=== PATIENT | female | born 1965 | race Caucasian/White ===

== ENCOUNTER 2020-09-03 07:57 | Emergency (ER) | payer OTHER, MEDICAID, SELFPAY ==
[2020-09-03] VITALS (16 sets, daily range): BP systolic 116–140; BP diastolic 66–81; PULSE 88–110; RESP 10–20; TEMP 37.1; O2SAT 92–97; BMI 30.7
--- NOTE | 2020-09-03 08:27 | ED.GENADULT ---
HPI - General Adult General Chief complaint: Weakness Stated complaint: Weakness Time Seen by Provider: 09/03/20 08:02 Source: patient and EMS Mode of arrival: EMS Limitations: no limitations History of Present Illness HPI narrative: 54-year-old woman with complex medical history including opioid use disorder (currently in remission, opioid free and on Suboxone for a number of years), methamphetamine use disorder, multiple abscesses. History of necrotizing fasciitis in the right shoulder, chronic left foot and ankle problems after a trauma with chronic deformity requiring lift and brace. Has apparently been at [facility] with a diagnosis of endocarditis from the end of July with anticipated stay through September. She has been complaining of increased edema, upper and lower extremities. She complains of dyspnea, no chest pain, no palpitations. Reportedly had a ELIZABETH done yesterday and was told that she did not have endocarditis. It sounds like she got into some type of altercation with her hospitalist yesterday afternoon and she was discharged home with a prescription for doxycycline. She states that she went home and has been increasingly weak and was unable to even stand unassisted or dress herself this morning due to weakness. She describes no fevers, chills, vomiting, diarrhea. She does note that she had a severe nose bleed last night (not complaining of either hematuria or GI bleeding of any type) which is new for her. She was started on Xarelto in the hospital. She states that she ?hurts everywhere? complains of headache generalized abdominal pain, extremity pain and all joint pain. Records from [facility], [place] have been requested Record review: admitted 08/15 with deep tissue infection right upper extremity and concern for necrotizing fasciitis Was taken to the operating room with the wound I indeed, possibility of endocarditis was entertained with a single positive blood culture and question of a vegetative lesion appreciated on transthoracic echo. She continued to complain of left foot and leg pain. This was thoroughly evaluated with multiple MRI studies that did not show infection. There is a question of a chronic nonocclusive DVT so she was started on Xarelto. Transesophageal echo done yesterday after 2 weeks of IV antibiotics did not suggest vegetative lesions on the valves. After 2 weeks of IV antibiotics and now less likely possibility of active endocarditis, and in consultation with Infectious Disease, it was felt to be appropriate to discontinue IV antibiotics and continue 2 weeks of oral antibiotics, 100 mg of doxycycline. Medications to continue include Xarelto for an additional month, doxycycline for 2 additional weeks, continue her chronic gabapentin, 20 mg of Suboxone, trazodone. They did recommend stopping her lisinopril. She also has lidocaine patches for both arm and leg pain. Related Data Previous Rx's Medication Instructions Recorded furosemide 40 mg PO DAILY #60 tab 09/03/20 potassium chloride 10 meq PO DAILY #30 cap 09/03/20 Allergies Allergy/AdvReac Type Severity Reaction Status Date / Time No Known Drug Allergies Allergy Verified 09/03/20 08:12 Review of Systems Review of Systems Narrative: Remainder of review of systems including constitutional, ENT, cardiovascular, respiratory, GI, , musculoskeletal, skin, neurologic and psychiatric systems reviewed and are unremarkable except as noted in HPI. Patient History Medical History (Updated 09/03/20 @ 15:45 by Trisha Mims MD) Abscess of multiple sites History of necrotizing fasciitis Methamphetamine use disorder, severe Opioid use disorder Social History Smoking Status: Current some day smoker Smoking Status: Current some day smoker tobacco type: cigarettes alcohol intake frequency: 0-2 drinks per day Substance Use Type: methamphetamine Exam Narrative Exam Narrative: General: Chronically ill-appearing, generally weak but Able to give a complete and coherent history. HEENT: Moist mucous membranes, normal sclera with reactive pupils, Neck: Mild JVD, supple Respiratory: Lungs are clear to auscultation, no wheezing no rales no rhonchi. Full and symmetrical air movement Cardiac: Distant heart sounds, Regular rate and rhythm no murmurs no bruits Abdomen: Soft, nontender good bowel tones, no flank pain Skin: Warm and dry, multiple scars from prior abscesses, track jeff. Area over the right deltoid (prior scar) with mild central erythema but no surrounding cellulitis. Neurologic: Grossly neurologically intact with no obvious asymmetries or abnormalities, globally weak Extremities: No trauma, well perfused. Significant upper and lower extremity peripheral edema. Compression socks are removed from lower extremities with moderate edema appreciated, bilateral chronic venous stasis changes without obvious cellulitis. Left foot deformity. Psych: Cooperative, frustrated and confused with discharge last night when she felt like she was not improving Initial Vital Signs Initial Vital Signs: Vital Signs Pulse Rate 108 H 09/03/20 08:09 Respiratory Rate 19 09/03/20 08:09 Pulse Oximetry 97 09/03/20 08:09 Course Orders Ordered: ED Orders 09/03/20 08:40 Complete Blood Count AUTO DIFF Stat Comprehensive Metabolic Panel Stat Magnesium Stat NT-proBNP (BNP-Adult 18+) Stat Procalcitonin Stat Troponin I Stat 09/03/20 09:41 Urinalysis and Microscopic Stat Urine Drug Screen, Rapid Stat Discontinued Medications Buprenorphine/Naloxone (Buprenorphine/Naloxone 8mg/2mg 1 Tab) 2 tab SL NOW ONE Stop: 09/03/20 08:20 Last Admin: 09/03/20 08:28 Dose: 2 tab Documented by: BEN Furosemide (Furosemide 40 Mg Tablet) 80 mg PO NOW ONE Stop: 09/03/20 08:19 Last Admin: 09/03/20 08:28 Dose: 80 mg Documented by: BEN Vital Signs Vital signs: Vital Signs - 8 hr 09/03/20 08:09 09/03/20 08:12 09/03/20 08:30 Temperature 98.7 F Pulse Rate 108 H 110 H 102 H Respiratory Rate 19 20 13 Blood Pressure 140/81 138/74 Pulse Oximetry 97 97 94 09/03/20 09:00 09/03/20 09:30 09/03/20 10:00 Temperature Pulse Rate 99 H 96 H 93 H Respiratory Rate 12 12 10 L Blood Pressure 128/72 131/73 116/66 Pulse Oximetry 96 94 09/03/20 10:30 09/03/20 11:00 09/03/20 11:36 Temperature Pulse Rate 94 H 95 H 95 H Respiratory Rate 11 L 11 L 13 Blood Pressure 128/67 133/78 126/68 Pulse Oximetry 95 93 96 09/03/20 12:00 09/03/20 12:30 09/03/20 13:00 Temperature Pulse Rate 93 H 88 89 Respiratory Rate Blood Pressure Pulse Oximetry 92 09/03/20 13:30 09/03/20 13:31 09/03/20 14:15 Temperature Pulse Rate 89 88 Respiratory Rate 14 Blood Pressure Pulse Oximetry 93 09/03/20 15:00 Temperature Pulse Rate 91 H Respiratory Rate 17 Blood Pressure Pulse Oximetry Medical Decision Making Medical Records Medical records reviewed: Yes I reviewed the patient's medical records. Lab Data Lab results reviewed: Yes I reviewed the patient's lab results. Result diagrams: 09/03/20 08:40 09/03/20 08:40 Labs: Lab Results 09/03/20 09/03/20 09/03/20 Range/Units 08:40 08:40 08:40 WBC (4.5-11.0) X10^3/uL RBC (4.0-5.2) X10^6/uL Hgb (12.0-16.0) g/dL Hct (36-46) % MCV (80-100) fL MCH (26-34) PG MCHC (30-36) % RDW (11.6-14.8) % Plt Count (150-400) X10^3/uL Neut % (Auto) (50-75) % Lymph % (Auto) (25-40) % Crowley % (Auto) (3-14) % Eos % (Auto) (2-4) % Baso % (Auto) (0-2) % Neut # (Auto) (3714-8482) /uL Lymph # (Auto) (3071-2937) /uL Crowley # (Auto) (0-900) /uL Eos # (Auto) (0-450) /uL Baso # (Auto) (0-100) /uL Sodium 137 (137-145) mmol/L Potassium 3.9 (3.4-5.1) mmol/L Chloride 100 (98-107) mmol/L Carbon Dioxide 33 H (22-32) mmol/L BUN 33 H (7-17) mg/dL Creatinine 1.12 H (0.52-1.04) mg/dL Estimated GFR 50.9 L (>60) mL/min BUN/Creatinine Ratio 29.5 H (6-22) Glucose 206 H (70-100) mg/dL Calcium 8.9 (8.4-10.2) mg/dL Magnesium 1.5 L (1.6-2.3) mg/dL Total Bilirubin 0.2 (0.2-1.3) mg/dL AST 30 (14-36) IU/L ALT 31 (<35) IU/L Alkaline Phosphatase 115 (38-126) U/L Troponin I < 0.012 (0.01-0.034) ng/mL NT-Pro-B Natriuret Pep 79 (<125) pg/mL Total Protein 8.2 (6.3-8.2) g/dL Albumin 3.7 (3.5-5.0) g/dL Globulin 4.5 H (1.7-4.1) g/dL Albumin/Globulin Ratio 0.8 L (1.0-2.8) Procalcitonin < 0.05 (<0.5) ng/mL Urine Color Urine Appearance Urine pH (4.5-8.0) Ur Specific [place] (1.000-1.035) Urine Protein (Negative) Urine Glucose (UA) (Negative) g/dL Urine Ketones (NEGATIVE) Urine Occult Blood (Negative) Urine Nitrate (Negative) Urine Bilirubin (NEGATIVE) Urine Urobilinogen (0.2) E.U./dL Ur Leukocyte Esterase (NEGATIVE) Urine RBC (0-5/HPF) Urine WBC (0-5/HPF) Ur Squamous Epith Cells (0-5/HPF) Urine Bacteria (None) Ur Culture Indicated? U Opiates 300ng/mL cut (Negative) Ur Oxycodone Screen (Negative) Urine Methadone Screen (Negative) Ur Barbiturates Screen (Negative) U Tricyclic Antidepress (Negative) Ur Phencyclidine Scrn (Negative) Ur Amphetamines Screen (Negative) U Methamphetamines Scrn (Negative) Ur MDMA Scrn (Ecstasy) (Negative) U Benzodiazepines Scrn (Negative) Urine Cocaine Screen (Negative) U Marijuana (THC) Screen (Negative) 09/03/20 09/03/20 09/03/20 Range/Units 08:40 09:41 09:41 WBC 6.7 (4.5-11.0) X10^3/uL RBC 3.36 L (4.0-5.2) X10^6/uL Hgb 8.4 L (12.0-16.0) g/dL Hct 26.4 L (36-46) % MCV 78.5 L (80-100) fL MCH 24.9 L (26-34) PG MCHC 31.7 (30-36) % RDW 19.5 H (11.6-14.8) % Plt Count 340 (150-400) X10^3/uL Neut % (Auto) 58.9 (50-75) % Lymph % (Auto) 19.0 L (25-40) % Crowley % (Auto) 13.7 (3-14) % Eos % (Auto) 6.8 H (2-4) % Baso % (Auto) 1.6 (0-2) % Neut # (Auto) 3900 (6767-8431) /uL Lymph # (Auto) 1300 (6093-5477) /uL Crowley # (Auto) 900 (0-900) /uL Eos # (Auto) 500 H (0-450) /uL Baso # (Auto) 100 (0-100) /uL Sodium (137-145) mmol/L Potassium (3.4-5.1) mmol/L Chloride (98-107) mmol/L Carbon Dioxide (22-32) mmol/L BUN (7-17) mg/dL Creatinine (0.52-1.04) mg/dL Estimated GFR (>60) mL/min BUN/Creatinine Ratio (6-22) Glucose (70-100) mg/dL Calcium (8.4-10.2) mg/dL Magnesium (1.6-2.3) mg/dL Total Bilirubin (0.2-1.3) mg/dL AST (14-36) IU/L ALT (<35) IU/L Alkaline Phosphatase (38-126) U/L Troponin I (0.01-0.034) ng/mL NT-Pro-B Natriuret Pep (<125) pg/mL Total Protein (6.3-8.2) g/dL Albumin (3.5-5.0) g/dL Globulin (1.7-4.1) g/dL Albumin/Globulin Ratio (1.0-2.8) Procalcitonin (<0.5) ng/mL Urine Color Yellow Urine Appearance Clear Urine pH 7.0 (4.5-8.0) Ur Specific [place] 1.015 (1.000-1.035) Urine Protein Negative (Negative) Urine Glucose (UA) Negative (Negative) g/dL Urine Ketones Negative (NEGATIVE) Urine Occult Blood Negative (Negative) Urine Nitrate Negative (Negative) Urine Bilirubin Negative (NEGATIVE) Urine Urobilinogen 0.2 (0.2) E.U./dL Ur Leukocyte Esterase Negative (NEGATIVE) Urine RBC 0-1/hpf (0-5/HPF) Urine WBC None seen (0-5/HPF) Ur Squamous Epith Cells 0-1 /hpf (0-5/HPF) Urine Bacteria None seen (None) Ur Culture Indicated? Cult not indicated U Opiates 300ng/mL cut Negative (Negative) Ur Oxycodone Screen Positive H (Negative) Urine Methadone Screen Negative (Negative) Ur Barbiturates Screen Negative (Negative) U Tricyclic Antidepress Negative (Negative) Ur Phencyclidine Scrn Negative (Negative) Ur Amphetamines Screen Negative (Negative) U Methamphetamines Scrn Positive H (Negative) Ur MDMA Scrn (Ecstasy) Negative (Negative) U Benzodiazepines Scrn Negative (Negative) Urine Cocaine Screen Negative (Negative) U Marijuana (THC) Screen Positive H (Negative) MDM Narrative Medical decision making narrative: 54-year-old woman with significant medical history discharge from [facility] yesterday. Had been expecting to stay for 6 weeks with an initial diagnosis of endocarditis. At 2 weeks transesophageal echo was done or and revealed no endocardial lesion. Infectious Disease recommended only 2 weeks of IV antibiotics for the I&D abscess of the upper right arm and 2 weeks of doxycycline. She had an altercation with the hospitalist yesterday and requested a new doctor. He discharged her and did not fully explain all of her diagnoses in a way that she was able to understand. She comes in today complaining of weakness. There is no evidence of severe heart failure, sepsis, overall infection, liver failure or renal failure. She does note that she did use a ?small amount? of methamphetamine on her way home from the hospital yesterday but has not used again. We had a long discussion about congestive heart failure. Her left Ventricular ejection fraction is 50% (transthoracic echocardiogram initially had better ejection fraction at 68%). She does have complaints of exertional dyspnea however chest x-ray does not show severe fluid overload. She has got some mild exertional wheeze but no wheeze or crackles when at rest. Oxygen saturations remain in the upper 90% range. She is not tachycardic on arrival. She responded nicely to 80 mg of oral Lasix with a large volume of urine output. Reviewed findings and recommendations. At this point she has no primary care physician but will need follow-up from her hospital stay. She will need further evaluation to make sure all of the infectious disease etiologies are improving. She will need renal function evaluation to make sure that the Lasix and potassium are at appropriate doses, she will need re-evaluation for her congestive heart failure. Because her creatinine had increased slightly while in the hospital they had recommended that she discontinue her OTM-inhibitor. Blood sugars were also slightly elevated and will need follow-up. She is given the phone number for [facility] health resource efficiency manager to help arrange for primary care follow-up within 1-2 weeks. We did contact a cab to help her get home however her 1st request [place] the [place] 2nd request was to be taken to a pot store. Let her know that the cab would want to take her directly home and she became quite angry and verbally abusive to staff sating it was not ?any their business where the cab took her?. We simply explained the cab may not be willing to take her to locations other than her home. Patient remains angry and frustrated and feels that nobody has explained her diagnoses and is convinced that she is going to soon. I spent easily 30 minutes and trying to review all of the diagnoses recently and reassure her that she does have some control but that also means stopping her methamphetamine use and avoiding any additional injection drug use of any kind. She remains angry, distrustful and frustrated overall that she does not feel better. Discharge Plan Departure Patient Disposition: Home Clinical Impression: Weakness Congestive heart failure Qualifiers: Heart failure type: diastolic Heart failure chronicity: chronic Qualified Code(s): I50.32 - Chronic diastolic (congestive) heart failure Instructions: DI for Heart Failure Activity Restrictions/Additional Instructions: I am so sorry that your interactions with the medical community have been so frustrating You do in fact have congestive heart failure. I am sending you home with prescriptions for Lasix/furosemide and recommending that you take 40 mg daily. With this you will also need to take 10 mEq of potassium daily Please contact [facility] a health resource efficiency manager at [phone] you will need outpatient follow-up in 1-2 weeks for Your recent stay at [facility] with the abscess in the right arm Congestive heart failure Fluid overload Global weakness and deconditioning Elevated blood sugars Elevated blood pressures Overall renal function They put you on Xarelto because of concerns for a partial deep vein thrombosis in your left leg that is not occluding blood flow Please complete 2 additional weeks of doxycycline as prescribed from hospital and an additional month of Xarelto I have given you a prescription for the Lasix and potassium Please continue your gabapentin and Suboxone as prescribed prior to admission to the hospital You do have control over your health and you can make a difference in how well you heal. Given your body all of the medicines that it needs and making sure that your staying away from toxins that are killing it (like methamphetamine) will help you live longer and healthier life Prescriptions: New furosemide 20 mg tablet 40 mg PO DAILY Qty: 60 RF: 0 potassium chloride 10 mEq capsule, extended release 10 meq PO DAILY Qty: 30 RF: 0
[2020-09-03] MEDS: BUPRENORPHINE/NALOXONE 8MG/2MG 1 TAB 2 TAB SL (08:28)
[2020-09-03] MEDS: FUROSEMIDE 40 MG TABLET 80 MG PO (08:28)
[2020-09-03 08:59] LABS: Alanine Aminotransferase 31 IU/L (<35); Albumin 3.7 g/dL (3.5-5.0); Albumin Globulin Ratio 0.8 (1.0-2.8); Alkaline Phosphatase 115 U/L (38-126); Aspartate Aminotransferase 30 IU/L (14-36); BUN Creatinine Ratio 29.5 (6-22); Bilirubin Total 0.2 mg/dL (0.2-1.3); Blood Urea Nitrogen 33 mg/dL (7-17); Calcium 8.9 mg/dL (8.4-10.2); Carbon Dioxide 33 mmol/L (22-32); Chloride 100 mmol/L (98-107); Estimated Glomerular Filt Rate 50.9 mL/min (>60); Globulin 4.5 g/dL (1.7-4.1); Glucose 206 mg/dL (70-100); HEMOLYSIS < 15 (0-50); Magnesium 1.5 mg/dL (1.6-2.3); Potassium 3.9 mmol/L (3.4-5.1); Sodium 137 mmol/L (137-145); Total Protein 8.2 g/dL (6.3-8.2)
[2020-09-03 09:08] LABS: NT-proBNP (BNP-Adult 18+) 79 pg/mL (<125)
[2020-09-03 09:11] LABS: Troponin I < 0.012 ng/mL (0.01-0.034)
[2020-09-03 09:15] LABS: Procalcitonin < 0.05 ng/mL (<0.5)
[2020-09-03 09:45] LABS: Bacteria Urine None Seen; WBC Urine None Seen (0-5/HPF)
[2020-09-03 09:49] LABS: Appearance Urine UA CLEAR; Bilirubin Urine UA NEGATIVE (NEGATIVE); Color Urine UA YELLOW; Glucose Urine UA NEGATIVE (Negative); Ketones Urine UA NEGATIVE (NEGATIVE); Leukocyte Esterase Urine UA NEGATIVE (NEGATIVE); Nitrite Urine UA NEGATIVE (Negative); Occult Blood Urine UA NEGATIVE (Negative); Protein Urine UA NEGATIVE (Negative); Specific Gravity Urine UA 1.015 (1.000-1.035); Urobilinogen Urine UA 0.2 E.U./dL (0.2)
[2020-09-03 09:54] LABS: UR Morphine/Opiate cutoff 300 Negative (Negative); Ur Creatinine Normal (Normal); Ur Specific Gravity Normal (Normal); Urine Amphetamines Negative (Negative); Urine Barbiturates Negative (Negative); Urine Benzodiazepines Negative (Negative); Urine Cocaine Negative (Negative); Urine MDMA Negative (Negative); Urine Methadone Negative (Negative); Urine Methamphetamines Positive (Negative); Urine Oxycodone Positive (Negative); Urine Phencyclidine Negative (Negative); Urine Tetrahydrocannabinol Positive (Negative); Urine Tricyclic Antidepressant Negative (Negative); Urine pH Normal (Normal)
[2020-09-03 09:56] LABS: Culture Indicated Urine Cult Not Indicated; RBC Urine 0-1/HPF (0-5/HPF); Squamous Epithelial Cell Urine 0-1 /HPF (0-5/HPF)
[2020-09-03 13:21] LABS: Add Manual Diff / Slide Review NO; Basophils Absolute Auto 100 /uL (0-100); Basophils Percent Auto 1.6 % (0-2); Eosinophils Absolute Auto 500 /uL (0-450); Eosinophils Percent Auto 6.8 % (2-4); Hematocrit 26.4 % (36-46); Hemoglobin 8.4 g/dL (12.0-16.0); Lymphocytes Absolute Auto 1300 /uL (1100-4500); Mean Corpuscular HGB Conc 31.7 % (30-36); Mean Corpuscular Hemoglobin 24.9 PG (26-34); Mean Corpuscular Volume 78.5 fL (80-100); Monocytes Absolute Auto 900 /uL (0-900); Monocytes Percent Auto 13.7 % (3-14); Neutrophils Absolute Auto 3900 /uL (1500-7000); Neutrophils Percent Auto 58.9 % (50-75); Platelet Count 340 X10^3/uL (150-400); Red Blood Cell Count 3.36 X10^6/uL (4.0-5.2); Red Cell Distribution Width 19.5 % (11.6-14.8); White Blood Cell Count 6.7 X10^3/uL (4.5-11.0)
== END 2020-09-03 16:07 | disposition home or self-care (01) ==
PROVIDERS: Emergency Provider Emergency Medicine
DX: I50.32 Chronic diastolic (congestive) heart failure (principal); R53.1 Weakness; R06.00 Dyspnea, unspecified; Z79.01 Long term (current) use of anticoagulants; R51.9 Headache, unspecified; R10.84 Generalized abdominal pain; M72.6 Necrotizing fasciitis; R60.0 Localized edema
CPT/HCPCS: 80053; 80305; 81001; 83735; 83880; 84145; 84484; 85025; 99281; 99283

== ENCOUNTER 2022-02-19 20:26 | Observation (INO) | payer OTHER, MEDICAID, SELFPAY ==
[2022-02-19 20:53] VITALS: BP 129/68; PULSE 98; RESP 24; TEMP 36.9; O2SAT 99
--- NOTE | 2022-02-19 21:48 | DI.RAD.S_ITS ---
PROCEDURE: XR CHEST 1V INDICATIONS: SUSPECTED SEPSIS TECHNIQUE: One view of the chest was acquired. COMPARISON: None. FINDINGS: Surgical changes and devices: None. Lungs and pleura: Lungs are clear. No pleural effusions or pneumothorax. Mediastinum: Mediastinal contours appear normal. Heart size is normal. Bones and chest wall: No suspicious bony lesions. Overlying soft tissues appear unremarkable. IMPRESSION: 1. No acute cardiopulmonary disease. Dictated by: Gerson Farah M.D. on 02/19/2022 at 22:34 Approved by: Gerson Farah M.D. on 02/19/2022 at 22:34
[2022-02-19] MEDS: SODIUM CHLORIDE 0.9% 1,000 ML 1000 ML IV (21:56)
[2022-02-19 21:59] LABS: Add Manual Diff / Slide Review NO; Basophils Absolute Auto 100 /uL (0-100); Eosinophils Absolute Auto 300 /uL (0-450); Eosinophils Percent Auto 4.2 % (2-4); Hematocrit 28.6 % (36-46); Hemoglobin 9.1 g/dL (12.0-16.0); Lymphocytes Absolute Auto 1100 /uL (1100-4500); Mean Corpuscular HGB Conc 31.7 % (30-36); Mean Corpuscular Hemoglobin 22.3 PG (26-34); Mean Corpuscular Volume 70.1 fL (80-100); Monocytes Absolute Auto 900 /uL (0-900); Monocytes Percent Auto 11.1 % (3-14); Neutrophils Absolute Auto 5400 /uL (1500-7000); Neutrophils Percent Auto 69.7 % (50-75); Platelet Count 542 X10^3/uL (150-400); Red Blood Cell Count 4.07 X10^6/uL (4.0-5.2); Red Cell Distribution Width 18.7 % (11.6-14.8); White Blood Cell Count 7.8 X10^3/uL (4.5-11.0)
[2022-02-19 22:01] LABS: Alanine Aminotransferase 13 IU/L (<35); Albumin 3.7 g/dL (3.5-5.0); Albumin Globulin Ratio 0.8 (1.0-2.8); Alkaline Phosphatase 100 U/L (38-126); Aspartate Aminotransferase 21 IU/L (14-36); BUN Creatinine Ratio 16.3 (6-22); Bilirubin Total 0.3 mg/dL (0.2-1.3); Blood Urea Nitrogen 25 mg/dL (7-17); Calcium 8.9 mg/dL (8.4-10.2); Carbon Dioxide 30 mmol/L (22-32); Chloride 97 mmol/L (98-107); Estimated Glomerular Filt Rate 40 mL/min (>60); Globulin 4.4 g/dL (1.7-4.1); Glucose 154 mg/dL (70-100); HEMOLYSIS < 15 (0-50); Lipase 46 U/L (23-300); Potassium 4.2 mmol/L (3.4-5.1); Sodium 135 mmol/L (137-145); Total Protein 8.1 g/dL (6.3-8.2)
[2022-02-19 22:02] VITALS: BP 130/81; PULSE 106; O2SAT 100
[2022-02-19 22:02] LABS: Lactate (Lactic Acid) 1.9 mmol/L (0.7-2.1)
[2022-02-19 22:18] LABS: Procalcitonin 0.11 ng/mL (<0.5)
[2022-02-19 22:30] VITALS: BP 112/61; PULSE 103; RESP 14; O2SAT 94
[2022-02-19 23:00] VITALS: BP 115/65; PULSE 104; RESP 16; O2SAT 97
[2022-02-19 23:30] VITALS: BP 112/63; PULSE 101; RESP 13; O2SAT 97
[2022-02-20] VITALS (15 sets, daily range): BP systolic 89–132; BP diastolic 53–76; PULSE 88–111; RESP 12–23; TEMP 36.3–37.4; O2SAT 95–98; BMI 33.3
--- NOTE | 2022-02-20 00:10 | ED.EXTPRO ---
HPI - Extremity Problem General Chief complaint: Extremity Problem,Nontraumatic Stated complaint: LEG ISSUES NECK PAIN Time Seen by Provider: 02/19/22 21:11 Source: patient Mode of arrival: Ambulatory History of Present Illness HPI Narrative: 56-year-old woman with a history of opiate and methamphetamine use disorder, congestive heart failure sensitivity to vancomycin with red man syndrome, chronic left ankle injury with poor healing, housing instability and chronic venous stasis changes lower extremity edema and intermittent ulcers of the lower extremities with cellulitis as well as multiple abscesses presents with an abscess the mid right thigh that she ?poked with a pin? that has been draining nicely and has minimal surrounding erythema at this point. She has dressings over bilateral lower extremities with purulence drainage from the ulcers and dressings with green discharge smelling of Pseudomonas. The pain in the lower extremities is enough that she is unable to walk at this time. She is not describing significant fevers or chills but she does note significant weakness. She has been intermittently on and off Suboxone and was restarted on Suboxone about a week and half ago but never filled her prescription She notes that she has been resorting to recreational opioids because the pain is been severe in the lower extremities. She states she uses at least half a g of IV heroin and 4-6 of the ?Blues? which is fentanyl Related Data Previous Rx's Medication Instructions Recorded furosemide 20 mg tablet 40 mg PO DAILY #60 tab 09/03/20 potassium chloride 10 mEq 10 meq PO DAILY #30 cap 09/03/20 capsule,extended release Allergies Allergy/AdvReac Type Severity Reaction Status Date / Time No Known Drug Allergies Allergy Verified 09/03/20 08:12 Review of Systems Review of Systems Narrative: Increased lower extremity edema, increased overall pain, significant opioid withdrawal symptoms as opioid dosing wears off, intermittent headaches Remainder of complete review of systems is otherwise unremarkable except for that included in the HPI. Patient History Medical History (Updated 02/20/22 @ 02:40 by Trisha Mims MD) Abscess of multiple sites History of necrotizing fasciitis Methamphetamine use disorder, severe Opioid use disorder Social History Smoking Status: Current some day smoker Smoking Status: Current some day smoker tobacco type: cigarettes alcohol intake frequency: 0-2 drinks per day Substance Use Type: methamphetamine Exam Initial Vital Signs Initial Vital Signs: Vital Signs Temperature 98.4 F 02/19/22 20:53 Pulse Rate 98 H 02/19/22 20:53 Respiratory Rate 24 02/19/22 20:53 Blood Pressure 129/68 02/19/22 20:53 Pulse Oximetry 99 02/19/22 20:53 General: Chronically ill-appearing but in no acute distress. Able to give a complete and coherent history. Well-nourished well-developed HEENT: Moist mucous membranes, normal sclera with reactive pupils, Neck: No JVD, supple Respiratory: Lungs are clear to auscultation, scattered minor wheezing no rales no rhonchi. Full and symmetrical air movement Cardiac: Tachycardic but otherwiseRegular rate and rhythm no murmurs no bruits Abdomen: Soft, nontender, good bowel tones, no flank pain Skin: Multiple scars, track jeff, prior healed abscess sites. Recently drained abscess lateral right thigh with some surrounding induration but no fluctuance. Bilateral chronic venous stasis changes with chronic lower extremity edema. The minor amount of excoriated skin over the left ankle with minor drainage bluish in color with significant odor. Significantly worse excoriation over the right calf and ankle with large developing ulcer again weeping with greenish discharge on the dressings and significant odor. Neurologic: Peripheral neuropathy Extremities: Hyperemic hands consistent with methamphetamine use and outdoor in living, significant onychomycosis, chronically misshapen left ankle from poorly healed prior fracture Psych: Cooperative, appropriate insight and affect Course Orders Ordered: ED Orders 02/19/22 21:20 Blood Culture Stat 02/19/22 21:23 Complete Blood Count AUTO DIFF Stat Comprehensive Metabolic Panel Stat Lactate (Lactic Acid) Stat Lipase Stat Procalcitonin Stat 02/19/22 21:48 XR chest 1V Stat EKG-12 Lead Stat RT Consult Eval and Treat NOW 02/20/22 00:37 Wound Culture and Gram Stain Stat 02/20/22 02:42 COVID19 -Nasal RAPID/Pre-Proc Stat Vancomycin HCl/Dextrose (Vancomycin) 2,000 mg in 400 mls @ 200 mls/hr IV NOW [facility] Methadone HCl (Methadone 10 Mg Tablet) 20 mg PO QID BHARATI Last Admin: 02/20/22 02:40 Dose: 20 mg Documented by: Discontinued Medications Gabapentin (Gabapentin 300 Mg Capsule) 300 mg PO NOW ONE Stop: 02/20/22 02:26 Last Admin: 02/20/22 02:34 Dose: 300 mg Documented by: Sodium Chloride (Normal Saline 0.9%) 1,000 mls @ 1,000 mls/hr IV BOLUS ONE Stop: 02/19/22 22:47 Last Infusion: 02/20/22 00:16 Dose: 0 mls/hr Documented by: Admin: 02/19/22 21:56 Dose: 1,000 mls/hr Documented by: BRITTANI Piperacillin Sod/Tazobactam (Sod 4.5 gm/ Sodium Chloride) 100 mls @ 200 mls/hr IV NOW ONE Stop: 02/20/22 00:22 Last Infusion: 02/20/22 01:26 Dose: 0 mls/hr Documented by: Admin: 02/20/22 00:29 Dose: 200 mls/hr Documented by: WALKER Silver Sulfadiazine (Silver Sulfadiazine 1% Cream 400 Gm) 1 applic TOP NOW ONE Stop: 02/20/22 02:26 Last Admin: 02/20/22 02:33 Dose: 1 applic Documented by: Trazodone HCl (Trazodone 100 Mg Tablet) 100 mg PO NOW ONE Stop: 02/20/22 02:27 Last Admin: 02/20/22 02:40 Dose: 100 mg Documented by: Vancomycin HCl (Vancomycin Per Pharmacy) 1 request MISC NOW ONE Stop: 02/20/22 00:22 Last Admin: 02/20/22 00:41 Dose: Not Given Documented by: WALKER Vital Signs Vital signs: Vital Signs - 8 hr 02/19/22 20:53 02/19/22 22:02 02/19/22 22:30 Temperature 98.4 F Pulse Rate 98 H 106 H 103 H Respiratory Rate 24 14 Blood Pressure 129/68 130/81 112/61 Pulse Oximetry 99 100 94 MDM - Extremity (Nontraumatic) Lab Data Result diagrams: 02/19/22 21:23 02/19/22 21:23 Labs: Lab Results 02/19/22 02/19/22 02/19/22 Range/Units 21:23 21:23 21:23 WBC 7.8 (4.5-11.0) X10^3/uL RBC 4.07 (4.0-5.2) X10^6/uL Hgb 9.1 L (12.0-16.0) g/dL Hct 28.6 L (36-46) % MCV 70.1 L (80-100) fL MCH 22.3 L (26-34) PG MCHC 31.7 (30-36) % RDW 18.7 H (11.6-14.8) % Plt Count 542 H (150-400) X10^3/uL Neut % (Auto) 69.7 (50-75) % Lymph % (Auto) 14.0 L (25-40) % Ward % (Auto) 11.1 (3-14) % Eos % (Auto) 4.2 H (2-4) % Baso % (Auto) 1.0 (0-2) % Neut # (Auto) 5400 (7328-2464) /uL Lymph # (Auto) 1100 (6298-3282) /uL Ward # (Auto) 900 (0-900) /uL Eos # (Auto) 300 (0-450) /uL Baso # (Auto) 100 (0-100) /uL Sodium 135 L (137-145) mmol/L Potassium 4.2 (3.4-5.1) mmol/L Chloride 97 L (98-107) mmol/L Carbon Dioxide 30 (22-32) mmol/L BUN 25 H (7-17) mg/dL Creatinine 1.53 H (0.52-1.04) mg/dL Estimated GFR 40 L (>60) mL/min BUN/Creatinine Ratio 16.3 (6-22) Glucose 154 H (70-100) mg/dL Lactate 1.9 (0.7-2.1) mmol/L Calcium 8.9 (8.4-10.2) mg/dL Total Bilirubin 0.3 (0.2-1.3) mg/dL AST 21 (14-36) IU/L ALT 13 (<35) IU/L Alkaline Phosphatase 100 (38-126) U/L Total Protein 8.1 (6.3-8.2) g/dL Albumin 3.7 (3.5-5.0) g/dL Globulin 4.4 H (1.7-4.1) g/dL Albumin/Globulin Ratio 0.8 L (1.0-2.8) Lipase 46 (23-300) U/L Procalcitonin 0.11 (<0.5) ng/mL Point of Care Testing Test Results Negative Urine Dip Bedside Urine Glucose Negative Bedside Urine Bilirubin - Negative Bedside Urine Ketone - Negative Urine Specific Mallard 1.015 Bedside Urine Occult Blood - Negative Bedside Urine pH 6 Bedside Urine Protein - Negative Bedside Urine Urobilinogen - Negative Bedside Urine Nitrite - Negative Bedside Urine Leukocytes - Negative Esterase ECG Data Interpretation: Sinus tachycardia at 104 Normal interval, normal axis No acute ischemic changes MDM Narrative Medical decision making narrative: 56-year-old woman with a long history of polysubstance use disorder most recently return to use with both heroin and fentanyl and the form of Street purchased ?Blues?. Total morphine equivalent on a daily basis is going to be in the 600+ range. We discussed pain treatment for her as well as opiate use disorder treatment. To switch her to Suboxone which is her preferred method for outpatient use will not be able to adequately control her pain. She has been on methadone in the past and would prefer this and I think this will be more effective dose to q.i.d. for both withdrawal and pain control. In the past she has been as high as 140 mg of methadone. Her dose equivalent see based on reported heroin and fentanyl use is going to be around 60-80 mg of methadone divided 4 times a day simply for avoiding withdrawal symptoms. Will suggest starting with 20 mg 4 times a day for both withdrawal and pain and re-evaluate. Antibiotics initiated include Zosyn. clincial presentation (color of dressing, and smell) all suggest pseudomonas. She has severe adverse reactions to vancomycin typically needs it run at at least a 3rd the rate and still has flushing and itching with that rate. She Would prefer not to use vancomycin at this time. Wound cultures have been obtained. Labs do not suggest sepsis, acute coronary syndrome or congestive heart failure at this point. I think bedrest with leg elevation to help with the chronic edema as well as IV antibiotics will be beneficial. Currently the superficial ulceration and cellulitis of both lower extremities does not suggest deeper tissue infection/osteomyelitis and the thigh abscess has drained and does not need additional I and D at this time. She does agree to hospitalization. Will talk with the hospitalist service. Discharge Plan Departure Patient Disposition: Admitted As Inpatient Clinical Impression: Opioid use disorder, Methamphetamine use disorder, severe, Peripheral neuropathy, Lower extremity edema Cellulitis Qualifiers: Site of cellulitis: extremity Site of cellulitis of extremity: lower extremity Laterality: right Qualified Code(s): L03.115 - Cellulitis of right lower limb
[2022-02-20] MEDS: PIPERACILLIN/TAZO 4.5 GM in SODIUM CHLORIDE 0.9% 100 ML IV (00:29)
--- NOTE | 2022-02-20 00:39 | PC.NURSE ---
Pt states that the last time she recieved Vanc she got red man syndrome and it sent her into heart failure. Pt is requesting to speak with Dr. Mims before starting Vanc. Dr. Mims stated to hold Vanc for now.
[2022-02-20] MEDS: SILVER SULFADIAZINE 1% CREAM 400 GM 1 APPLIC TOP (02:33)
[2022-02-20] MEDS: GABAPENTIN 300 MG CAPSULE PO ×4 (02:34→21:41)
[2022-02-20] MEDS: METHADONE 10 MG TABLET 20 MG PO ×4 (02:40→21:41)
[2022-02-20] MEDS: TRAZODONE 100 MG TABLET PO (02:40)
--- NOTE | 2022-02-20 02:46 | PC.NURSE ---
Pt given food and fluids with MD permission
[2022-02-20 03:03] LABS: COVID19 -Nasal RAPID Negative (Negative)
--- NOTE | 2022-02-20 03:17 | PC.NURSE ---
Garrison lower legs covered with Silvadine cream and kurlex per Dr. Mims's request
--- NOTE | 2022-02-20 05:42 | P.HP_ITS ---
History of Present Illness History of Present Illness Date Patient Seen: 02/20/22 Time Patient Seen: 05:00 Chief complaint: LEG ISSUES NECK PAIN Narrative: Ms. Yao is a 56W with PMH heroin/meth abuse,documented CHF, chronic left ankle injury, unstable housing who presents with leg pain. She notes she has had pain issues with her legs for at least 8 months. She is somewhat lethargic and tangential. Last heroin use was yesterday. She states she gets most of her care in [facility]. She sees a wound clinic there for chronic leg ulcers. She last saw a medical provider about six weeks ago for question for her legs. She has noted worsening pain in her legs. She developed an ulcer in her right thigh which she poked with a sharp object to get it to drain. She has not had any fevers. Her pain has worsened to the point she has difficulty with walking. She has been intermittently taking Suboxone for the past 5 years, but more recently has resorted to opiates due to her severe pain, she uses IV heroin and perc 30s (blues) for her pain. She has had possible red man syndrome from vancomycin. In the ED workup was done, vitals notable for slight tachycardia. Labs notable for WBC 7.8, hgb 9.1, plts 542, BUN 25, creatinine 1.53. Lactate 1.9. Procalcitonin 0.11. UA negative. She was ordered for IV zosyn and methadone and admitted for further treatment. Family history: she denies any significant medical problems in family Patient History Medical History Abscess of multiple sites History of necrotizing fasciitis Methamphetamine use disorder, severe Opioid use disorder Family & Social History Social History: household members none Prior Living Arrangements House Tobacco & Substance use: Smoking Status Current some day smoker alcohol intake frequency 0-2 drinks per day Substance Use Type methamphetamine Meds Home Medications and Allergies Home Medications Medication Instructions Recorded Confirmed Type furosemide 20 mg tablet 40 mg PO DAILY #60 tab 09/03/20 Rx potassium chloride 10 mEq 10 meq PO DAILY #30 cap 09/03/20 Rx capsule,extended release Allergies Allergy/AdvReac Type Severity Reaction Status Date / Time No Known Drug Allergies Allergy Verified 09/03/20 08:12 Review of Systems Review of Systems Narrative: 14 systems reviewed and negative aside from what is noted in HPI Exam Vital Signs (past 8 hours): - 02/19/22 22:02 02/19/22 22:30 02/19/22 23:00 Temperature Pulse Rate 106 H 103 H 104 H Respiratory Rate 14 16 Blood Pressure 130/81 112/61 115/65 Pulse Oximetry 100 94 97 02/19/22 23:30 02/20/22 00:00 02/20/22 00:30 Temperature Pulse Rate 101 H 98 H 100 H Respiratory Rate 13 15 19 Blood Pressure 112/63 113/66 Pulse Oximetry 97 95 97 02/20/22 00:31 02/20/22 01:00 02/20/22 01:30 Temperature Pulse Rate 101 H 99 H 103 H Respiratory Rate 22 23 19 Blood Pressure 132/75 108/66 119/71 Pulse Oximetry 98 95 95 02/20/22 02:00 02/20/22 02:30 02/20/22 03:00 Temperature Pulse Rate 104 H 103 H 101 H Respiratory Rate 17 16 Blood Pressure 114/56 L 110/59 L Pulse Oximetry 95 02/20/22 03:30 02/20/22 04:41 Temperature 98.0 F Pulse Rate 101 H 95 H Respiratory Rate 12 14 Blood Pressure 107/58 L 112/71 Pulse Oximetry 96 Oxygen Delivery Method Room Air Narrative Exam Narrative: GEN: chronically ill appearing, no acute distress HEENT: moist mucous membranes, PERRL NECK: trachea midline, no JVD CV: regular rate and rhyhtm, no murmurs PULM: clear bilaterally, no wheezes, rhonchi rales SKIN: right lateral thigh swelling, redness, large ulcer foul smelling on right lateral ankle and up leg, has track jeff on skin EXT: legs are swollen bilaterally, tender to palpation, left leg with chronic deformed ankle from old fracture NEURO: lethargic, no focal deficits Objective Labs Result Diagrams: 02/19/22 21:23 02/19/22 21:23 Labs: Laboratory Results - last 24 hr 02/19/22 02/19/22 02/19/22 21:23 21:23 21:23 WBC 7.8 RBC 4.07 Hgb 9.1 L Hct 28.6 L MCV 70.1 L MCH 22.3 L MCHC 31.7 RDW 18.7 H Plt Count 542 H Neut % (Auto) 69.7 Lymph % (Auto) 14.0 L Stewart % (Auto) 11.1 Eos % (Auto) 4.2 H Baso % (Auto) 1.0 Neut # (Auto) 5400 Lymph # (Auto) 1100 Stewart # (Auto) 900 Eos # (Auto) 300 Baso # (Auto) 100 Sodium 135 L Potassium 4.2 Chloride 97 L Carbon Dioxide 30 BUN 25 H Creatinine 1.53 H Estimated GFR 40 L BUN/Creatinine Ratio 16.3 Glucose 154 H Lactate 1.9 Calcium 8.9 Total Bilirubin 0.3 AST 21 ALT 13 Alkaline Phosphatase 100 Total Protein 8.1 Albumin 3.7 Globulin 4.4 H Albumin/Globulin Ratio 0.8 L Lipase 46 Procalcitonin 0.11 SARS-CoV-2 (PCR) 02/20/22 02:42 WBC RBC Hgb Hct MCV MCH MCHC RDW Plt Count Neut % (Auto) Lymph % (Auto) Stewart % (Auto) Eos % (Auto) Baso % (Auto) Neut # (Auto) Lymph # (Auto) Stewart # (Auto) Eos # (Auto) Baso # (Auto) Sodium Potassium Chloride Carbon Dioxide BUN Creatinine Estimated GFR BUN/Creatinine Ratio Glucose Lactate Calcium Total Bilirubin AST ALT Alkaline Phosphatase Total Protein Albumin Globulin Albumin/Globulin Ratio Lipase Procalcitonin SARS-CoV-2 (PCR) Negative Assessment & Plan Assessment & Plan narrative: Ms. Yao is a 56W with H opiate abuse, chronic leg wounds who presents with leg pain and cellulitis. 1. Acute cellulitis on chronic leg wounds -continue with IV antibiotics with daptomycin, and zosyn -daptomycin ordered for possible MRSA, has had red man syndrome to vancomycin -order MRSA nasal swab -follow up wound culture and blood culture -procalcitonin and white count negative -ordered for ESR/CRP, if markedly elevated could consider imaging her legs -will likely need PT eval once pain is better controlled 2. Possible history of CHF -has documented history of CHF -no respiratory distress -has edematous legs, which may be secondary to CHF vs venous stasis -ordered BNP -ordered low dose lasix -check ECHO given history of meth use 3. Opiate abuse, methamphetamine abuse -has previously been on suboxone, but has stopped recently in setting of opiate abuse -for now order methadone, and uptitrate to prevent withdrawal and for better pain control -is somewhat lethargic after 20mg methadone, for now continue methadone at 10mg BID and increase as needed -narcan prn ordered if patient becomes altered -continue home dose gabapentin 4. Elevated creatinine -presume secondary to infection -follow creatinine closely and avoid nephrotoxins -check daily, did get IV fluid and will see if creatinine improves CODE: Full Proxy: Karthik Frey, life partner I have utilized all available resources to reconcile the patient's home medications Time Spent With Patient Critical Care time: I spent a total of [] minutes of critical care time on this patient's care today; this time is exclusive of procedural time. Quality MIPS - Admit I confirm the patient?s Advance Care Plan is present, Code status is documented, Surrogate decision maker is in patient?s record [If Yes, STOP here]: Yes
--- NOTE | 2022-02-20 05:50 | DI.ECHO.S_ITS ---
[place] [facility]---------+ [facility] +---------+ : : [address] : : : : [id number] : : : : Phone: [phone]+ Echocardiogram Report + + :Name: LAURIE RAMOS Study Date: 02/20/2022 Height: 65 in : :[facility] ReadingLocation: Weight: 200 lb : : Gender: Female BSA: 2.0 m2 : :: 1965 Age: 56 yrs BP: 110/59 mmHg: :Reason For Study: CONGESTIVE HEART FAILURE, LOWER EXTREMITY : :SWELLING : :Ordering Physician: MARGARITA, : :KAREY Performed By: Lorena Sterling : :Referring: KAREY AVILA : + + Interpretation Summary The left ventricle is normal in size and wall thickness. Left ventricular ejection fraction is estimated to be 45 +/- 5%. Compared to the prior exam, the left ventricular function is reduced. Previous LVEF 55 to 60%. There is a hypokinesis of basal to mid inferior wall, basal to mid inferior septum as well as basal to mid posterior lateral wall which appears to be new. The right ventricle is normal in size and function. No significant valvular pathology seen. The IVC is of normal diameter and collapses greater than 50% with a sniff. This suggests a low right atrial pressure of 3 mm Hg. Mild atherosclerotic plaque(s) in the aortic arch. Procedure: A two-dimensional transthoracic echocardiogram with color flow and Doppler was performed. The study quality was technically adequate. Comparison is made with the echocardiogram of 04/24/2019. The patient was in sinus rhythm with heart rates between 86-94 bpm during the exam. Left Ventricle: The left ventricle is normal in size and wall thickness. There is no thrombus. Left ventricular ejection fraction is estimated to be 45 +/- 5%. Compared to the prior exam, the left ventricular function is reduced. There is a hypokinesis of basal to mid inferior wall, basal to mid inferior septum as well as basal to mid posterior lateral wall which appears to be new. Diastolic parameters suggest a relaxation abnormality of the left ventricle, consistent with probable normal filling pressures. Right Ventricle: The right ventricle is normal in size and function. Atria: The left atrial size is normal. Both atria have remained unchanged in size since the prior echo exam. Right atrial size is normal. There is no Doppler evidence for an interatrial shunt. Mitral Valve: The mitral valve leaflets appear mildly thickened, but open well. There is mild mitral annular calcification. There is trace mitral regurgitation. Aortic Valve: The aortic valve is trileaflet. There is discrete nodular thickening of the left coronary cusp. There has been no significant change since the previous study. There is no aortic valve stenosis. No aortic regurgitation is present. Tricuspid Valve: The tricuspid valve is normal in structure and function. There is trace tricuspid regurgitation. Pulmonary artery pressures cannot be estimated because of the lack of a measurable TR jet velocity. Pulmonic Valve: The pulmonic valve is not well visualized. There is trace pulmonic regurgitation. Great Vessels: The aortic root is normal size. The dimensions of the ascending aorta are normal. Mild atherosclerotic plaque(s) in the aortic arch. The IVC is of normal diameter and collapses greater than 50% with a sniff. This suggests a low right atrial pressure of 3 mm Hg. Pericardium/ Pleura There is no pericardial effusion. There is no pleural effusion. MMode/2D Measurements & Calculations LVIDd: 5.5 cm LVOT diam: 2.5 cm LVIDs: 3.9 cm Ao root diam: 3.3 cm FS: 28.5 % asc Aorta Diam: 3.5 cm IVSd: 0.74 cm Ao Arch Diam (Prox Trans): 2.9 cm LVPWd: 1.1 cm LV garrison. diameter/BSA (cm/m^2): 2.8 LV sys. diameter/BSA (cm/m^2): 2.0 LA A2 area: 22.0 cm2 RA long axis: 5.1 cm LA A4 area: 22.6 cm2 RA area: 15.9 cm2 LA length (vol): 6.4 cm RA vol: 42.0 ml LA vol: 66.3 ml RA : 21.2 ml/m2 LA vol index: 33.5 ml/m2 IVC diam: 1.6 cm RVD1 (basal): 3.6 cm RVD2 (mid): 2.8 cm TAPSE: 2.7 cm Doppler Measurements & Calculations Ao V2 max: 183.6 cm/sec LVOT Max Prabhakar: 79.2 cm/sec Ao V2 mean: 133.6 cm/sec LV V1 max P.5 mmHg Ao max P.5 mmHg LV V1 VTI: 17.6 cm Ao mean P.8 mmHg TYSHAWN(I,D): 2.4 cm2 Ao V2 VTI: 35.6 cm TYSHAWN(V,D): 2.1 cm2 sev ratio: 0.49 TYSHAWN indexed to BSA (cm^2/m^2): 1.2 MV E max prabhakar: 85.2 cm/sec PA V2 max: 104.7 cm/sec MV A max prabhakar: 100.9 cm/sec PA V2 mean: 75.5 cm/sec MV E/A: 0.84 PA mean P.4 mmHg Med Peak E' Prabhakar: 8.9 cm/sec PA pr(Accel): 39.6 mmHg E/E' med: 9.6 Lat Peak E' Prabhakar: 10.8 cm/sec E/E' lat: 7.9 E/e' average: 8.7 MV dec time: 0.21 sec SV(LVOT): 86.5 ml Reading Physician:11:15 AM
[2022-02-20] MEDS: PIPERACILLIN/TAZO 3.375 GM in SODIUM CHLORIDE 0.9% 100 ML IV ×3 (06:11→21:41)
[2022-02-20 08:49] LABS: C-Reactive Protein Quant 5.9 mg/dL (<1.0)
[2022-02-20 08:55] LABS: NT-proBNP (BNP-Adult 18+) 31 pg/mL (<125)
[2022-02-20] MEDS: FUROSEMIDE 20 MG/2 ML VIAL IV (09:02)
[2022-02-20] MEDS: HEPARIN 5,000 UNIT/ML VIAL 5000 UNIT SUBCUT ×2 (09:02→21:41)
[2022-02-20] MEDS: METHADONE 10 MG TABLET PO (09:03)
[2022-02-20 09:09] LABS: Erythrocyte Sedimentation Rate 7 MM/HR (0-20)
--- NOTE | 2022-02-20 10:56 | PC.RNWOUND ---
Patient sitting at side of bed with legs dangling, wound nurse and primary nurses in room. Patient says dressings to lower extremities cannot be removed at this time until patient's pain is more controlled, stating it will hurt so bad that I will end up leaving.
--- NOTE | 2022-02-20 11:26 | PM.PN.1 ---
Subjective Subjective Interval history: Hospitalist daily visit. Ms. Yao is a 56 y. o. Female with PMH heroin/meth abuse,documented CHF, chronic left ankle injury, unstable housing who presents with leg pain and wounds to both right and left lower extremities, right worse than left. Used heroin on day prior to presentation for pain. She gets most of her care in [facility] and has seen a wound clinic there for chronic leg ulcers. She developed an ulcer in her right thigh which she poked with a sharp object to get it to drain. Pain and anxiety not well controlled today. Discussed with patient about increasing methadone and adding ativan p.r.n. for anxiety. Exam Vital Signs (past 8 hours): - 02/20/22 03:30 02/20/22 04:41 02/20/22 08:11 Temperature 98.0 F 99.3 F Pulse Rate 101 H 95 H 100 H Respiratory Rate 12 14 16 Blood Pressure 107/58 L 112/71 89/65 L Pulse Oximetry 96 96 Oxygen Delivery Method Room Air Const General: cooperative and anxious Orientation: oriented x3 HENMT Head: normal to inspection Eyes Pupils: PERRL EOM: EOM intact bilaterally Resp Auscultation: clear to auscultation bilaterally Cardio Rate: tachycardic Rhythm: regular rhythm Heart Sounds: S1 normal and S2 normal GI Palpation: soft Skin Other: Wounds to both lower extremites, right worse than left with erythema and weeping. Right thigh wound. Extrem General: edema and pedal edema Other: Erythema distal to right knee to foot and around left ankle to foot as well as right thigh at site of wound. Psych Mood: anxious mood Objective Labs Result Diagrams: 02/19/22 21:23 02/19/22 21:23 Labs: Laboratory Results - last 24 hr 02/19/22 02/19/22 02/19/22 21:23 21:23 21:23 WBC 7.8 RBC 4.07 Hgb 9.1 L Hct 28.6 L MCV 70.1 L MCH 22.3 L MCHC 31.7 RDW 18.7 H Plt Count 542 H Neut % (Auto) 69.7 Lymph % (Auto) 14.0 L [place] % (Auto) 11.1 Eos % (Auto) 4.2 H Baso % (Auto) 1.0 Neut # (Auto) 5400 Lymph # (Auto) 1100 [place] # (Auto) 900 Eos # (Auto) 300 Baso # (Auto) 100 ESR Sodium 135 L Potassium 4.2 Chloride 97 L Carbon Dioxide 30 BUN 25 H Creatinine 1.53 H Estimated GFR 40 L BUN/Creatinine Ratio 16.3 Glucose 154 H Lactate 1.9 Calcium 8.9 Total Bilirubin 0.3 AST 21 ALT 13 Alkaline Phosphatase 100 C-Reactive Protein NT-Pro-B Natriuret Pep Total Protein 8.1 Albumin 3.7 Globulin 4.4 H Albumin/Globulin Ratio 0.8 L Lipase 46 Procalcitonin 0.11 SARS-CoV-2 (PCR) 02/20/22 02/20/22 02/20/22 02:42 08:18 08:18 WBC RBC Hgb Hct MCV MCH MCHC RDW Plt Count Neut % (Auto) Lymph % (Auto) [place] % (Auto) Eos % (Auto) Baso % (Auto) Neut # (Auto) Lymph # (Auto) [place] # (Auto) Eos # (Auto) Baso # (Auto) ESR 7 Sodium Potassium Chloride Carbon Dioxide BUN Creatinine Estimated GFR BUN/Creatinine Ratio Glucose Lactate Calcium Total Bilirubin AST ALT Alkaline Phosphatase C-Reactive Protein 5.9 H NT-Pro-B Natriuret Pep Total Protein Albumin Globulin Albumin/Globulin Ratio Lipase Procalcitonin SARS-CoV-2 (PCR) Negative 02/20/22 08:18 WBC RBC Hgb Hct MCV MCH MCHC RDW Plt Count Neut % (Auto) Lymph % (Auto) [place] % (Auto) Eos % (Auto) Baso % (Auto) Neut # (Auto) Lymph # (Auto) [place] # (Auto) Eos # (Auto) Baso # (Auto) ESR Sodium Potassium Chloride Carbon Dioxide BUN Creatinine Estimated GFR BUN/Creatinine Ratio Glucose Lactate Calcium Total Bilirubin AST ALT Alkaline Phosphatase C-Reactive Protein NT-Pro-B Natriuret Pep 31 Total Protein Albumin Globulin Albumin/Globulin Ratio Lipase Procalcitonin SARS-CoV-2 (PCR) [facility] Medical History Abscess of multiple sites History of necrotizing fasciitis Methamphetamine use disorder, severe Opioid use disorder Social History household members: none Smoking Status: Current some day smoker Assessment & Plan Assessment & Plan narrative: Ms. Yao is a 56 y.o.Female with H opiate abuse, chronic leg wounds who presents with leg pain and cellulitis. 1. Acute cellulitis on chronic leg wounds Continue with IV antibiotics with daptomycin, and zosyn Follow labs. 2. Possible history of CHF However BNP normal. Has edematous legs, which may be secondary to venous stasis and cellulitis. 3. Opiate abuse, methamphetamine abuse Very alert and agitted now. Will increase methadone dose and follow clinically Narcan prn ordered if patient becomes altered Continue home dose gabapentin 4. Elevated creatinine Presume secondary to infection, follow labs. 5. Anxiety Add ativan p.r.n. Time Spent With Patient Critical Care time: I spent a total of [] minutes of critical care time on this patient's care today; this time is exclusive of procedural time.
[2022-02-20] MEDS: LORazepam 0.5 MG TABLET PO ×2 (11:43→22:18)
--- NOTE | 2022-02-20 12:20 | PC.RNWOUND ---
Patient sitting up in bed, continuous crying out, saying, I'm having pain and I need more pain meds, the methadone isn't enough. Patient has removed dressing to right lower extremity where lower leg has red discoloration from gaiter area to toes. There is a 9 x 11cm ulcerated area which appears superficial, 100% covered with adherent yellow slough. This wound is gently cleansed with saline. Wound nurse unable to palpate pedal pulses at this time as patient cannot tolerate keeping leg still. Patient says that wound clinic is [facility] says blood flow is good. Left lower extremity has hemosiderin staining consistent with venous insufficiency. Wound is dressed with Aquacel Ag, abd pads, kerlix gauze. Right lower extremity dressing is removed to reveal red discoloration, also an affected area of about 6x6cm (unable to obtain exact measurement due to patient's continual movements and verbal prompting to hurry) to the posterior lower leg where there are yellow slough-covered wounds. These wounds are also cleansed and dressed as quickly as possible per patient request. These wounds also have an appearance consistent with venous insufficiency. Patient states, I hope I can get more pain medicine or I'm going to have to leave to take care of it myself. Patient says, Even if I get tylenol it might help. Primary nurse informed, says she will give tylenol.
[2022-02-20] MEDS: ACETAMINOPHEN 325 MG TABLET 650 MG PO ×2 (12:31→22:18)
[2022-02-20] MEDS: HYDROMORPHONE 1 MG INJ IV (12:52)
[2022-02-21] MEDS: HYDROMORPHONE 1 MG INJ IV (00:22)
[2022-02-21 04:00] VITALS: BP 108/62; PULSE 88; RESP 16; TEMP 36.7; O2SAT 97
[2022-02-21] MEDS: PIPERACILLIN/TAZO 3.375 GM in SODIUM CHLORIDE 0.9% 100 ML IV ×3 (05:28→21:39)
[2022-02-21 06:18] LABS: BUN Creatinine Ratio 23.9 (6-22); Blood Urea Nitrogen 33 mg/dL (7-17); Calcium 8.2 mg/dL (8.4-10.2); Carbon Dioxide 31 mmol/L (22-32); Chloride 100 mmol/L (98-107); Estimated Glomerular Filt Rate 45 mL/min (>60); Glucose 147 mg/dL (70-100); HEMOLYSIS < 15 (0-50); Phosphorous 4.7 mg/dL (2.5-4.5); Potassium 4.2 mmol/L (3.4-5.1); Sodium 138 mmol/L (137-145)
[2022-02-21 06:38] LABS: Add Manual Diff / Slide Review NO; Basophils Absolute Auto 100 /uL (0-100); Basophils Percent Auto 1.2 % (0-2); Eosinophils Absolute Auto 200 /uL (0-450); Eosinophils Percent Auto 4.2 % (2-4); Hematocrit 25.2 % (36-46); Lymphocytes Absolute Auto 1300 /uL (1100-4500); Mean Corpuscular HGB Conc 31.9 % (30-36); Mean Corpuscular Hemoglobin 22.2 PG (26-34); Mean Corpuscular Volume 69.5 fL (80-100); Monocytes Absolute Auto 700 /uL (0-900); Monocytes Percent Auto 13.1 % (3-14); Neutrophils Absolute Auto 2700 /uL (1500-7000); Neutrophils Percent Auto 54.5 % (50-75); Platelet Count 395 X10^3/uL (150-400); Red Blood Cell Count 3.63 X10^6/uL (4.0-5.2); Red Cell Distribution Width 18.4 % (11.6-14.8)
[2022-02-21 06:55] LABS: Hypochromasia 2+; Microcytosis 2+
[2022-02-21 09:01] VITALS: BP 96/61; PULSE 89; RESP 18; TEMP 36.3; O2SAT 93
[2022-02-21 10:00] VITALS: O2SAT 95
[2022-02-21] MEDS: FUROSEMIDE 20 MG/2 ML VIAL IV ×2 (10:25→21:39)
[2022-02-21] MEDS: METHADONE 10 MG TABLET 20 MG PO ×3 (10:26→21:39)
[2022-02-21] MEDS: GABAPENTIN 300 MG CAPSULE PO ×3 (10:26→21:39)
[2022-02-21] MEDS: HEPARIN 5,000 UNIT/ML VIAL 5000 UNIT SUBCUT ×2 (10:26→21:38)
--- NOTE | 2022-02-21 12:20 | PC.RNWOUND ---
Patient gets back to bed after shower with walker and minimal assist. Wounds are all undressed at this time and patient appears in a much calmer state than yesterday at this time. Right deltoid has a 7.2 x 3.2 x 0.2cm ulceration of which patient says, I've had that for years. It used to be necrotizing fasciitis. At present, wound base appears clean, 80% adherent yellow slough, 20% red granulation tissue, wound edges intact and attached. Periwound is intact extensive scar tissue. Patient also has two small closed pustules to right upper thigh and some surrounding induration noted, small amount of light periwound erythema, no drainage. Patient says this wound is also vastly improved from how it used to be. Right lower extremity has redness noted form midcalf to toes, yellow adherent slough noted to right lateral aspect of wound, appears unchanged since yesterday. Dorsalis pedis and posterior tibial pulses palpated, cap refill less than 3 seconds. Left lower extremity has redness to the gaiter area with partial-thickness open areas and small patches of adherent yellow slough to posterior lower extremity. Both of these wounds have a large amount of serous drainage. Patient puts weight on lateral aspect of left foot (which is pronated due to deformity) when ambulating. These wounds are cleansed and dressed to orders. Patient is given verbal education re importance of not touching wounds with fingers, increased protein in diet for healing, importance of elevating legs. Pillows are placed under lower extremties for elevation. Patient tolerates cares well.
--- NOTE | 2022-02-21 13:52 | PM.PN.1 ---
Subjective Subjective Interval history: Hospitalist daily visit. No new complaints. Pain reasonably controlled wit current meds needing Dilaudia IV only twice thus far. Exam Vital Signs (past 8 hours): - 02/21/22 09:01 02/21/22 10:00 Temperature 97.3 F L Pulse Rate 89 Respiratory Rate 18 Blood Pressure 96/61 Pulse Oximetry 93 95 Oxygen Delivery Method Room Air Oxygen Flow Rate 0 Const General: cooperative and comfortable HENMT Head: normal to inspection Resp Effort & Inspection: normal respiratory effort Auscultation: clear to auscultation bilaterally Cardio Rate: regular rate Rhythm: regular rhythm Heart Sounds: S1 normal and S2 normal Skin Other: Less erythema of lower extremities. Wounds dressed bilaterally. Significant edema of lower extremities. Neuro Cognition: normal cognition Other: Unable to walk yet due to pain. Extrem Right lower extremity: edema Left lower extremity: edema Psych Mood: congruent mood Objective Labs Result Diagrams: 02/21/22 05:40 02/21/22 05:40 Labs: Laboratory Results - last 24 hr 02/21/22 02/21/22 05:40 05:40 WBC 5.0 RBC 3.63 L Hgb 8.0 L Hct 25.2 L MCV 69.5 L MCH 22.2 L MCHC 31.9 RDW 18.4 H Plt Count 395 Neut % (Auto) 54.5 Lymph % (Auto) 27.0 [place] % (Auto) 13.1 Eos % (Auto) 4.2 H Baso % (Auto) 1.2 Neut # (Auto) 2700 Lymph # (Auto) 1300 [place] # (Auto) 700 Eos # (Auto) 200 Baso # (Auto) 100 RBC Morphology See below Hypochromasia 2+ H Microcytosis 2+ H Sodium 138 Potassium 4.2 Chloride 100 Carbon Dioxide 31 BUN 33 H Creatinine 1.38 H Estimated GFR 45 L BUN/Creatinine Ratio 23.9 H Glucose 147 H Calcium 8.2 L Phosphorus 4.7 H Albumin 3.0 L [facility] Medical History Abscess of multiple sites History of necrotizing fasciitis Methamphetamine use disorder, severe Opioid use disorder Social History household members: none Smoking Status: Current some day smoker Assessment & Plan Assessment & Plan narrative: Ms. Yao is a 56 y.o.Female with PMH opiate abuse, chronic leg wounds who presented with leg pain and cellulitis. 1. Acute cellulitis on chronic leg wounds Continue with IV antibiotics with daptomycin, and zosyn Follow labs. 2. Possible history of CHF However BNP normal. Has edematous legs, which may be secondary to venous stasis and cellulitis. 3. Opiate abuse, methamphetamine abuse ON Methadone with reasonable control, only needing 2 doses thus far of IV dilaudid. Follow clinically Narcan prn ordered if patient becomes altered Continue home dose gabapentin 4. Elevated creatinine Presume secondary to infection, Also appears has pre-renal failure as well, follow labs. 5. Anxiety Add ativan p.r.n. Time Spent With Patient Critical Care time: I spent a total of [] minutes of critical care time on this patient's care today; this time is exclusive of procedural time.
[2022-02-21] MEDS: LORazepam 0.5 MG TABLET PO ×2 (13:56→23:27)
[2022-02-21] MEDS: ENOXAPARIN 40 MG/0.4 ML SYRINGE SUBCUT (14:34)
[2022-02-21 19:00] VITALS: O2SAT 95
[2022-02-21 20:40] VITALS: BP 130/69; PULSE 108; RESP 17; TEMP 37; O2SAT 95
[2022-02-21] MEDS: ACETAMINOPHEN 325 MG TABLET 650 MG PO (23:29)
--- NOTE | 2022-02-22 02:54 | PC.NURSE ---
Upon entering room, pt discovered to be picking at skin and wounds on BLE. This RN emphasized the importance of not interfering with the healing process and encouraged to leave wounds and dressings alone. Throughout time spent in room, pt needed to be frequently reminded to leave skin and dressings alone. During assessment, this RN began asking the standard orientation questions. Pt initially answered questions correctly but then began incorrectly answering them, stating location as [place], then [place] and [place] when prompted to try again. The patient proceeded to become agitated at the perceived insult, stating I'm not crazy, you're acting like I'm fucking nuts and treating me like I'm crazy. This RN assured her that the questions were standard for all patients to assess orientation regardless of how they present. Pt refused to participate in any further assessment. Documented assessment as best as possible in EHR. Will continue to monitor.
[2022-02-22 04:23] VITALS: BP 100/98; PULSE 85; RESP 17; TEMP 36.8; O2SAT 100
[2022-02-22] MEDS: PIPERACILLIN/TAZO 3.375 GM in SODIUM CHLORIDE 0.9% 100 ML IV ×3 (06:18→21:55)
[2022-02-22 07:00] VITALS: O2SAT 100
[2022-02-22 08:43] LABS: Add Manual Diff / Slide Review NO; Basophils Absolute Auto 0 /uL (0-100); Eosinophils Absolute Auto 300 /uL (0-450); Eosinophils Percent Auto 5.8 % (2-4); Hematocrit 25.4 % (36-46); Hemoglobin 8.1 g/dL (12.0-16.0); Lymphocytes Absolute Auto 1400 /uL (1100-4500); Lymphocytes Percent Auto 30.8 % (25-40); Mean Corpuscular HGB Conc 31.8 % (30-36); Mean Corpuscular Hemoglobin 22.1 PG (26-34); Monocytes Absolute Auto 600 /uL (0-900); Monocytes Percent Auto 12.6 % (3-14); Neutrophils Absolute Auto 2300 /uL (1500-7000); Neutrophils Percent Auto 49.8 % (50-75); Platelet Count 412 X10^3/uL (150-400); Red Blood Cell Count 3.66 X10^6/uL (4.0-5.2); Red Cell Distribution Width 18.3 % (11.6-14.8); White Blood Cell Count 4.7 X10^3/uL (4.5-11.0)
[2022-02-22 08:47] LABS: HEMOLYSIS < 15 (0-50); Iron 37 ug/dL (37-170)
[2022-02-22 08:51] LABS: Albumin 3.2 g/dL (3.5-5.0); BUN Creatinine Ratio 26.8 (6-22); Blood Urea Nitrogen 34 mg/dL (7-17); C-Reactive Protein Quant 3.4 mg/dL (<1.0); Calcium 8.5 mg/dL (8.4-10.2); Carbon Dioxide 32 mmol/L (22-32); Chloride 100 mmol/L (98-107); Estimated Glomerular Filt Rate 50 mL/min (>60); Glucose 121 mg/dL (70-100); HEMOLYSIS < 15 (0-50); Phosphorous 4.1 mg/dL (2.5-4.5); Potassium 4.2 mmol/L (3.4-5.1); Sodium 136 mmol/L (137-145)
[2022-02-22 08:58] LABS: Percent Iron Saturation 14 % (15-50); Total Iron Binding Capacity 269 ug/dL (265-497); Transferrin 188 mg/dL (206-381)
[2022-02-22] MEDS: METHADONE 10 MG TABLET 20 MG PO ×3 (09:00→21:55)
[2022-02-22] MEDS: GABAPENTIN 300 MG CAPSULE PO ×3 (09:00→21:55)
[2022-02-22] MEDS: FUROSEMIDE 20 MG/2 ML VIAL IV (09:01)
[2022-02-22 10:30] VITALS: BP 102/57; PULSE 94; RESP 18; TEMP 36.7; O2SAT 92
[2022-02-22] MEDS: HEPARIN 5,000 UNIT/ML VIAL 5000 UNIT SUBCUT ×2 (11:00→21:55)
--- NOTE | 2022-02-22 12:27 | PC.RNWOUND ---
Dressings changed to bilateral lower extremity wounds. Lower extremities appear less reddened today than yesterday. Wounds are cleansed with saline and dressed to orders. Patient tolerates cares well, elevates legs on pillows. Reinforced education to elevate legs above heart and to not touch open wounds. Patient verbalizes understanding.
[2022-02-22] MEDS: ACETAMINOPHEN 325 MG TABLET 650 MG PO ×2 (12:30→21:55)
--- NOTE | 2022-02-22 17:37 | P.PN_ITS ---
Subjective Subjective Interval history: Daily hospital visit. Patient states that she is feeling better. She is keeping her legs elevated this can. Wounds of the lower extremities are currently wrapped however the part of the leg/toes are exposed shows left erythema. This makes him less swollen and less painful. Currently her methadone dose is adequate for for pain control. Wound right upper arm and right hip area are stable with no new concerns by the nursing staff or patient. Exam Vital Signs (past 8 hours): - 02/22/22 10:30 Temperature 98.0 F Pulse Rate 94 H Respiratory Rate 18 Blood Pressure 102/57 L Pulse Oximetry 92 Oxygen Delivery Method Room Air Oxygen Flow Rate 0 Objective Labs Result Diagrams: 02/22/22 08:13 02/22/22 08:13 Labs: Laboratory Results - last 24 hr 02/22/22 02/22/22 02/22/22 08:13 08:13 08:13 WBC 4.7 RBC 3.66 L Hgb 8.1 L Hct 25.4 L MCV 70.0 L MCH 22.1 L MCHC 31.8 RDW 18.3 H Plt Count 412 H Neut % (Auto) 49.8 L Lymph % (Auto) 30.8 [place] % (Auto) 12.6 Eos % (Auto) 5.8 H Baso % (Auto) 1.0 Neut # (Auto) 2300 Lymph # (Auto) 1400 [place] # (Auto) 600 Eos # (Auto) 300 Baso # (Auto) 0 Sodium 136 L Potassium 4.2 Chloride 100 Carbon Dioxide 32 BUN 34 H Creatinine 1.27 H Estimated GFR 50 L BUN/Creatinine Ratio 26.8 H Glucose 121 H Calcium 8.5 Phosphorus 4.1 Iron 37 TIBC 269 % Saturation 14 L Transferrin 188 L C-Reactive Protein 3.4 H Albumin 3.2 L [facility] Medical History Abscess of multiple sites History of necrotizing fasciitis Methamphetamine use disorder, severe Opioid use disorder Social History household members: none Smoking Status: Current some day smoker Assessment & Plan Assessment & Plan narrative: 1. Acute cellulitis on chronic leg wounds Continue with IV antibiotics with daptomycin, and zosyn. Blood cultures are negative and therefore give with 7 days worth of IV antibiotics only. This will mean that IV antibiotics will be completed at the end of February and 03/2022. Can transition to oral antibiotics at that time. Follow labs. Has renal compromise consistent with infection. Continue to follow. 2. Possible history of CHF However BNP normal. Has edematous legs, which may be secondary to venous stasis and cellulitis. Has been on IV furosemide. Will transition to oral furosemide. 3. Opiate abuse, methamphetamine abuse ON Methadone with reasonable good control of pain only needing 2 doses thus far of IV dilaudid 1 mg each time. Follow clinically Narcan prn ordered if patient becomes altered Continue home dose gabapentin for pain control. 4. Elevated creatinine Presume secondary to infection, Also appears has pre-renal failure as well,? follow labs. 5. Anxiety. Has Ativan 0.5 mg on a as needed dose. 6. Transferrin is low and% saturation is low with iron at the low level of normal. Will do iron replacement. 7. General health/nutrition. Interior patient is on multivitamin, calcium and vitamin-D. Follow labs and clinically. Time Spent With Patient Critical Care time: I spent a total of [] minutes of critical care time on this patient's care today; this time is exclusive of procedural time.
[2022-02-22 19:00] VITALS: O2SAT 100
[2022-02-22 20:00] VITALS: BP 124/80; PULSE 101; RESP 18; TEMP 36.6; O2SAT 100
[2022-02-22] MEDS: LORazepam 0.5 MG TABLET PO (21:55)
[2022-02-22] MEDS: CALCIUM CARBONATE 500 MG TAB PO (21:55)
[2022-02-23] VITALS (7 sets, daily range): BP systolic 112–122; BP diastolic 68–78; PULSE 87–94; RESP 16–20; TEMP 36.5–36.8; O2SAT 93–97
[2022-02-23] MEDS: LORazepam 0.5 MG TABLET PO ×2 (03:05→22:49)
[2022-02-23] MEDS: PIPERACILLIN/TAZO 3.375 GM in SODIUM CHLORIDE 0.9% 100 ML IV ×3 (06:26→20:22)
[2022-02-23] MEDS: ACETAMINOPHEN 325 MG TABLET 650 MG PO ×2 (06:27→22:49)
[2022-02-23] MEDS: METHADONE 10 MG TABLET 20 MG PO ×3 (09:35→20:23)
[2022-02-23] MEDS: MULTIVITAMIN 1 TABLET 1 TAB PO (09:35)
[2022-02-23] MEDS: CALCIUM CARBONATE 500 MG TAB PO ×2 (09:35→21:25)
[2022-02-23] MEDS: GABAPENTIN 300 MG CAPSULE PO ×3 (09:35→20:22)
[2022-02-23] MEDS: HEPARIN 5,000 UNIT/ML VIAL 5000 UNIT SUBCUT ×2 (09:36→20:19)
[2022-02-23] MEDS: FUROSEMIDE 20 MG TABLET PO ×2 (09:36→16:54)
[2022-02-23] MEDS: FERROUS SULFATE 325 MG TABLET PO (09:36)
[2022-02-23] MEDS: CHOLECALCIFEROL (VITAMIN D3) 1,000 UNIT TABLET 1000 UNIT PO (09:36)
[2022-02-23 10:09] LABS: Add Manual Diff / Slide Review NO; Basophils Absolute Auto 100 /uL (0-100); Basophils Percent Auto 1.1 % (0-2); Eosinophils Absolute Auto 300 /uL (0-450); Eosinophils Percent Auto 4.9 % (2-4); Hematocrit 26.1 % (36-46); Hemoglobin 8.5 g/dL (12.0-16.0); Lymphocytes Absolute Auto 1800 /uL (1100-4500); Mean Corpuscular HGB Conc 32.3 % (30-36); Mean Corpuscular Hemoglobin 22.6 PG (26-34); Mean Corpuscular Volume 69.8 fL (80-100); Monocytes Absolute Auto 700 /uL (0-900); Monocytes Percent Auto 10.8 % (3-14); Neutrophils Absolute Auto 3900 /uL (1500-7000); Neutrophils Percent Auto 57.2 % (50-75); Platelet Count 464 X10^3/uL (150-400); Red Blood Cell Count 3.75 X10^6/uL (4.0-5.2); Red Cell Distribution Width 18.5 % (11.6-14.8); White Blood Cell Count 6.8 X10^3/uL (4.5-11.0)
[2022-02-23 10:24] LABS: Albumin 3.4 g/dL (3.5-5.0); Blood Urea Nitrogen 37 mg/dL (7-17); C-Reactive Protein Quant 2.4 mg/dL (<1.0); Calcium 8.7 mg/dL (8.4-10.2); Carbon Dioxide 31 mmol/L (22-32); Chloride 103 mmol/L (98-107); Estimated Glomerular Filt Rate 58 mL/min (>60); Glucose 120 mg/dL (70-100); HEMOLYSIS < 15 (0-50); Phosphorous 3.7 mg/dL (2.5-4.5); Potassium 4.4 mmol/L (3.4-5.1); Sodium 138 mmol/L (137-145)
[2022-02-23 10:47] LABS: Microcytosis 1+
[2022-02-23 10:48] LABS: Hypochromasia 1+
--- NOTE | 2022-02-23 19:26 | PM.PN.1 ---
Subjective Subjective Interval history: Hospitalist visit today. Patient continues to improve each day. Has been walking more. With a walker. Does not have a walker at home and sometime it would be reasonable but she the assigned one. Occasionally uses a crutch at home she uses on her right side since her left foot is the one that is not deformed. Not complaining of any fever chills nausea vomiting or diaphoresis. Pain in the legs is controlled with the methadone dose that she is on. Exam Vital Signs (past 8 hours): - 02/23/22 16:35 Temperature 98.2 F Pulse Rate 94 H Respiratory Rate 16 Blood Pressure 117/69 Pulse Oximetry 95 Oxygen Delivery Method Room Air Oxygen Flow Rate 0 Narrative Exam Narrative: Patient alert oriented to time place and person. HEENT: Pupils equal react to light extraocular movements normal Cardiovascular: Heart sounds S1-S2 Respiratory: Chest is clear to auscultation Gastrointestinal: Abdomen is soft nontender bowel sounds normal Extremities: Wound right lateral upper arm is dressed. Wound right lateral thigh is healing well, not dressed. Both lower extremities are dressed. The skin above the dressing in the toes have less erythema than previously. Objective Labs Result Diagrams: 02/23/22 09:48 02/23/22 09:48 Labs: Laboratory Results - last 24 hr 02/23/22 02/23/22 09:48 09:48 WBC 6.8 RBC 3.75 L Hgb 8.5 L Hct 26.1 L MCV 69.8 L MCH 22.6 L MCHC 32.3 RDW 18.5 H Plt Count 464 H Neut % (Auto) 57.2 Lymph % (Auto) 26.0 [place] % (Auto) 10.8 Eos % (Auto) 4.9 H Baso % (Auto) 1.1 Neut # (Auto) 3900 Lymph # (Auto) 1800 [place] # (Auto) 700 Eos # (Auto) 300 Baso # (Auto) 100 RBC Morphology See below Hypochromasia 1+ H Microcytosis 1+ H Sodium 138 Potassium 4.4 Chloride 103 Carbon Dioxide 31 BUN 37 H Creatinine 1.12 H Estimated GFR 58 L BUN/Creatinine Ratio 33.0 H Glucose 120 H Calcium 8.7 Phosphorus 3.7 C-Reactive Protein 2.4 H Albumin 3.4 L [facility] Medical History Abscess of multiple sites History of necrotizing fasciitis Methamphetamine use disorder, severe Opioid use disorder Social History household members: none Smoking Status: Current some day smoker Assessment & Plan Assessment & Plan narrative: 1. Acute cellulitis on chronic leg wounds Continue with IV antibiotics with daptomycin, and zosyn.? Blood cultures are negative and therefore give with 7 days worth of IV antibiotics only.? This will mean that IV antibiotics will be completed at the end of February 27/2022.? Can transition to oral antibiotics at that time. If able to be discharged sooner can transition to oral medication. Patient may be discharged in 1 or 2 days if home health can be arranged for wound management. Follow labs.? Has renal compromise consistent with infection.? GFR is approaching normal now. Continue to follow. 2. Possible history of CHF However BNP normal. Has edematous legs, which may be secondary to venous stasis and cellulitis.?On oral furosemide. 3. Opiate abuse, methamphetamine abuse ON Methadone with reasonable good control of pain only needing 2 doses thus far of IV dilaudid 1 mg each time. Follow clinically Narcan prn ordered if patient becomes altered Continue home dose gabapentin for pain control. 4. Elevated creatinine Presume secondary to infection, Also appears has pre-renal failure as well,? follow labs. Current GFR is approaching normal. Creatinine remains slightly elevated. 5. Anxiety.? Has Ativan 0.5 mg on a as needed dose. 6. Transferrin is low and% saturation is low with iron at the low level of normal.? On iron replacement. 7. General health/nutrition.? Interior patient is on multivitamin, calcium and vitamin-D. It is been confirmed that the patient's Suboxone prescription is available for her in [place] even though there was previous time length that have been missed for the prescription at the pharmacy. Also patient has a appointment at [facility] on February 26. The missing piece for discharge is the home health wound care. Once that is established the patient can be discharged. Patient would also be benefit from having access to a walker that she can use when she is out in the community. Patient says at home she uses it. Since the walker would be too cumbersome in her place of dwelling. Time Spent With Patient Critical Care time: I spent a total of [] minutes of critical care time on this patient's care today; this time is exclusive of procedural time.
[2022-02-24] VITALS (8 sets, daily range): BP systolic 116–126; BP diastolic 68–83; PULSE 85–97; RESP 16–18; TEMP 36.6–36.8; O2SAT 93–96
[2022-02-24] MEDS: PIPERACILLIN/TAZO 3.375 GM in SODIUM CHLORIDE 0.9% 100 ML IV ×3 (05:26→22:27)
[2022-02-24] MEDS: MULTIVITAMIN 1 TABLET 1 TAB PO (08:01)
[2022-02-24] MEDS: HEPARIN 5,000 UNIT/ML VIAL 5000 UNIT SUBCUT ×2 (08:01→20:07)
[2022-02-24] MEDS: METHADONE 10 MG TABLET 20 MG PO ×3 (08:01→20:07)
[2022-02-24] MEDS: CALCIUM CARBONATE 500 MG TAB PO ×2 (08:01→20:07)
[2022-02-24] MEDS: GABAPENTIN 300 MG CAPSULE PO ×3 (08:01→20:07)
[2022-02-24] MEDS: CHOLECALCIFEROL (VITAMIN D3) 1,000 UNIT TABLET 1000 UNIT PO (08:02)
[2022-02-24] MEDS: FERROUS SULFATE 325 MG TABLET PO (08:02)
[2022-02-24] MEDS: FUROSEMIDE 20 MG TABLET PO ×2 (08:06→17:28)
[2022-02-24 09:01] LABS: Add Manual Diff / Slide Review NO; Basophils Absolute Auto 0 /uL (0-100); Basophils Percent Auto 0.1 % (0-2); Eosinophils Absolute Auto 300 /uL (0-450); Eosinophils Percent Auto 4.3 % (2-4); Hematocrit 26.5 % (36-46); Hemoglobin 8.5 g/dL (12.0-16.0); Lymphocytes Absolute Auto 1600 /uL (1100-4500); Lymphocytes Percent Auto 22.6 % (25-40); Mean Corpuscular HGB Conc 32.3 % (30-36); Mean Corpuscular Hemoglobin 22.7 PG (26-34); Mean Corpuscular Volume 70.5 fL (80-100); Monocytes Absolute Auto 700 /uL (0-900); Monocytes Percent Auto 9.1 % (3-14); Neutrophils Absolute Auto 4700 /uL (1500-7000); Neutrophils Percent Auto 63.9 % (50-75); Platelet Count 499 X10^3/uL (150-400); Red Blood Cell Count 3.76 X10^6/uL (4.0-5.2); Red Cell Distribution Width 18.8 % (11.6-14.8); White Blood Cell Count 7.3 X10^3/uL (4.5-11.0)
[2022-02-24 09:11] LABS: Albumin 3.8 g/dL (3.5-5.0); BUN Creatinine Ratio 35.5 (6-22); Blood Urea Nitrogen 39 mg/dL (7-17); Calcium 8.7 mg/dL (8.4-10.2); Carbon Dioxide 32 mmol/L (22-32); Chloride 101 mmol/L (98-107); Estimated Glomerular Filt Rate 59 mL/min (>60); Glucose 131 mg/dL (70-100); Phosphorous 4.6 mg/dL (2.5-4.5); Sodium 135 mmol/L (137-145)
[2022-02-24 09:31] LABS: HEMOLYSIS 256 (0-50)
--- NOTE | 2022-02-24 12:20 | CM.DPNOTE ---
DCP Note Working on DCP coordination yesterday and today; met w/patient yesterday and had lengthy conversation. Patient lives in a small house on someone's property, landlord owns larger home Patient is difficult to keep awake, drifts off throughout conversation, states it's because I just woke up. Patient unable to track conversation well, has a difficult time staying focused for long enough to properly work her phone Active IVDU and meth use confirmed by patient; this MICROFICHE DUPLICATOR suspects patient is at her baseline Patient plans to drive herself home upon DC, car on the campus currently. Strongly urged patient to call her friend Ofelia P# [phone] to assist with transportation Discussed wound care; patient states she has been fired from [facility] wound care because she has missed too many appointments Placed call to [facility], [facility] and [facility], they will not do Home health wound care because patient is an active IVDU Placed call to [facility] w/patient, appt scheduled Saturday fo f/u w/provider there Placed call to [facility] in [place], patient's Rx for Suboxone was pulled because patient hadn't picked up in time however, pharmacist able to fill this Rx for Suboxone for expected cloth picker Saturday or Saturday Placed call to [facility] [employer] Joi Pike P# [phone], had to leave detailed message (); advocated that patient needs case management to assist with navigation/coordination of outpatient services Plan: DC expected Saturday or Saturday, home via patient or friend pov, wound care will need to be via Urgent Care at this time, likely [facility] in [place]. Patient can cloth picker her Suboxone (which she says she takes x1 daily) at any time from her pharmacy- [facility] in [place] JW
[2022-02-24] MEDS: ACETAMINOPHEN 325 MG TABLET 650 MG PO ×2 (14:16→18:40)
--- NOTE | 2022-02-24 14:52 | P.PN_ITS ---
Subjective Subjective Date Patient Seen: 02/24/22 Interval history: 56-year-old IV DU here for bilateral LE cellulitis. Has been afebrile. Leg pain the same. On methadone. Exam Vital Signs (past 8 hours): - 02/24/22 07:00 02/24/22 07:45 02/24/22 11:24 Temperature 98.2 F Pulse Rate 86 Respiratory Rate 16 Blood Pressure 123/79 Pulse Oximetry 95 95 94 Oxygen Delivery Method Room Air Oxygen Flow Rate 0 Narrative Exam Narrative: Patient is alert and NAD She has large superficial bilateral distal lower extremity wounds with surrounding macular erythema Neurologically she has significant chronic cognitive impairment in memory and processing. Objective Labs Result Diagrams: 02/24/22 08:35 02/24/22 08:35 Labs: Laboratory Results - last 24 hr 02/24/22 02/24/22 08:35 08:35 WBC 7.3 RBC 3.76 L Hgb 8.5 L Hct 26.5 L MCV 70.5 L MCH 22.7 L MCHC 32.3 RDW 18.8 H Plt Count 499 H Neut % (Auto) 63.9 Lymph % (Auto) 22.6 L [place] % (Auto) 9.1 Eos % (Auto) 4.3 H Baso % (Auto) 0.1 Neut # (Auto) 4700 Lymph # (Auto) 1600 [place] # (Auto) 700 Eos # (Auto) 300 Baso # (Auto) 0 Sodium 135 L Potassium Chloride 101 Carbon Dioxide 32 BUN 39 H Creatinine 1.10 H Estimated GFR 59 L BUN/Creatinine Ratio 35.5 H Glucose 131 H Calcium 8.7 Phosphorus 4.6 H Albumin 3.8 PFSH Medical History Abscess of multiple sites History of necrotizing fasciitis Methamphetamine use disorder, severe Opioid use disorder Social History household members: none Smoking Status: Current some day smoker Assessment & Plan Assessment & Plan narrative: 1. Acute cellulitis bilateral lower extremities on chronic leg wounds -wound culture positive for Staph aureus, not MRSA, sensitive to doxy and also positive for Pseudomonas sensitive to Cipro -discontinued daptomycin seen -add doxycycline and continue Zosyn in hospital -discharge Saturday on oral doxy and Cipro -patient was discharged from [place] wound care due to no-shows -will try to set up home health nurse for wound care 2. Opioid and methamphetamine dependency -on methadone here, has outpatient Suboxone prescription awaiting on discharge -will follow-up at [facility] on February 26 3. Acute renal injury, prerenal, resolved -creatinine 1.53 on admission, now 1.10 4. Chronic iron deficiency anemia -low normal iron with low% saturation of 14 -recommend outpatient endoscopy workup as feasible -placed on oral iron DVT prophylaxis: SubQ heparin Time Spent With Patient Critical Care time: I spent a total of [] minutes of critical care time on this patient's care today; this time is exclusive of procedural time.
[2022-02-24] MEDS: LORazepam 0.5 MG TABLET PO (18:41)
--- NOTE | 2022-02-24 19:00 | PC.NURSE ---
tolerated shower today, she washed her own self, just needed supervision. dressings to LE's were off, and she washed her LE' gently w/ water. after shower LE's are red and shiny, the dry skin around her toes and tops of feet are gone. the general appearance of wounds look better overall. prn apap, routine methadone and gabapentin given today for pain. encouraged elevation of BLE's to decrease edema. also encouraged her to perform ankle pumps thru the day to improve circulation. dressing to R deltoid changed, wound has poor granulation, scant amt of blood drainage. anticipate d/c home tomorrow. showed her how to wrap LE's so they dont fall down when she stands. patient verbalized to COAL WASHER today: i dont know how i will get thru this, i dont know if i will get better. provided listening support, asked her if she thought her LE's looked improved after her shower. she says yes, they do. encouraged her to stay the course and to stay positive in her outlook. report to VIJAYA Valadez RNs.
[2022-02-24] MEDS: ONDANSETRON 4 MG/2 ML INJ IV (19:36)
[2022-02-24] MEDS: DOXYCYCLINE HYCLATE 100 MG TABLET PO (20:07)
[2022-02-25] MEDS: LORazepam 0.5 MG TABLET PO (03:27)
[2022-02-25 03:34] VITALS: BP 116/63; PULSE 87; RESP 17; TEMP 36.8; O2SAT 93
[2022-02-25] MEDS: MORPHINE 4 MG/ML INJ IV (03:55)
[2022-02-25] MEDS: PIPERACILLIN/TAZO 3.375 GM in SODIUM CHLORIDE 0.9% 100 ML IV (05:02)
[2022-02-25 06:41] LABS: Albumin 3.3 g/dL (3.5-5.0); BUN Creatinine Ratio 32.5 (6-22); Blood Urea Nitrogen 41 mg/dL (7-17); Calcium 8.5 mg/dL (8.4-10.2); Carbon Dioxide 32 mmol/L (22-32); Chloride 101 mmol/L (98-107); Estimated Glomerular Filt Rate 50 mL/min (>60); Glucose 119 mg/dL (70-100); HEMOLYSIS < 15 (0-50); Phosphorous 4.8 mg/dL (2.5-4.5); Potassium 4.5 mmol/L (3.4-5.1); Sodium 137 mmol/L (137-145)
[2022-02-25 07:00] VITALS: O2SAT 96
[2022-02-25 07:32] VITALS: BP 99/64; PULSE 87; RESP 16; TEMP 36.9; O2SAT 96
[2022-02-25] MEDS: CHOLECALCIFEROL (VITAMIN D3) 1,000 UNIT TABLET 1000 UNIT PO (08:25)
[2022-02-25] MEDS: HEPARIN 5,000 UNIT/ML VIAL 5000 UNIT SUBCUT (08:25)
[2022-02-25] MEDS: GABAPENTIN 300 MG CAPSULE PO (08:25)
[2022-02-25] MEDS: DOXYCYCLINE HYCLATE 100 MG TABLET PO (08:25)
[2022-02-25] MEDS: MULTIVITAMIN 1 TABLET 1 TAB PO (08:25)
[2022-02-25] MEDS: FERROUS SULFATE 325 MG TABLET PO (08:25)
[2022-02-25] MEDS: METHADONE 10 MG TABLET 20 MG PO (08:25)
[2022-02-25] MEDS: CALCIUM CARBONATE 500 MG TAB PO (08:25)
[2022-02-25] MEDS: FUROSEMIDE 20 MG TABLET PO (08:28)
[2022-02-25 08:34] VITALS: O2SAT 97
[2022-02-25 15:00] VITALS: BP 105/67; PULSE 96; RESP 18; TEMP 36.8; O2SAT 92
--- NOTE | 2022-02-25 15:07 | P.DS_ITS ---
History of Present Illness History of Present Illness Chief complaint: LEG ISSUES NECK PAIN Narrative: 56W with PMH heroin/meth abuse,documented CHF, chronic left ankle injury, unstable housing who presents with leg pain. She notes she has had pain issues with her legs for at least 8 months. She is somewhat lethargic and tangential. Last heroin use was yesterday. She states she gets most of her care in [facility]. She sees a wound clinic there for chronic leg ulcers. She last saw a medical provider about six weeks ago for question for her legs. She has noted worsening pain in her legs. She developed an ulcer in her right thigh which she poked with a sharp object to get it to drain. She has not had any fevers. Her pain has worsened to the point she has difficulty with walking. She has been intermittently taking Suboxone for the past 5 years, but more recently has resorted to opiates due to her severe pain, she uses IV heroin and perc 30s (blues) for her pain. She has had possible red man syndrome from vancomycin. In the ED workup was done, vitals notable for slight tachycardia. Labs notable for WBC 7.8, hgb 9.1, plts 542, BUN 25, creatinine 1.53. Lactate 1.9. Procalcitonin 0.11. UA negative. She was ordered for IV zosyn and methadone and admitted for further treatment. Family history: she denies any significant medical problems in family Discharge Providers Provider Date of admission: 02/20/22 03:10 Discharge Date: 02/25/22 Consults: 02/20/22 08:55 Consult to Inpatient Wound Care Nurse Routine Comment: Reason for consultation: right leg wounds Discharge provider: Beka Hill MD Summary Hospital Course Discharge Diagnosis: 1. Acute cellulitis bilateral lower extremities 2. Chronic non pressure ulcers of bilateral lower extremities 3. Opioid dependency 4. Methamphetamine dependency 5. Acute renal injury 6. Chronic iron deficiency anemia unknown source Hospital Course: Patient was admitted and treated initially with vancomycin and Zosyn. Cultures grew non MRSA Staph aureus and Pseudomonas aeruginosa. The staph is sensitive to doxycycline and Pseudomonas is sensitive to Cipro. She is being sent home on oral antibiotics. She never had fever or elevated WBC. It is also quite possible the skin findings are inflammatory and not infectious. She did get some oral Lasix diuresis while in hospital for mild venous stasis. Unfortunately she got kicked out of wound care clinic in [place] and also got kicked out from home health services. Therefore she will need to manage as she can with wound care dressings. She does have prescription for Suboxone awaiting for her at the pharmacy which was prescribed through [facility] clinic. Status at Discharge Cognitive/behavioral status at discharge: oriented Functional status at discharge: independent ambulation Overall status at discharge: patient is back to baseline Time Spent with Patient Time spent: Less than 30 minutes Exam Vital Signs (past 8 hours): - 02/25/22 07:32 02/25/22 08:34 Temperature 98.5 F Pulse Rate 87 Respiratory Rate 16 Blood Pressure 99/64 Pulse Oximetry 96 97 Oxygen Delivery Method Room Air Oxygen Flow Rate 0 Narrative Exam Narrative: She is a little sleepy. Unchanged appearance of chronic lower extremity wounds on the shins with surrounding macular erythema. Objective Labs Result Diagrams: 02/24/22 08:35 02/25/22 06:12 Labs: Laboratory Results - last 24 hr 02/25/22 06:12 Sodium 137 Potassium 4.5 Chloride 101 Carbon Dioxide 32 BUN 41 H Creatinine 1.26 H Estimated GFR 50 L BUN/Creatinine Ratio 32.5 H Glucose 119 H Calcium 8.5 Phosphorus 4.8 H Albumin 3.3 L [facility] Medical History Abscess of multiple sites History of necrotizing fasciitis Methamphetamine use disorder, severe Opioid use disorder Social History household members: none Smoking Status: Current some day smoker Discharge Plan Discharge Plan Patient Disposition: Home Provider Discharge Comment: Take antibiotics as directed for leg infection. Keep wounds clean and dry as much as you can. Follow up at [facility] on Saturday for Suboxone management. Discharge orders & Medications Prescriptions: New ciprofloxacin HCl 750 mg tablet 750 mg PO BID Qty: 20 0RF doxycycline monohydrate 100 mg tablet 100 mg PO BID Qty: 20 0RF Discharge Health Status Multidrug resistant organism: No MDRO Diet/Activity/Treatments Diet: Regular
--- NOTE | 2022-02-25 16:20 | CM.DPC ---
Addendum entered by Zabrina Hill 02/25/22 16:36: Wound care supplies provided to patient upon d/c. Original Note: DCP continued: Reviewed chart. Spoke with provider this AM and patient medically stable for discharge. CAR HIKER met paitent this AM to inform her of plan. Patient aware and agreeable. Notified patient that HH could not be arranged due to her IVDU. Patient concerned about where to go for wound care f/u. CAR HIKER provided patient with information for [facility] clinic in [facility] also suggested she call [facility] back and see if she can get re-established. Patient shows no interest in getting off of drugs or helping herself. CAR HIKER provided her with multiple community resources. This afternoon patient could not find ride. It was determined by provider patient okay to drive herself home. Patient has had no narcotics since early this AM. RN and CAR HIKER both report patient alert and oriented. Patient appears to be getting agitated (probably due to no narcotics). Patient aware she has [facility] and appointment with [facility]. Patient provided with multiple resources for outpatient services if she desires. P: Home today. FEDERICO
--- NOTE | 2022-02-25 18:12 | PC.NURSE ---
0800: patient more somnolent today, easy to rouse, but she is falling asleep easily while her tray is in front of her, and trailing off mid-sentence. had a 2nd shower during the NOC shift, her LE's look much improved, less red and angry. dressings are CDI, her legs are elevated on pillows. she is falling asleep during her breakfast. reminders that she will d/c home today. patient verbalized concerns that she will be unable to do the dressing changes herself. extra dressing supplies offered and packaged in a clear zip lock bag. provided instructions for the 2nd day in a row on how to keep a clean environment during her dressing changes. patient open to instructions, mentioned a large dog who resides in the home w/ her. states she has nobody to care for the dog or her dressing changes. encouraged her to attempt to even reach her foot by bending her knee and leaning over, which she was able to do w/ little effort, although reluctant. Dr Hill wrote d/c orders. patient instructed by Secretary To [employer] on how to obtain her suboxone; and to follow up w/ [facility]. PIV discontinued, and staff attempted to assist her w/ getting dressed. patient called several friends to determine if they could help her get home and settled. Voicemails left by PUSHPA + RN for friend Ofelia to call us back. i received a message to return the call, which i did but was again , left w/ leaving a voicemail once again. patient became agitated, i want a voucher to go get a new shoe, since i threw mine away because it stunk so bad. PUSHPA, RN and BROKER ASSOCIATE reminded her that the voucher if for cab to get home only. and several more hours went by as she refused the help to get dressed. After conferring w/ Dr Hill, he gave the OK for her to drive her own car home. and after d/c paperwork reviewed w/ patient. she was assisted to w/c and wheeled out by BROKER ASSOCIATE, brought to her car. where she promptly told BROKER ASSOCIATE leave me alone. d/c instructions included: the need to follow up w/ [facility], & [facility] and that her prescriptions were ready at the pharmacy.
== END 2022-02-25 16:00 | disposition home or self-care (01) | DRG 603 ==
LOC: ED 02-20 02:40 → AC 02-20 03:14
PROVIDERS: Neuromusculoskeletal Medicine, Sports Medicine; Admitting Provider Internal Medicine; Emergency Provider Emergency Medicine; Referring Provider Internal Medicine; Visit Provider Internal Medicine
DX: L03.115 Cellulitis of right lower limb (principal); Z20.822 Contact with and (suspected) exposure to COVID-19; L03.116 Cellulitis of left lower limb; N17.9 Acute kidney failure, unspecified; L97.319 Non-pressure chronic ulcer of right ankle with unspecified severity; F11.20 Opioid dependence, uncomplicated; F15.20 Other stimulant dependence, uncomplicated; I87.8 Other specified disorders of veins; F17.200 Nicotine dependence, unspecified, uncomplicated; F41.9 Anxiety disorder, unspecified; D50.9 Iron deficiency anemia, unspecified; B96.5 Pseudomonas (aeruginosa) (mallei) (pseudomallei) as the cause of diseases classified elsewhere; B95.7 Other staphylococcus as the cause of diseases classified elsewhere; Z59.819 Housing instability, housed unspecified
CPT/HCPCS: 36415; 71045; 80053; 80069; 81003; 81025; 83540; 83550; 83605; 83690; 83880; 84145; 85025; 85651; 86140; 87040; 87070; 87075; 87077; 87147; 87186; 87205; 87635; 87797; 93005; 93306; 94760; 96365; 99284; C9803; G0378; J0878; J1170; J1644; J1650; J1940; J2270; J2405; J2543

== ENCOUNTER 2022-05-17 06:50 | Inpatient (IN) | payer MEDICAID, SELFPAY ==
[2022-02-20 03:13] VITALS: BMI 33.3
[2022-05-17 06:59] VITALS: BP 145/85; PULSE 119; RESP 18; TEMP 36.5; O2SAT 93; BMI 36.6
--- NOTE | 2022-05-17 07:28 | ED_ITS ---
HPI - Skin/Abscess/Foreign Bdy General Chief complaint: Skin/Abscess/Foreign Body Stated complaint: Cellulitis in right leg- getting worse/painful Time Seen by Provider: 05/17/22 07:16 Source: patient Mode of arrival: Ambulatory History of Present Illness HPI narrative: Patient is a 56-year-old female history of opiate methamphetamine use disorder, congestive heart failure, sensitivity to vancomycin with red man syndrome, chronic venous stasis presenting today with ongoing right lower extremity cellulitis. She was admitted 02/20/2022 through 02/25/2022 for cellulitis. He states initially she was poked with a drill bit in her right leg. It was really tender in a specific area. She has pictures that looks significantly better than her leg does today. She can not give me a specific timeline on how long her right ankle has been this read with foul-smelling discharge. She denies fever or chills. She does have a dressing on it she says she put the dressing on left night the dressing is very saturated. He apparently is on and off Suboxone. She states that she injects in her muscles but does not you know the however previously no and admission report IV use. Related Data Home Medications Medication Instructions Recorded Confirmed No Known Home Medications 05/17/22 05/17/22 Allergies Allergy/AdvReac Type Severity Reaction Status Date / Time vancomycin AdvReac Severe Rash Verified 05/17/22 09:37 Review of Systems Review of Systems Narrative: GENERAL: Denies chills, fatigue, malaise, fever, sweats, travel HEENT: Denies sinus pain, ear pain, sore throat, difficulty swallowing, neck pain RESPIRATORY: Denies dyspnea, cough, wheezing, hemoptysis, sputum. CARDIOVASCULAR: Denies chest pain, palpitations, orthopnea, edema GASTROINTESTINAL: Denies nausea, vomiting, abdominal pain, diarrhea, constipation, melena. : Denies dysuria, frequency, incontinence, hematuria, urinary retention, flank pain. MUSCULOSKELETAL: Denies weakness, joint pain, or bony pain SKIN: See HPI NEUROLOGIC: Denies weakness, dizziness, headache, numbness, change in speech, confusion PSYCHIATRIC: No concerning psychosocial issues. 12 point review of systems is negative except for those stated above and HPI Patient History Medical History Abscess of multiple sites History of necrotizing fasciitis Methamphetamine use disorder, severe Opioid use disorder Social History household members: other Smoking Status: Current some day smoker alcohol intake: current Smoking Status: Current some day smoker tobacco type: cigarettes alcohol intake frequency: 0-2 drinks per day Substance Use Type: methamphetamine Exam Initial Vital Signs Initial Vital Signs: Vital Signs Temperature 97.7 F 05/17/22 06:59 Pulse Rate 119 H 05/17/22 06:59 Respiratory Rate 18 05/17/22 06:59 Blood Pressure 145/85 H 05/17/22 06:59 Pulse Oximetry 93 05/17/22 06:59 Oxygen Delivery Method 05/17/22 06:59 GENERAL: Alert 56-year-old female appears older than stated age, chronically ill appearing no acute distress HEENT: Head atraumatic,EOMI, pupils reactive, face symmetric, [moist] mucous membranes CARDIOVASCULAR: Regular rate and rhythm without murmurs, rubs or gallops. RESPIRATORY: Breath sounds equal bilaterally, no wheezes rales or rhonchi. ABDOMEN: Soft, nontender. Normoactive bowel sounds all 4 quadrants. No guarding or rebound. EXTREMITIES: Normal range of motion, no clubbing or edema. Neurovascularly intact NEUROLOGICAL: Alert and oriented x4.Normal gait and speech. SKIN: Right ankle significant discharge erythematous ulcerations erythema goes up mid lower leg. She does have a distal pulse. Extremely sensitive to touch Course Orders Ordered: ED Orders 05/17/22 07:59 Chest [XR chest 1V] Stat 05/17/22 08:00 COVID19 -Nasal RAPID/Pre-Proc Stat 05/17/22 08:02 Wound Culture and Gram Stain Stat 05/17/22 08:23 Blood Culture Stat CBC Auto Diff [Complete Blood Count AUTO DIFF] Stat Lactate (Lactic Acid) Stat Procalcitonin Stat 05/17/22 10:25 CMP [Comprehensive Metabolic Panel] Stat Comprehensive Metabolic Panel Stat 05/17/22 11:02 EKG-12 Lead Stat Hydromorphone HCl (Hydromorphone 1 Mg Inj) 1 mg IV Q3H PRN PRN Reason: Pain, Moderate (4-6) Piperacillin Sod/Tazobactam (Sod 3.375 gm/ Sodium Chloride) 100 mls @ 25 mls/hr IV Q8H BHARATI Stop: 05/24/22 15:00 Daptomycin 370 mg/ Sodium (Chloride) 50 mls @ 100 mls/hr IV Q24H BHARATI Stop: 05/24/22 14:25 Ketorolac Tromethamine (Ketorolac 30 Mg/Ml Vial) 15 mg IV Q8H BHARATI Stop: 05/22/22 14:22 Lorazepam (Lorazepam 0.5 Mg Tablet) 0.5 mg PO Q4HR PRN PRN Reason: Anxiety Methadone HCl (Methadone 10 Mg Tablet) 30 mg PO TID BHARATI Nicotine (Nicotine 14 Patch) 14 mg TOP DAILY [facility] Discontinued Medications Bacitracin (Bacitracin Oint 0.9 Gm Pckt) 3 applic TOP NOW ONE Stop: 05/17/22 08:41 Last Admin: 05/17/22 08:48 Dose: 3 applic Documented By: LO Diazepam (Diazepam 10 Mg/2 Ml Syringe) 5 mg IV NOW ONE Stop: 05/17/22 09:07 Last Admin: 05/17/22 10:01 Dose: 5 mg Documented By: MONTRELL Hydromorphone HCl (Hydromorphone 1 Mg Inj) 1 mg IV NOW ONE Stop: 05/17/22 08:11 Last Admin: 05/17/22 08:25 Dose: 1 mg Documented By: LO Hydromorphone HCl (Hydromorphone 1 Mg Inj) 1 mg IV NOW ONE Stop: 05/17/22 09:07 Last Admin: 05/17/22 09:44 Dose: 1 mg Documented By: MONTRELL Piperacillin Sod/Tazobactam (Sod 4.5 gm/ Sodium Chloride) 100 mls @ 200 mls/hr IV NOW ONE Stop: 05/17/22 07:39 Last Infusion: 05/17/22 11:19 Dose: 0 mls/hr Documented By: LO(2) Admin: 05/17/22 08:33 Dose: 200 mls/hr Documented By: LO Sodium Chloride (Normal Saline 0.9%) 1,000 mls @ 1,000 mls/hr IV BOLUS ONE Stop: 05/17/22 08:41 Last Infusion: 05/17/22 12:29 Dose: 0 mls/hr Documented By: Admin: 05/17/22 08:33 Dose: 1,000 mls/hr Documented By: LO Ketorolac Tromethamine (Ketorolac 30 Mg/Ml Vial) 15 mg IV NOW ONE Stop: 05/17/22 09:08 Last Admin: 05/17/22 09:35 Dose: 15 mg Documented By: RB Vital Signs Vital signs: Vital Signs - 8 hr 05/17/22 06:59 Temperature 97.7 F Pulse Rate 119 H Respiratory Rate 18 Blood Pressure 145/85 H Pulse Oximetry 93 Oxygen Delivery Method Room Air MDM - Skin/Abscess/Foreign Bdy Lab Data Result diagrams: 05/17/22 08:23 05/17/22 10:25 Labs: Lab Results 05/17/22 05/17/22 05/17/22 Range/Units 08:00 08:23 08:23 WBC 9.1 (4.5-11.0) X10^3/uL RBC 4.12 (4.0-5.2) X10^6/uL Hgb 9.4 L (12.0-16.0) g/dL Hct 29.6 L (36-46) % MCV 71.7 L (80-100) fL MCH 22.9 L (26-34) PG MCHC 31.9 (30-36) % RDW 20.0 H (11.6-14.8) % Plt Count 446 H (150-400) X10^3/uL Neut % (Auto) 71.7 (50-75) % Lymph % (Auto) 10.1 L (25-40) % [place] % (Auto) 13.6 (3-14) % Eos % (Auto) 3.1 (2-4) % Baso % (Auto) 1.5 (0-2) % Neut # (Auto) 6600 (8254-5759) /uL Lymph # (Auto) 900 L (3233-4344) /uL [place] # (Auto) 1200 H (0-900) /uL Eos # (Auto) 300 (0-450) /uL Baso # (Auto) 100 (0-100) /uL Sodium (137-145) mmol/L Potassium (3.4-5.1) mmol/L Chloride (98-107) mmol/L Carbon Dioxide (22-32) mmol/L BUN (7-17) mg/dL Creatinine (0.52-1.04) mg/dL Estimated GFR (>60) mL/min BUN/Creatinine Ratio (6-22) Glucose (70-100) mg/dL Lactate 1.4 (0.7-2.1) mmol/L Calcium (8.4-10.2) mg/dL Total Bilirubin (0.2-1.3) mg/dL AST (14-36) IU/L ALT (<35) IU/L Alkaline Phosphatase (38-126) U/L Total Protein (6.3-8.2) g/dL Albumin (3.5-5.0) g/dL Globulin (1.7-4.1) g/dL Albumin/Globulin Ratio (1.0-2.8) Procalcitonin (<0.5) ng/mL SARS-CoV-2 (PCR) Negative (Negative) 05/17/22 05/17/22 05/17/22 Range/Units 08:23 10:25 10:25 WBC (4.5-11.0) X10^3/uL RBC (4.0-5.2) X10^6/uL Hgb (12.0-16.0) g/dL Hct (36-46) % MCV (80-100) fL MCH (26-34) PG MCHC (30-36) % RDW (11.6-14.8) % Plt Count (150-400) X10^3/uL Neut % (Auto) (50-75) % Lymph % (Auto) (25-40) % [place] % (Auto) (3-14) % Eos % (Auto) (2-4) % Baso % (Auto) (0-2) % Neut # (Auto) (9060-5306) /uL Lymph # (Auto) (6773-9326) /uL [place] # (Auto) (0-900) /uL Eos # (Auto) (0-450) /uL Baso # (Auto) (0-100) /uL Sodium 134 L 135 L (137-145) mmol/L Potassium 5.1 4.9 (3.4-5.1) mmol/L Chloride 102 103 (98-107) mmol/L Carbon Dioxide 26 24 (22-32) mmol/L BUN 31 H 31 H (7-17) mg/dL Creatinine 1.28 H 1.27 H (0.52-1.04) mg/dL Estimated GFR 49 L 50 L (>60) mL/min BUN/Creatinine Ratio 24.2 H 24.4 H (6-22) Glucose 139 H 137 H (70-100) mg/dL Lactate (0.7-2.1) mmol/L Calcium 8.5 8.7 (8.4-10.2) mg/dL Total Bilirubin 0.7 0.3 (0.2-1.3) mg/dL AST 56 H 37 H (14-36) IU/L ALT 33 34 (<35) IU/L Alkaline Phosphatase 123 145 H (38-126) U/L Total Protein 8.4 H 8.3 H (6.3-8.2) g/dL Albumin 3.5 3.5 (3.5-5.0) g/dL Globulin 4.9 H 4.8 H (1.7-4.1) g/dL Albumin/Globulin Ratio 0.7 L 0.7 L (1.0-2.8) Procalcitonin 0.13 (<0.5) ng/mL SARS-CoV-2 (PCR) (Negative) Imaging Data Chest x-ray: Radiologist's Impression: Signed Patient: Ericka Yao MR#: [id number] : 1965 Acct:[id number] Age/Sex: 56 / F Date of Service: 05/17/22 Loc: Accession Number: [id number] ?? Procedure: XR chest 1V Ordering Provider: Kori Chaidez D.O. PROCEDURE:? XR CHEST 1V ? INDICATIONS:? sepsis ? TECHNIQUE:? One view of the chest was acquired.? ? COMPARISON:? [facility], , XR CHEST 1V, 02/19/2022, 22:11. ? FINDINGS:? ? Surgical changes and devices:? None.? ? Lungs and pleura:? Lungs are clear.? No pleural effusions or pneumothorax.? ? Mediastinum:? Mediastinal contours appear normal.? Heart size is normal.? ? Bones and chest wall:? No suspicious bony lesions.? Overlying soft tissues appear unremarkable.? ? IMPRESSION:? Stable radiographic evaluation of the chest without acute cardiopulmonary abnormalities or focal airspace disease. ? Dictated by: Kp Gallagher M.D. on 05/17/2022 at 8:10 ? ? Approved by: Kp Gallagher M.D. on 05/17/2022 at 8:10 ? ECG Data Interpretation: Sinus tachycardia rate 100 p.r. interval 136 QRS [address] changes no T- wave inversions MDM Narrative Medical decision making narrative: The patient has obvious cellulitis of her right ankle it is unclear how long that has been there for. She is mildly tachycardic. Blood work surprisingly is reassuring without leukocytosis elevated lactate or procalcitonin. The patient was started on Zosyn, she was previously started on this last admission. She says the soonest the Zosyn started her legs started burning more she required mo re Dilaudid. sHe initially refused the Valium, but then decided she would take it. Wound culture is pending. She is not hypotensive and does not meet sepsis fluid requirements. Dr. Hwang, accepts patient. Discharge Plan Departure Patient Disposition: Admitted As Inpatient Clinical Impression: Cellulitis Qualifiers: Site of cellulitis: extremity Site of cellulitis of extremity: lower extremity Laterality: right Qualified Code(s): L03.115 - Cellulitis of right lower limb Admit Date/Time: 05/17/22 11:26 Admit Provider: Karina Hwang
--- NOTE | 2022-05-17 07:59 | DI.RAD.S_ITS ---
PROCEDURE: XR CHEST 1V INDICATIONS: sepsis TECHNIQUE: One view of the chest was acquired. COMPARISON: [facility], CR, XR CHEST 1V, 02/19/2022, 22:11. FINDINGS: Surgical changes and devices: None. Lungs and pleura: Lungs are clear. No pleural effusions or pneumothorax. Mediastinum: Mediastinal contours appear normal. Heart size is normal. Bones and chest wall: No suspicious bony lesions. Overlying soft tissues appear unremarkable. IMPRESSION: Stable radiographic evaluation of the chest without acute cardiopulmonary abnormalities or focal airspace disease. Dictated by: Kp Gallagher M.D. on 05/17/2022 at 8:10 Approved by: Kp Gallagher M.D. on 05/17/2022 at 8:10
[2022-05-17] MEDS: HYDROMORPHONE 1 MG INJ IV ×5 (08:25→20:20)
[2022-05-17] MEDS: SODIUM CHLORIDE 0.9% 1,000 ML 1000 ML IV (08:33)
[2022-05-17] MEDS: PIPERACILLIN/TAZO 4.5 GM in SODIUM CHLORIDE 0.9% 100 ML IV (08:33)
[2022-05-17 08:35] LABS: Add Manual Diff / Slide Review NO; Basophils Absolute Auto 100 /uL (0-100); Basophils Percent Auto 1.5 % (0-2); Eosinophils Absolute Auto 300 /uL (0-450); Eosinophils Percent Auto 3.1 % (2-4); Hematocrit 29.6 % (36-46); Hemoglobin 9.4 g/dL (12.0-16.0); Lymphocytes Absolute Auto 900 /uL (1100-4500); Lymphocytes Percent Auto 10.1 % (25-40); Mean Corpuscular HGB Conc 31.9 % (30-36); Mean Corpuscular Hemoglobin 22.9 PG (26-34); Mean Corpuscular Volume 71.7 fL (80-100); Monocytes Absolute Auto 1200 /uL (0-900); Monocytes Percent Auto 13.6 % (3-14); Neutrophils Absolute Auto 6600 /uL (1500-7000); Neutrophils Percent Auto 71.7 % (50-75); Platelet Count 446 X10^3/uL (150-400); Red Blood Cell Count 4.12 X10^6/uL (4.0-5.2); White Blood Cell Count 9.1 X10^3/uL (4.5-11.0)
[2022-05-17] MEDS: BACITRACIN OINT 0.9 GM PCKT 3 APPLIC TOP (08:48)
[2022-05-17 08:49] LABS: Lactate (Lactic Acid) 1.4 mmol/L (0.7-2.1)
[2022-05-17 08:58] LABS: COVID19 -Nasal RAPID Negative (Negative)
[2022-05-17 09:03] LABS: Procalcitonin 0.13 ng/mL (<0.5)
[2022-05-17] MEDS: KETOROLAC 30 MG/ML VIAL 15 MG IV ×2 (09:35→16:25)
[2022-05-17] MEDS: diazePAM 10 MG/2 ML SYRINGE 5 MG IV (10:01)
[2022-05-17 10:12] LABS: Alanine Aminotransferase 33 IU/L (<35); Calcium 8.5 mg/dL (8.4-10.2); Chloride 102 mmol/L (98-107); Sodium 134 mmol/L (137-145)
[2022-05-17 10:32] LABS: Albumin 3.5 g/dL (3.5-5.0); Albumin Globulin Ratio 0.7 (1.0-2.8); Alkaline Phosphatase 123 U/L (38-126); Aspartate Aminotransferase 56 IU/L (14-36); BUN Creatinine Ratio 24.2 (6-22); Bilirubin Total 0.7 mg/dL (0.2-1.3); Blood Urea Nitrogen 31 mg/dL (7-17); Carbon Dioxide 26 mmol/L (22-32); Estimated Glomerular Filt Rate 49 mL/min (>60); Globulin 4.9 g/dL (1.7-4.1); Glucose 139 mg/dL (70-100); HEMOLYSIS 152 (0-50); Total Protein 8.4 g/dL (6.3-8.2)
[2022-05-17 10:33] LABS: Potassium 5.1 mmol/L (3.4-5.1)
[2022-05-17 10:59] LABS: Alanine Aminotransferase 34 IU/L (<35); Albumin 3.5 g/dL (3.5-5.0); Albumin Globulin Ratio 0.7 (1.0-2.8); Alkaline Phosphatase 145 U/L (38-126); Aspartate Aminotransferase 37 IU/L (14-36); BUN Creatinine Ratio 24.4 (6-22); Bilirubin Total 0.3 mg/dL (0.2-1.3); Blood Urea Nitrogen 31 mg/dL (7-17); Calcium 8.7 mg/dL (8.4-10.2); Carbon Dioxide 24 mmol/L (22-32); Chloride 103 mmol/L (98-107); Estimated Glomerular Filt Rate 50 mL/min (>60); Globulin 4.8 g/dL (1.7-4.1); Glucose 137 mg/dL (70-100); HEMOLYSIS 33 (0-50); Potassium 4.9 mmol/L (3.4-5.1); Sodium 135 mmol/L (137-145); Total Protein 8.3 g/dL (6.3-8.2)
[2022-05-17 11:39] VITALS: BMI 33.9
[2022-05-17 12:11] VITALS: BP 136/85; PULSE 96; RESP 18; TEMP 36.8; O2SAT 99
--- NOTE | 2022-05-17 12:43 | PC.NURSE ---
Pt to room 208 via stretcher-able to transfer self to bed. States she has pain in her right lower leg. Placed consult with Wound Care Inpatient RN who is currently examining and documenting wounds to right outer upper arm and bilat. lower ext. Both lower legs with malodorous smell, eschar to left, weepy drainage, edema, erythema, and rough skin with variable surface depths. Pt wears a brace to her left ankle/foot which is turned inward from a prior injury-brace and dressings removed. Left posterior lower leg wiith large open area and eschar. Pt is c/o pain to her lower medial segura area but is also rubbing her skin, scratching and peeling off skin. Pt adamantly refuses to allow full skin check (specifically bottom, lower abd., and genny area, and stated she was here for her leg-nothing else. Checked through Pt. belongings (several bags) for medications or contraband and found a pocket knife which will be placed in the safe for safety. Pt states she is very hungry and needs to eat, refuses bedpan to void, states cannot get up, and states she will use a urinal to void into. Pt also stated that she is here for her leg and does not have any drugs with her and that if she did she would be at home.
--- NOTE | 2022-05-17 12:50 | PC.RNWOUND ---
Right Upper Arm Bilateral Lower Extremities Right Anterior Lower Leg Right Lateral Lower Leg Left Anterior Lower Leg Left Posterior Lower Leg Patient sitting on bed getting admitted by primary nurse, Left Upper Arm bandage removed with a large amount of serosanguineous drainage to removed dressing. There is a chronic 9 x 3.5cm wound with scattered yellow slough-covered open areas. Patient says she has had this wound a long time, periwound is scar tissue. Right lower extremity gaiter area has a 9cm long circumferential venous wound which has slough/collagen to superficial open areas surrounded by erythema. This wound has a large amount of seropurulent drainage to removed dressing. Patient says she is employed by [employer] and does not get to elevate her legs throughout the day. Wounds are gently cleansed with saline and ABD pads are placed to absorb drainage secured with gauze roll.There is malodor noted lower extremity wounds. Left anterior lower extremity has patches of dry scale and light erythema and brown hemosiderosis noted. 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 Left posterior lower leg has a 4 x 6cm area of eschar and an adjacent 1.8 x 2.5cm area of eschar, these wounds appear to be evolving and are surrounded by erythema. There was a moderate-large amount of malodorous drainage to removed dressing. These wounds are gently cleansed with saline and dressed with ABD pad secured with gauze roll. Doppler used to easily locate bilateral posterior tibial and dorsalis pedis pulses. Patient tolerates cares well, eating lunch.
--- NOTE | 2022-05-17 14:01 | PM.HP.1 ---
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 Also has wounds left lower extremity as well. Has old deformity left ankle due to previous fracture. She was admitted 02/20/2022 through 02/25/2022 for cellulitis.? She states initially she was poked with a drill bit in her right leg.? It was really tender in a specific area.? She has pictures that looks significantly better than her leg does today.? Right ankle has been this red with foul-smelling discharge but the timeline of how long this has been occurring is not apparent to the patient.? She denies fever or chills.? She does have a dressing on it she says she put the dressing on and left on all night the time she presented, the dressing was very saturated on presentation.?She has been on a Suboxone program but not currently. Would like to restart at some time.? She states that she injects in her muscles but does not use any drugs now as IV. Drugs she either methamphetamine or fentanyl. Last time she used was just prior to presentation and she used a mixture of both drugs. Patient History Medical History Abscess of multiple sites History of necrotizing fasciitis Methamphetamine use disorder, severe Opioid use disorder Family & Social History Social History: household members other Prior Living Arrangements Apartment/Condo Safety & Behavioral: Feels Safe in Current Yes Environment Been Physically Hurt or No Threatened By a Person Tobacco & Substance use: Tobacco type cigarettes Smoking Status Current some day smoker alcohol intake current alcohol intake frequency 0-2 drinks per day Substance Use Type opiates,methamphetamine Meds Home Medications and Allergies Home Medications Medication Instructions Recorded Confirmed Type No Known Home Medications 05/17/22 05/17/22 History Allergies Allergy/AdvReac Type Severity Reaction Status Date / Time vancomycin AdvReac Severe Rash Verified 05/17/22 09:37 Review of Systems Review of Systems Narrative: Fourteen system review and pertinent findings are in the history of chief complaint. Exam Vital Signs (past 8 hours): - 05/17/22 06:59 05/17/22 12:11 Temperature 97.7 F 98.2 F Pulse Rate 119 H 96 H Respiratory Rate 18 18 Blood Pressure 145/85 H 136/85 Pulse Oximetry 93 99 Oxygen Delivery Method Room Air Oxygen Flow Rate 0 Oxygen Delivery Method Room Air Oxygen Flow Rate 0 Narrative Exam Narrative: Patient alert. Appears in no acute medical distress. HEENT: Pupils equal reactive to light extraocular movements normal. Neck is supple neck nodes are nontender nonpalpable. Trachea is midline. Cardiovascular: Heart sounds are S1 and S2 with no extra sounds or murmur. Respiratory: Adequate air entry throughout the lung up no wheezes or crackles. Gastrointestinal: Abdomen is soft. Nontender. Bowel sounds normal. Skin: Wounds dressed on right and left lower extremity. Address on right upper arm. Musculoskeletal: Able to move all extremities volitionally. Able to ambulate if needed. Neuro: Oriented x3. Normal sensation of all extremities. Psych: Somewhat agitated. No acute depression. Objective Labs Result Diagrams: 05/17/22 08:23 05/17/22 10:25 Labs: Laboratory Results - last 24 hr 05/17/22 05/17/22 05/17/22 08:00 08:23 08:23 WBC 9.1 RBC 4.12 Hgb 9.4 L Hct 29.6 L MCV 71.7 L MCH 22.9 L MCHC 31.9 RDW 20.0 H Plt Count 446 H Neut % (Auto) 71.7 Lymph % (Auto) 10.1 L [place] % (Auto) 13.6 Eos % (Auto) 3.1 Baso % (Auto) 1.5 Neut # (Auto) 6600 Lymph # (Auto) 900 L [place] # (Auto) 1200 H Eos # (Auto) 300 Baso # (Auto) 100 Sodium Potassium Chloride Carbon Dioxide BUN Creatinine Estimated GFR BUN/Creatinine Ratio Glucose Lactate 1.4 Calcium Total Bilirubin AST ALT Alkaline Phosphatase Total Protein Albumin Globulin Albumin/Globulin Ratio Procalcitonin SARS-CoV-2 (PCR) Negative 05/17/22 05/17/22 05/17/22 08:23 10:25 10:25 WBC RBC Hgb Hct MCV MCH MCHC RDW Plt Count Neut % (Auto) Lymph % (Auto) [place] % (Auto) Eos % (Auto) Baso % (Auto) Neut # (Auto) Lymph # (Auto) [place] # (Auto) Eos # (Auto) Baso # (Auto) Sodium 134 L 135 L Potassium 5.1 4.9 Chloride 102 103 Carbon Dioxide 26 24 BUN 31 H 31 H Creatinine 1.28 H 1.27 H Estimated GFR 49 L 50 L BUN/Creatinine Ratio 24.2 H 24.4 H Glucose 139 H 137 H Lactate Calcium 8.5 8.7 Total Bilirubin 0.7 0.3 AST 56 H 37 H ALT 33 34 Alkaline Phosphatase 123 145 H Total Protein 8.4 H 8.3 H Albumin 3.5 3.5 Globulin 4.9 H 4.8 H Albumin/Globulin Ratio 0.7 L 0.7 L Procalcitonin 0.13 SARS-CoV-2 (PCR) Assessment & Plan Assessment & Plan narrative: 1. Acute cellulitis on chronic leg wounds IV antibiotics with daptomycin, and zosyn Daptomycin ordered for possible MRSA, has had red man syndrome to vancomycin MRSA nasal swab Wound culture and blood culture pending results Procalcitonin and white count negative Prior to discharge will need PT to ensure mobility. 2. Possible history of CHF Documented history of CHF Edematous legs, which may be secondary to CHF vs venous stasis ordered BNP Ordered low dose lasix ECHO given history of meth use 3. Opiate abuse, methamphetamine abuse Has previously been on suboxone, but has stopped. Order methadone, 30 mg t.i.d. with hydromorphone supplementation as needed. May not need hydromorphone. Narcan prn ordered if patient becomes altered Gabapentin and Toradol to help with pain control. 4. Elevated creatinine may be due to dehydration follow creatinine and GFR. Both could be affected by infection. Continue with IV fluids. Need to monitor closely in light of receiving IV Toradol. 5. Smoker. Smoking cessation given. Apply nicotine 14 mg patch daily. CODE: Full Proxy: Eulalia Palacios I have utilized all available resources to reconcile the patient's home medications Time Spent With Patient Critical Care time: I spent a total of [] minutes of critical care time on this patient's care today; this time is exclusive of procedural time. Quality VTE Deep Vein Thrombosis/Pulmonary Embolism Present on Admission: No
--- NOTE | 2022-05-17 14:32 | DI.ECHO.S_ITS ---
[facility]---------+ [facility] +---------+ : : [address] : : : : [place] : : : : [id number] : : : : Phone: [phone] Echocardiogram Report + + :Name: LAURIE RAMOS Study Date: 05/18/2022 Height: 65 in : :[facility] ReadingLocation: Weight: 203 lb : : Gender: Female BSA: 2.0 m2 : :: 1965 Age: 56 yrs BP: 119/68 mmHg: :Reason For Study: Endocarditis : :Ordering Physician: : :Karina Hwang Performed By: Cody Gonsales : :Referring: Karina Hwang : + + Interpretation Summary The ejection fraction is estimated to be 50-55%. There are no focal wall motion abnormalities. Left ventricular systolic function has mildly improved compared to the previous exam. There is mild mitral annular calcification. There is mild aortic valve sclerosis. No obvious vegetation seen, consider ELIZABETH if indicated Procedure: A two-dimensional transthoracic echocardiogram with color flow and Doppler was performed. The study quality was technically adequate. Comparison is made with the echocardiogram of 05/18/2022. Left Ventricle: The left ventricle is normal in size and wall thickness. Left ventricular systolic function is normal. The ejection fraction is estimated to be 50-55%. Left ventricular systolic function has mildly improved compared to the previous exam. There are no focal wall motion abnormalities. Diastolic parameters suggest probable normal left ventricular diastolic function and normal filling pressures. Right Ventricle: The right ventricle is normal in size and function. Atria: Both atria are normal in size. The interatrial septum grossly appears intact with no obvious evidence for an atrial septal defect. Mitral Valve: There is mild mitral annular calcification. There is no vegetation seen on the mitral valve. There is no mitral regurgitation noted. Aortic Valve: There is mild aortic valve sclerosis. There is no obvious aortic valvular vegetation. No aortic regurgitation is present. Tricuspid Valve: The tricuspid valve is normal in structure and function. There is no tricuspid valve vegetation. No tricuspid regurgitation. Pulmonary artery pressures cannot be estimated because of the lack of a measurable TR jet velocity. Pulmonic Valve: The pulmonic valve is normal in structure and function. There is no obvious vegetation on the pulmonic valve. There is no pulmonic valvular regurgitation. Great Vessels: The aortic root is normal size. The ascending aorta could not be visualized. The IVC is of normal diameter and collapses greater than 50% with a sniff. This suggests a low right atrial pressure of 3 mm Hg. Pericardium/ Pleura There is no pericardial effusion. There is no pleural effusion. MMode/2D Measurements & Calculations LVIDd: 5.3 cm LVOT diam: 2.5 cm LVIDs: 3.8 cm Ao root diam: 3.2 cm FS: 28.3 % IVSd: 0.80 cm LVPWd: 1.1 cm LV garrison. diameter/BSA (cm/m^2): 2.7 LV sys. diameter/BSA (cm/m^2): 1.9 LA A2 area: 19.3 cm2 RA long axis: 4.7 cm LA A4 area: 20.4 cm2 RA area: 17.6 cm2 LA length (vol): 6.1 cm RA vol: 55.3 ml LA vol: 54.6 ml RA : 27.8 ml/m2 LA vol index: 27.4 ml/m2 TAPSE: 2.9 cm Doppler Measurements & Calculations Ao V2 max: 172.3 cm/sec LVOT Max Prabhakar: 91.0 cm/sec Ao V2 mean: 121.7 cm/sec LV V1 max P.3 mmHg Ao max P.9 mmHg LV V1 VTI: 17.8 cm Ao mean P.6 mmHg TYSHAWN(I,D): 3.2 cm2 Ao V2 VTI: 26.6 cm TYSHAWN(V,D): 2.5 cm2 sev ratio: 0.67 TYSHAWN indexed to BSA (cm^2/m^2): 1.6 MV E max prabhakar: 101.1 cm/sec SV(LVOT): 85.8 ml MV A max prabhakar: 120.7 cm/sec MV E/A: 0.84 Med Peak E' Prabhakar: 8.6 cm/sec E/E' med: 11.7 Lat Peak E' Prabhakar: 11.1 cm/sec E/E' lat: 9.1 E/e' average: 10.4 MV dec time: 0.22 sec Reading Physician:11:04 AM
[2022-05-17 15:58] VITALS: BP 129/61; PULSE 116; RESP 22; TEMP 38.1; O2SAT 98
[2022-05-17] MEDS: NICOTINE 14 PATCH 14 MG TOP (16:25)
[2022-05-17] MEDS: METHADONE 10 MG TABLET 30 MG PO ×2 (16:26→20:19)
[2022-05-17] MEDS: FUROSEMIDE 20 MG/2 ML VIAL IV (16:26)
[2022-05-17] MEDS: LORazepam 0.5 MG TABLET PO ×2 (16:26→20:42)
[2022-05-17] MEDS: PIPERACILLIN/TAZO 3.375 GM in SODIUM CHLORIDE 0.9% 100 ML IV ×2 (17:49→23:33)
[2022-05-17] MEDS: GABAPENTIN 300 MG CAPSULE PO (20:19)
[2022-05-17 20:30] VITALS: BP 111/74; PULSE 110; RESP 18; TEMP 37.2; O2SAT 98
[2022-05-18] MEDS: HYDROMORPHONE 1 MG INJ IV ×5 (03:06→22:32)
[2022-05-18] MEDS: LORazepam 0.5 MG TABLET PO ×4 (03:06→20:52)
[2022-05-18 05:39] VITALS: BP 119/68; PULSE 111; RESP 19; TEMP 36.7; O2SAT 98
[2022-05-18] MEDS: KETOROLAC 30 MG/ML VIAL 15 MG IV (07:03)
[2022-05-18 07:39] LABS: Add Manual Diff / Slide Review NO; Alanine Aminotransferase 31 IU/L (<35); Albumin 3.1 g/dL (3.5-5.0); Albumin Globulin Ratio 0.7 (1.0-2.8); Alkaline Phosphatase 117 U/L (38-126); Aspartate Aminotransferase 40 IU/L (14-36); BUN Creatinine Ratio 26.1 (6-22); Basophils Absolute Auto 100 /uL (0-100); Basophils Percent Auto 1.1 % (0-2); Bilirubin Total 0.3 mg/dL (0.2-1.3); Blood Urea Nitrogen 31 mg/dL (7-17); Calcium 8.2 mg/dL (8.4-10.2); Carbon Dioxide 27 mmol/L (22-32); Chloride 102 mmol/L (98-107); Eosinophils Absolute Auto 200 /uL (0-450); Eosinophils Percent Auto 3.4 % (2-4); Estimated Glomerular Filt Rate 54 mL/min (>60); Globulin 4.2 g/dL (1.7-4.1); Glucose 224 mg/dL (70-100); HEMOLYSIS 49 (0-50); Hematocrit 26.9 % (36-46); Hemoglobin 8.6 g/dL (12.0-16.0); Lymphocytes Absolute Auto 900 /uL (1100-4500); Mean Corpuscular HGB Conc 31.8 % (30-36); Mean Corpuscular Hemoglobin 22.8 PG (26-34); Mean Corpuscular Volume 71.8 fL (80-100); Monocytes Absolute Auto 700 /uL (0-900); Monocytes Percent Auto 14.1 % (3-14); Neutrophils Absolute Auto 3300 /uL (1500-7000); Neutrophils Percent Auto 63.4 % (50-75); Platelet Count 339 X10^3/uL (150-400); Potassium 5.1 mmol/L (3.4-5.1); Red Blood Cell Count 3.75 X10^6/uL (4.0-5.2); Red Cell Distribution Width 19.9 % (11.6-14.8); Sodium 134 mmol/L (137-145); Total Protein 7.3 g/dL (6.3-8.2); White Blood Cell Count 5.2 X10^3/uL (4.5-11.0)
[2022-05-18 07:47] LABS: NT-proBNP (BNP-Adult 18+) 43 pg/mL (<125)
[2022-05-18 08:39] VITALS: BP 112/51; PULSE 104; RESP 20; TEMP 36.8; O2SAT 100
[2022-05-18] MEDS: PIPERACILLIN/TAZO 3.375 GM in SODIUM CHLORIDE 0.9% 100 ML IV ×2 (08:50→15:52)
--- NOTE | 2022-05-18 09:29 | DI.MRI.S_ITS ---
PROCEDURE: MR LOWER LEG RT WO CON INDICATIONS: Assess for osteomyelitis of right lower leg/ankle/foot TECHNIQUE: Noncontrast coronal and sagittal T1 spin echo and STIR; axial T1 spin echo and T2 fast spin echo with fat saturation through the right lower leg. COMPARISON: [facility], CR, XR TIBIA FIBULA LEFT, 04/20/2020, 12:38. [facility], CT, CT LOWER EXTREMITY RIGHT WITH CONTRAST, 07/31/2018, 21:53. FINDINGS: Image quality: Excellent. Bones: Nonspecific osseous edema is seen at the posterolateral aspect of the lateral tibial plateau, which may be related to overlying cartilage loss in the lateral femorotibial compartment. Subchondral sclerosis is seen on both sides of the lateral compartment joint space with marginal osteophyte formation. No definite focal osseous erosion is seen. Chronic periosteal thickening is seen at the mid to distal fibular shaft that appears similar when compared to the CT from 07/31/2018. Soft tissues: A large peripherally calcified fluid collection is seen throughout the central portion of the anterior and lateral compartments, which appears similar in extent when compared to the prior CT, with probable increased peripheral calcification. Mild soft tissue edema is seen within the gastrocnemius and soleus musculature. No soft tissue gas is seen. There is diffuse subcutaneous soft tissue edema. Metal artifact is seen posterior medial to the medial malleolus, likely related to metallic focus seen on prior CT. A medial popliteal cyst is present. IMPRESSION: 1. Diffuse nonspecific subcutaneous soft tissue edema throughout the lower leg and ankle. No definite signs of osteomyelitis. 2. Soft tissue edema within the mild posterior musculature is nonspecific but could indicate myositis or possibly fasciitis. No soft tissue gas. 3. Chronic fluid collection throughout the anterior and lateral compartment musculature, which appears similar and size in extent when compared to the CT from 07/31/2018, most likely related to a remote prior insult. No definite acute abscess. Dictated by: Grey Ramachandran M.D. on 05/18/2022 at 11:06 Approved by: Grey Ramachandran M.D. on 05/18/2022 at 11:25
--- NOTE | 2022-05-18 09:31 | PM.PN.1 ---
Subjective Subjective Date Patient Seen: 05/18/22 Time Patient Seen: 08:00 Interval history: Pain control is reasonable. However patient would like an increase in control. No new other complaints. Remains somewhat agitated. Exam Vital Signs (past 8 hours): - 05/18/22 05:39 05/18/22 08:39 Temperature 98.1 F 98.2 F Pulse Rate 111 H 104 H Respiratory Rate 19 20 Blood Pressure 119/68 112/51 L Pulse Oximetry 98 100 Oxygen Flow Rate 0 0 Oxygen Delivery Method Room Air Oxygen Flow Rate 0 Narrative Exam Narrative: Patient alert.? Appears in no acute medical distress. HEENT:? Pupils equal reactive to light extraocular movements normal.? Neck is supple neck nodes are nontender nonpalpable.? Trachea is midline. Cardiovascular:? Heart sounds are S1 and S2 with no extra sounds or murmur. Respiratory:? Adequate air entry throughout the lung up no wheezes or crackles. Gastrointestinal:? Abdomen is soft.? Nontender.? Bowel sounds normal. Skin:? Wounds dressed on right and left lower extremity.? Also dressed on right upper arm. Musculoskeletal:? Able to move all extremities volitionally.? Able to ambulate if needed. Neuro:? Oriented x3.? Normal sensation of all extremities. Psych:? Somewhat agitated.? No acute depression. Objective Labs Result Diagrams: 05/18/22 07:09 05/18/22 07:09 Labs: Laboratory Results - last 24 hr 05/17/22 05/17/22 05/17/22 10:25 10:25 16:48 WBC RBC Hgb Hct MCV MCH MCHC RDW Plt Count Neut % (Auto) Lymph % (Auto) [place] % (Auto) Eos % (Auto) Baso % (Auto) Neut # (Auto) Lymph # (Auto) [place] # (Auto) Eos # (Auto) Baso # (Auto) Sodium 134 L 135 L Potassium 5.1 4.9 Chloride 102 103 Carbon Dioxide 26 24 BUN 31 H 31 H Creatinine 1.28 H 1.27 H Estimated GFR 49 L 50 L BUN/Creatinine Ratio 24.2 H 24.4 H Glucose 139 H 137 H Calcium 8.5 8.7 Total Bilirubin 0.7 0.3 AST 56 H 37 H ALT 33 34 Alkaline Phosphatase 123 145 H NT-Pro-B Natriuret Pep Total Protein 8.4 H 8.3 H Albumin 3.5 3.5 Globulin 4.9 H 4.8 H Albumin/Globulin Ratio 0.7 L 0.7 L Nasal Screen MRSA (PCR) Negative for mrsa 05/18/22 05/18/22 05/18/22 07:09 07:09 07:09 WBC 5.2 RBC 3.75 L Hgb 8.6 L Hct 26.9 L MCV 71.8 L MCH 22.8 L MCHC 31.8 RDW 19.9 H Plt Count 339 Neut % (Auto) 63.4 Lymph % (Auto) 18.0 L [place] % (Auto) 14.1 H Eos % (Auto) 3.4 Baso % (Auto) 1.1 Neut # (Auto) 3300 Lymph # (Auto) 900 L [place] # (Auto) 700 Eos # (Auto) 200 Baso # (Auto) 100 Sodium 134 L Potassium 5.1 Chloride 102 Carbon Dioxide 27 BUN 31 H Creatinine 1.19 H Estimated GFR 54 L BUN/Creatinine Ratio 26.1 H Glucose 224 H Calcium 8.2 L Total Bilirubin 0.3 AST 40 H ALT 31 Alkaline Phosphatase 117 NT-Pro-B Natriuret Pep 43 Total Protein 7.3 Albumin 3.1 L Globulin 4.2 H Albumin/Globulin Ratio 0.7 L Nasal Screen MRSA (PCR) [facility] Medical History Abscess of multiple sites History of necrotizing fasciitis Methamphetamine use disorder, severe Opioid use disorder Social History household members: other Smoking Status: Current some day smoker alcohol intake: current Assessment & Plan Assessment & Plan narrative: 1. Acute cellulitis on chronic leg wounds ?IV antibiotics with daptomycin, and zosyn Daptomycin ordered for possible MRSA, has had red man syndrome to vancomycin MRSA nasal swab Wound culture and blood culture results show Staph aureus and Pseudomonas. They are covered with daptomycin and Zosyn. Continue treatment. Procalcitonin and white count negative Prior to discharge will need PT to ensure mobility. 2. Possible history of CHF Documented history of CHF Edematous legs, which may be secondary to CHF vs venous stasis ordered BNP Ordered low dose lasix. Can transition to oral. ?ECHO given history of meth use 3. Opiate abuse, methamphetamine abuse Has previously been on suboxone, but has stopped this. Order methadone, 30 mg t.i.d. with hydromorphone IV supplementation as needed.? Narcan prn ordered if patient becomes altered Gabapentin and Toradol to help with pain control. Increase Toradol to 30 mg IV every 6 hours. 4. Elevated creatinine may be due to dehydration follow creatinine and GFR.? Both could be affected by infection. Continue with IV fluids.? Need to monitor closely in light of receiving IV Toradol. Improved today with creatinine 1.19 and GFR 54. Continue to follow. 5. Smoker.? Smoking cessation given.? Apply nicotine 14 mg patch daily. 6. Concern for underlying osteomyelitis as a cause of recurrent right leg cellulitis. Obtain MRI to evaluate for osteomyelitis. CODE: Full Proxy:? Eulalia Palacios Time Spent With Patient Critical Care time: I spent a total of [] minutes of critical care time on this patient's care today; this time is exclusive of procedural time. Quality VTE Deep Vein Thrombosis/Pulmonary Embolism Present on Admission: No
[2022-05-18] MEDS: FUROSEMIDE 20 MG/2 ML VIAL IV (10:00)
[2022-05-18] MEDS: METHADONE 10 MG TABLET 30 MG PO ×3 (10:00→20:09)
[2022-05-18] MEDS: NICOTINE 14 PATCH 14 MG TOP (10:00)
[2022-05-18 12:00] VITALS: BP 106/56; PULSE 94; RESP 25; TEMP 36.6; O2SAT 98
--- NOTE | 2022-05-18 13:43 | CM.DANOTE ---
Initial Discharge Assessment Note: Case received, EMR reviewed. Introduced self and role. Payer: [employer] and Medicaid PCP: none listed. 56 yo single female who lives in [facility] with her dog. She was admitted yesterday with acute RLE cellulitis with chronic wounds (> a year). Wound cx + and she is on 2 IV antibiotics. MRI done for r/o osteo. Nurse reports patient with chronic pain and asking for pain meds frequently. Patient has chronic injury to left foot and uses a crutch at times. She drives and not willing to stop so she does not qualify for wound care. She has been seen at [facility] wound center in past and counseled her to follow up per her medical team. Patient wishes to return home on dc. Plan: Follow closely for needs. SAM Discharge Planning/Care Management CM Discharge Assessment Start: 05/18/22 13:38 Freq: Status: Active Protocol: Document 05/18/22 13:39 (Rec: 05/18/22 13:43 [id number]) Discharge Planning Assessment Assigned Assistant Executive Housekeeper Klarissa Bejarano RN/DCP Advance Directives? No History Provided By Patient,Medical Record Prior Living Arrangements House Household Members other Comment dog Type of transporation used prior to Drives own vehicle admit Independent with ADL's Yes Is patient alert and oriented? Yes Caregiver for Another No Comment None at this time Patient/Family Preference Home with Home Health Comment [facility] for her addiction issues. Discharge Plan Home with Home Health Transportation Arrangement Vehicle in parking lot. Referrals Initiated Other Additional Comment Will need to coordinate safe d /c plan as d/c nears. Patient will need to make an appointment with [facility] wound clinic where she is known. She does not qualify for as she drives and not willing to stop. If patient plan is home with home health No : Has signed face to face form been completed? Review Status In Process Next Review Type Continued Stay Review
--- NOTE | 2022-05-18 14:09 | DIET.CONS ---
Dietary Consultation Note Admission Date: 05/17/2022 11:26 Assessment: 56 y/o F admitted with onging right LE cellulitis. PMH of opiate/methamphetamine use disorder, CHF, and sensitivity to vancomycin. RD consulted for multiple chronic wounds. Adequate PO with 100% at breakfast. Kitchen reports she leaves multiple messages for a range of foods. May benefit from HgA1c check as she has had a recent BG of 224 mg/dL. Elevation due to undiagnosed DM vs chronic inflammation from wounds? Unclear if previous glucose readings were fasting, but there are readings >126 mg/dL (137-139 mg/dL). Previous admission she also had BG in the 130-150 range. Given appetite and wounds, may benefit from ruling out T2DM. Ht: 165.1 cm Wt: 92.5 kg BMI: 33.9 Last BM: 05/17/22 (05/17/22 11:39) MNA: 12 Trev Score: 20 Diet: 05/17/22 Dinner General (Regular) Diet Diet Modifications: Nutrition Percent Meal Consumed 100% 05/18/22 09:00 Labs: RBC 3.75 X10^6/uL (4.0-5.2) L 05/18/22 07:09 Hgb 8.6 g/dL (12.0-16.0) L 05/18/22 07:09 Hct 26.9 % (36-46) L 05/18/22 07:09 Creatinine 1.19 mg/dL (0.52-1.04) H 05/18/22 07:09 Lactate 1.4 mmol/L (0.7-2.1) 05/17/22 08:23 NT-Pro-B Natriuret Pep 43 pg/mL (<125) 05/18/22 07:09 Nutrition Diagnosis: Predicted increased protein needs r/t chronic wounds aeb admission with ongoing cellulitis of the LE. Interventions: 1. Conrad BID to support wound healing 2. Fruit cup with meals to support vitamin c needs Monitoring/Evaluations: RD f/u 3-4 days Electronically Signed by: Angeline Mcbride 05/18/22 14:09 Clinical [address] [id number]
[2022-05-18] MEDS: DAPTOMYCIN IV (15:35)
[2022-05-18] MEDS: SODIUM CHLORIDE 0.9% IV (15:35)
[2022-05-18] MEDS: ENOXAPARIN 40 MG/0.4 ML SYRINGE SUBCUT (18:10)
[2022-05-18] MEDS: KETOROLAC 30 MG/ML VIAL IV (19:21)
[2022-05-18] MEDS: GABAPENTIN 300 MG CAPSULE PO (20:09)
[2022-05-18 20:15] VITALS: BP 116/75; PULSE 93; RESP 18; TEMP 36.8; O2SAT 95
[2022-05-19] MEDS: PIPERACILLIN/TAZO 3.375 GM in SODIUM CHLORIDE 0.9% 100 ML IV ×2 (00:21→09:22)
[2022-05-19] MEDS: LORazepam 0.5 MG TABLET PO ×3 (04:34→20:30)
[2022-05-19] MEDS: HYDROMORPHONE 1 MG INJ IV ×3 (04:34→22:31)
[2022-05-19 04:57] VITALS: BP 118/78; PULSE 80; RESP 18; TEMP 36
[2022-05-19 07:04] LABS: Add Manual Diff / Slide Review NO; Basophils Absolute Auto 200 /uL (0-100); Eosinophils Absolute Auto 600 /uL (0-450); Eosinophils Percent Auto 5.7 % (2-4); Hematocrit 27.3 % (36-46); Hemoglobin 8.6 g/dL (12.0-16.0); Lymphocytes Absolute Auto 2800 /uL (1100-4500); Lymphocytes Percent Auto 27.9 % (25-40); Mean Corpuscular HGB Conc 31.6 % (30-36); Mean Corpuscular Hemoglobin 22.9 PG (26-34); Mean Corpuscular Volume 72.4 fL (80-100); Monocytes Absolute Auto 1700 /uL (0-900); Monocytes Percent Auto 17.2 % (3-14); Neutrophils Absolute Auto 4700 /uL (1500-7000); Neutrophils Percent Auto 47.2 % (50-75); Platelet Count 332 X10^3/uL (150-400); Red Blood Cell Count 3.77 X10^6/uL (4.0-5.2); Red Cell Distribution Width 19.8 % (11.6-14.8); White Blood Cell Count 9.9 X10^3/uL (4.5-11.0)
[2022-05-19 07:11] LABS: Alanine Aminotransferase 42 IU/L (<35); Albumin 3.2 g/dL (3.5-5.0); Albumin Globulin Ratio 0.7 (1.0-2.8); Alkaline Phosphatase 120 U/L (38-126); Aspartate Aminotransferase 52 IU/L (14-36); BUN Creatinine Ratio 30.3 (6-22); Bilirubin Total 0.4 mg/dL (0.2-1.3); Blood Urea Nitrogen 37 mg/dL (7-17); Calcium 8.4 mg/dL (8.4-10.2); Carbon Dioxide 24 mmol/L (22-32); Chloride 105 mmol/L (98-107); Estimated Glomerular Filt Rate 52 mL/min (>60); Globulin 4.7 g/dL (1.7-4.1); Glucose 160 mg/dL (70-100); Potassium 5.3 mmol/L (3.4-5.1); Sodium 134 mmol/L (137-145); Total Protein 7.9 g/dL (6.3-8.2)
[2022-05-19 07:12] LABS: HEMOLYSIS 73 (0-50)
[2022-05-19 07:14] LABS: Hemoglobin A1C% w Est Avg Glu 6.8 % (4.0-6.0)
[2022-05-19 09:05] VITALS: BP 136/103; PULSE 89; RESP 20; TEMP 36.3; O2SAT 96
[2022-05-19] MEDS: METHADONE 10 MG TABLET 30 MG PO ×3 (09:23→20:30)
[2022-05-19] MEDS: NICOTINE 14 PATCH 14 MG TOP (09:23)
[2022-05-19] MEDS: FUROSEMIDE 20 MG TABLET PO (09:23)
[2022-05-19] MEDS: KETOROLAC 30 MG/ML VIAL IV (09:25)
[2022-05-19] MEDS: CEFEPIME 2 GM in SODIUM CHLORIDE 0.9% 100 ML IV (13:35)
--- NOTE | 2022-05-19 14:34 | P.PN_ITS ---
Subjective Subjective Date Patient Seen: 05/19/22 Time Patient Seen: 12:00 Exam Vital Signs (past 8 hours): - 05/18/22 20:15 Temperature 98.3 F Pulse Rate 93 H Respiratory Rate 18 Blood Pressure 116/75 Pulse Oximetry 95 Oxygen Flow Rate 0 Oxygen Delivery Method Room Air Oxygen Flow Rate 0 Narrative Exam Narrative: Patient alert.? Appears in no acute medical distress. HEENT:? Pupils equal reactive to light extraocular movements normal.? Neck is supple neck nodes are nontender nonpalpable.? Trachea is midline. Cardiovascular:? Heart sounds are S1 and S2 with no extra sounds or murmur. Respiratory:? Adequate air entry throughout the lung up no wheezes or crackles. Gastrointestinal:? Abdomen is soft.? Nontender.? Bowel sounds normal. Skin:? Wounds dressed on right and left lower extremity.? Also dressed on right upper arm. Musculoskeletal:? Able to move all extremities volitionally.? Able to ambulate if needed. Neuro:? Oriented x3.? Normal sensation of all extremities. Psych:? Somewhat agitated.? No acute depression. Objective Labs Result Diagrams: 05/19/22 06:50 05/19/22 06:50 Labs: Laboratory Results - last 24 hr 05/18/22 05/18/22 05/18/22 07:09 07:09 07:09 WBC 5.2 RBC 3.75 L Hgb 8.6 L Hct 26.9 L MCV 71.8 L MCH 22.8 L MCHC 31.8 RDW 19.9 H Plt Count 339 Neut % (Auto) 63.4 Lymph % (Auto) 18.0 L [place] % (Auto) 14.1 H Eos % (Auto) 3.4 Baso % (Auto) 1.1 Neut # (Auto) 3300 Lymph # (Auto) 900 L [place] # (Auto) 700 Eos # (Auto) 200 Baso # (Auto) 100 Sodium 134 L Potassium 5.1 Chloride 102 Carbon Dioxide 27 BUN 31 H Creatinine 1.19 H Estimated GFR 54 L BUN/Creatinine Ratio 26.1 H Glucose 224 H Calcium 8.2 L Total Bilirubin 0.3 AST 40 H ALT 31 Alkaline Phosphatase 117 NT-Pro-B Natriuret Pep 43 Total Protein 7.3 Albumin 3.1 L Globulin 4.2 H Albumin/Globulin Ratio 0.7 L [facility] Medical History Abscess of multiple sites History of necrotizing fasciitis Methamphetamine use disorder, severe Opioid use disorder Social History household members: other Smoking Status: Current some day smoker alcohol intake: current Assessment & Plan Assessment & Plan narrative: 1. Acute cellulitis on chronic leg wounds IV antibiotics with daptomycin, and zosyn initially given Daptomycin ordered for possible MRSA, has had red man syndrome to vancomycin MRSA nasal swab negative Wound culture and blood culture results show Group A strep and Pseudomonas. As MRSA swab negative will dc dapto and switch zosyn to cefepime. Procalcitonin and white count negative MRI RLE with soft tissue swelling but no evidence of osteomyelitis 2. Bilateral LE venous stasis wounds Edematous legs, which may be secondary to CHF vs venous stasis ordered BNP Ordered low dose lasix. Can transition to oral. -elevate LE's and apply unna boots per wound care if feasible 3. Opiate abuse, methamphetamine abuse Has previously been on suboxone, but has stopped this. Order methadone, 30 mg t.i.d. with hydromorphone IV supplementation as needed.? Narcan prn ordered if patient becomes altered Gabapentin and Toradol to help with pain control. Increase Toradol to 30 mg IV every 6 hours. 4. CKD.? -Cr 1.22 with previous baseline of 1.1-1.2 -Avoid nephrotoxic agents. Stop toradol and lovenox. -Monitor 5. Smoker.? Smoking cessation given.? Apply nicotine 14 mg patch daily. 6. Concern for underlying osteomyelitis as a cause of recurrent right leg cellulitis. Obtain MRI to evaluate for osteomyelitis. 7. History of CHF New echo given history of meth use showed improved EF of 50-55% from 40-45% in January 2022 8. Insomnia -Restart home trazodone CODE: Full DVT proph: Heparin SQ Proxy:? Eulalia Palacios Time Spent With Patient Critical Care time: I spent a total of [] minutes of critical care time on this patient's care today; this time is exclusive of procedural time. Quality VTE Deep Vein Thrombosis/Pulmonary Embolism Present on Admission: No
[2022-05-19 14:51] VITALS: BP 106/72; PULSE 84; RESP 18; TEMP 36.6; O2SAT 94
[2022-05-19] MEDS: FUROSEMIDE 40 MG/4 ML VIAL IV (16:33)
--- NOTE | 2022-05-19 17:32 | PC.NURSE ---
Pt is AxOx4, needs STA and cooperative. VSS, pt c/o BLE and recieved PRN IV Dilaudid 1 mg once as well as her scheduled Toradol with good effect. Pt also recieved PRN Ativan for dressing change. Pt is eating very well and sleeping between care. Otherwise, no problem identified. Continue monitor.
[2022-05-19 19:30] VITALS: BP 136/87; PULSE 84; RESP 17; TEMP 36.8; O2SAT 93
[2022-05-19] MEDS: GABAPENTIN 300 MG CAPSULE PO (20:30)
[2022-05-19] MEDS: HEPARIN 5,000 UNIT/ML VIAL 5000 UNIT SUBCUT (20:30)
[2022-05-19] MEDS: TRAZODONE 100 MG TABLET PO (20:30)
[2022-05-19] MEDS: SODIUM CHLORIDE 0.9% FLUSH 10 ML IV (22:32)
[2022-05-20] MEDS: CEFEPIME 2 GM in SODIUM CHLORIDE 0.9% 100 ML IV ×2 (00:48→13:13)
[2022-05-20 05:21] VITALS: BP 106/69; PULSE 102; RESP 20; TEMP 37.2; O2SAT 95
[2022-05-20] MEDS: LORazepam 0.5 MG TABLET PO (05:24)
[2022-05-20] MEDS: HYDROMORPHONE 1 MG INJ IV ×3 (05:24→20:41)
--- NOTE | 2022-05-20 07:55 | PM.PN.1 ---
Subjective Subjective Date Patient Seen: 05/20/22 Time Patient Seen: 14:00 Interval history: Patient somnolent but then awakens when entering the room. She states improved pain in her RLE. Doesn't have a PCP and asking me to recommend one. She would like to proceed with suboxone therapy once she discharges. Exam Vital Signs (past 8 hours): - 05/20/22 05:21 Temperature 99 F Pulse Rate 102 H Respiratory Rate 20 Blood Pressure 106/69 Pulse Oximetry 95 Oxygen Flow Rate 0 Oxygen Delivery Method Room Air Oxygen Flow Rate 0 Narrative Exam Narrative: General: Patient somnolent but awakens easily. HEENT:? Pupils equal reactive to light extraocular movements normal.? Neck is supple neck nodes are nontender nonpalpable.? Trachea is midline. Cardiovascular:? Heart sounds are S1 and S2 with no extra sounds or murmur. Respiratory:? Adequate air entry throughout the lung up no wheezes or crackles. Gastrointestinal:? Abdomen is soft.? Nontender.? Bowel sounds normal. Skin:? Wounds dressed on right and left lower extremity.? Also dressed on right upper arm. Drainage present on wraps. Musculoskeletal:? Able to move all extremities volitionally.? Able to ambulate if needed. Neuro:? Oriented x3.? Normal sensation of all extremities. Psych:? Pressured speech and repeats herself often. Objective Labs Result Diagrams: 05/20/22 08:30 05/20/22 08:30 [facility] Medical History Abscess of multiple sites History of necrotizing fasciitis Methamphetamine use disorder, severe Opioid use disorder Social History household members: other Smoking Status: Current some day smoker alcohol intake: current Assessment & Plan Assessment & Plan narrative: 1. Acute cellulitis of right LE IV antibiotics with daptomycin, and zosyn initially given Wound culture and blood culture results show Group A strep and Pseudomonas. As MRSA swab negative will dc dapto and switch zosyn to cefepime. Procalcitonin and white count negative MRI RLE with soft tissue swelling but no evidence of osteomyelitis continue cefepime to complete 5 days on 05/21 2. Bilateral LE venous stasis ulcers with skin breakdown Edematous legs, which appears to be weeping fluid due to venous insufficiency BNP 43 Ordered low dose lasix. Can transition to oral. -elevate LE's and apply unna boots per wound care if feasible 3. Opiate abuse, methamphetamine abuse Has previously been on suboxone, but has stopped this. Order methadone, with hydromorphone IV supplementation as needed.? Narcan prn ordered if patient becomes altered -lower methadone to 20mg TID due to somnolence -will dc with script for suboxone and have patient f/u at [facility] clinic for ongoing management 4. CKD.? -Cr 1.22 with previous baseline of 1.1-1.2 -Avoid nephrotoxic agents. Stop toradol and lovenox. -Monitor 5. Smoker.? Smoking cessation given.? Apply nicotine 14 mg patch daily. 6. Concern for underlying osteomyelitis as a cause of recurrent right leg cellulitis. Obtain MRI to evaluate for osteomyelitis. 7. History of CHF New echo given history of meth use showed improved EF of 50-55% from 40-45% in January 2022 8. Insomnia -Restart home trazodone CODE: Full DVT proph: Heparin SQ Proxy:? Eulalia Palacios Dispo: dc on 05/21 Time Spent With Patient Critical Care time: I spent a total of [] minutes of critical care time on this patient's care today; this time is exclusive of procedural time. Quality VTE Deep Vein Thrombosis/Pulmonary Embolism Present on Admission: No
[2022-05-20 08:46] LABS: Add Manual Diff / Slide Review NO; Basophils Absolute Auto 100 /uL (0-100); Basophils Percent Auto 0.7 % (0-2); Eosinophils Absolute Auto 200 /uL (0-450); Eosinophils Percent Auto 3.3 % (2-4); Hematocrit 27.5 % (36-46); Hemoglobin 8.7 g/dL (12.0-16.0); Lymphocytes Absolute Auto 1200 /uL (1100-4500); Lymphocytes Percent Auto 15.6 % (25-40); Mean Corpuscular HGB Conc 31.8 % (30-36); Mean Corpuscular Hemoglobin 22.5 PG (26-34); Mean Corpuscular Volume 70.9 fL (80-100); Monocytes Absolute Auto 700 /uL (0-900); Neutrophils Absolute Auto 5400 /uL (1500-7000); Neutrophils Percent Auto 71.4 % (50-75); Platelet Count 444 X10^3/uL (150-400); Red Blood Cell Count 3.88 X10^6/uL (4.0-5.2); Red Cell Distribution Width 19.8 % (11.6-14.8); White Blood Cell Count 7.6 X10^3/uL (4.5-11.0)
[2022-05-20 08:55] LABS: BUN Creatinine Ratio 33.9 (6-22); Blood Urea Nitrogen 42 mg/dL (7-17); Calcium 8.7 mg/dL (8.4-10.2); Carbon Dioxide 28 mmol/L (22-32); Chloride 103 mmol/L (98-107); Estimated Glomerular Filt Rate 51 mL/min (>60); Glucose 145 mg/dL (70-100); HEMOLYSIS < 15 (0-50); Potassium 4.7 mmol/L (3.4-5.1); Sodium 135 mmol/L (137-145)
[2022-05-20] MEDS: METHADONE 10 MG TABLET 30 MG PO (09:25)
[2022-05-20] MEDS: NICOTINE 14 PATCH 14 MG TOP (09:25)
[2022-05-20] MEDS: HEPARIN 5,000 UNIT/ML VIAL 5000 UNIT SUBCUT ×2 (09:25→20:41)
[2022-05-20] MEDS: SODIUM CHLORIDE 0.9% FLUSH 10 ML IV ×2 (09:27→20:41)
[2022-05-20 11:15] VITALS: BP 90/56; PULSE 109; RESP 16; TEMP 36.8; O2SAT 95
--- NOTE | 2022-05-20 13:55 | PC.NURSE ---
1230 Dressing change to BLEs. Previous dressings removed with serosang drainage. yellowish slough cleansed from wounds using saline and gauze. Redressed wounds with ABD pads and kerlex gauze. BLEs elevated with pillows and bed function.
[2022-05-20 15:29] VITALS: BP 107/76; PULSE 100; RESP 15; TEMP 36.9; O2SAT 93
[2022-05-20 19:14] VITALS: BP 116/84; PULSE 106; RESP 18; TEMP 36.8; O2SAT 93
[2022-05-20 20:30] VITALS: BP 146/71; PULSE 101; RESP 18; TEMP 36.6; O2SAT 95
[2022-05-20] MEDS: METHADONE 10 MG TABLET 20 MG PO (20:40)
[2022-05-20] MEDS: TRAZODONE 100 MG TABLET PO (20:40)
[2022-05-20] MEDS: GABAPENTIN 300 MG CAPSULE PO (20:41)
[2022-05-21] MEDS: CEFEPIME 2 GM in SODIUM CHLORIDE 0.9% 100 ML IV ×2 (00:22→09:30)
[2022-05-21 02:01] VITALS: BP 130/65; PULSE 104; RESP 20; TEMP 37.3; O2SAT 94
[2022-05-21 07:33] LABS: BUN Creatinine Ratio 37.5 (6-22); Blood Urea Nitrogen 45 mg/dL (7-17); Calcium 8.5 mg/dL (8.4-10.2); Carbon Dioxide 25 mmol/L (22-32); Chloride 105 mmol/L (98-107); Estimated Glomerular Filt Rate 53 mL/min (>60); Glucose 126 mg/dL (70-100); HEMOLYSIS < 15 (0-50); Potassium 4.3 mmol/L (3.4-5.1); Sodium 134 mmol/L (137-145)
--- NOTE | 2022-05-21 07:48 | P.DS_ITS ---
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 Also has wounds left lower extremity as well.? Has old deformity left ankle due to previous fracture.? She was admitted 02/20/2022 through 02/25 for cellulitis.? She states initially she was poked with a drill bit in her right leg.? It was really tender in a specific area.? She has pictures that looks significantly better than her leg does today.? Right ankle has been this red with foul-smelling discharge but the timeline of how long this has been occurring is not apparent to the patient.? She denies fever or chills.? She does have a dressing on it she says she put the dressing on and left on all night the time she presented, the dressing was very saturated on presentation.?She has been on a Suboxone program but not currently.? Would like to restart at some time.? She states that she injects in her muscles but does not use any drugs now as IV.? Drugs she either methamphetamine or fentanyl.? Last time she used was just prior to presentation and she used a mixture of both drugs. Discharge Providers Provider Date of admission: 05/17/22 11:26 Discharge Date: 05/21/22 Consults: 05/17/22 12:00 Consult to Inpatient Wound Care Nurse Routine Comment: Reason for consultation: wound to right segura/ankle Has provider been notified: Yes 05/17/22 16:58 Consult to Dietitian, Adult Routine Comment: Reason For Exam: multiple chronic skin wounds, Discharge provider: Teodoro Madden DO Summary Hospital Course Discharge Diagnosis: 1. Acute cellulitis of right LE IV antibiotics with daptomycin, and zosyn initially given Wound culture and blood culture results show Group A strep and Pseudomonas.? As MRSA swab negative will dc dapto and switch zosyn to cefepime. Procalcitonin and white count negative MRI RLE with soft tissue swelling but no evidence of osteomyelitis continue cefepime to complete 5 days on 05/21 2. Bilateral LE venous stasis ulcers with skin breakdown Edematous legs, which appears to be weeping fluid due to venous insufficiency BNP 43 -elevate LE's and apply unna boots per wound care if feasible -will have HH change dressings and patient should f/u with wound care clinic for wraps 3. Opiate abuse, methamphetamine abuse Has previously been on suboxone, but has stopped this. Order methadone, with hydromorphone IV supplementation as needed.? Narcan prn ordered if patient becomes altered -lower methadone to 20mg TID due to somnolence -discharged home with script for suboxone and have patient f/u at [facility] residency clinic for ongoing management 4. CKD.? -Cr 1.22 with previous baseline of 1.1-1.2 -Avoid nephrotoxic agents. Stop toradol and lovenox. -Monitor 5. Smoker.? Smoking cessation given.? Apply nicotine 14 mg patch daily. 6. History of CHF New echo given history of meth use showed improved EF of 50-55% from 40-45% in January 2022 8. Insomnia -Restart home trazodone Hospital Course: Patient admitted for lower extremity bilateral swelling as well as venous stasis wound on the right leg with possible surrounding cellulitis. She received IV antibiotics and wound cultures grew strep pyogenes and Pseudomonas so she was treated with 5 days of cefepime. Redness of the right lower extremity improved. Dressings were changed by Wound Care. Patient will continue to receive home care with home health and should follow up with outpatient wound care clinic for ongoing management of her venous insufficiency and venous stasis ulcers. Patient is an active IV drug user so she was given a prescription for Suboxone to start after being 24 hours free of opioids. She does not have a PCP so ibrahima lamas was given for scheduled Internal Medicine residency Clinic to establish care and for ongoing wound care and opiate dependence management. Exam Vital Signs (past 8 hours): - 05/21/22 02:01 Temperature 99.1 F Pulse Rate 104 H Respiratory Rate 20 Blood Pressure 130/65 Pulse Oximetry 94 Oxygen Flow Rate 0 Oxygen Delivery Method Room Air Oxygen Flow Rate 0 Narrative Exam Narrative: General: Patient somnolent but awakens easily. HEENT:? Pupils equal reactive to light extraocular movements normal.? Neck is weems pple neck nodes are nontender nonpalpable.? Trachea is midline. Cardiovascular:? Heart sounds are S1 and S2 with no extra sounds or murmur. Respiratory:? Adequate air entry throughout the lung up no wheezes or crackles. Gastrointestinal:? Abdomen is soft.? Nontender.? Bowel sounds normal. Skin:? Wounds dressed on right and left lower extremity.? Also dressed on right upper arm. Drainage present on wraps. Musculoskeletal:? Able to move all extremities volitionally.? Able to ambulate if needed. Neuro:? Oriented x3.? Normal sensation of all extremities. Psych:? Pressured speech and repeats herself often. Objective Labs Result Diagrams: 05/20/22 08:05/21/22 06:40 Labs: Laboratory Results - last 24 hr 05/20/22 05/20/22 05/21/22 08: 08:30 06:40 WBC 7.6 RBC 3.88 L Hgb 8.7 L Hct 27.5 L MCV 70.9 L MCH 22.5 L MCHC 31.8 RDW 19.8 H Plt Count 444 H Neut % (Auto) 71.4 D Lymph % (Auto) 15.6 L [place] % (Auto) 9.0 Eos % (Auto) 3.3 Baso % (Auto) 0.7 Neut # (Auto) 5400 Lymph # (Auto) 1200 [place] # (Auto) 700 Eos # (Auto) 200 Baso # (Auto) 100 Sodium 135 L 134 L Potassium 4.7 4.3 Chloride 103 105 Carbon Dioxide 28 25 BUN 42 H 45 H Creatinine 1.24 H 1.20 H Estimated GFR 51 L 53 L BUN/Creatinine Ratio 33.9 H 37.5 H Glucose 145 H 126 H Calcium 8.7 8.5 PFSH Medical History Abscess of multiple sites History of necrotizing fasciitis Methamphetamine use disorder, severe Opioid use disorder Social History household members: other Smoking Status: Current some day smoker alcohol intake: current Discharge Plan Discharge Plan Patient Disposition: Home Health Service Discharge orders & Medications Prescriptions: New buprenorphine-naloxone [Suboxone] 4-1 mg film 1 film sublingual Q24H Qty: 60 0RF Quality VTE Deep Vein Thrombosis/Pulmonary Embolism Present on Admission: No
[2022-05-21 08:45] VITALS: BP 103/51; PULSE 89; RESP 21; TEMP 37.2; O2SAT 96
[2022-05-21] MEDS: METHADONE 10 MG TABLET 20 MG PO (09:28)
[2022-05-21] MEDS: HEPARIN 5,000 UNIT/ML VIAL 5000 UNIT SUBCUT (09:29)
[2022-05-21] MEDS: NICOTINE 14 PATCH 14 MG TOP (09:31)
[2022-05-21] MEDS: SODIUM CHLORIDE 0.9% FLUSH 10 ML IV (09:36)
--- NOTE | 2022-05-21 10:37 | PC.RNWOUND ---
Addendum entered by Yasmine Grant R.N. 05/21/22 10:52: Wounds appear unchanged from previous assessment, other right lower extremity redness is header setup operator in color. Left lower posterior leg eschar-appearing tissue has sloughed off and there is now pink tissue to these wounds, which also have a large amount of non-malodorous serosanguineous drainage to removed dressing. Original Note: Dressings changed to BLE wounds using superabsorbent dressing, gauze roll, TOM. Removed dressings had a large amount of serosanguineous drainage, no malodor noted. Patient given extensive detailed verbal instruction by wound nurse to elevate legs above heart for 20-30 mins 2-3 times a day and the importance of compression as a lifestyle. Patient instructed to follow up at wound clinic and not miss appointment as evaluation of blood flow is needed to determine specific treatment plan. Patient says, I will go to the appointment. CM working on arranging HH for dressing changes until wound clinic appt., which still must be made.
--- NOTE | 2022-05-21 11:39 | CM.DPC ---
DCP Discharge Home with HH Per MD, pt medically stable to d/c home today with HH and signed F2[facility] for wound care needs and also printed script for Suboxone. SW met bedside with pt and explained role and pt states she drove herself to the ED and has her car in the parking lot for d/c to home today. SW provided resources for MAT tx programs for ongoing Suboxone but pt states she has been established with [facility] in [facility] and aware of the resources and plans to call them at d/c. SW inquired about PCP and pt confirms MD mentioned [facility] and pt agreeable and pt denies any hx of HH or SNF but states she would be agreeable with HH RN/SCARFER to assist with wound care and getting connected to community resources. Due to pt not having a PCP, SW made referral to [facility] and they will review to determine if they can accept. SW faxed clinicals to review along with [facility] and HH orders. Per Wound RN, ideally pt would be seen at outpt Wound Clinic but pt confirmed that she has been to [facility] and will not go back but is agreeable with referral being sent to [facility] and states she would attend her outpt appointments but Yasmine Wound RN spoke to Camila at [facility] and attempting to get pt on the schedule for next week and therefore could still benefit from HH RN at this time. Plan: Patient to d/c home today via own POV and [facility] to follow to determine if pt meets criteria for [facility] program while awaiting outpt Wound Clinic opening at [facility]. MIKY John
--- NOTE | 2022-05-21 13:30 | PC.NURSE ---
Wound nurse changed dressings this AM. Rn gave methadone at 0930. At around 1130 pt started yelling at staff stating she wants to leave now. Staff advised that per she needs to wait 4 hours after taking methadone to safely drive. Pt started yelling more at staff that she had driven while on drugs and methadone more than we know. Staff informed of happenings and said it was now okay that pt leaves. Pt then became frustrated with information changing. RN gave discharge instructions and pt discharged at 1215.
--- NOTE | 2022-05-22 08:43 | CM.DPC ---
Late Entry: CM team received call from Charline from [facility] indicating that they could not accept referral due to staffing issues. MATHEMATICS PROFESSOR placed call to Charline this AM to confirm. Charline confirms and reports that she will notify patient that this case could not be staffed. Charline reports that she will instruct patient to seek outpatient follow up at [facility] residency clinic and/or Nov. P: Home without HH. FEDERICO
== END 2022-05-21 12:15 | disposition home or self-care (01) | DRG 603 ==
LOC: ED 11:22 → AC 11:26
PROVIDERS: Student in an Organized Health Care Education/Training Program; Admitting Provider Neuromusculoskeletal Medicine, Sports Medicine; Emergency Provider Emergency Medicine; Referring Provider Emergency Medicine; Visit Provider Neuromusculoskeletal Medicine, Sports Medicine
DX: L03.115 Cellulitis of right lower limb (principal); L97.221 Non-pressure chronic ulcer of left calf limited to breakdown of skin; L97.211 Non-pressure chronic ulcer of right calf limited to breakdown of skin; F11.10 Opioid abuse, uncomplicated; F15.10 Other stimulant abuse, uncomplicated; R60.0 Localized edema; G47.00 Insomnia, unspecified; N18.9 Chronic kidney disease, unspecified; B96.5 Pseudomonas (aeruginosa) (mallei) (pseudomallei) as the cause of diseases classified elsewhere; B95.0 Streptococcus, group A, as the cause of diseases classified elsewhere; F17.210 Nicotine dependence, cigarettes, uncomplicated; Z20.822 Contact with and (suspected) exposure to COVID-19
CPT/HCPCS: 36415; 71045; 73718; 80048; 80053; 83036; 83605; 83880; 84145; 85025; 87040; 87070; 87075; 87077; 87147; 87186; 87205; 87635; 87797; 93005; 93306; 96365; 96366; 96375; 96376; 99284; C9803; J0692; J0878; J1170; J1642; J1644; J1650; J1885; J1940; J2543; J3360

== ENCOUNTER 2022-08-23 18:28 | Emergency (ER) | payer OTHER, MEDICAID, SELFPAY | END 2022-08-23 19:00 | disposition left against medical advice (07) | PROVIDERS: Emergency Provider Emergency Medicine ==

== ENCOUNTER 2023-01-31 04:12 | Observation (INO) | payer OTHER, MEDICAID, SELFPAY ==
[2023-01-31] VITALS (23 sets, daily range): BP systolic 90–198; BP diastolic 52–101; PULSE 64–127; RESP 16–39; TEMP 35.6–38.3; O2SAT 91–98; BMI 33.3; BMI 36.5
[2023-01-31 06:07] LABS: Hematocrit 31.8 % (36-46); Hemoglobin 10.6 g/dL (12.0-16.0); Mean Corpuscular HGB Conc 33.2 % (30-36); Mean Corpuscular Hemoglobin 24.3 PG (26-34); Mean Corpuscular Volume 73.2 fL (80-100); Platelet Count 308 X10^3/uL (150-400); Red Blood Cell Count 4.35 X10^6/uL (4.0-5.2); Red Cell Distribution Width 20.9 % (11.6-14.8)
[2023-01-31 06:08] LABS: Add Manual Diff / Slide Review YES
[2023-01-31 06:14] LABS: Alanine Aminotransferase 18 IU/L (<35); Albumin 3.9 g/dL (3.5-5.0); Albumin Globulin Ratio 0.9 (1.0-2.8); Alkaline Phosphatase 106 U/L (38-126); Aspartate Aminotransferase 23 IU/L (14-36); Bilirubin Total 0.3 mg/dL (0.2-1.3); Blood Urea Nitrogen 21 mg/dL (7-17); Carbon Dioxide 28 mmol/L (22-32); Chloride 97 mmol/L (98-107); Estimated Glomerular Filt Rate 44 mL/min (>60); Globulin 4.5 g/dL (1.7-4.1); Glucose 124 mg/dL (70-100); HEMOLYSIS < 15 (0-50); Potassium 4.3 mmol/L (3.4-5.1); Sodium 131 mmol/L (137-145); Total Protein 8.4 g/dL (6.3-8.2)
[2023-01-31 06:25] LABS: NT-proBNP (BNP-Adult 18+) 104 pg/mL (<125); Troponin I < 0.012 ng/mL (0.01-0.034)
[2023-01-31] MEDS: cefTRIAXone 2,000 MG in SODIUM CHLORIDE 0.9% 100 ML 200 MG IV (06:50)
[2023-01-31 06:53] LABS: Neutrophils Absolute Manual 10270 /uL (3000-5900); Total Cells Counted 100
[2023-01-31 06:54] LABS: Microcytosis 1+
[2023-01-31 06:55] LABS: Anisocytosis 1+
--- NOTE | 2023-01-31 07:07 | DI.CT.S_ITS ---
PROCEDURE: CT ANGIO CHEST PE PROTOCOL INDICATIONS: left chest pain TECHNIQUE: After the administration of intravenous contrast, 2 mm thick sections acquired from the pulmonary apices to the posterior costophrenic angles. 3-dimensional maximum intensity projection (MIP) coronal and sagittal reformats were then acquired through the thorax. For radiation dose reduction, the following was used: automated exposure control, adjustment of mA and/or kV according to patient size. COMPARISON: None. FINDINGS: Image quality: Excellent. Pulmonary arteries: Pulmonary arteries are normal in size, and demonstrate no intraluminal filling defects to suggest central pulmonary embolism. Lungs and pleura: Lungs are clear. No pleural effusions or pneumothorax. Central and peripheral airways are patent. 4 x 7 millimeter solid nodule, left lower lobe (series 9, image 184). Mediastinum: Heart size is enlarged, without pericardial effusion. No mediastinal or hilar adenopathy. Thoracic aorta is normal in caliber and enhancement. Esophagus is normal in caliber, without hiatal hernia. Trace gas anterior to the aorta (series 8, image 45). Marked coronary artery calcifications for age. Bones and chest wall: No suspicious bony lesions. Ribs and thoracic spine appear intact throughout. Thyroid gland is unremarkable. No axillary or supraclavicular adenopathy. Abdomen: Visualized upper abdominal solid organs appear normal in the early arterial phase of enhancement. IMPRESSION: No pulmonary embolus. Trace gas anterior to the aorta, presumably within a tiny periaortic vessel given trace additional iatrogenic gas with the left upper extremity venous system and heart. However, if there is a history of recent trauma, pneumomediastinum would not be excluded. Marked coronary artery calcifications for age. 4 x 7 millimeter solid nodule in the left lower lobe. Consider 12 month follow-up if at high risk for developing lung cancer, per Fleischner Society guidelines. Dictated by: Carlos Hernandez M.D. on 01/31/2023 at 8:45 Approved by: Carlos Hernandez M.D. on 01/31/2023 at 8:50
--- NOTE | 2023-01-31 07:07 | DI.US.S_ITS ---
PROCEDURE: US PERIPH VENOUS LOW EXTREM RT INDICATIONS: PAIN AND SWELLING TECHNIQUE: Real-time imaging, as well as color and pulse Doppler interrogation, were performed of the lower extremity deep veins from the inguinal ligament to the popliteal fossa. COMPARISON: None. FINDINGS: There is a deep venous thrombus involving the right superficial femoral vein. The right common femoral vein, popliteal vein, and greater saphenous-common femoral junction appears patent. Incidental note of prominent right inguinal lymph nodes. These are likely reactive. IMPRESSION: Deep venous thrombosis involving the right superficial femoral vein. Dictated by: Kp Gallagher M.D. on 01/31/2023 at 8:17 Approved by: Kp Gallgaher M.D. on 01/31/2023 at 8:20
--- NOTE | 2023-01-31 07:09 | ED_ITS ---
HPI - Skin/Abscess/Foreign Bdy General Chief complaint: Skin/Abscess/Foreign Body Stated complaint: infection rt leg Time Seen by Provider: 01/31/23 05:50 Source: patient Mode of arrival: Ambulatory Limitations: no limitations History of Present Illness HPI narrative: Patient here for complaints left-sided chest pain as well as right leg swelling and redness and drainage. Patient has history blood clot in the right leg and is still on Eliquis. Patient has history of chronic venous stasis with recurrent cellulitis. Patient states she is been doing well with her right leg for the past 4 months. Her last admission August 2022 at [facility]. However 3 weeks ago she started having redness and swelling to the right leg. Patient developed left-sided chest pain last night. Hurts with deep breath. Patient thinks she is had blood clots in her lungs before. Related Data Home Medications Medication Instructions Recorded Confirmed apixaban 5 mg tablet (Eliquis) 5 mg PO BID 01/31/23 01/31/23 buprenorphine 8 mg-naloxone 2 mg 1 film sublingual BID 01/31/23 01/31/23 sublingual film (Suboxone) gabapentin 300 mg capsule 300 mg PO DAILY 01/31/23 01/31/23 lisinopril 20 mg tablet 20 mg PO DAILY 01/31/23 01/31/23 Previous Rx's Medication Instructions Recorded amoxicillin 500 mg-potassium 1 tab PO TID #21 tabs 02/02/23 clavulanate 125 mg tablet (Augmentin) Allergies Allergy/AdvReac Type Severity Reaction Status Date / Time vancomycin AdvReac Severe Rash Verified 05/17/22 09:37 Review of Systems Review of Systems Narrative: GENERAL: negative chills, fatigue, malaise, fever, sweats. HEENT: negative sinus pain, ear pain, sore throat RESPIRATORY: negative dyspnea, cough CARDIOVASCULAR: Positive chest pain, negative palpitations GASTROINTESTINAL: negative nausea, vomiting, abdominal pain : negative dysuria, frequency, hematuria MUSCULOSKELETAL: Positive muscle or bony pain SKIN: negative rash, positive skin lesions NEUROLOGIC: negative weakness, numbness ROS Unobtainable: All systems reviewed & are unremarkable except as noted in HPI and below Patient History Medical History Abscess of multiple sites History of necrotizing fasciitis Methamphetamine use disorder, severe Opioid use disorder Social History household members: other Smoking Status: Current some day smoker alcohol intake: current Smoking Status: Current some day smoker tobacco type: cigarettes alcohol intake frequency: 0-2 drinks per day Substance Use Type: opiates and methamphetamine Exam Narrative Exam Narrative: GENERAL: in no distress, not toxic not dyspneic HEAD: Normocephalic. EYES: Pupils equal round ENT: Mucous membranes moist. NECK: Trachea midline. CARDIOVASCULAR: Tachycardia with Regular rate and rhythm without murmurs RESPIRATORY: Clear to auscultation. Breath sounds equal bilaterally. No wheezes, rales, or rhonchi. Speaking full sentences. GASTROINTESTINAL: Abdomen soft, non-tender EXTREMITIES: Examination right lower extremity pelvis to toes exposed. There is circumferential erythema of the calf and leg below the knee. There is excoriations and superficial ulcerations in patchy distributed pattern. Foot is warm soft pink with brisk cap refills and palpable dorsal pedal pulse. Light touch intact to foot and toes. There is no crepitus or pain out of proportion to exam the skin of the leg. No lymphangitis/red streaking proximally. BACK: No flank tenderness. NEURO: AOx4. SKIN: Warm and dry PSYCH: Is anxious, is cooperative Initial Vital Signs Initial Vital Signs: Vital Signs Temperature 101 F H 01/31/23 04:30 Pulse Rate 93 H 01/31/23 04:30 Respiratory Rate 20 01/31/23 04:30 Blood Pressure 124/73 01/31/23 04:30 Pulse Oximetry 98 01/31/23 04:30 Oxygen Delivery Method Room Air 01/31/23 04:30 Course Orders Ordered: Discontinued Medications Acetaminophen (Acetaminophen 325 Mg Tablet) 650 mg PO Q6H PRN PRN Reason: Fever/Mild Pain (1-3) Last Admin: 02/01/23 23:32 Dose: 650 mg Documented By: PHU Apixaban (Apixaban 5 Mg Tablet) 5 mg PO BID BHARATI Last Admin: 02/02/23 08:39 Dose: 5 mg Documented By: Admin: 02/01/23 23:28 Dose: 5 mg Documented By: Admin: 02/01/23 10:04 Dose: 5 mg Documented By: Admin: 01/31/23 20:40 Dose: 5 mg Documented By: ANNE Clonidine HCl (Clonidine 0.1 Mg Tablet) 0.2 mg PO BID [facility] Last Admin: 02/02/23 09:31 Dose: Not Given Documented By: Admin: 02/01/23 23:28 Dose: 0.2 mg Documented By: Admin: 02/01/23 10:01 Dose: Not Given Documented By: Admin: 01/31/23 20:41 Dose: Not Given Documented By: Admin: 01/31/23 18:00 Dose: Not Given Documented By: HCW Diphenhydramine HCl (Diphenhydramine 50 Mg/Ml Vial) 25 mg IV NOW ONE Stop: 01/31/23 09:09 Last Admin: 01/31/23 09:14 Dose: 25 mg Documented By: AT Gabapentin (Gabapentin 300 Mg Capsule) 300 mg PO TID [facility] Last Admin: 02/02/23 14:01 Dose: 300 mg Documented By: Admin: 02/02/23 08:39 Dose: 300 mg Documented By: Admin: 02/01/23 23:34 Dose: 300 mg Documented By: Admin: 02/01/23 15:43 Dose: 300 mg Documented By: Admin: 02/01/23 10:05 Dose: 300 mg Documented By: Admin: 01/31/23 20:40 Dose: 300 mg Documented By: Admin: 01/31/23 17:55 Dose: 300 mg Documented By: FRANKW Haloperidol (Haloperidol 5 Mg/Ml Vial) 5 mg IV NOW ONE Stop: 01/31/23 09:09 Last Admin: 01/31/23 09:14 Dose: 5 mg Documented By: AT Heparin Sodium (Porcine) (Heparin 5,000 Unit/Ml Vial) 5,000 unit SUBCUT BID [facility] Hydromorphone HCl (Hydromorphone 1 Mg Inj) 1 mg IV Q4H PRN PRN Reason: Pain, Moderate (4-6) Last Admin: 02/02/23 14:02 Dose: 1 mg Documented By: Admin: 02/02/23 08:38 Dose: 1 mg Documented By: Admin: 02/01/23 06:54 Dose: 1 mg Documented By: Admin: 02/01/23 00:34 Dose: 1 mg Documented By: ANNE Hydroxyzine Pamoate (Hydroxyzine Pamoate 25 Mg Capsule) 25 mg PO Q4HR PRN PRN Reason: Itching Last Admin: 02/01/23 15:53 Dose: 25 mg Documented By: JOSEMANUEL Ceftriaxone Sodium 2,000 mg/ (Sodium Chloride) 100 mls @ 200 mls/hr IV NOW ONE Stop: 01/31/23 05:52 Last Infusion: 01/31/23 11:11 Dose: 0 mls/hr Documented By: Infusion: 01/31/23 09:19 Dose: 0 mls/hr Documented By: Infusion: 01/31/23 08:52 Dose: 200 mls/hr Documented By: Infusion: 01/31/23 06:51 Dose: 0 mls/hr Documented By: Admin: 01/31/23 06:50 Dose: 200 mls/hr Documented By: PHILL Sodium Chloride (Normal Saline 0.9%) 500 mls @ 1,000 mls/hr IV BOLUS ONE Stop: 01/31/23 07:36 Last Infusion: 01/31/23 11:11 Dose: 0 mls/hr Documented By: Admin: 01/31/23 07:22 Dose: 1,000 mls/hr Documented By: MATTHEW Ceftriaxone Sodium 2,000 mg/ (Sodium Chloride) 100 mls @ 200 mls/hr IV Q24H BHARATI Stop: 02/07/23 06:59 Last Infusion: 02/01/23 07:00 Dose: 200 mls/hr Documented By: Admin: 02/01/23 06:22 Dose: 200 mls/hr Documented By: ANNE Linezolid (Zyvox) 600 mg in 300 mls @ 600 mls/hr IV Q12H BHARATI Stop: 01/31/23 23:00 Last Infusion: 01/31/23 12:52 Dose: 0 mls/hr Documented By: Admin: 01/31/23 11:24 Dose: 600 mls/hr Documented By: MATTHEW Magnesium Sulfate (Magnesium Sulfate) 2 gm in 50 mls @ 25 mls/hr IV NOW ONE Stop: 01/31/23 13:48 Last Infusion: 01/31/23 14:59 Dose: 0 mls/hr Documented By: KINGA Co-signed By: CATRACHITO Admin: 01/31/23 12:54 Dose: 25 mls/hr Documented By: LUCI Co-signed By: ABDULAZIZ Daptomycin 450 mg/ Sodium (Chloride) 50 mls @ 100 mls/hr IV Q24H [facility] Last Admin: 01/31/23 23:01 Dose: Not Given Documented By: ANNE Cefepime HCl 2 gm/ Sodium (Chloride) 100 mls @ 200 mls/hr IV Q12H [facility] Last Admin: 02/02/23 13:10 Dose: 200 mls/hr Documented By: Infusion: 02/02/23 01:42 Dose: 200 mls/hr Documented By: Admin: 02/02/23 01:12 Dose: 200 mls/hr Documented By: Infusion: 02/01/23 16:12 Dose: 200 mls/hr Documented By: Admin: 02/01/23 15:42 Dose: 200 mls/hr Documented By: ELSY Daptomycin 450 mg/ Sodium (Chloride) 50 mls @ 100 mls/hr IV Q24H [facility] Last Admin: 02/02/23 12:00 Dose: 100 mls/hr Documented By: Infusion: 02/01/23 16:58 Dose: 100 mls/hr Documented By: Admin: 02/01/23 16:28 Dose: 100 mls/hr Documented By: JOSEMANUEL Lorazepam (Lorazepam 2 Mg/Ml Inj) 0.5 mg IV Q2HR PRN PRN Reason: Anxiety Last Admin: 02/02/23 03:47 Dose: 0.5 mg Documented By: Admin: 02/01/23 06:54 Dose: 0.5 mg Documented By: Admin: 02/01/23 00:34 Dose: 0.5 mg Documented By: Admin: 01/31/23 07:20 Dose: 0.5 mg Documented By: MATTHEW Lorazepam (Lorazepam 0.5 Mg Tablet) 0.5 mg PO Q4HR PRN PRN Reason: Anxiety Last Admin: 02/02/23 14:02 Dose: 0.5 mg Documented By: Admin: 02/02/23 08:39 Dose: 0.5 mg Documented By: Admin: 02/01/23 15:53 Dose: 0.5 mg Documented By: JOSEMANUEL Melatonin (Melatonin 3 Mg Tablet) 6 mg PO BEDTIME PRN PRN Reason: Insomnia Last Admin: 02/01/23 23:32 Dose: 6 mg Documented By: PHU Naloxone HCl (Naloxone 0.4 Mg/Ml Vial) 0.2 mg IV Q2MIN PRN PRN Reason: Opiate Reversal Nicotine (Nicotine 14 Patch) 14 mg TOP DAILY [facility] Last Admin: 01/31/23 11:24 Dose: 14 mg Documented By: MATTHEW Nicotine (Nicotine 14 Patch) 14 mg TOP DAILY [facility] Last Admin: 02/02/23 08:38 Dose: 14 mg Documented By: Admin: 02/01/23 10:05 Dose: 14 mg Documented By: Admin: 01/31/23 20:41 Dose: 14 mg Documented By: ANNE Ondansetron HCl (Ondansetron 4 Mg/2 Ml Inj) 4 mg IV Q4HR PRN PRN Reason: Nausea And Vomiting Oxycodone HCl (Oxycodone Ir 5 Mg Tablet) 5 mg PO Q4HR PRN PRN Reason: Pain, Moderate (4-6) Last Admin: 02/01/23 23:35 Dose: 5 mg Documented By: Admin: 02/01/23 15:53 Dose: 5 mg Documented By: Admin: 01/31/23 20:40 Dose: 5 mg Documented By: Admin: 01/31/23 11:48 Dose: 5 mg Documented By: MATTHEW Oxycodone HCl (Oxycodone Ir 10 Mg Tablet) 10 mg PO Q6HR [facility] Last Admin: 02/02/23 12:00 Dose: 10 mg Documented By: Admin: 02/02/23 05:52 Dose: 10 mg Documented By: Admin: 02/02/23 00:05 Dose: Not Given Documented By: Admin: 02/01/23 17:17 Dose: Not Given Documented By: Admin: 02/01/23 12:48 Dose: Not Given Documented By: Admin: 02/01/23 06:21 Dose: 10 mg Documented By: Admin: 02/01/23 00:34 Dose: 10 mg Documented By: Admin: 01/31/23 18:06 Dose: Not Given Documented By: Admin: 01/31/23 17:50 Dose: 10 mg Documented By: KINGA Polyethylene Glycol (Polyethylene Glycol 3350 17 Gm Powd.Pack) 17 gm PO DAILY PRN PRN Reason: Constipation Sennosides (Sennosides 8.6 Mg Tablet) 8.6 mg PO BID PRN PRN Reason: Constipation Vital Signs Vital signs: Vital Signs - 8 hr 01/31/23 04:30 01/31/23 06:49 01/31/23 06:50 Temperature 101 F H Pulse Rate 93 H 127 H 127 H Respiratory Rate 20 Blood Pressure 124/73 Pulse Oximetry 98 96 96 Oxygen Delivery Method Room Air 01/31/23 06:50 01/31/23 06:56 01/31/23 06:56 Temperature Pulse Rate 121 H Respiratory Rate 39 H Blood Pressure 198/101 H 141/69 H Pulse Oximetry 96 Oxygen Delivery Method Room Air 01/31/23 07:00 01/31/23 07:28 01/31/23 07:30 Temperature 99.6 F Pulse Rate 120 H 114 H Respiratory Rate 24 Blood Pressure Pulse Oximetry 95 95 Oxygen Delivery Method 01/31/23 07:38 01/31/23 08:07 01/31/23 08:21 Temperature Pulse Rate 115 H 114 H Respiratory Rate 22 Blood Pressure 146/63 H Pulse Oximetry 95 97 Oxygen Delivery Method Room Air 01/31/23 08:30 01/31/23 08:52 01/31/23 08:52 Temperature Pulse Rate 108 H 106 H Respiratory Rate Blood Pressure 146/69 H Pulse Oximetry 95 94 Oxygen Delivery Method 01/31/23 09:00 01/31/23 09:01 Temperature Pulse Rate 105 H Respiratory Rate Blood Pressure 152/61 H Pulse Oximetry 94 Oxygen Delivery Method MDM - Skin/Abscess/Foreign Bdy Lab Data 02/02/23 07:00 02/02/23 07:00 Labs: Lab Results 01/31/23 01/31/23 01/31/23 Range/Units 05:20 05:20 05:20 WBC 13.0 H (4.5-11.0) X10^3/uL RBC 4.35 (4.0-5.2) X10^6/uL Hgb 10.6 L (12.0-16.0) g/dL Hct 31.8 L (36-46) % MCV 73.2 L (80-100) fL MCH 24.3 L (26-34) PG MCHC 33.2 (30-36) % RDW 20.9 H (11.6-14.8) % Plt Count 308 (150-400) X10^3/uL Neut % (Auto) Not Reportable Lymph % (Auto) Not Reportable [place] % (Auto) Not Reportable Eos % (Auto) Not Reportable Baso % (Auto) Not Reportable Lymph # (Auto) Not Reportable [place] # (Auto) Not Reportable Baso # (Auto) Not Reportable Total Counted 100 Seg Neutrophils % 79.0 H (38-70) % Lymphocytes % (Manual) 10.0 L (25-45) % Monocytes % (Manual) 11.0 (2-11) % Neutrophils # (Manual) 24836 H (4456-3100) /uL RBC Morphology See below Anisocytosis 1+ H Microcytosis 1+ H Sodium 131 L (137-145) mmol/L Potassium 4.3 (3.4-5.1) mmol/L Chloride 97 L (98-107) mmol/L Carbon Dioxide 28 (22-32) mmol/L BUN 21 H (7-17) mg/dL Creatinine 1.40 H (0.52-1.04) mg/dL Estimated GFR 44 L (>60) mL/min BUN/Creatinine Ratio 15.0 (6-22) Glucose 124 H (70-100) mg/dL Hgb A1c (Ref Lab) (4.8-5.6) % Lactate 1.0 (0.7-2.1) mmol/L Calcium 9.0 (8.4-10.2) mg/dL Magnesium (1.6-2.3) mg/dL Total Bilirubin 0.3 (0.2-1.3) mg/dL AST 23 (14-36) IU/L ALT 18 (<35) IU/L Alkaline Phosphatase 106 (38-126) U/L Troponin I < 0.012 (0.01-0.034) ng/mL NT-Pro-B Natriuret Pep 104 (<125) pg/mL Total Protein 8.4 H (6.3-8.2) g/dL Albumin 3.9 (3.5-5.0) g/dL Globulin 4.5 H (1.7-4.1) g/dL Albumin/Globulin Ratio 0.9 L (1.0-2.8) Procalcitonin (<0.5) ng/mL SARS-CoV-2 (PCR) (Negative) 01/31/23 01/31/23 01/31/23 Range/Units 05:20 05:55 05:55 WBC (4.5-11.0) X10^3/uL RBC (4.0-5.2) X10^6/uL Hgb (12.0-16.0) g/dL Hct (36-46) % MCV (80-100) fL MCH (26-34) PG MCHC (30-36) % RDW (11.6-14.8) % Plt Count (150-400) X10^3/uL Neut % (Auto) Lymph % (Auto) [place] % (Auto) Eos % (Auto) Baso % (Auto) Lymph # (Auto) [place] # (Auto) Baso # (Auto) Total Counted Seg Neutrophils % (38-70) % Lymphocytes % (Manual) (25-45) % Monocytes % (Manual) (2-11) % Neutrophils # (Manual) (5934-4331) /uL RBC Morphology Anisocytosis Microcytosis Sodium (137-145) mmol/L Potassium (3.4-5.1) mmol/L Chloride (98-107) mmol/L Carbon Dioxide (22-32) mmol/L BUN (7-17) mg/dL Creatinine (0.52-1.04) mg/dL Estimated GFR (>60) mL/min BUN/Creatinine Ratio (6-22) Glucose (70-100) mg/dL Hgb A1c (Ref Lab) 7.1 H (4.8-5.6) % Lactate (0.7-2.1) mmol/L Calcium (8.4-10.2) mg/dL Magnesium 1.6 (1.6-2.3) mg/dL Total Bilirubin (0.2-1.3) mg/dL AST (14-36) IU/L ALT (<35) IU/L Alkaline Phosphatase (38-126) U/L Troponin I (0.01-0.034) ng/mL NT-Pro-B Natriuret Pep (<125) pg/mL Total Protein (6.3-8.2) g/dL Albumin (3.5-5.0) g/dL Globulin (1.7-4.1) g/dL Albumin/Globulin Ratio (1.0-2.8) Procalcitonin 0.71 H (<0.5) ng/mL SARS-CoV-2 (PCR) (Negative) 01/31/23 Range/Units 07:29 WBC (4.5-11.0) X10^3/uL RBC (4.0-5.2) X10^6/uL Hgb (12.0-16.0) g/dL Hct (36-46) % MCV (80-100) fL MCH (26-34) PG MCHC (30-36) % RDW (11.6-14.8) % Plt Count (150-400) X10^3/uL Neut % (Auto) Lymph % (Auto) [place] % (Auto) Eos % (Auto) Baso % (Auto) Lymph # (Auto) [place] # (Auto) Baso # (Auto) Total Counted Seg Neutrophils % (38-70) % Lymphocytes % (Manual) (25-45) % Monocytes % (Manual) (2-11) % Neutrophils # (Manual) (8704-4400) /uL RBC Morphology Anisocytosis Microcytosis Sodium (137-145) mmol/L Potassium (3.4-5.1) mmol/L Chloride (98-107) mmol/L Carbon Dioxide (22-32) mmol/L BUN (7-17) mg/dL Creatinine (0.52-1.04) mg/dL Estimated GFR (>60) mL/min BUN/Creatinine Ratio (6-22) Glucose (70-100) mg/dL Hgb A1c (Ref Lab) (4.8-5.6) % Lactate (0.7-2.1) mmol/L Calcium (8.4-10.2) mg/dL Magnesium (1.6-2.3) mg/dL Total Bilirubin (0.2-1.3) mg/dL AST (14-36) IU/L ALT (<35) IU/L Alkaline Phosphatase (38-126) U/L Troponin I (0.01-0.034) ng/mL NT-Pro-B Natriuret Pep (<125) pg/mL Total Protein (6.3-8.2) g/dL Albumin (3.5-5.0) g/dL Globulin (1.7-4.1) g/dL Albumin/Globulin Ratio (1.0-2.8) Procalcitonin (<0.5) ng/mL SARS-CoV-2 (PCR) Negative (Negative) Imaging Data US - DVT: Radiologist's Impression: IMPRESSION:? Deep venous thrombosis involving the right superficial femoral vein. CT scan - chest: Radiologist's Impression: IMPRESSION:? No pulmonary embolus. ? Trace gas anterior to the aorta, presumably within a tiny periaortic vessel given trace additional iatrogenic gas with the left upper extremity venous system and heart. However, if there is a history of recent trauma, pneumomediastinum would not be excluded.? ? Marked coronary artery calcifications for age. MDM Narrative Medical decision making narrative: Patient here for complaints left-sided chest pain as well as right leg swelling and redness and drainage. Patient has history blood clot in the right leg and is still on Eliquis. Patient has history of chronic venous stasis with recurrent cellulitis. Patient states she is been doing well with her right leg for the past 4 months. Her last admission August 2022 at [facility]. However 3 weeks ago she started having redness and swelling to the right leg. Patient developed left-sided chest pain last night. Hurts with deep breath. Patient thinks she is had blood clots in her lungs before. After history and exam CBC CMP procalcitonin lactic acid blood culture Rocephin Ativan CT PE protocol EKG troponin leg ultrasound [facility] CC: Chest pain/leg pain Complicating co-morbidities: History of chronic venous stasis and recurrent cellulitis/DVT Data collected from: Patient Medical records reviewed: Discharge summary from this hospital May 21, 2022 Differential considered: Includes but not limited to DVT PE cellulitis necrotizing fasciitis Exam documented above, pertinent findings include: Reproducible left chest pain with movement cough and breathing. Circumferential erythema of the right leg and ulcerations Lab Test results independently reviewed as above. Pertinent findings: WBC 13.0 hemoglobin 10 hematocrit 31 sodium 131 potassium 4.3 BUN 21 creatinine 1.4 GFR 44 troponin less than 0.012 AST 23 ALT 18 Lactic acid 1.0 procalcitonin 0.71 Independently reviewed EKG as above sinus tachycardia otherwise normal EKG rate [address] elevation or depression Imaging studies independently reviewed: Right leg ultrasound positive superficial femoral vein DVT present CT chest no PE but there is trace gas anterior the aorta/periaortic vessel, additional hydrated gas within the left upper extremity venous system and heart. Consultations: 9:[address] Toro, general surgery regarding CT scan findings on the mediastinum. Nothing surgical nothing to transfer patient. This may be iatrogenic likely from line placement. Treatments: Ativan Rocephin normal saline Re-evaluations: 9:00 a.m.. Updated patient results with labs and imaging. She denies any trauma to her chest. She denies any IV drug use for the past 1 year. She is on Suboxone. At this time she states she will stay. She needs something for itching of the skin. I have ordered Haldol and Benadryl Discussion: Diagnosis: Chronic DVT right leg, right leg cellulitis Discharge Plan Departure Patient Disposition: Admitted As Inpatient Clinical Impression: Cellulitis Admit Date/Time: 01/31/23 10:22 Admit Provider: Teodoro Madden
[2023-01-31] MEDS: LORazepam 2 MG/ML INJ 0.5 MG IV (07:20)
[2023-01-31] MEDS: SODIUM CHLORIDE 0.9% 500 ML 1000 ML IV (07:22)
[2023-01-31 07:37] LABS: Procalcitonin 0.71 ng/mL (<0.5)
[2023-01-31 07:49] LABS: COVID19 -Nasal RAPID Negative (Negative)
[2023-01-31] MEDS: diphenhydrAMINE 50 MG/ML VIAL 25 MG IV (09:14)
[2023-01-31] MEDS: HALOPERIDOL 5 MG/ML VIAL IV (09:14)
--- NOTE | 2023-01-31 09:26 | PC.NURSE ---
Pt wanted to get up to go to the BR or stand up and use the urinal. Pt offered bedpan which she refused. She was advised that she should not get up due to her diagnosis of DVT and possible PE. Pt yelling at staff and swearing. Pt insisting on getting up stated If you don't let me get up I'll fucking leave. Pt handed a urinal and advised once again that she should not be standing at this time for her safety
--- NOTE | 2023-01-31 09:26 | PC.NURSE ---
Patient reports she needs to pee, requested urinal and to stand with urinal. Pt educated on risks of standing and ambulating r/t findings and encouraged pt to stay in stretcher at this time, offered a pure wick or bed patient with extensive education. Both options brought to pt. Pt yells, I need to use the bathroom now, I'm not using those, I want the urinal and I want to stand. Pt began slamming equipment and yelling more, r/t pt behavior, this RN removed self from direct reach of pt and injection molding technician Ericka further provided pt education and risks for standing and ambulating for urinal or bathroom. Therapeutic communication utilized in attempt to de-escalate situation. Pt verbalizes she will leave if she cannot stand to urinate, pt reminded she has the right to make her choices but risks have been discussed. Pt continues to yell and ultimately states she accepts risk, given urinal for use.
--- NOTE | 2023-01-31 09:46 | PC.NURSE ---
Pt back in stretcher, calm with eyes closed, arousable. Assisted pt back on monitors. Pt noted to have urinated on floor.
--- NOTE | 2023-01-31 10:34 | PM.HP.1 ---
History of Present Illness History of Present Illness Date Patient Seen: 01/31/23 Time Patient Seen: 15:00 Chief complaint: infection rt leg Narrative: Ericka Yao is a 57-year-old female with past medical history of methamphetamine abuse, lower extremity cellulitis, bilateral LE venous insufficiency, tobacco use, HFrEF of 50-55%, and CKD who presents with pain, swelling and redness of right LE. Patient states the past 3 weeks she has had worsening cellulitis of her right leg. She has some open sores on the segura as well. She admits to smoking fentanyl while taking her suboxone in microdoses. She says she is currently withdrawing and feels unwell. She is requesting her home gabapentin, eliquis and ativan. She says she doesn't want the suboxone because it wasn't working for her. She denies CP, SOB, abd pain, diarrhea. In the ED had a neg DVT US. Temp of 101F with WBC 13. PFSH Medical History Abscess of multiple sites History of necrotizing fasciitis Methamphetamine use disorder, severe Opioid use disorder Social History household members: other Smoking Status: Current some day smoker alcohol intake: current Meds Home Medications and Allergies Home Medications Medication Instructions Recorded Confirmed Type apixaban 5 mg tablet (Eliquis) 5 mg PO BID 01/31/23 01/31/23 History buprenorphine 8 mg-naloxone 2 mg 1 film sublingual BID 01/31/23 01/31/23 History sublingual film (Suboxone) gabapentin 300 mg capsule 300 mg PO DAILY 01/31/23 01/31/23 History lisinopril 20 mg tablet 20 mg PO DAILY 01/31/23 01/31/23 History Allergies Allergy/AdvReac Type Severity Reaction Status Date / Time vancomycin AdvReac Severe Rash Verified 05/17/22 09:37 Review of Systems Review of Systems Narrative: All other systems reviewed with the patient and are negative unless otherwise stated. Exam Vital Signs (past 8 hours): - 01/31/23 04:30 01/31/23 06:49 01/31/23 06:50 Temperature 101 F H Pulse Rate 93 H 127 H 127 H Respiratory Rate 20 Blood Pressure 124/73 Pulse Oximetry 98 96 96 Oxygen Delivery Method Room Air 01/31/23 06:50 01/31/23 06:56 01/31/23 06:56 Temperature Pulse Rate 121 H Respiratory Rate 39 H Blood Pressure 198/101 H 141/69 H Pulse Oximetry 96 Oxygen Delivery Method Room Air 01/31/23 07:00 01/31/23 07:28 01/31/23 07:30 Temperature 99.6 F Pulse Rate 120 H 114 H Respiratory Rate 24 Blood Pressure Pulse Oximetry 95 95 Oxygen Delivery Method 01/31/23 07:38 01/31/23 08:07 01/31/23 08:21 Temperature Pulse Rate 115 H 114 H Respiratory Rate 22 Blood Pressure 146/63 H Pulse Oximetry 95 97 Oxygen Delivery Method Room Air 01/31/23 08:30 01/31/23 08:52 01/31/23 08:52 Temperature Pulse Rate 108 H 106 H Respiratory Rate Blood Pressure 146/69 H Pulse Oximetry 95 94 Oxygen Delivery Method 01/31/23 09:00 01/31/23 09:01 01/31/23 09:01 Temperature Pulse Rate 105 H 105 H Respiratory Rate Blood Pressure 152/61 H Pulse Oximetry 94 94 Oxygen Delivery Method Room Air 01/31/23 09:30 01/31/23 10:10 Temperature 98.5 F Pulse Rate 110 H Respiratory Rate Blood Pressure Pulse Oximetry 91 Oxygen Delivery Method Room Air Oxygen Delivery Method Room Air Narrative Exam Narrative: GEN: diaphoretic, somnolent, anxious HEENT: dry mucous membranes, PERRL NECK: trachea midline, no JVD CV: rachycardic, regular rhythm, no murmurs PULM: clear bilaterally ABD: soft, nontender, nondistended, no organomegaly EXT: RLE erythema and swelling extending from ankle to mid-thigh, pain with palpation. Scattered superficial ulcerations on right lower segura. NEURO: awake, alert, oriented, no focal deficits Objective Labs 01/31/23 05:20 01/31/23 05:20 Labs: Laboratory Results - last 24 hr 01/31/23 01/31/23 01/31/23 05:20 05:20 05:20 WBC 13.0 H RBC 4.35 Hgb 10.6 L Hct 31.8 L MCV 73.2 L MCH 24.3 L MCHC 33.2 RDW 20.9 H Plt Count 308 Neut % (Auto) Not Reportable Lymph % (Auto) Not Reportable [place] % (Auto) Not Reportable Eos % (Auto) Not Reportable Baso % (Auto) Not Reportable Lymph # (Auto) Not Reportable [place] # (Auto) Not Reportable Baso # (Auto) Not Reportable Total Counted 100 Seg Neutrophils % 79.0 H Lymphocytes % (Manual) 10.0 L Monocytes % (Manual) 11.0 Neutrophils # (Manual) 60027 H RBC Morphology See below Anisocytosis 1+ H Microcytosis 1+ H Sodium 131 L Potassium 4.3 Chloride 97 L Carbon Dioxide 28 BUN 21 H Creatinine 1.40 H Estimated GFR 44 L BUN/Creatinine Ratio 15.0 Glucose 124 H Lactate 1.0 Calcium 9.0 Total Bilirubin 0.3 AST 23 ALT 18 Alkaline Phosphatase 106 Troponin I < 0.012 NT-Pro-B Natriuret Pep 104 Total Protein 8.4 H Albumin 3.9 Globulin 4.5 H Albumin/Globulin Ratio 0.9 L Procalcitonin SARS-CoV-2 (PCR) 01/31/23 01/31/23 05:20 07:29 WBC RBC Hgb Hct MCV MCH MCHC RDW Plt Count Neut % (Auto) Lymph % (Auto) [place] % (Auto) Eos % (Auto) Baso % (Auto) Lymph # (Auto) [place] # (Auto) Baso # (Auto) Total Counted Seg Neutrophils % Lymphocytes % (Manual) Monocytes % (Manual) Neutrophils # (Manual) RBC Morphology Anisocytosis Microcytosis Sodium Potassium Chloride Carbon Dioxide BUN Creatinine Estimated GFR BUN/Creatinine Ratio Glucose Lactate Calcium Total Bilirubin AST ALT Alkaline Phosphatase Troponin I NT-Pro-B Natriuret Pep Total Protein Albumin Globulin Albumin/Globulin Ratio Procalcitonin 0.71 H SARS-CoV-2 (PCR) Negative Assessment & Plan Assessment & Plan narrative: # Acute RLE cellulitis -IV antibiotics with daptomycin and rocephin, has history of MRSA -DVT US negative -f/u blood cultures # Bilateral LE venous stasis ulcers with skin breakdown -edematous legs, which appears to be weeping fluid due to venous insufficiency -elevate LE's and apply unna boots per wound care if feasible # Opiate abuse, methamphetamine abuse with active withdrawals -using her suboxone in microdoses and not working per patient -continues to smoke fentanyl -urine tox positive for oxy, meth and MDMA -oxy scheduled q6h for opiate withdrawals, clonidine BID # DICK on CKD? -Cr 1.4 with previous baseline of 1.1-1.2 -IVF -Avoid nephrotoxic agents -Monitor # Active tobacco use? -Apply nicotine 14 mg patch daily. # History of HFrEF due to meth use, not in exacerbation -Last echo 05/17/22 showed improved EF of 50-55% from 40-45% in January 2022 Code status is full code. COVID negative. DVT prophylaxis with heparin subcutaneous. Proxy is Eulalia Palacios. I have reviewed home meds and used all available resources to reconcile the home meds. This patient will be admitted as inpatient and will require greater than 2 midnights of hospital time to treat cellulitis.
--- NOTE | 2023-01-31 11:12 | PC.NURSE ---
0910: Pt declined completing ceftriaxone, waste on NOV. Pt noted to have clamped IV and stated get that off me, pt itching at leg wounds. Dr. Maldonado aware and orders received.
[2023-01-31] MEDS: NICOTINE 14 PATCH 14 MG TOP ×2 (11:24→20:41)
[2023-01-31] MEDS: LINEZOLID 600 MG/300 ML IV.SOLN IV (11:24)
[2023-01-31 11:33] LABS: Magnesium 1.6 mg/dL (1.6-2.3)
[2023-01-31] MEDS: OXYCODONE IR 5 MG TABLET PO ×2 (11:48→20:40)
[2023-01-31] MEDS: MAGNESIUM SULFATE 2 GM/50 ML PIGGYBACK IV (12:54)
--- NOTE | 2023-01-31 16:38 | PC.NURSE ---
Addendum entered by Kera Yao R.N. 01/31/23 18:07: at this time kerlix gauze is soaked, notified provider, he also wants us to re-dress after it becomes saturated. Original Note: Pt may ambulate as tolerated per provider
[2023-01-31] MEDS: OXYCODONE IR 10 MG TABLET PO (17:50)
[2023-01-31] MEDS: GABAPENTIN 300 MG CAPSULE PO ×2 (17:55→20:40)
[2023-01-31 18:09] LABS: Appearance Urine UA SL CLOUDY; Bilirubin Urine UA NEGATIVE (NEGATIVE); Color Urine UA YELLOW; Glucose Urine UA NEGATIVE (Negative); Ketones Urine UA NEGATIVE (NEGATIVE); Leukocyte Esterase Urine UA TRACE (NEGATIVE); Nitrite Urine UA NEGATIVE (Negative); Occult Blood Urine UA 1+ (Negative); Protein Urine UA TRACE (Negative); Urobilinogen Urine UA 0.2 E.U./dL (0.2)
[2023-01-31 18:12] LABS: pH Urine UA 5.5 (4.5-8.0)
[2023-01-31 18:16] LABS: UR Morphine/Opiate cutoff 300 Negative (Negative); Ur Creatinine Normal (Normal); Ur Specific Gravity Normal (Normal); Urine Amphetamines Positive (Negative); Urine Barbiturates Negative (Negative); Urine Benzodiazepines Negative (Negative); Urine Cocaine Negative (Negative); Urine MDMA Positive (Negative); Urine Methadone Negative (Negative); Urine Methamphetamines Positive (Negative); Urine Oxycodone Positive (Negative); Urine Phencyclidine Negative (Negative); Urine Tetrahydrocannabinol Negative (Negative); Urine Tricyclic Antidepressant Negative (Negative); Urine pH Normal (Normal)
[2023-01-31 18:38] LABS: Bacteria Urine Moderate (10-30); Culture Indicated Urine Specimen Cultured; RBC Urine 1-5/HPF (0-5/HPF); Squamous Epithelial Cell Urine 10-30 /HPF (0-5/HPF); WBC Urine 1-5/HPF (0-5/HPF)
[2023-01-31] MEDS: APIXABAN 5 MG TABLET PO (20:40)
[2023-02-01] VITALS (8 sets, daily range): BP systolic 90–108; BP diastolic 49–62; PULSE 81–92; RESP 16–18; TEMP 35.7–36.6; O2SAT 91–97
[2023-02-01] MEDS: HYDROMORPHONE 1 MG INJ IV ×2 (00:34→06:54)
[2023-02-01] MEDS: OXYCODONE IR 10 MG TABLET PO ×2 (00:34→06:21)
[2023-02-01] MEDS: LORazepam 2 MG/ML INJ 0.5 MG IV ×2 (00:34→06:54)
[2023-02-01 03:10] LABS: Labcorp Hemoglobin (Hb) A1c 7.1 % (4.8-5.6)
[2023-02-01 06:06] LABS: Hemoglobin 8.3 g/dL (12.0-16.0); Mean Corpuscular HGB Conc 33.1 % (30-36); Mean Corpuscular Hemoglobin 24.3 PG (26-34); Mean Corpuscular Volume 73.5 fL (80-100); Platelet Count 232 X10^3/uL (150-400); Red Blood Cell Count 3.41 X10^6/uL (4.0-5.2); Red Cell Distribution Width 20.7 % (11.6-14.8); White Blood Cell Count 4.8 X10^3/uL (4.5-11.0)
[2023-02-01 06:12] LABS: BUN Creatinine Ratio 18.8 (6-22); Blood Urea Nitrogen 21 mg/dL (7-17); Calcium 8.1 mg/dL (8.4-10.2); Carbon Dioxide 28 mmol/L (22-32); Chloride 99 mmol/L (98-107); Estimated Glomerular Filt Rate 58 mL/min (>60); Glucose 131 mg/dL (70-100); HEMOLYSIS < 15 (0-50); Potassium 4.3 mmol/L (3.4-5.1); Sodium 131 mmol/L (137-145)
[2023-02-01] MEDS: cefTRIAXone 2,000 MG in SODIUM CHLORIDE 0.9% 100 ML 200 MG IV (06:22)
[2023-02-01 06:26] LABS: Add Manual Diff / Slide Review YES
[2023-02-01 06:29] LABS: Procalcitonin 0.62 ng/mL (<0.5)
[2023-02-01 07:07] LABS: Anisocytosis 2+; Hypochromasia 2+; Neutrophils Absolute Manual 2688 /uL (3000-5900); Total Cells Counted 100
[2023-02-01 07:08] LABS: Target Cells 1+
--- NOTE | 2023-02-01 08:02 | P.PN_ITS ---
Subjective Subjective Interval history: Patient sleeping and not awakened. Per nursing she wakes up to take her meds then goes back to sleep. Has been scratching her legs alot too. Satting well on room air and normal RR currently. Exam Vital Signs (past 8 hours): - 02/01/23 06:00 Temperature 96.9 F L Pulse Rate 91 H Respiratory Rate 17 Blood Pressure 105/62 Pulse Oximetry 94 Oxygen Flow Rate 0 Oxygen Delivery Method Room Air Oxygen Flow Rate 0 Narrative Exam Narrative: GEN: somnolent HEENT: dry mucous membranes, PERRL NECK: trachea midline, no JVD CV: rachycardic, regular rhythm, no murmurs PULM: clear bilaterally ABD: soft, nontender, nondistended, no organomegaly EXT: RLE erythema and swelling extending from ankle to mid-thigh, pain with palpation. Scattered superficial ulcerations on right lower segura. NEURO: sleeping, no focal deficits Objective Labs 02/01/23 05:50 02/01/23 05:50 Labs: Laboratory Results - last 24 hr 01/31/23 01/31/23 01/31/23 05:55 05:55 18:01 WBC RBC Hgb Hct MCV MCH MCHC RDW Plt Count Neut % (Auto) Lymph % (Auto) [place] % (Auto) Eos % (Auto) Baso % (Auto) Lymph # (Auto) [place] # (Auto) Baso # (Auto) Total Counted Seg Neutrophils % Lymphocytes % (Manual) Monocytes % (Manual) Eosinophils % (Manual) Neutrophils # (Manual) RBC Morphology Hypochromasia Anisocytosis Target Cells Sodium Potassium Chloride Carbon Dioxide BUN Creatinine Estimated GFR BUN/Creatinine Ratio Glucose Hgb A1c (Ref Lab) 7.1 H Calcium Magnesium 1.6 Procalcitonin Urine Color Yellow Urine Appearance Sl cloudy Urine pH 5.5 Ur Specific [place] 1.010 Urine Protein Trace H Urine Glucose (UA) Negative Urine Ketones Negative Urine Occult Blood 1+ H Urine Nitrate Negative Urine Bilirubin Negative Urine Urobilinogen 0.2 Ur Leukocyte Esterase Trace H Urine RBC 1-5/hpf Urine WBC 1-5/hpf Ur Squamous Epith Cells 10-30 /hpf H D Urine Bacteria Moderate (10-30) H Ur Culture Indicated? Specimen cultured U Opiates 300ng/mL cut Ur Oxycodone Screen Urine Methadone Screen Ur Barbiturates Screen U Tricyclic Antidepress Ur Phencyclidine Scrn Ur Amphetamines Screen U Methamphetamines Scrn Ur MDMA Scrn (Ecstasy) U Benzodiazepines Scrn Urine Cocaine Screen U Marijuana (THC) Screen 01/31/23 02/01/23 02/01/23 18:01 05:50 05:50 WBC 4.8 D RBC 3.41 L Hgb 8.3 L Hct 25.0 L MCV 73.5 L MCH 24.3 L MCHC 33.1 RDW 20.7 H Plt Count 232 Neut % (Auto) Not Reportable Lymph % (Auto) Not Reportable [place] % (Auto) Not Reportable Eos % (Auto) Not Reportable Baso % (Auto) Not Reportable Lymph # (Auto) Not Reportable [place] # (Auto) Not Reportable Baso # (Auto) Not Reportable Total Counted 100 Seg Neutrophils % 56.0 Lymphocytes % (Manual) 23.0 L Monocytes % (Manual) 16.0 H Eosinophils % (Manual) 5.0 H Neutrophils # (Manual) 2688 L RBC Morphology See below Hypochromasia 2+ H Anisocytosis 2+ H Target Cells 1+ H Sodium 131 L Potassium 4.3 Chloride 99 Carbon Dioxide 28 BUN 21 H Creatinine 1.12 H Estimated GFR 58 L BUN/Creatinine Ratio 18.8 Glucose 131 H Hgb A1c (Ref Lab) Calcium 8.1 L Magnesium Procalcitonin 0.62 H Urine Color Urine Appearance Urine pH Ur Specific [place] Urine Protein Urine Glucose (UA) Urine Ketones Urine Occult Blood Urine Nitrate Urine Bilirubin Urine Urobilinogen Ur Leukocyte Esterase Urine RBC Urine WBC Ur Squamous Epith Cells Urine Bacteria Ur Culture Indicated? U Opiates 300ng/mL cut Negative Ur Oxycodone Screen Positive H Urine Methadone Screen Negative Ur Barbiturates Screen Negative U Tricyclic Antidepress Negative Ur Phencyclidine Scrn Negative Ur Amphetamines Screen Positive H U Methamphetamines Scrn Positive H Ur MDMA Scrn (Ecstasy) Positive H U Benzodiazepines Scrn Negative Urine Cocaine Screen Negative U Marijuana (THC) Screen Negative [facility] [place] Medical History Abscess of multiple sites History of necrotizing fasciitis Methamphetamine use disorder, severe Opioid use disorder Social History household members: other Smoking Status: Current some day smoker alcohol intake: current Assessment & Plan Assessment & Plan narrative: # Acute RLE cellulitis with h/o MRSA and pseudomonas -IV antibiotics with daptomycin and cefepime -DVT US negative -blood cultures NG at 24 hours -vistaril PRN for itching of legs # Bilateral LE venous stasis ulcers with skin breakdown -edematous legs, which appears to be weeping fluid due to venous insufficiency -elevate LE's and apply unna boots per wound care if feasible # Opiate abuse, methamphetamine abuse with active withdrawals -using her suboxone in microdoses and not working per patient -continues to smoke fentanyl -urine tox positive for oxy, meth and MDMA -oxy scheduled q6h for opiate withdrawals, clonidine BID # DICK on CKD, improving -Cr 1.4 with previous baseline of 1.1-1.2 -Cr now downtrending with IVF -Avoid nephrotoxic agents -Monitor # hyponatremia, mild -Na 131 -monitor and give fluids as above # Active tobacco use? -Apply nicotine 14 mg patch daily. # History of HFrEF due to meth use, not in exacerbation -Last echo 05/17/22 showed improved EF of 50-55% from 40-45% in January 2022 Code status is full code. COVID negative. DVT prophylaxis with home eliquis Proxy is Eulalia Palacios. Dispo: Pending improvement in cellulitis. At least 2 more days. Quality VTE Deep Vein Thrombosis/Pulmonary Embolism Present on Admission: Yes
[2023-02-01] MEDS: APIXABAN 5 MG TABLET PO ×2 (10:04→23:28)
[2023-02-01] MEDS: NICOTINE 14 PATCH 14 MG TOP (10:05)
[2023-02-01] MEDS: GABAPENTIN 300 MG CAPSULE PO ×3 (10:05→23:34)
--- NOTE | 2023-02-01 14:49 | CM.DANOTE ---
Initial DCP Assessment Note Patient is a 57 yo F resident of [facility] H[facility]P: with past medical history of methamphetamine abuse, lower extremity cellulitis, bilateral LE venous insufficiency, tobacco use, HFrEF of 50-55%, and CKD who presents with pain, swelling and redness of right LE. Patient states the past 3 weeks she has had worsening cellulitis of her right leg. She has some open sores on the segura as well. She admits to smoking fentanyl while taking her suboxone in microdoses. She says she is currently withdrawing and feels unwell. Initial assessment note completed w/ information available on chart, patient is sleeping soundly with her tongue out of her mouth throughout the day, likely withdrawal, and when awake not forthcoming with information Patient's tox screen + for oxycodone, meth, amphetamines and ecstasy CM team will plan to follow closely for coordination of DCP and assistance w/outpatient referral as needed or requested MIKY Gan Discharge Planning/Care Management Discharge Assessment Start: 02/01/23 14:38 Freq: Status: Active Protocol: Document 02/01/23 14:38 MT (Rec: 02/01/23 14:49 MT [id number]) Discharge Planning Assessment Assigned Lease Administration Supervisor MIKY Soto DPOA/Assigned Designee Name Karthik Frey BENJAMIN Contact Information [phone] Advance Directives? No History Provided By Patient,Medical Record Prior Living Arrangements House Household Members other Independent with ADL's Yes Is patient alert and oriented? Yes Patient/Family Preference Home Comment Has been connected w/[facility] in the past. has also been referred to wound care clinic. Current outpatient supports? Discharge Plan Home Referrals Initiated Other Additional Comment TBD If patient plan is home with home health No : Has signed face to face form been completed?
--- NOTE | 2023-02-01 15:32 | PC.NURSE ---
Patient notified that unidentified blue pills where found on her person during care. Reviewed illegal substance policy with patient. Discussed removal of all personal belonging to be placed in a secure location. Patient notified that belonging would be returned at time of discharge. Patient denies having taken any pills during this admission, however she is agreeable to having items removed from her room and secured. Primary RN, Dr. Madden and community health nursing director notified.
[2023-02-01] MEDS: CEFEPIME 2 GM in SODIUM CHLORIDE 0.9% 100 ML IV (15:42)
[2023-02-01] MEDS: hydrOXYzine pamoate 25 MG CAPSULE PO (15:53)
[2023-02-01] MEDS: LORazepam 0.5 MG TABLET PO (15:53)
[2023-02-01] MEDS: OXYCODONE IR 5 MG TABLET PO ×2 (15:53→23:35)
--- NOTE | 2023-02-01 16:46 | PC.NURSE ---
Pt feels ready to d/c to home. Dressing was changed during the night. Has home health coming for dressing changes. Got dose of vanco prior to going home. Reviewed d/c packet w/pt. She was given a good rx coupon from for zyvox. Questions answered. Pt d/c to home via auto w/spouse.
[2023-02-01] MEDS: cloNIDine 0.1 MG TABLET 0.2 MG PO (23:28)
[2023-02-01] MEDS: ACETAMINOPHEN 325 MG TABLET 650 MG PO (23:32)
[2023-02-01] MEDS: MELATONIN 3 MG TABLET 6 MG PO (23:32)
[2023-02-02] VITALS: BP 102/73; PULSE 89; RESP 16; TEMP 36.7; O2SAT 98
[2023-02-02] MEDS: CEFEPIME 2 GM in SODIUM CHLORIDE 0.9% 100 ML IV ×2 (01:12→13:10)
[2023-02-02] MEDS: LORazepam 2 MG/ML INJ 0.5 MG IV (03:47)
[2023-02-02] MEDS: OXYCODONE IR 10 MG TABLET PO ×2 (05:52→12:00)
[2023-02-02 06:00] VITALS: BP 101/53; PULSE 87; RESP 18; TEMP 37; O2SAT 94
[2023-02-02 07:48] LABS: Add Manual Diff / Slide Review NO; Basophils Absolute Auto 100 /uL (0-100); Basophils Percent Auto 0.8 % (0-2); Eosinophils Absolute Auto 0 /uL (0-450); Eosinophils Percent Auto 0.6 % (2-4); Hematocrit 28.3 % (36-46); Hemoglobin 9.2 g/dL (12.0-16.0); Lymphocytes Absolute Auto 1400 /uL (1100-4500); Lymphocytes Percent Auto 20.1 % (25-40); Mean Corpuscular HGB Conc 32.6 % (30-36); Mean Corpuscular Volume 73.6 fL (80-100); Monocytes Absolute Auto 1000 /uL (0-900); Monocytes Percent Auto 13.6 % (3-14); Neutrophils Absolute Auto 4500 /uL (1500-7000); Neutrophils Percent Auto 64.9 % (50-75); Platelet Count 311 X10^3/uL (150-400); Red Blood Cell Count 3.85 X10^6/uL (4.0-5.2)
[2023-02-02 07:50] LABS: BUN Creatinine Ratio 21.2 (6-22); Blood Urea Nitrogen 22 mg/dL (7-17); Calcium 8.4 mg/dL (8.4-10.2); Carbon Dioxide 28 mmol/L (22-32); Chloride 100 mmol/L (98-107); Estimated Glomerular Filt Rate > 60 mL/min (>60); Glucose 153 mg/dL (70-100); HEMOLYSIS < 15 (0-50); Potassium 4.4 mmol/L (3.4-5.1); Sodium 133 mmol/L (137-145)
--- NOTE | 2023-02-02 08:29 | PM.PN.1 ---
Subjective Subjective Interval history: Arousable. Preferring to sleep when not taking pills or eating. Eager to go home as soon as medically appropriate. No new complaints. Exam Vital Signs (past 8 hours): - 02/02/23 06:00 Temperature 98.6 F Pulse Rate 87 Respiratory Rate 18 Blood Pressure 101/53 L Pulse Oximetry 94 Oxygen Delivery Method Room Air Oxygen Flow Rate 0 Narrative Exam Narrative: GEN: somnolent, but does arouse when interested in anything HEENT: dry mucous membranes, PERRL NECK: trachea midline, no JVD CV: Normal rate, regular rhythm, no murmurs PULM: clear bilaterally ABD: soft, nontender, nondistended, no organomegaly EXT: RLE erythema and swelling extending from ankle to mid-thigh, pain with palpation. Scattered superficial ulcerations on right lower segura. NEURO: no focal deficits Objective Labs 02/02/23 07:00 02/02/23 07:00 Labs: Laboratory Results - last 24 hr 02/02/23 02/02/23 07:00 07:00 WBC 7.0 RBC 3.85 L Hgb 9.2 L Hct 28.3 L MCV 73.6 L MCH 24.0 L MCHC 32.6 RDW 20.0 H Plt Count 311 Neut % (Auto) 64.9 Lymph % (Auto) 20.1 L [place] % (Auto) 13.6 Eos % (Auto) 0.6 L Baso % (Auto) 0.8 Neut # (Auto) 4500 Lymph # (Auto) 1400 [place] # (Auto) 1000 H Eos # (Auto) 0 Baso # (Auto) 100 Sodium 133 L Potassium 4.4 Chloride 100 Carbon Dioxide 28 BUN 22 H Creatinine 1.04 Estimated GFR > 60 BUN/Creatinine Ratio 21.2 Glucose 153 H Calcium 8.4 PFSH Medical History Abscess of multiple sites History of necrotizing fasciitis Methamphetamine use disorder, severe Opioid use disorder Social History household members: other Smoking Status: Current some day smoker alcohol intake: current Assessment & Plan Assessment & Plan narrative: # Acute RLE cellulitis with h/o MRSA and pseudomonas -IV antibiotics with daptomycin and cefepime -DVT US negative -blood cultures NEG at 24 hours and remain -vistaril PRN for itching of legs # Bilateral LE venous stasis ulcers with skin breakdown -edematous legs, which appears to be weeping fluid due to venous insufficiency -elevate LE's and apply unna boots per wound care if feasible # Opiate abuse, methamphetamine abuse with active withdrawals -using her suboxone in microdoses and not working per patient -continues to smoke fentanyl -urine tox positive for oxy, meth and MDMA -oxy scheduled q6h for opiate withdrawals, clonidine BID # DICK on CKD, improving -Cr 1.4 with previous baseline of 1.1-1.2, today normal renal function -Cr now downtrending with IVF, today normal renal function -Avoid nephrotoxic agents -Monitor # hyponatremia, mild -Na 131, improved to 133 today -monitor and give fluids as above # Active tobacco use? -Apply nicotine 14 mg patch daily. # History of HFrEF due to meth use, not in exacerbation -Last echo 05/17/22 showed improved EF of 50-55% from 40-45% in January 2022 Code status is full code. COVID negative. DVT prophylaxis with home eliquis Proxy is Eulalia Palacios. Quality VTE Deep Vein Thrombosis/Pulmonary Embolism Present on Admission: Yes
[2023-02-02] MEDS: NICOTINE 14 PATCH 14 MG TOP (08:38)
[2023-02-02] MEDS: HYDROMORPHONE 1 MG INJ IV ×2 (08:38→14:02)
[2023-02-02] MEDS: LORazepam 0.5 MG TABLET PO ×2 (08:39→14:02)
[2023-02-02] MEDS: APIXABAN 5 MG TABLET PO (08:39)
[2023-02-02] MEDS: GABAPENTIN 300 MG CAPSULE PO ×2 (08:39→14:01)
--- NOTE | 2023-02-02 11:02 | PM.DS.1 ---
History of Present Illness History of Present Illness Chief complaint: infection rt leg Narrative: Patient eager to be discharged. Has issues with her place that she rents and being possibly kicked out. Patient indictes that she was ?off the wagon ? for 1 week prior to presentation. We will contact the physician in regards to Suboxone, she does have some Suboxone and will reinitiate this. Discharge Providers Provider Date of admission: 01/31/23 10:22 Discharge Date: 02/02/23 Discharge provider: Karina Hwang MD Summary Hospital Course Discharge Diagnosis: Acute bilateral RLE and LLE cellulitis History of MRSA and pseudomonas wound infections Bilateral LE venous stasis ulcers with skin breakdown Edematous legs Opiate abuse, methamphetamine, fentanyl smoking abuse with active withdrawals Urine toxicology positive for oxy, meth and MDMA Suboxone program with week of not using appropriately DICK on admission, resolved at the time of discharge Hyponatremia, mild Active tobacco use? History of HFrEF due to meth use Comorbidities/past medical history: Abscess of multiple sites History of necrotizing fasciitis Hospital Course: Ericka Yao is a 57-year-old female with past medical history of methamphetamine abuse, lower extremity cellulitis, bilateral LE venous insufficiency, tobacco use, HFrEF of 50-55%, and CKD history who presented with pain, swelling and redness of right LE and erythema skin compromise of the LLE. Patient stated that in the past 3 weeks she had worsening cellulitis of her right leg. She has some open sores on the segura as well. She admited to smoking fentanyl while taking her suboxone in microdoses. She stated she was currently withdrawing and felt unwell. She was requesting to stay on her home gabapentin, eliquis and ativan. She denied CP, SOB, abd pain, diarrhea. In the ED had a neg DVT US. Temp of 101F with WBC 13. Urine and blood cultures were negative. On admission the patient was placed on cefixime 2 g IV every 12 hours and daptomycin 450 mg IV every 24 hours. On the day of discharge the patient was afebrile and white blood count was normal and the patient was requesting to be discharged. Her wounds were dressed on her both lower extremity and her right upper arm (chronic wound) and the patient was discharged on oral antibiotics. Patient was counseled about smoking cessation. Status at Discharge Cognitive/behavioral status at discharge: oriented Functional status at discharge: independent ambulation Overall status at discharge: patient is progressing back to baseline Time Spent with Patient Time spent: Greater than 30 minutes Time spent discussing smoking cessation with patient: 3 to 10 minutes Exam Vital Signs (past 8 hours): - 02/02/23 06:00 Temperature 98.6 F Pulse Rate 87 Respiratory Rate 18 Blood Pressure 101/53 L Pulse Oximetry 94 Oxygen Delivery Method Room Air Oxygen Flow Rate 0 Narrative Exam Narrative: GEN: somnolent, but does arouse when interested in anything and actively interested in going home HEENT: dry mucous membranes, PERRL NECK: trachea midline, no JVD CV:? Normal rate, regular rhythm, no murmurs PULM: clear bilaterally ABD: soft, nontender, nondistended, no organomegaly EXT: RLE erythema and some swelling persistent extending from ankle to mid-thigh. Scattered superficial ulcerations on right lower segura. Scattered superficial all durations of the left lower extremity segura/ankle area. Chronic wound right upper extremity in the upper arm. NEURO:? no focal deficits Objective Labs 02/02/23 07:00 02/02/23 07:00 Labs: Laboratory Results - last 24 hr 02/02/23 02/02/23 07:00 07:00 WBC 7.0 RBC 3.85 L Hgb 9.2 L Hct 28.3 L MCV 73.6 L MCH 24.0 L MCHC 32.6 RDW 20.0 H Plt Count 311 Neut % (Auto) 64.9 Lymph % (Auto) 20.1 L [place] % (Auto) 13.6 Eos % (Auto) 0.6 L Baso % (Auto) 0.8 Neut # (Auto) 4500 Lymph # (Auto) 1400 [place] # (Auto) 1000 H Eos # (Auto) 0 Baso # (Auto) 100 Sodium 133 L Potassium 4.4 Chloride 100 Carbon Dioxide 28 BUN 22 H Creatinine 1.04 Estimated GFR > 60 BUN/Creatinine Ratio 21.2 Glucose 153 H Calcium 8.4 PFSH Medical History Abscess of multiple sites History of necrotizing fasciitis Methamphetamine use disorder, severe Opioid use disorder Social History household members: other Smoking Status: Current some day smoker alcohol intake: current Discharge Plan Discharge Plan Patient Disposition: Home Discharge orders & Medications Prescriptions: New amoxicillin-pot clavulanate [Augmentin] 500-125 mg tablet 1 tab PO TID Qty: 21 0RF Continued lisinopril 20 mg tablet 20 mg PO DAILY Patient Comments: TAKE 1 TABLET BY MOUTH ONCE DAILY gabapentin 300 mg capsule 300 mg PO DAILY buprenorphine-naloxone [Suboxone] 8-2 mg film 1 film sublingual BID Patient Comments: PLACE 1/2 TO 1 (ONE-HALF TO ONE) STRIP UNDER THE TONGUE TWICE DAILY FOR 28 DAYS Eliquis 5 mg tablet 5 mg PO BID Patient Comments: TAKE 1 TABLET BY MOUTH TWICE DAILY Visit Report/Discharge Packet Stand Alone Forms: Patient Portal/API, Stroke Signs & Symptoms Quality VTE Deep Vein Thrombosis/Pulmonary Embolism Present on Admission: Yes
--- NOTE | 2023-02-02 17:26 | PC.NURSE ---
Discharge: Pt requesting to be d/c. Dressing placed on lower legs bilat, vaseline gauze first to keep dressing from sticking, followed with a layer of gauze and coban was applied to both legs. Dressing change was completed. And pt received some dilaudid to help with the pain. The rt shoulder wound was covered with a large allvyn dressing. Pt belongings were retrieved from coordinator. Pt d/c to home via auto with her friend.
== END 2023-02-02 14:25 | disposition home or self-care (01) | DRG 383 ==
LOC: ED 09:16 → AC 11:15
PROVIDERS: Emergency Medicine; Admitting Provider Student in an Organized Health Care Education/Training Program; Emergency Provider Emergency Medicine; Referring Provider Emergency Medicine; Visit Provider Student in an Organized Health Care Education/Training Program
DX: L03.115 Cellulitis of right lower limb (principal); N17.9 Acute kidney failure, unspecified; E87.1 Hypo-osmolality and hyponatremia; I87.8 Other specified disorders of veins; L97.811 Non-pressure chronic ulcer of other part of right lower leg limited to breakdown of skin; F11.13 Opioid abuse with withdrawal; F15.13 Other stimulant abuse with withdrawal; L03.116 Cellulitis of left lower limb; F17.200 Nicotine dependence, unspecified, uncomplicated; Z86.79 Personal history of other diseases of the circulatory system; Z20.822 Contact with and (suspected) exposure to COVID-19
CPT/HCPCS: 36415; 36573; 71275; 80048; 80053; 80305; 81001; 82962; 83036; 83605; 83735; 83880; 84145; 84484; 85007; 85025; 87040; 87086; 87635; 93005; 93971; 96365; 96367; 99284; C9803; G0378; J0692; J0696; J0878; J1170; J1200; J1630; J2020; J2060; J3475; Q9967

== ENCOUNTER → 2024-01-09 13:13 | Outpatient (CLI) | payer OTHER, MEDICAID, SELFPAY ==
[2023-01-31 12:10] VITALS: BMI 36.5
== END ==
LOC: WC 13:31
PROVIDERS: Referring Provider Neuromusculoskeletal Medicine & OMM; Visit Provider Surgery
DX: L97.812 Non-pressure chronic ulcer of other part of right lower leg with fat layer exposed (principal); I87.2 Venous insufficiency (chronic) (peripheral); L89.893 Pressure ulcer of other site, stage 3; L89.523 Pressure ulcer of left ankle, stage 3; R60.0 Localized edema; L53.9 Erythematous condition, unspecified; R26.9 Unspecified abnormalities of gait and mobility; I50.9 Heart failure, unspecified; F17.210 Nicotine dependence, cigarettes, uncomplicated
CPT/HCPCS: 11042; 11045; 99205; 99214

== ENCOUNTER 2024-01-13 23:28 | Observation (INO) | payer OTHER, MEDICAID, SELFPAY ==
[2023-01-31 12:10] VITALS: BMI 36.5
[2024-01-13 23:44] VITALS: BP 166/109; PULSE 125; RESP 20; TEMP 36.5; O2SAT 91; BMI 32.3
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
[2024-01-14 00:38] VITALS: BP 157/90; PULSE 111; RESP 16; O2SAT 94
[2024-01-14 00:43] VITALS: BP 157/90; PULSE 112; RESP 20; O2SAT 93
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
--- NOTE | 2024-01-14 00:58 | PC.NURSE ---
Tootie Billingsley Rn attempting US guided IV at this time. Patient has extensive scarring to bilateral arms from previous IV drug use. She states the only peripheral vein she has is in her right palm area. Given the nature of the IV contrast scans which will be needed for the patient, we are attempti
[2024-01-14] MEDS: SODIUM CHLORIDE 0.9% 1,000 ML 1000 ML IV (01:26)
[2024-01-14 01:27] LABS: Add Manual Diff / Slide Review NO; Basophils Absolute Auto 100 /uL (0-100); Basophils Percent Auto 0.9 % (0-2); Eosinophils Absolute Auto 100 /uL (0-450); Eosinophils Percent Auto 0.9 % (2-4); Hematocrit 32.5 % (36-46); Hemoglobin 10.4 g/dL (12.0-16.0); Lymphocytes Absolute Auto 700 /uL (1100-4500); Mean Corpuscular HGB Conc 31.9 % (30-36); Mean Corpuscular Volume 75.2 fL (80-100); Monocytes Absolute Auto 700 /uL (0-900); Monocytes Percent Auto 9.9 % (3-14); Neutrophils Absolute Auto 5800 /uL (1500-7000); Neutrophils Percent Auto 78.3 % (50-75); Platelet Count 312 X10^3/uL (150-400); Red Blood Cell Count 4.32 X10^6/uL (4.0-5.2); White Blood Cell Count 7.4 X10^3/uL (4.5-11.0)
[2024-01-14 01:29] VITALS: BP 157/101; PULSE 112; RESP 20; O2SAT 94
[2024-01-14 01:41] LABS: Alanine Aminotransferase 16 IU/L (<35); Albumin 4.2 g/dL (3.5-5.0); Alkaline Phosphatase 95 U/L (38-126); Aspartate Aminotransferase 23 IU/L (14-36); BUN Creatinine Ratio 21.2 (6-22); Bilirubin Total 0.4 mg/dL (0.2-1.3); Blood Urea Nitrogen 22 mg/dL (7-17); Calcium 9.6 mg/dL (8.4-10.2); Carbon Dioxide 32 mmol/L (22-32); Chloride 104 mmol/L (98-107); Creatine Kinase 50 U/L (30-135); Estimated Glomerular Filt Rate > 60 mL/min (>60); Globulin 4.4 g/dL (1.7-4.1); Glucose 135 mg/dL (70-100); HEMOLYSIS < 15 (0-50); Magnesium 1.6 mg/dL (1.6-2.3); Potassium 4.7 mmol/L (3.4-5.1); Sodium 139 mmol/L (137-145); Total Protein 8.6 g/dL (6.3-8.2)
[2024-01-14 01:51] LABS: NT-proBNP (BNP-Adult 18+) 32 pg/mL (<125)
[2024-01-14 01:55] LABS: INR 1.1 (0.9-1.3); Prothrombin Time 12.1 SECONDS (9.4-12.5)
[2024-01-14 02:00] VITALS: BP 161/89; PULSE 106; RESP 20; O2SAT 98
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
[2024-01-14 02:35] LABS: Troponin I < 0.012 ng/mL (0.01-0.034)
--- NOTE | 2024-01-14 03:15 | PC.NURSE ---
0315 Pt reports that she no longer has L sided numbness and tingling and feels alot better now. Pt continues to have decreased vision in L eye but has improved. Pt ambulates to bathroom with steady gait and denies feeling dizzy upon walking. Pt provides urine sample.
[2024-01-14 03:18] LABS: Appearance Urine UA CLEAR; Bilirubin Urine UA NEGATIVE (NEGATIVE); Color Urine UA YELLOW; Glucose Urine UA NEGATIVE (Negative); Ketones Urine UA NEGATIVE (NEGATIVE); Leukocyte Esterase Urine UA NEGATIVE (NEGATIVE); Nitrite Urine UA NEGATIVE (Negative); Occult Blood Urine UA NEGATIVE (Negative); Protein Urine UA 1+ (Negative); Urobilinogen Urine UA 0.2 E.U./dL (0.2)
[2024-01-14] MEDS: ASPIRIN 81 MG CHEW TAB 324 MG PO (03:20)
[2024-01-14 03:32] LABS: Bacteria Urine None Seen; Culture Indicated Urine Cult Not Indicated; RBC Urine None Seen (0-5/HPF); Squamous Epithelial Cell Urine 0-1 /HPF (0-5/HPF); Urine Volume 10mL (spun); WBC Urine None Seen (0-5/HPF)
[2024-01-14 03:44] VITALS: BP 145/83; PULSE 104; RESP 20; O2SAT 95
[2024-01-14 04:00] VITALS: BP 138/77; PULSE 105; RESP 20; O2SAT 95
[2024-01-14 05:17] VITALS: BMI 32.3
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
[2024-01-14] MEDS: LORazepam 2 MG/ML INJ 1 MG IV ×2 (05:31→09:17)
[2024-01-14] MEDS: OXYCODONE IR 5 MG TABLET PO ×2 (05:31→09:17)
[2024-01-14 06:06] LABS: Add Manual Diff / Slide Review NO; Basophils Absolute Auto 100 /uL (0-100); Eosinophils Absolute Auto 100 /uL (0-450); Eosinophils Percent Auto 1.6 % (2-4); Hematocrit 29.9 % (36-46); Hemoglobin 9.5 g/dL (12.0-16.0); Lymphocytes Absolute Auto 1000 /uL (1100-4500); Lymphocytes Percent Auto 16.9 % (25-40); Mean Corpuscular HGB Conc 31.6 % (30-36); Mean Corpuscular Hemoglobin 23.6 PG (26-34); Mean Corpuscular Volume 74.6 fL (80-100); Monocytes Absolute Auto 500 /uL (0-900); Monocytes Percent Auto 9.2 % (3-14); Neutrophils Absolute Auto 4200 /uL (1500-7000); Neutrophils Percent Auto 70.3 % (50-75); Platelet Count 283 X10^3/uL (150-400); Red Blood Cell Count 4.01 X10^6/uL (4.0-5.2); Red Cell Distribution Width 18.2 % (11.6-14.8); White Blood Cell Count 5.9 X10^3/uL (4.5-11.0)
[2024-01-14 06:07] LABS: HDL Cholesterol 34 mg/dL (40-60); Triglycerides 149 mg/dL (35-150)
--- NOTE | 2024-01-14 06:13 | DI.MRI.S_ITS ---
PROCEDURE: MR HEAD/BRAIN WO CON INDICATIONS: suspected CVA TECHNIQUE: Noncontrast axial T1 spin echo, axial T2 fast spin echo, sagittal and axial FLAIR, coronal T2 fast spin echo, axial gradient echo, axial diffusion and ADC through the brain. COMPARISON: [facility], CT, CT HEAD/BRAIN WO CON, 01/14/2024, 0:13. [facility], CT, CT ANGIO HEAD AND NECK, 01/14/2024, 2:22. FINDINGS: Image quality: This examination is limited by involuntary motion artifact. CSF Spaces: Basal cisterns are patent. No extra-axial fluid collections. Ventricles are normal in size and shape. Brain: No intracranial masses or hemorrhage. Hoffman/white matter interface is normal. Brainstem appears normal. Diffusion-weighted images demonstrate no acute infarct. No chronic ischemic insults. Normal intravascular flow voids are present. Skull and face: Calvarium has normal marrow signal. Orbits appear normal. Sinuses: There is a mucous retention cyst within right maxillary sinus. Sinuses and mastoids are otherwise relatively clear. IMPRESSION: No findings of acute or subacute infarction can be seen. Dictated by: Luis Kim M.D. on 01/14/2024 at 9:11 Approved by: Luis Kim M.D. on 01/14/2024 at 9:13
[2024-01-14 06:20] LABS: Hemoglobin A1C% w Est Avg Glu 7.4 % (4.0-6.0)
--- NOTE | 2024-01-14 06:22 | PC.WOUNDPHOT ---
^ right upper arm ^ Right leg ^ Right leg ^ Left leg
[2024-01-14 06:24] LABS: Cholesterol 195 mg/dL (140-199); LDL Cholesterol Calculated 131 mg/dL (<100)
--- NOTE | 2024-01-14 06:24 | PC.NURSE ---
writer technical publications: Arrived from ED approximately 0430 via wheelchair, ambulated to bed. Patient is AxOx4, NIH: 2 (left-sided facial numbness, left eye blurry). Patient stated symptoms seem to be improving but not back to baseline yet. Patient is hypertensive (150/106), HR 106. Complaints of 6/10 pain in head & chest, stating that it worsens when taking a deep breath. Patient states she has a history of drug use and that she needs something or will withdraw and that she feels like running out of here. Extensive wounds found on her legs, purulent drainage & foul odor noted. Removed soiled dressings & covered w/ ABD pads and kerlex. Partial skin assessment performed, patient declined full body assessment at this time. MD notified of findings, new orders placed. Oriented patient to room & call-light, fall precautions in place. Plan of care ongoing.
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
[2024-01-14] MEDS: GABAPENTIN 300 MG CAPSULE PO (09:17)
[2024-01-14] MEDS: APIXABAN 5 MG TABLET PO (09:17)
[2024-01-14] MEDS: DOXYCYCLINE HYCLATE 100 MG TABLET PO (09:17)
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
--- NOTE | 2024-01-14 12:41 | CM.DPC ---
[facility] Transport SW called Medicaid transport per [facility] Sophia request and confirmed they received the Medicaid Transport Request Form and are currently working on it to secure Medicaid taxi for transport home today and will call [facility] once taxi company secured. MIKY John
== END 2024-01-14 13:47 | disposition home or self-care (01) ==
LOC: ED 01-14 03:52 → AC 01-14 03:54
PROVIDERS: Admitting Provider Internal Medicine; Emergency Provider Emergency Medicine; PCP Family Medicine; Referring Provider Emergency Medicine; Visit Provider Internal Medicine
DX: R07.9 Chest pain, unspecified (principal); G62.9 Polyneuropathy, unspecified; I10 Essential (primary) hypertension; F15.20 Other stimulant dependence, uncomplicated; F11.99 Opioid use, unspecified with unspecified opioid-induced disorder; L03.116 Cellulitis of left lower limb; L03.115 Cellulitis of right lower limb; V89.2XXA Person injured in unspecified motor-vehicle accident, traffic, initial encounter; Y92.410 Unspecified street and highway as the place of occurrence of the external cause; D64.9 Anemia, unspecified; I82.509 Chronic embolism and thrombosis of unspecified deep veins of unspecified lower extremity; Z79.01 Long term (current) use of anticoagulants; R29.701 NIHSS score 1; R20.0 Anesthesia of skin; H53.8 Other visual disturbances
CPT/HCPCS: 36415; 70450; 70496; 70498; 70551; 71046; 72125; 80053; 80061; 81001; 82550; 83036; 83735; 83880; 84484; 85025; 85610; 93005; 96361; 96374; 96376; 99284; 99285; G0378; J2060; Q9967

== ENCOUNTER → 2024-01-21 15:05 | Outpatient (CLI) | payer OTHER, MEDICAID, SELFPAY ==
[2024-01-14 05:17] VITALS: BMI 32.3
== END ==
PROVIDERS: PCP Family Medicine; Referring Provider Neuromusculoskeletal Medicine & OMM; Visit Provider Surgery
DX: L97.812 Non-pressure chronic ulcer of other part of right lower leg with fat layer exposed (principal); I87.2 Venous insufficiency (chronic) (peripheral); L89.893 Pressure ulcer of other site, stage 3; L89.523 Pressure ulcer of left ankle, stage 3; R60.0 Localized edema; L53.9 Erythematous condition, unspecified; F19.10 Other psychoactive substance abuse, uncomplicated
CPT/HCPCS: 11042; 11045; 97597

== ENCOUNTER → 2024-02-04 14:49 | Outpatient (CLI) | payer OTHER, MEDICAID, SELFPAY ==
[2024-01-14 05:17] VITALS: BMI 32.3
== END ==
LOC: WC 14:50
PROVIDERS: PCP Family Medicine; Referring Provider Neuromusculoskeletal Medicine & OMM; Visit Provider Surgery
DX: L97.812 Non-pressure chronic ulcer of other part of right lower leg with fat layer exposed (principal); I87.2 Venous insufficiency (chronic) (peripheral); L89.893 Pressure ulcer of other site, stage 3; R60.0 Localized edema; L53.9 Erythematous condition, unspecified; L03.115 Cellulitis of right lower limb; M21.6X2 Other acquired deformities of left foot; F19.10 Other psychoactive substance abuse, uncomplicated
CPT/HCPCS: 11042; 11045

== ENCOUNTER → 2024-02-11 14:20 | Outpatient (CLI) | payer OTHER, MEDICAID, SELFPAY ==
[2024-01-14 05:17] VITALS: BMI 32.3
== END ==
LOC: WC 14:21
PROVIDERS: PCP Family Medicine; Referring Provider Neuromusculoskeletal Medicine & OMM; Visit Provider Surgery
DX: L97.812 Non-pressure chronic ulcer of other part of right lower leg with fat layer exposed (principal); I87.2 Venous insufficiency (chronic) (peripheral); L89.893 Pressure ulcer of other site, stage 3; R60.0 Localized edema; L53.9 Erythematous condition, unspecified; L08.89 Other specified local infections of the skin and subcutaneous tissue; Z91.199 Patient's noncompliance with other medical treatment and regimen due to unspecified reason
CPT/HCPCS: 11042; 11045; 99213

== ENCOUNTER → 2024-04-09 13:47 | Outpatient (CLI) | payer OTHER, MEDICAID, SELFPAY | LOC: WC 13:50 | PROVIDERS: PCP Family Medicine; Referring Provider Neuromusculoskeletal Medicine & OMM; Visit Provider Surgery | DX: L97.812 Non-pressure chronic ulcer of other part of right lower leg with fat layer exposed (principal); L97.322 Non-pressure chronic ulcer of left ankle with fat layer exposed; I87.2 Venous insufficiency (chronic) (peripheral); L03.115 Cellulitis of right lower limb; I50.9 Heart failure, unspecified; F17.210 Nicotine dependence, cigarettes, uncomplicated; Z86.718 Personal history of other venous thrombosis and embolism; F19.10 Other psychoactive substance abuse, uncomplicated | CPT/HCPCS: 11042; 11045; 99213 ==

== ENCOUNTER → 2024-04-16 14:08 | Outpatient (CLI) | payer OTHER, MEDICAID, SELFPAY | PROVIDERS: PCP Family Medicine; Referring Provider Neuromusculoskeletal Medicine & OMM; Visit Provider Nurse Practitioner Family | DX: L97.812 Non-pressure chronic ulcer of other part of right lower leg with fat layer exposed (principal); L97.822 Non-pressure chronic ulcer of other part of left lower leg with fat layer exposed; I87.2 Venous insufficiency (chronic) (peripheral); R60.0 Localized edema; L53.9 Erythematous condition, unspecified; L03.115 Cellulitis of right lower limb; F19.10 Other psychoactive substance abuse, uncomplicated | CPT/HCPCS: 11042; 11045; 87070; 87075; 87077; 87186; 87205; 99213 ==

== ENCOUNTER → 2024-04-23 15:12 | Outpatient (CLI) | payer OTHER, MEDICAID, SELFPAY | LOC: WC 15:12 | PROVIDERS: PCP Family Medicine; Referring Provider Neuromusculoskeletal Medicine & OMM; Visit Provider Nurse Practitioner Family | DX: L97.812 Non-pressure chronic ulcer of other part of right lower leg with fat layer exposed (principal); L97.822 Non-pressure chronic ulcer of other part of left lower leg with fat layer exposed; I87.2 Venous insufficiency (chronic) (peripheral); R60.0 Localized edema; L53.9 Erythematous condition, unspecified; L03.115 Cellulitis of right lower limb; F19.10 Other psychoactive substance abuse, uncomplicated; Z79.2 Long term (current) use of antibiotics | CPT/HCPCS: 11042; 11045 ==

== ENCOUNTER → 2024-05-05 13:19 | Outpatient (CLI) | payer OTHER, MEDICAID, SELFPAY | PROVIDERS: PCP Family Medicine; Referring Provider Neuromusculoskeletal Medicine & OMM; Visit Provider Surgery | DX: L97.812 Non-pressure chronic ulcer of other part of right lower leg with fat layer exposed (principal); L97.322 Non-pressure chronic ulcer of left ankle with fat layer exposed; M21.6X2 Other acquired deformities of left foot; I87.2 Venous insufficiency (chronic) (peripheral); R60.0 Localized edema; L53.9 Erythematous condition, unspecified; Z79.01 Long term (current) use of anticoagulants; L08.89 Other specified local infections of the skin and subcutaneous tissue | CPT/HCPCS: 11042; 11045 ==

== ENCOUNTER → 2024-05-12 14:28 | Outpatient (CLI) | payer OTHER, MEDICAID, SELFPAY | LOC: WC 14:29 | PROVIDERS: PCP Family Medicine; Referring Provider Family Medicine; Visit Provider Surgery | DX: I87.2 Venous insufficiency (chronic) (peripheral) (principal); L97.812 Non-pressure chronic ulcer of other part of right lower leg with fat layer exposed; L97.822 Non-pressure chronic ulcer of other part of left lower leg with fat layer exposed; R60.0 Localized edema; L53.8 Other specified erythematous conditions; R21 Rash and other nonspecific skin eruption | CPT/HCPCS: 11042; 11045; 99213 ==

== ENCOUNTER → 2024-05-19 15:47 | Outpatient (CLI) | payer OTHER, MEDICAID, SELFPAY | PROVIDERS: PCP Family Medicine; Referring Provider Neuromusculoskeletal Medicine & OMM; Visit Provider Surgery | DX: L97.812 Non-pressure chronic ulcer of other part of right lower leg with fat layer exposed (principal); L97.322 Non-pressure chronic ulcer of left ankle with fat layer exposed; I87.2 Venous insufficiency (chronic) (peripheral); M21.6X2 Other acquired deformities of left foot; L03.115 Cellulitis of right lower limb; F19.10 Other psychoactive substance abuse, uncomplicated; Z91.199 Patient's noncompliance with other medical treatment and regimen due to unspecified reason; Z79.01 Long term (current) use of anticoagulants | CPT/HCPCS: 11042; 11045 ==

== ENCOUNTER → 2024-06-01 14:57 | Outpatient (CLI) | payer OTHER, MEDICAID, SELFPAY | LOC: WC 14:57 | PROVIDERS: PCP Family Medicine; Referring Provider Neuromusculoskeletal Medicine & OMM; Visit Provider Surgery | DX: L97.812 Non-pressure chronic ulcer of other part of right lower leg with fat layer exposed (principal); I87.2 Venous insufficiency (chronic) (peripheral); R60.0 Localized edema; L53.9 Erythematous condition, unspecified; M21.6X2 Other acquired deformities of left foot; F19.10 Other psychoactive substance abuse, uncomplicated; Z91.199 Patient's noncompliance with other medical treatment and regimen due to unspecified reason | CPT/HCPCS: 11042; 11045; 87070; 87075; 87077; 87147; 87186; 87205; 99213 ==

== ENCOUNTER → 2024-06-10 15:18 | Outpatient (CLI) | payer OTHER, MEDICAID, SELFPAY | LOC: WC 15:18 | PROVIDERS: PCP Family Medicine; Referring Provider Neuromusculoskeletal Medicine & OMM; Visit Provider Surgery | DX: L97.812 Non-pressure chronic ulcer of other part of right lower leg with fat layer exposed (principal); L97.322 Non-pressure chronic ulcer of left ankle with fat layer exposed; I87.2 Venous insufficiency (chronic) (peripheral); L53.9 Erythematous condition, unspecified; R60.0 Localized edema; L08.89 Other specified local infections of the skin and subcutaneous tissue; L03.115 Cellulitis of right lower limb; S41.101A Unspecified open wound of right upper arm, initial encounter; M21.6X2 Other acquired deformities of left foot; Z91.199 Patient's noncompliance with other medical treatment and regimen due to unspecified reason | CPT/HCPCS: 11042; 11045 ==

== ENCOUNTER → 2024-06-18 15:21 | Outpatient (CLI) | payer OTHER, MEDICAID, SELFPAY | PROVIDERS: PCP Family Medicine; Referring Provider Neuromusculoskeletal Medicine & OMM; Visit Provider Surgery | DX: L97.812 Non-pressure chronic ulcer of other part of right lower leg with fat layer exposed (principal); L97.322 Non-pressure chronic ulcer of left ankle with fat layer exposed; L98.492 Non-pressure chronic ulcer of skin of other sites with fat layer exposed; L98.8 Other specified disorders of the skin and subcutaneous tissue; I87.2 Venous insufficiency (chronic) (peripheral); Z91.199 Patient's noncompliance with other medical treatment and regimen due to unspecified reason; L53.9 Erythematous condition, unspecified; R60.0 Localized edema; M79.661 Pain in right lower leg; I50.9 Heart failure, unspecified | CPT/HCPCS: 11042; 11045; 99213 ==

== ENCOUNTER → 2024-08-05 13:01 | Outpatient (CLI) | payer OTHER, MEDICAID, SELFPAY | PROVIDERS: PCP Family Medicine; Referring Provider Neuromusculoskeletal Medicine & OMM; Visit Provider Surgery | DX: L97.812 Non-pressure chronic ulcer of other part of right lower leg with fat layer exposed (principal); L97.322 Non-pressure chronic ulcer of left ankle with fat layer exposed; I87.2 Venous insufficiency (chronic) (peripheral); L89.893 Pressure ulcer of other site, stage 3; L98.492 Non-pressure chronic ulcer of skin of other sites with fat layer exposed; M21.6X2 Other acquired deformities of left foot; M79.661 Pain in right lower leg; M79.662 Pain in left lower leg; M79.621 Pain in right upper arm; Z91.199 Patient's noncompliance with other medical treatment and regimen due to unspecified reason | CPT/HCPCS: 11042; 11045; 87070; 87075; 87077; 87147; 87186; 87205; 97597; 99213 ==

== ENCOUNTER → 2024-08-12 13:53 | Outpatient (CLI) | payer OTHER, MEDICAID, SELFPAY | PROVIDERS: PCP Family Medicine; Referring Provider Family Medicine; Visit Provider Surgery | DX: L97.812 Non-pressure chronic ulcer of other part of right lower leg with fat layer exposed (principal); L97.322 Non-pressure chronic ulcer of left ankle with fat layer exposed; L98.492 Non-pressure chronic ulcer of skin of other sites with fat layer exposed; I87.2 Venous insufficiency (chronic) (peripheral); L89.893 Pressure ulcer of other site, stage 3; M79.601 Pain in right arm; M79.662 Pain in left lower leg; M25.572 Pain in left ankle and joints of left foot | CPT/HCPCS: 11042; 11045 ==

== ENCOUNTER → 2024-08-25 15:30 | Outpatient (CLI) | payer OTHER, MEDICAID, SELFPAY | PROVIDERS: PCP Family Medicine; Referring Provider Neuromusculoskeletal Medicine & OMM; Visit Provider Surgery | DX: L97.812 Non-pressure chronic ulcer of other part of right lower leg with fat layer exposed (principal); L97.322 Non-pressure chronic ulcer of left ankle with fat layer exposed; I87.2 Venous insufficiency (chronic) (peripheral); L89.893 Pressure ulcer of other site, stage 3; L53.9 Erythematous condition, unspecified; M21.6X2 Other acquired deformities of left foot; L03.115 Cellulitis of right lower limb; M25.572 Pain in left ankle and joints of left foot; M79.661 Pain in right lower leg | CPT/HCPCS: 11042; 11045 ==

== ENCOUNTER → 2024-08-27 13:51 | Outpatient (CLI) | payer OTHER, MEDICAID, SELFPAY ==
--- NOTE | 2024-08-27 13:53 | DI.US.S_ITS ---
PROCEDURE: US ARTERIAL DUPLEX LE BI INDICATIONS: BILATERAL NON-PRESSURE ULCERS TECHNIQUE: Color and pulse Doppler interrogation was performed of both lower extremity arterial systems, with image documentation. COMPARISON: None. FINDINGS: Right lower extremity: Common femoral artery: 201.9 cm/sec, with biphasic flow. Deep femoral artery: 116.4 cm/sec. Proximal superficial femoral artery: 113.5 cm/sec, with biphasic flow. Mid superficial femoral artery: 130.1 cm/sec, with monophasic flow. Distal superficial femoral artery: 159.2 cm/sec, with monophasic flow. Popliteal artery: 174.7 cm/sec, with monophasic flow. Posterior tibial artery: 51.6 cm/sec, with triphasic flow. Anterior tibial artery/dorsalis pedis: 74 cm/sec, with biphasic flow. Hoffman-scale imaging description: No obvious atheromatous disease is seen. Shadowing is noted at the right common femoral artery, possibly from prior access and closure. Left lower extremity: Common femoral artery: 167.5 cm/sec, with monophasic flow. Deep femoral artery: 59.1 cm/sec, with monophasic flow. Proximal superficial femoral artery: 217.7 cm/sec, with monophasic flow. Mid superficial femoral artery: 131.1 cm/sec, with monophasic flow. Distal superficial femoral artery: 148.1 cm/sec, with monophasic flow. Popliteal artery: 120.3 cm/sec, with monophasic flow. Anterior tibial artery/dorsalis pedis: 43.7 cm/sec, with monophasic flow. Hoffman-scale imaging description: Within the right posterior fossa is seen a 6.5 centimeter hypodensity which may represent a joint effusion, Danielson's cyst or subcutaneous fluid collection. IMPRESSION: 1. 50-99 percent stenosis of the right common femoral artery and left proximal SFA. 2. 20-49 percent stenosis of the right mid and distal SFA and popliteal arteries and the left common femoral artery. 3. 1-19 percent stenosis of the right deep femoral, right proximal SFA, and left mid and distal SFA and popliteal arteries. 4. Fluid collection behind the left knee likely represents Danielson's cyst. Dictated by: Gerson Pete M.D. on 08/28/2024 at 9:05 Approved by: Gerson Pete M.D. on 08/28/2024 at 9:25
== END ==
PROVIDERS: Referring Provider Surgery; Visit Provider Surgery
DX: L97.322 Non-pressure chronic ulcer of left ankle with fat layer exposed (principal); L97.812 Non-pressure chronic ulcer of other part of right lower leg with fat layer exposed; I70.202 Unspecified atherosclerosis of native arteries of extremities, left leg; I70.201 Unspecified atherosclerosis of native arteries of extremities, right leg
CPT/HCPCS: 93925

== ENCOUNTER → 2024-09-02 14:52 | Outpatient (CLI) | payer OTHER, MEDICAID, SELFPAY | PROVIDERS: Referring Provider Neuromusculoskeletal Medicine & OMM; Visit Provider Surgery | DX: L97.812 Non-pressure chronic ulcer of other part of right lower leg with fat layer exposed (principal); L97.322 Non-pressure chronic ulcer of left ankle with fat layer exposed; L03.115 Cellulitis of right lower limb; I87.2 Venous insufficiency (chronic) (peripheral); L89.893 Pressure ulcer of other site, stage 3; M21.6X2 Other acquired deformities of left foot; R60.0 Localized edema; L53.9 Erythematous condition, unspecified; F19.10 Other psychoactive substance abuse, uncomplicated | CPT/HCPCS: 11042; 11045; 99213 ==

== ENCOUNTER → 2024-09-09 14:27 | Outpatient (CLI) | payer OTHER, MEDICAID, SELFPAY | LOC: WC 14:28 | PROVIDERS: Referring Provider Neuromusculoskeletal Medicine & OMM; Visit Provider Surgery | DX: L97.812 Non-pressure chronic ulcer of other part of right lower leg with fat layer exposed (principal); L97.322 Non-pressure chronic ulcer of left ankle with fat layer exposed; I87.2 Venous insufficiency (chronic) (peripheral); L89.893 Pressure ulcer of other site, stage 3; R60.0 Localized edema; L53.9 Erythematous condition, unspecified; L08.89 Other specified local infections of the skin and subcutaneous tissue; M25.572 Pain in left ankle and joints of left foot; M21.6X2 Other acquired deformities of left foot; Z86.718 Personal history of other venous thrombosis and embolism; Z91.199 Patient's noncompliance with other medical treatment and regimen due to unspecified reason | CPT/HCPCS: 11042; 11045 ==

== ENCOUNTER → 2024-10-15 14:46 | Outpatient (CLI) | payer OTHER, MEDICAID, SELFPAY | PROVIDERS: Referring Provider Neuromusculoskeletal Medicine & OMM; Visit Provider Surgery | DX: I87.2 Venous insufficiency (chronic) (peripheral) (principal); L97.322 Non-pressure chronic ulcer of left ankle with fat layer exposed; L89.893 Pressure ulcer of other site, stage 3; L97.812 Non-pressure chronic ulcer of other part of right lower leg with fat layer exposed; L53.8 Other specified erythematous conditions; R60.0 Localized edema; M21.6X1 Other acquired deformities of right foot; F15.10 Other stimulant abuse, uncomplicated | CPT/HCPCS: 11042; 11045; 87070; 87075; 87077; 87147; 87186; 87205; 99213; 99214 ==

== ENCOUNTER 2024-10-15 17:31 | Inpatient (IN) | payer OTHER, SELFPAY ==
[2024-10-15] VITALS (13 sets, daily range): BP systolic 114–133; BP diastolic 66–84; PULSE 66–134; RESP 14–38; TEMP 36.6–36.8; O2SAT 62–100; BMI 39.1; BMI 34.4
--- NOTE | 2024-10-15 17:34 | DI.RAD.S_ITS ---
PROCEDURE: XR TIBIA FIBULA LT 2V INDICATIONS: r/o free gas TECHNIQUE: 2 views of the tibia and fibula were acquired. COMPARISON: None. FINDINGS/IMPRESSION: Surgical fusion of the ankle. Dystrophic calcifications surrounding the mid to distal fibula. No subcutaneous gas. Dictated by: Carlos Hernandez M.D. on 10/15/2024 at 18:22 Approved by: Carlos Hernandez M.D. on 10/15/2024 at 18:22
--- NOTE | 2024-10-15 17:34 | DI.RAD.S_ITS ---
PROCEDURE: XR TIBIA FUBULA RT 2V INDICATIONS: r/o free gas TECHNIQUE: 2 views of the tibia and fibula were acquired. COMPARISON: None. FINDINGS: Bones: No fractures or dislocations. No suspicious bony lesions. Dystrophic calcification between the tibia and fibula. Soft tissues: No suspicious soft tissue calcifications or masses. 3 mm foreign body medial lateral to the distal tibia. Soft tissue swelling. No subcutaneous gas. IMPRESSION: No definite subcutaneous gas, although evaluation is suboptimal due to overlying clothing. Retained foreign body projecting over the medial aspect of the distal tibia, possibly a needle tip. Dictated by: Carlos Hernandez M.D. on 10/15/2024 at 18:50 Approved by: Carlos Hernandez M.D. on 10/15/2024 at 18:51
--- NOTE | 2024-10-15 18:24 | ED.WOUNDLAC ---
HPI - Wound/Laceration General Chief Complaint: Wound/Laceration Stated Complaint: sent by wound care infection bilateral legs Time Seen by Provider: 10/15/24 17:34 Source: patient Mode of arrival: Ambulatory History of Present Illness HPI narrative: Patient is a 58-year-old female. Has a history of substance abuse, neuropathy, deformity of left foot, right-sided DVT currently on anticoagulation who has been seen [facility] in the past for treatment of bilateral with right being greater than left lower extremity chronic ulcerations. She was last seen at wound care in August of last year. She has not followed up with them since then. At 1 point there was a referral for her to see infectious disease but she was not followed up with that specialty either. She states that the discomfort in her right lower extremity specifically has been increasing over the past couple days. She has been doing dressing changes at home. Using topical cream and soaks however she ran out of all these medications and supplies 2 days ago. She stated that she was having so much discomfort in her right lower extremity that she was actually putting some fentanyl what she uses recreationally on the skin of her right leg. She went to the [facility] today and was sent to the emergency department for concerns of cellulitis given increased redness and drainage of the wounds in her right leg. Patient denies any fevers. Related Data Home Medications Medication Instructions Recorded Confirmed buprenorphine 8 mg-naloxone 2 mg 1 film sublingual BID 01/31/23 10/15/24 sublingual film (Suboxone) gabapentin 300 mg capsule 300 mg PO DAILY PRN Pain (Scale 01/31/23 10/15/24 Score 4-6) trazodone 50 mg tablet 100 mg PO ONCE PM 01/14/24 10/15/24 Allergies Allergy/AdvReac Type Severity Reaction Status Date / Time vancomycin AdvReac Severe Rash Verified 01/13/24 23:50 Review of Systems Review of Systems ROS Unobtainable: All systems reviewed & are unremarkable except as noted in HPI and below Patient History Medical History Abscess of multiple sites History of necrotizing fasciitis Methamphetamine use disorder, severe Opioid use disorder Social History household members: none Smoking Status: Current some day smoker alcohol intake: current Smoking Status: Current some day smoker tobacco type: cigarettes alcohol intake frequency: 0-2 drinks per day Exam Initial Vital Signs Initial Vital Signs: Vital Signs Blood Pressure 129/75 10/15/24 17:44 Const General: disheveled and ill appearing (Chronically ill-appearing) HENMT Head: normal to inspection and normocephalic Resp Effort & Inspection: normal respiratory effort Auscultation: clear to auscultation bilaterally Cardio Rate: regular rate Rhythm: regular rhythm Skin Other: Patient with chronic ulcerations to her right lower extremity anterior and posterior distal 1/3 of the tibia. There is surrounding erythema. There was drainage from the area. Warmth the area of the erythema. No pustules noted. Neuro General: patient alert, patient awake and patient oriented x3 Other: Decreased sensation bilateral lower extremities Extrem Other: Edema bilateral lower extremities. Left foot with a valgus deformity that is not new. Course Orders Ordered: ED Orders 10/15/24 17:34 XR tibia fibula LT 2V Stat XR tibia fibula RT 2V Stat 10/15/24 18:20 CBC Auto Diff [Complete Blood Count AUTO DIFF] Stat CMP [Comprehensive Metabolic Panel] Stat Lactate (Lactic Acid) Stat MAG [Magnesium] Stat 10/15/24 18:41 Blood Culture Stat Acetaminophen (Acetaminophen 325 Mg Tablet) 650 mg PO Q6H PRN PRN Reason: Fever/Mild Pain (1-3) Hydrocodone Bitart/Acetaminophen (Hydrocodone/Acet 5/325 Tablet) 1 tab PO Q4H PRN PRN Reason: Pain, Moderate (4-6) Apixaban (Apixaban 5 Mg Tablet) 5 mg PO BID [facility] Last Admin: 10/15/24 22:02 Dose: 5 mg Documented By: MARITZA Buprenorphine/Naloxone (Buprenorphine/Naloxone 8mg/2mg 1 Tab) 1 tab SL BID [facility] Diphenhydramine HCl (Diphenhydramine 50 Mg/Ml Vial) 25 mg IV Q6HR PRN PRN Reason: Itching Last Admin: 10/15/24 21:54 Dose: 25 mg Documented By: MARITZA Gabapentin (Gabapentin 300 Mg Capsule) 300 mg PO DAILY [facility] Hydromorphone HCl (Hydromorphone 0.5 Mg Inj) 0.5 mg IV Q2H PRN PRN Reason: Pain, Severe (7-10) Sodium Chloride (Normal Saline 0.9%) 1,000 mls @ 100 mls/hr IV CONT [facility]ARATI Last Admin: 10/15/24 20:54 Dose: 100 mls/hr Documented By: CATRACHITO Piperacillin Sod/Tazobactam (Sod 3.375 gm/ Sodium Chloride) 100 mls @ 25 mls/hr IV Q8H [facility] Vancomycin HCl (Vancomycin) 1,000 mg in 200 mls @ 100 mls/hr IV Q24H [facility] Lorazepam (Lorazepam 2 Mg/Ml Inj) 1 mg IV Q6HR PRN PRN Reason: Anxiety Last Admin: 10/15/24 22:04 Dose: 1 mg Documented By: MARITZA Naloxone HCl (Naloxone 0.4 Mg/Ml Vial) 0.2 mg IV Q2MIN PRN PRN Reason: Opiate Reversal Ondansetron HCl (Ondansetron 4 Mg/2 Ml Inj) 4 mg IV Q8HR PRN PRN Reason: Nausea And Vomiting Trazodone HCl (Trazodone 50 Mg Tablet) 100 mg PO BEDTIME [facility] Last Admin: 10/15/24 22:02 Dose: 100 mg Documented By: MARITZA Vancomycin HCl (Vancomycin Per Pharmacy) 1 request MISC NOW PRN PRN Reason: cellulitis Discontinued Medications Sodium Chloride (Normal Saline 0.9%) 1,000 mls @ 125 mls/hr IV CONT [facility] Last Admin: 10/15/24 18:50 Dose: 125 mls/hr Documented By: LO Ceftriaxone Sodium 1,000 mg/ (Sodium Chloride) 100 mls @ 200 mls/hr IV NOW ONE Stop: 10/15/24 18:25 Last Infusion: 10/15/24 19:24 Dose: Infused Documented By: Admin: 10/15/24 18:51 Dose: 200 mls/hr Documented By: OL Vancomycin HCl (Vancomycin) 1,000 mg in 200 mls @ 200 mls/hr IV NOW ONE Stop: 10/15/24 19:23 Last Admin: 10/15/24 22:02 Dose: 200 mls/hr Documented By: MARITZA Piperacillin Sod/Tazobactam (Sod 4.5 gm/ Sodium Chloride) 100 mls @ 200 mls/hr IV NOW ONE Stop: 10/15/24 19:11 Last Infusion: 10/15/24 20:24 Dose: Infused Documented By: Admin: 10/15/24 19:43 Dose: 200 mls/hr Documented By: LISBET Piperacillin Sod/Tazobactam (Sod 3.375 gm/ Sodium Chloride) 100 mls @ 25 mls/hr IV Q8H [facility] Non-Formulary Medication (Buprenorphine-Naloxone [Suboxone]) 1 film SL BID [facility] Last Admin: 10/15/24 22:03 Dose: Not Given Documented By: MARITZA Vital Signs Vital signs: Vital Signs - 8 hr 10/15/24 17:44 10/15/24 17:45 10/15/24 17:47 Temperature Pulse Rate 133 H 128 H Respiratory Rate 38 H Blood Pressure 129/75 Pulse Oximetry 94 95 Oxygen Delivery Method 10/15/24 17:47 10/15/24 17:48 10/15/24 18:00 Temperature 98.3 F Pulse Rate 134 H 128 H Respiratory Rate 16 20 Blood Pressure 133/75 133/75 Pulse Oximetry 97 95 Oxygen Delivery Method Room Air 10/15/24 18:00 10/15/24 18:08 10/15/24 18:08 Temperature Pulse Rate 120 H Respiratory Rate 14 Blood Pressure 118/71 114/66 Pulse Oximetry 94 Oxygen Delivery Method 10/15/24 18:30 10/15/24 19:00 Temperature Pulse Rate 121 H 111 H Respiratory Rate 29 H 15 Blood Pressure Pulse Oximetry 95 96 Oxygen Delivery Method MDM - Wound/Laceration Medical Records Attestation: I reviewed the patient's medical records. Lab Data Attestation: I reviewed the patient's lab results. 10/15/24 18:20 10/15/24 18:20 Labs: Lab Results 10/15/24 Range/Units 18:20 WBC 7.6 (4.5-11.0) X10^3/uL RBC 4.18 (4.0-5.2) X10^6/uL Hgb 10.2 L (12.0-16.0) g/dL Hct 32.1 L (36-46) % MCV 76.8 L (80-100) fL MCH 24.4 L (26-34) PG MCHC 31.7 (30-36) % RDW 16.5 H (11.6-14.8) % Plt Count 408 H (150-400) X10^3/uL Neut % (Auto) 77.2 H (50-75) % Lymph % (Auto) 9.2 L (25-40) % [place] % (Auto) 13.3 (3-14) % Eos % (Auto) 0.0 L (2-4) % Baso % (Auto) 0.3 (0-2) % Neut # (Auto) 5900 (3989-2916) /uL Lymph # (Auto) 700 L (4214-6477) /uL [place] # (Auto) 1000 H (0-900) /uL Eos # (Auto) 0 (0-450) /uL Baso # (Auto) 0 (0-100) /uL Sodium 136 L (137-145) mmol/L Potassium 4.6 (3.4-5.1) mmol/L Chloride 106 (98-107) mmol/L Carbon Dioxide 26 (22-32) mmol/L BUN 29 H (7-17) mg/dL Creatinine 1.39 H (0.52-1.04) mg/dL Estimated GFR 44 L (>60) mL/min BUN/Creatinine Ratio 20.9 (6-22) Glucose 131 H (70-100) mg/dL Lactate 1.4 (0.7-2.1) mmol/L Calcium 9.3 (8.4-10.2) mg/dL Magnesium 1.5 L (1.6-2.3) mg/dL Total Bilirubin 0.4 (0.2-1.3) mg/dL AST 30 (14-36) IU/L ALT 24 (<35) IU/L Alkaline Phosphatase 114 (38-126) U/L Total Protein 7.8 (6.3-8.2) g/dL Albumin 3.6 (3.5-5.0) g/dL Globulin 4.2 H (1.7-4.1) g/dL Albumin/Globulin Ratio 0.9 L (1.0-2.8) Imaging Data Extremity x-ray #1: Radiologist's Impression: PROCEDURE: XR TIBIA FUBULA RT 2V INDICATIONS: r/o free gas TECHNIQUE: 2 views of the tibia and fibula were acquired. COMPARISON: None. FINDINGS: Bones: No fractures or dislocations. No suspicious bony lesions. Dystrophic calcification between the tibia and fibula. Soft tissues: No suspicious soft tissue calcifications or masses. 3 mm foreign body medial lateral to the distal tibia. Soft tissue swelling. No subcutaneous gas. IMPRESSION: No definite subcutaneous gas, although evaluation is suboptimal due to overlying clothing. Retained foreign body projecting over the medial aspect of the distal tibia, possibly a needle tip. Extremity x-ray #2: Radiologist's Impression: PROCEDURE: XR TIBIA FIBULA LT 2V INDICATIONS: r/o free gas TECHNIQUE: 2 views of the tibia and fibula were acquired. COMPARISON: None. FINDINGS/IMPRESSION: Surgical fusion of the ankle. Dystrophic calcifications surrounding the mid to distal fibula. No subcutaneous gas. MDM Narrative Medical decision making narrative: Patient has what appears to be chronic ulcerations to bilateral lower extremities with right being worse than left. Her health history is complicated because of opioid abuse. According to prior notes she has had issues with group G strep, Pseudomonas, MRSA. Wound cultures were obtained at wound care earlier today. Patient was given Rocephin/vancomycin/Zosyn for coverage of Pseudomonas. Her medical record shows that she was allergic to vancomycin but after discussion with her I suspect that this is a red man syndrome because she states when they slow the infusion down her rash/pruritus actually resolves. It does appear that her lower extremities today are cellulitic and not just dermatitis/chronic venous stasis changes although I do suspect that there is a small component of this present. I do feel that she would benefit from admission to the hospital for IV antibiotics. Discussed the case with Dr. Alexandra hospitalist on-call who will admit. Discharge Plan Departure Patient Disposition: Admitted As Inpatient Clinical Impression: Cellulitis Admit Date/Time: 10/15/24 19:13 Admit Provider: Hakeem Alexandra
[2024-10-15 18:38] LABS: Add Manual Diff / Slide Review NO; Basophils Absolute Auto 0 /uL (0-100); Basophils Percent Auto 0.3 % (0-2); Eosinophils Absolute Auto 0 /uL (0-450); Hematocrit 32.1 % (36-46); Hemoglobin 10.2 g/dL (12.0-16.0); Lymphocytes Absolute Auto 700 /uL (1100-4500); Lymphocytes Percent Auto 9.2 % (25-40); Mean Corpuscular HGB Conc 31.7 % (30-36); Mean Corpuscular Hemoglobin 24.4 PG (26-34); Mean Corpuscular Volume 76.8 fL (80-100); Monocytes Absolute Auto 1000 /uL (0-900); Monocytes Percent Auto 13.3 % (3-14); Neutrophils Absolute Auto 5900 /uL (1500-7000); Neutrophils Percent Auto 77.2 % (50-75); Platelet Count 408 X10^3/uL (150-400); Red Blood Cell Count 4.18 X10^6/uL (4.0-5.2); Red Cell Distribution Width 16.5 % (11.6-14.8); White Blood Cell Count 7.6 X10^3/uL (4.5-11.0)
[2024-10-15 18:50] LABS: Lactate (Lactic Acid) 1.4 mmol/L (0.7-2.1)
[2024-10-15] MEDS: SODIUM CHLORIDE 0.9% 1,000 ML 125 ML IV (18:50)
[2024-10-15 18:51] LABS: Alanine Aminotransferase 24 IU/L (<35); Albumin 3.6 g/dL (3.5-5.0); Albumin Globulin Ratio 0.9 (1.0-2.8); Alkaline Phosphatase 114 U/L (38-126); Aspartate Aminotransferase 30 IU/L (14-36); BUN Creatinine Ratio 20.9 (6-22); Bilirubin Total 0.4 mg/dL (0.2-1.3); Blood Urea Nitrogen 29 mg/dL (7-17); Calcium 9.3 mg/dL (8.4-10.2); Carbon Dioxide 26 mmol/L (22-32); Chloride 106 mmol/L (98-107); Estimated Glomerular Filt Rate 44 mL/min (>60); Globulin 4.2 g/dL (1.7-4.1); Glucose 131 mg/dL (70-100); HEMOLYSIS < 15 (0-50); Magnesium 1.5 mg/dL (1.6-2.3); Potassium 4.6 mmol/L (3.4-5.1); Sodium 136 mmol/L (137-145); Total Protein 7.8 g/dL (6.3-8.2)
[2024-10-15] MEDS: cefTRIAXone 1,000 MG in SODIUM CHLORIDE 0.9% 100 ML 200 MG IV (18:51)
[2024-10-15] MEDS: PIPERACILLIN/TAZO 4.5 GM in SODIUM CHLORIDE 0.9% 100 ML IV (19:43)
[2024-10-15] MEDS: SODIUM CHLORIDE 0.9% 1,000 ML 100 ML IV (20:54)
[2024-10-15] MEDS: diphenhydrAMINE 50 MG/ML VIAL 25 MG IV (21:54)
[2024-10-15] MEDS: VANCOMYCIN 1,000 MG/200 ML PIGGYBACK 200 MG IV (22:02)
[2024-10-15] MEDS: APIXABAN 5 MG TABLET PO (22:02)
[2024-10-15] MEDS: LORazepam 2 MG/ML INJ 1 MG IV (22:04)
[2024-10-15] MEDS: HYDROCODONE/ACET 5/325 TABLET 1 TAB PO (23:10)
[2024-10-15] MEDS: TRAZODONE 50 MG TABLET 100 MG PO (23:10)
[2024-10-16] VITALS: BP 104/62; PULSE 108; RESP 14; TEMP 36.2; O2SAT 98
[2024-10-16 04:00] VITALS: BP 104/57; PULSE 110; RESP 16; TEMP 36.2; O2SAT 99
[2024-10-16] MEDS: PIPERACILLIN/TAZO 3.375 GM in SODIUM CHLORIDE 0.9% 100 ML IV ×3 (04:23→19:56)
--- NOTE | 2024-10-16 05:58 | P.HP_ITS ---
History of Present Illness History of Present Illness Chief complaint: sent by wound care infection bilateral legs Narrative: 58 year old female with past medical history of DVT on Apixaban, necrotizing fasciitis. methamphetamine abuse, neuropathy and HTN was sent here by wound care clinic due to worsening wound in LEs and cellulitis. Of note, the patient has been followed by wound care clinic as outpatient. However, today, the patient was sent here to our ER due to worsening infection of LEs wound and cellulitis. The patient however denies any fever, chills, nausea, vomiting, diarrhea, chest pain or shortness of breath. In our ER, patient remains hemodynamically stable without sign of sepsis. The patient Cr is 1.39 and Mg 1.5. Other labs were benign. The patient was given IV Zosyn and Vancomycin as patient prior wound cultures was positive for MRSA and Pseudomonas. Also note is that patient wound culture was obtained at wound clinic today. Xray of LEs whos no bone involvment or subcutanenous gas. [facility] Medical History Abscess of multiple sites History of necrotizing fasciitis Methamphetamine use disorder, severe Opioid use disorder Social History household members: none Smoking Status: Current some day smoker alcohol intake: current Meds Home Medications and Allergies Home Medications Medication Instructions Recorded Confirmed Type buprenorphine 8 mg-naloxone 2 mg 1 film sublingual BID 01/31/23 10/15/24 History sublingual film (Suboxone) gabapentin 300 mg capsule 300 mg PO DAILY PRN Pain (Scale 01/31/23 10/15/24 History Score 4-6) trazodone 50 mg tablet 100 mg PO ONCE PM 01/14/24 10/15/24 History Allergies Allergy/AdvReac Type Severity Reaction Status Date / Time vancomycin AdvReac Severe Rash Verified 01/13/24 23:50 Review of Systems Review of Systems ROS: Yes All systems reviewed with the patient and are negative except as otherwise documented Exam Vital Signs (past 8 hours): - 10/16/24 00:00 10/16/24 04:00 Temperature 97.2 F L 97.1 F L Pulse Rate 108 H 110 H Respiratory Rate 14 16 Blood Pressure 104/62 104/57 L Pulse Oximetry 98 99 Oxygen Delivery Method Room Air Narrative Exam Narrative: Physical Exam: GENERAL: The patient is not in any acute distressed. Awake and alert. HEENT: Nonicteric sclerae, PERRLA, EOMI. Oropharynx clear. Moist mucous membranes. Conjunctivae appear well perfused. HEART: Regular rate and rhythm without murmurs. No lower extremities edema. LUNGS: Clear to auscultation bilaterally. No wheezing, crackles or rhonchi ABDOMEN: Soft, positive bowel sounds, nontender. SKIN: muiltiple wound noted in bilateral legs and sign of surrounding erythema. NEUROLOGIC: AxO x 3. Cranial nerves II-XII intact without motor/sensory deficit. Objective Labs 10/15/24 18:20 10/15/24 18:20 Labs: Laboratory Results - last 24 hr 10/15/24 18:20 WBC 7.6 RBC 4.18 Hgb 10.2 L Hct 32.1 L MCV 76.8 L MCH 24.4 L MCHC 31.7 RDW 16.5 H Plt Count 408 H Neut % (Auto) 77.2 H Lymph % (Auto) 9.2 L [place] % (Auto) 13.3 Eos % (Auto) 0.0 L Baso % (Auto) 0.3 Neut # (Auto) 5900 Lymph # (Auto) 700 L [place] # (Auto) 1000 H Eos # (Auto) 0 Baso # (Auto) 0 Sodium 136 L Potassium 4.6 Chloride 106 Carbon Dioxide 26 BUN 29 H Creatinine 1.39 H Estimated GFR 44 L BUN/Creatinine Ratio 20.9 Glucose 131 H Lactate 1.4 Calcium 9.3 Magnesium 1.5 L Total Bilirubin 0.4 AST 30 ALT 24 Alkaline Phosphatase 114 Total Protein 7.8 Albumin 3.6 Globulin 4.2 H Albumin/Globulin Ratio 0.9 L Assessment & Plan Assessment & Plan narrative: LEs cellulitis and wound infection. Admit the patient to medical inpatient. The patient was given IV Zosyn and Vancomycin as patient prior wound cultures was positive for MRSA and Pseudomonas. Also note is that patient wound culture was obtained at wound clinic today. Xray of LEs whos no bone involvment or subcutanenous gas. Continue IV Zosyn/Vancomycin and will continue wound care while inpatient. Follow up wound cultures that were drawn as outpatient today in wound clinic. Monitor for sepsis. IVF. DICK. Likely from dehydration. Baseline Cr 1.0 today 1.39. IVF and repeat Cr in AM. Mild hypomagnesemia. Replace and monitor. History of methamphetamine abuse. Pain does complaints of pain. PRN PO and IV pain medications. Dehydration. IVF. Neuropathy. Resume home Gabapentin. History of LEs DVT. Resume home Eliquis DVT PPx Eliquis Code status full code Disposition home in 2-3 days Time-Based Coding :: [TOTAL MINUTES] spent with patient and on the chart (including review of chart, obtaining history, exam, reviewing outside data, placing orders, documenting exam and treatment plan, and counseling patient) on [DATE]. Quality VTE Deep Vein Thrombosis/Pulmonary Embolism Present on Admission: No
[2024-10-16 06:31] LABS: Add Manual Diff / Slide Review NO; Basophils Absolute Auto 0 /uL (0-100); Basophils Percent Auto 0.8 % (0-2); Eosinophils Absolute Auto 0 /uL (0-450); Eosinophils Percent Auto 0.1 % (2-4); Hematocrit 30.3 % (36-46); Hemoglobin 9.5 g/dL (12.0-16.0); Lymphocytes Absolute Auto 1000 /uL (1100-4500); Lymphocytes Percent Auto 18.8 % (25-40); Mean Corpuscular HGB Conc 31.3 % (30-36); Mean Corpuscular Hemoglobin 24.1 PG (26-34); Mean Corpuscular Volume 76.9 fL (80-100); Monocytes Absolute Auto 1000 /uL (0-900); Monocytes Percent Auto 18.6 % (3-14); Neutrophils Absolute Auto 3200 /uL (1500-7000); Neutrophils Percent Auto 61.7 % (50-75); Platelet Count 326 X10^3/uL (150-400); Red Blood Cell Count 3.94 X10^6/uL (4.0-5.2); Red Cell Distribution Width 16.8 % (11.6-14.8); White Blood Cell Count 5.2 X10^3/uL (4.5-11.0)
[2024-10-16] MEDS: SODIUM CHLORIDE 0.9% 1,000 ML 100 ML IV ×2 (06:33→12:58)
[2024-10-16 06:38] LABS: Alanine Aminotransferase 20 IU/L (<35); Albumin 2.9 g/dL (3.5-5.0); Albumin Globulin Ratio 0.8 (1.0-2.8); Alkaline Phosphatase 97 U/L (38-126); Aspartate Aminotransferase 27 IU/L (14-36); BUN Creatinine Ratio 23.5 (6-22); Bilirubin Total 0.3 mg/dL (0.2-1.3); Blood Urea Nitrogen 28 mg/dL (7-17); Calcium 8.6 mg/dL (8.4-10.2); Carbon Dioxide 26 mmol/L (22-32); Chloride 105 mmol/L (98-107); Estimated Glomerular Filt Rate 53 mL/min (>60); Globulin 3.7 g/dL (1.7-4.1); Glucose 111 mg/dL (70-100); HEMOLYSIS 24 (0-50); Potassium 4.4 mmol/L (3.4-5.1); Sodium 137 mmol/L (137-145); Total Protein 6.6 g/dL (6.3-8.2)
--- NOTE | 2024-10-16 07:38 | P.PN_ITS ---
Subjective Subjective Interval history: Summary: 58 year old female with past medical history of DVT on Apixaban, necrotizing fasciitis. methamphetamine abuse, neuropathy and HTN was sent here by wound care clinic due to worsening wound in LE's and cellulitis. Of note, the patient has been followed by wound care clinic as outpatient. However, today, the patient was sent here to our ER due to worsening infection of LEs wound and cellulitis. The patient however denies any fever, chills, nausea, vomiting, diarrhea, chest pain or shortness of breath. In our ER, patient remains hemodynamically stable without sign of sepsis. The patient Cr is 1.39 and Mg 1.5. Other labs were benign. The patient was given IV Zosyn and Vancomycin as patient prior wound cultures was positive for MRSA and Pseudomonas. Also note is that patient wound culture was obtained at wound clinic today. Xray of LEs whos no bone involvment or subcutanenous gas. S: She states she was relatively comfortable today. She was started on IV antibiotics. She has been followed by outpatient wound clinic. She lives in [facility], [place]. She does use fentanyl and methamphetamines on a regular basis. She recently started Suboxone and has been micro dosing, using only about a 10th of a tablet a day. Pharmacy discuss this with her and she was happy to not take Suboxone while in the hospital and then restart what she has been doing when she leaves the hospital. She was a chronic deformity of the left foot which is inverted. She does walk on this foot. Exam Vital Signs (past 8 hours): - 10/16/24 00:00 10/16/24 04:00 Temperature 97.2 F L 97.1 F L Pulse Rate 108 H 110 H Respiratory Rate 14 16 Blood Pressure 104/62 104/57 L Pulse Oximetry 98 99 Oxygen Delivery Method Room Air Narrative Exam Narrative: NAD, alert and oriented. Fluent speech. Unkempt. Lungs are clear, normal rate and effort. Heart is regular, no murmur gallop or rub. Abdomen is soft, non distended. Extremities are wrapped. There is some erythema proximal and distal to the wrappings on both legs. Media images are reviewed and she was extensive ulcerations in the right leg greater than the left and diffuse erythema of both lower extremities. It was reported in her history and physical she has cultures indicating Pseudomonas as well. Chronic left foot inversion. Objective Imaging Bilateral tib-fib x-rays:: Radiologist's impression: Tib-fib: Surgical fusion of the ankle. Dystrophic calcifications surrounding the mid to distal fibula. No subcutaneous gas. Tib-fib: No definite subcutaneous gas, although evaluation is suboptimal due to overlying clothing. Retained foreign body projecting over the medial aspect of the distal tibia, possibly a needle tip. Labs 10/16/24 06:00 10/16/24 06:00 Labs: Laboratory Results - last 24 hr 10/15/24 10/16/24 18:20 06:00 WBC 7.6 5.2 RBC 4.18 3.94 L Hgb 10.2 L 9.5 L Hct 32.1 L 30.3 L MCV 76.8 L 76.9 L MCH 24.4 L 24.1 L MCHC 31.7 31.3 RDW 16.5 H 16.8 H Plt Count 408 H 326 Neut % (Auto) 77.2 H 61.7 Lymph % (Auto) 9.2 L 18.8 L [place] % (Auto) 13.3 18.6 H Eos % (Auto) 0.0 L 0.1 L Baso % (Auto) 0.3 0.8 Neut # (Auto) 5900 3200 Lymph # (Auto) 700 L 1000 L [place] # (Auto) 1000 H 1000 H Eos # (Auto) 0 0 Baso # (Auto) 0 0 Sodium 136 L 137 Potassium 4.6 4.4 Chloride 106 105 Carbon Dioxide 26 26 BUN 29 H 28 H Creatinine 1.39 H 1.19 H Estimated GFR 44 L 53 L BUN/Creatinine Ratio 20.9 23.5 H Glucose 131 H 111 H Lactate 1.4 Calcium 9.3 8.6 Magnesium 1.5 L Total Bilirubin 0.4 0.3 AST 30 27 ALT 24 20 Alkaline Phosphatase 114 97 Total Protein 7.8 6.6 Albumin 3.6 2.9 L Globulin 4.2 H 3.7 Albumin/Globulin Ratio 0.9 L 0.8 L [facility] Medical History Abscess of multiple sites History of necrotizing fasciitis Methamphetamine use disorder, severe Opioid use disorder Social History household members: none Smoking Status: Current some day smoker alcohol intake: current Assessment & Plan Assessment & Plan narrative: 1. Bilateral leg cellulitis and wound infection. Acute on chronic. 2. DICK. Likely from dehydration. Baseline Cr 1.0 today 1.39. IVF and repeat Cr in AM. 3. Mild hypomagnesemia. Replace and monitor. 4. History of methamphetamine abuse. Pain does complaints of pain. PRN PO and IV pain medications. 5. Dehydration. IVF. 6. Neuropathy. Resume home Gabapentin. 7. History of LEs DVT. Resume home Eliquis PLAN: -continue IV antibiotics. -repeat wound cultures. -wound care consult. -stopped Suboxone while in the hospital, she can resume this when she discharges. It is impossible to dose the way she has been taking this at home with her micro dosing. -watch for signs of withdrawal. DVT PPx Eliquis Code status full code Disposition home in 2-3 days Time-Based Coding :: [TOTAL MINUTES] spent with patient and on the chart (including review of chart, obtaining history, exam, reviewing outside data, placing orders, documenting exam and treatment plan, and counseling patient) on [DATE]. Quality VTE Deep Vein Thrombosis/Pulmonary Embolism Present on Admission: No
[2024-10-16 08:00] VITALS: BP 100/50; PULSE 103; RESP 18; TEMP 36.4; O2SAT 97
[2024-10-16] MEDS: HYDROCODONE/ACET 5/325 TABLET 1 TAB PO ×4 (08:39→23:52)
[2024-10-16] MEDS: GABAPENTIN 300 MG CAPSULE PO (08:39)
[2024-10-16] MEDS: MAGNESIUM OXIDE 400 MG TABLET PO (08:40)
[2024-10-16] MEDS: APIXABAN 5 MG TABLET PO ×2 (08:41→19:56)
[2024-10-16] MEDS: BUPRENORPHINE/NALOXONE 8MG/2MG 1 TAB SL (08:41)
[2024-10-16 09:12] LABS: Ur Creatinine Normal (Normal); Ur Specific Gravity Normal (Normal)
[2024-10-16 09:13] LABS: Urine pH Normal (Normal)
[2024-10-16 09:15] LABS: UR Morphine/Opiate cutoff 300 Negative (Negative); Urine Amphetamines Positive (Negative); Urine Barbiturates Negative (Negative); Urine Benzodiazepines Positive (Negative); Urine Cocaine Positive (Negative); Urine MDMA Positive (Negative); Urine Methadone Negative (Negative); Urine Methamphetamines Positive (Negative); Urine Oxycodone Negative (Negative); Urine Phencyclidine Negative (Negative); Urine Tetrahydrocannabinol Negative (Negative); Urine Tricyclic Antidepressant Negative (Negative)
[2024-10-16 12:00] VITALS: BP 105/66; PULSE 110; RESP 18; TEMP 37; O2SAT 95
[2024-10-16] MEDS: HYDROMORPHONE 0.5 MG INJ IV ×3 (14:46→22:42)
--- NOTE | 2024-10-16 15:32 | CM.DANOTE ---
Initial DCP Assessment Note Pt is a 58 yo female, resident of [place], arrives from the wound care for worsening wound in LE's and cellulitis. PMH includes ; methamphetamine abuse, fentanyl use, neuropathy and HTN PCP: Carrie Nunn Payer: Gopi GODFREY Reviewed chart, pt discussed in multidisciplinary rounds this morning. Dr Moctezuma requesting wound care consult, IV abx, watch for s/sx of w/d. Gabriella Bejarano, Maintenance Trainer with [facility] program P [phone] F [phone] requested a visit with this EDUCATION ADVISER; Gabriella lists his concerns , mostly medical, about patient and that she needs a number of outpatient medical visits scheduled. Gabriella reports patient lives alone, independently, in an apt [place] [address], active drug user, has minimal if any sober supports that he knows of. Patient recently bought a car and drives herself to appointments. Explained to Gabriella that the refinery operator crude unit may be able to help schedule outpatient appointments if recommended by the hospitalist upon discharge from this hospital. Gabriella states understanding. Plan: Discharge home to apt anticipated, continue outpatient wound care, follow up with ID at [facility] (?) via [facility] transport vs friends. CM team will plan to follow clinical course closely in case any DC needs or concerns arise. MIKY Gan Discharge Planning/Care Management CM Discharge Assessment Start: 10/16/24 15:30 Freq: Status: Active Protocol: Document 10/16/24 15:30 MT (Rec: 10/16/24 15:32 MT [id number]) Discharge Planning Assessment Assigned Supervisor Final MIKY Soto DPOA/Assigned Designee Name Ofelia (sister) Contact Information [phone] Advance Directives? No History Provided By Friend,Medical Record Prior Living Arrangements Apartment/Condo Household Members none Type of transporation used prior to Drives own vehicle admit Independent with ADL's Yes Is patient alert and oriented? Yes Comment Has been connected w/[facility] in the past. Discharge Plan Home Transportation Arrangement Medicaid transport is likely
[2024-10-16 16:00] VITALS: BP 103/66; PULSE 98; RESP 20; TEMP 36.2; O2SAT 98
[2024-10-16] MEDS: VANCOMYCIN 1,500 MG/300 ML PIGGYBACK 200 MG IV (18:34)
[2024-10-16] MEDS: diphenhydrAMINE 50 MG/ML VIAL 25 MG IV ×2 (18:38→23:52)
[2024-10-16] MEDS: TRAZODONE 50 MG TABLET 100 MG PO (19:56)
[2024-10-16 20:00] VITALS: BP 110/76; PULSE 84; RESP 19; TEMP 37; O2SAT 96
[2024-10-17] VITALS: BP 130/86; PULSE 88; RESP 19; TEMP 36.4; O2SAT 96
[2024-10-17] MEDS: HYDROMORPHONE 0.5 MG INJ 1 MG IV ×4 (01:05→09:10)
[2024-10-17] MEDS: LORazepam 2 MG/ML INJ 1 MG IV ×4 (01:06→20:03)
[2024-10-17] MEDS: SODIUM CHLORIDE 0.9% 1,000 ML 100 ML IV ×2 (02:24→12:18)
[2024-10-17] MEDS: PIPERACILLIN/TAZO 3.375 GM in SODIUM CHLORIDE 0.9% 100 ML IV ×3 (04:23→20:05)
[2024-10-17 08:00] VITALS: BP 103/53; PULSE 109; RESP 12; TEMP 36.7; O2SAT 91
[2024-10-17] MEDS: MAGNESIUM OXIDE 400 MG TABLET PO (08:07)
[2024-10-17] MEDS: APIXABAN 5 MG TABLET PO ×2 (08:07→20:03)
[2024-10-17] MEDS: GABAPENTIN 300 MG CAPSULE PO (08:07)
[2024-10-17] MEDS: diphenhydrAMINE 50 MG/ML VIAL 25 MG IV (09:09)
[2024-10-17] MEDS: HYDROMORPHONE 1 MG INJ IV ×5 (09:53→22:01)
--- NOTE | 2024-10-17 11:21 | PC.NURSE ---
This RN has spoke to Dr. Ojeda twice about the pt's lack of pain control. This RN has made it clear to Dr. Ojeda that the pt uses recreational/street Fentanyl for her pain at home daily. Pt reports that she mirco doses her fentanyl with her suboxone and the current hospital pain control of 1 mg IV dilaudid q2h is not effective with 1 mg Ativan q4h. The pt keeps stating that she wants to go home. This RN has informed the pt that she's allow to leave at any time and this would be AMA. Provider is aware that the pt has said that she's going to leave AMA if pain is not better controlled.
[2024-10-17 12:00] VITALS: BP 111/66; PULSE 106; RESP 18; TEMP 36.7; O2SAT 94
[2024-10-17] MEDS: ONDANSETRON 4 MG/2 ML INJ IV (12:03)
[2024-10-17] MEDS: ACETAMINOPHEN 325 MG TABLET 650 MG PO (12:23)
[2024-10-17] MEDS: OXYCODONE IR 10 MG TABLET PO ×2 (13:50→20:02)
--- NOTE | 2024-10-17 15:58 | CM.DPC ---
DCP Cont: Per MD and RN, pt feeling her pain is not adequately controlled and might leave AMA today and due to pt's drug hx this increases her difficulty for pain management. Plan: SW to follow to determine if pt will remain for further medical tx vs AMA today. MIKY John
[2024-10-17 16:00] VITALS: BP 99/66; PULSE 86; RESP 16; TEMP 36.7; O2SAT 92
--- NOTE | 2024-10-17 17:56 | PM.PN.1 ---
Subjective Subjective Interval history: 58 yo female w/ prior DVT on apixaban, hx of necrotizing fasciitis, active polysubstance abuse (methamphetamines and fentanyl), neuropathy and HTN admitted early yesterday am w/worsening cellulitis, DICK and hypomagnesemia.? Prior cultures have been positive for MRSA and pseudomonas.? Receiving Zosyn/Vanc. Earlier today, she was complaining of poorly controlled pain. RN was concerned she may be having early withdrawal symptoms. She was given 1 additional dose of hydromorphone 1 mg this morning. Within a couple of hours, she began threatening to leave against medical advice. She told the charge nurse that she had fentanyl and methamphetamines at home that she could take. I did ask her primary nurse to get information about her preferred pharmacy so if she chose to leave Against Medical Advice we could ensure she had appropriate antibiotics. She elected to remain in the hospital. Upon further review, her hydrocodone 5 mg was discontinued and she was given oxycodone 10 mg as needed for pain. At the time of my evaluation, patient is notably drowsy. She is having difficulty staying awake. She tells me that the oxycodone is not helping her pain all. She states that she had been doing well with the wound until wound care began using ascetic acid. She notes her left leg did okay but the right leg kept getting worse. Exam Vital Signs (past 8 hours): - 10/17/24 12:00 10/17/24 16:00 Temperature 98.1 F 98.1 F Pulse Rate 106 H 86 Respiratory Rate 18 16 Blood Pressure 111/66 99/66 Pulse Oximetry 94 92 Oxygen Flow Rate 0 0 Oxygen Delivery Method Room Air Oxygen Flow Rate 0 Narrative Exam Narrative: GEN: Disheveled middle-aged female, edentulous, somewhat slurred speech due to drowsiness, no acute distress HEENT:NC, Face symmetric CHEST: Respiratory excursions symmetric, CTAB CV: RRR, no M/R/G ABD: Soft, obese, NT/ND, BT present in all 4 quadrants, body habitus limits exam EXTR: warm, left lower extremity reveals scaling skin but no significant erythema or warmth, there is chronic venous stasis changes noted, there is a dressing to the distal lower extremity/ankle that was not removed; right lower extremity reveals a very saturated dressing which was adherent to the wounds. Saline was utilized to remove the adherent dressings. There are large areas of ulceration without significant drainage noted. Surrounding skin is erythematous but not significantly warmer than the surrounding skin. Chronic venous stasis changes noted. The ulcerations are noted to span large areas of the anterior pretibial region. There also scattered ulcers laterally and posteriorly. SKIN: warm and dry, no rash NEURO: Drowsy, but oriented. I do have to repeat questions to get answers. She does have periodic myoclonic jerking Objective Labs 10/16/24 06:00 10/16/24 06:00 [facility] Medical History Abscess of multiple sites History of necrotizing fasciitis Methamphetamine use disorder, severe Opioid use disorder Social History household members: none Smoking Status: Current some day smoker alcohol intake: current Assessment & Plan Assessment & Plan narrative: 1.??? BLE cellulitis and wound infection, acute on chronic. At this time, the primary source of infection appears to be the right lower extremity. Cultures taken on 10/15/2024 are thus far positive for g negative bacilli and group G strep. The Gram-negative bacilli is pending further identification and sensitivities. For now, she remains on Zosyn and vancomycin. At this point the vancomycin can be discontinued as the group G strep is sensitive to penicillins. Given how adherent the dressing was to her ulcers, I have asked for Vaseline impregnated gauze to be used as a barrier between the ulcers and the dressings. 2.??? DICK Improving. Creatinine is down to 1.19. 3.??? Hypomagnesemia Will recheck on tomorrow morning's labs. 4.??? Polysubstance abuse Patient has active fentanyl and methamphetamine use. She has several times today talked about leaving against medical advice. It is entirely possible she will leave prior to tomorrow morning. 5.??? Neuropathy Continue gabapentin. 6.??? Hx of DVT Continue apixaban. Code status Full Prophylaxis On apixaban Disposition Pending improvement of her wound Time-Based Coding :: [TOTAL MINUTES] spent with patient and on the chart (including review of chart, obtaining history, exam, reviewing outside data, placing orders, documenting exam and treatment plan, and counseling patient) on [DATE]. Quality VTE Deep Vein Thrombosis/Pulmonary Embolism Present on Admission: No
--- NOTE | 2024-10-17 18:40 | PC.NURSE ---
*PCT Note* This PCT was assisting RN with dressing change when pt reached for xeroform dressing and began applying it to own leg. RN removed xeroform dressing applied by pt and pt asked are you fucking stupid? and yelled get out of my room at RN. Pt applied ABD bandages to own leg and allowed a second RN to wrap it with gauze. Pt expressed desire to leave AMA, stating what's the point of staying here if no one is going to change my dressing. Security was called but did not enter room. Pt continued to be verbally aggressive toward multiple RNs, including charge.
[2024-10-17 20:00] VITALS: BP 120/67; PULSE 102; RESP 18; TEMP 36.3; O2SAT 94
[2024-10-17] MEDS: TRAZODONE 50 MG TABLET 100 MG PO (20:03)
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
[2024-10-18] MEDS: LORazepam 2 MG/ML INJ 1 MG IV (00:21)
[2024-10-18] MEDS: diphenhydrAMINE 50 MG/ML VIAL 25 MG IV (00:21)
--- NOTE | 2024-10-18 04:19 | PC.NURSE ---
Pt shouting and attempting to get out of bed without assistance, stating I fucking need to pee, this RN informed patient that contact precautions were in place and a small amount of time was needed to properly gown and glove. Able to get patient to sit at bedside without incident, patient requested male urinal to void in. As patient moved to side of bed, a moderate amount of dried stool was present on bedding and skin. Bedding changed and rear of patient cleaned. Copious fecal matter visible in groin and mons area, likely between labia as well. Patient refused to let this RN clean her, refused to clean herself stating repeatedly I don't care and I'll do it tomorrow. This RN and coordinator Ned Tejeda attempted to educate patient on importance of appropriate hygiene and high risk of infection from the proximity of fecal matter to urethra. Patient continued to adamantly refuse. Dressing on RLE saturated and falling off- pt requesting pain medicine prior to dressing change, primary RN informed.
[2024-10-18] MEDS: OXYCODONE IR 10 MG TABLET PO ×2 (05:23→09:28)
--- NOTE | 2024-10-18 05:50 | PC.NURSE ---
Unable to give IV dilauded/lorazepam/zosyn due to IV failure. Unable to place new IV, will pass on to day shift. Dressing on RLE saturated, had supplies to change it and patient refused stating I'll do it in the morning. Attempted to educate patient on infection and importance of dressing change. Patient again refused yelling I'll do it in the morning.
[2024-10-18] MEDS: HYDROMORPHONE 2 MG INJ IM (06:42)
[2024-10-18] MEDS: LORazepam 2 MG/ML INJ 1 MG IM (06:42)
[2024-10-18 08:57] LABS: BUN Creatinine Ratio 19.3 (6-22); Blood Urea Nitrogen 21 mg/dL (7-17); Calcium 8.5 mg/dL (8.4-10.2); Carbon Dioxide 24 mmol/L (22-32); Chloride 110 mmol/L (98-107); Estimated Glomerular Filt Rate 59 mL/min (>60); Glucose 132 mg/dL (70-100); HEMOLYSIS < 15 (0-50); Magnesium 1.7 mg/dL (1.6-2.3); Potassium 4.3 mmol/L (3.4-5.1); Sodium 136 mmol/L (137-145)
[2024-10-18] MEDS: MAGNESIUM OXIDE 400 MG TABLET PO (09:28)
[2024-10-18] MEDS: APIXABAN 5 MG TABLET PO (09:28)
[2024-10-18] MEDS: GABAPENTIN 300 MG CAPSULE PO (09:30)
--- NOTE | 2024-10-18 10:44 | PC.NURSE ---
Addendum entered by Sasha Marquis R.N. 10/18/24 11:30: Patient did not last very long in her brief, she was up to the commode and then stated that she wanted to leave. Explained to patient that the only way she would be able to do that is again leaving AMA, explained that she was not ready to be medically discharged from the hospital. She still wanted to leave AMA. Paperwork signed and Patient put in a wheelchair and escorted downstairs by security. Original Note: Patient given her po medication this morning and given her breakfast. She was hollering and not using her callbell. She has been having loose stools, patient was sitting on the edge of the bed and literally had a lose stool on the floor and continued eating her breakfast. The floor was cleaned up and she was wipped but refused to put a brief on. Then she asked if she could go home and this RN told her that the only way that she could go home is if she left AMA. Then she was trying to barter with starting an iv and states that she would only like to have the iv antibiotics running for 4 hours so she can go. Patient mumbles when she talks and then yells at staff for not understanding her, she uses frequent curse words and tells staff they do not know what they are doing. Dr. Ojeda is aware of all of this. Brief just put on patient in case she has another accident.
--- NOTE | 2024-10-18 12:14 | CM.DPC ---
DCP AMA Per RN and MD, pt was very agitated today and demanding certain things from staff and not following directives or suggestions. MD discussed need for midline today and that pt not medically stable to discharge yet and per RN pt decided to leave AMA. SW attempted to meet bedside with pt and she had already left to go downstairs to her vehicle. SW [place] [facility] for her [facility] Social Work Administrator Gabriella [phone] regarding pt's AMA as he will be the person to follow up with her in the outpt setting. Delores Ceja MSW
--- NOTE | 2024-10-20 23:34 | PC.NURSE ---
Late entry for 10/16/24: Patient given ativan at 20:15.
--- NOTE | 2024-10-23 09:36 | P.DS_ITS ---
History of Present Illness History of Present Illness Chief complaint: sent by wound care infection bilateral legs Narrative: Per H&P: 58 year old female with past medical history of DVT on Apixaban, necrotizing fasciitis. methamphetamine abuse, neuropathy and HTN was sent here by wound care clinic due to worsening wound in LEs and cellulitis. Of note, the patient has been followed by wound care clinic as outpatient. However, today, the patient was sent here to our ER due to worsening infection of LEs wound and cellulitis. The patient however denies any fever, chills, nausea, vomiting, diarrhea, chest pain or shortness of breath. In our ER, patient remains hemodynamically stable without sign of sepsis. The patient Cr is 1.39 and Mg 1.5. Other labs were benign. The patient was given IV Zosyn and Vancomycin as patient prior wound cultures was positive for MRSA and Pseudomonas. Also note is that patient wound culture was obtained at wound clinic today. Xray of LEs whos no bone involvment or subcutanenous gas. Discharge Providers Provider Date of admission: 10/15/24 19:13 Discharge Date: 10/18/24 Primary care physician: Carrie Nunn, DO Consults: 10/16/24 12:18 Consult to Inpatient Wound Care Nurse Routine Comment: Reason for consultation: leg wounds Has provider been notified: Yes Discharge provider: Giselle Ojeda MD Summary Hospital Course Discharge Diagnosis: 1.??? BLE cellulitis and wound infection, acute on chronic, w/RLE wounds positive for fluoroquinolone resistant pseudomonas and group G strep 2.??? DICK, improving 3.??? Hypomagnesemia 4.??? Polysubstance abuse, active 5.??? Neuropathy 6.??? Hx of DVT 7. microcytic anemia Hospital Course: Pt was sent from wound care clinic on the date of admission for worsening chronic wounds and cellulitis, impacting the RLE more than the LLE. She was admitted and initiated on IV abx. Pt reported she was sprinkling fentanyl into the ulcers on her right leg for pain control. Wound cultures were taken at the wound care clinic. She had volatile behaviors during her hospital stay with frequent reports she would leave AMA if she didn't get what she wanted (more pain medication, new IV within 20 minutes, for example). She made statements to her RN that she had fentanyl and methamphetamines at home that she could just go home and take which worked better for her pain. Meds were increased on 10/17/24. She developed myoclonic jerking and some somnolence, so increasing her medications beyond that was not felt to be safe even though she continued to complain of uncontrolled pain and stated she had no benefit from the medication adjustment. On 10/18/24, she began having BMs on her bed and floor without requesting assistance to the commode or bathroom first. Due to concerns for pt and staff safety and fall risk within her room, I advised the RN that pt needed to be in a brief even if she didn't want to have one. Shortly thereafter, she elected to leave AMA before she was seen by me on rounds. After extensive discussion with inpatient pharmacy, there was a plan for amoxicillin x 5 days and azithromycin 500 mg daily x 21 days (has evidence of efficacy against fluoroquinolone resistant pseudomonas), as there was no other alternative available. Prescriptions for the PCN and 7 days of the azithromycin were sent to [facility] per pt's request. She was encouraged to f/u with the wound care clinic prior to the abx running out. As noted, pt d/c'd AMA. Status at Discharge Cognitive/behavioral status at discharge: at baseline, oriented Exam Vital Signs (past 8 hours): Oxygen Delivery Method Room Air Oxygen Flow Rate 0 Objective Labs 10/16/24 06:00 10/18/24 08:40 [facility] Medical History Abscess of multiple sites History of necrotizing fasciitis Methamphetamine use disorder, severe Opioid use disorder Social History household members: none Smoking Status: Current some day smoker alcohol intake: current Discharge Plan Discharge Plan Patient Disposition: Left Against Medical Advice Discharge orders & Medications Prescriptions: New amoxicillin 500 mg capsule 1,000 mg PO Q8H Qty: 42 0RF azithromycin 500 mg tablet 500 mg PO DAILY 14 Days Qty: 7 0RF Rx Instructions: Pls see wound care before this runs out, as you will need 2 more weeks of this medication Continued gabapentin 300 mg capsule 300 mg PO DAILY PRN (Reason: Pain (Scale Score 4-6)) buprenorphine-naloxone [Suboxone] 8-2 mg film 1 film sublingual BID Patient Comments: PLACE 1/2 TO 1 (ONE-HALF TO ONE) STRIP UNDER THE TONGUE TWICE DAILY FOR 28 DAYS trazodone 50 mg tablet 100 mg PO ONCE PM Follow up/Referrals: Carrie Sesay DO [Primary Care Provider] - Miscellaneous,DoctorMD [Non-Staff] - Visit Report/Discharge Packet Stand Alone Forms: Patient Portal/API, Stroke Signs & Symptoms Discharge Data Primary Care Provider: Carrie Sesay Quality VTE Deep Vein Thrombosis/Pulmonary Embolism Present on Admission: No
== END 2024-10-18 12:09 | disposition left against medical advice (07) | DRG 380 ==
LOC: ED 18:25 → AC 19:14
PROVIDERS: Family Medicine; Student in an Organized Health Care Education/Training Program; Admitting Provider Internal Medicine; Emergency Provider Emergency Medicine; PCP Family Medicine; Referring Provider Emergency Medicine; Visit Provider Internal Medicine
DX: L97.819 Non-pressure chronic ulcer of other part of right lower leg with unspecified severity (principal); N17.9 Acute kidney failure, unspecified; L03.116 Cellulitis of left lower limb; L03.115 Cellulitis of right lower limb; E86.0 Dehydration; E83.42 Hypomagnesemia; G62.9 Polyneuropathy, unspecified; F15.10 Other stimulant abuse, uncomplicated; F11.10 Opioid abuse, uncomplicated; D50.9 Iron deficiency anemia, unspecified; L97.829 Non-pressure chronic ulcer of other part of left lower leg with unspecified severity; B96.5 Pseudomonas (aeruginosa) (mallei) (pseudomallei) as the cause of diseases classified elsewhere; B95.4 Other streptococcus as the cause of diseases classified elsewhere; I10 Essential (primary) hypertension; F17.200 Nicotine dependence, unspecified, uncomplicated; Z88.1 Allergy status to other antibiotic agents; Z79.01 Long term (current) use of anticoagulants; Z53.29 Procedure and treatment not carried out because of patient's decision for other reasons; Z86.718 Personal history of other venous thrombosis and embolism; Z16.23 Resistance to quinolones and fluoroquinolones
CPT/HCPCS: 36415; 73590; 80048; 80053; 80305; 83605; 83735; 85025; 87040; 87070; 87075; 87077; 87205; 96365; 96367; 99284; J0696; J1171; J1200; J2060; J2405; J2543

== ENCOUNTER → 2025-01-12 09:09 | Outpatient (CLI) | payer OTHER, SELFPAY ==
[2024-10-15 20:34] VITALS: BMI 34.4
== END ==
PROVIDERS: PCP Neuromusculoskeletal Medicine & OMM; Referring Provider Neuromusculoskeletal Medicine & OMM; Visit Provider Surgery
DX: I87.2 Venous insufficiency (chronic) (peripheral) (principal); L97.322 Non-pressure chronic ulcer of left ankle with fat layer exposed; L97.812 Non-pressure chronic ulcer of other part of right lower leg with fat layer exposed; L53.8 Other specified erythematous conditions; R60.0 Localized edema; F17.200 Nicotine dependence, unspecified, uncomplicated
CPT/HCPCS: 11042; 11045; 99213; 99214

== ENCOUNTER → 2025-01-21 09:32 | Outpatient (CLI) | payer MEDICAID, OTHER, SELFPAY ==
[2024-10-15 20:34] VITALS: BMI 34.4
== END ==
LOC: WC 09:40
PROVIDERS: PCP Neuromusculoskeletal Medicine & OMM; Referring Provider Neuromusculoskeletal Medicine & OMM; Visit Provider Surgery
DX: I87.2 Venous insufficiency (chronic) (peripheral) (principal); L97.822 Non-pressure chronic ulcer of other part of left lower leg with fat layer exposed; L97.812 Non-pressure chronic ulcer of other part of right lower leg with fat layer exposed; M21.6X2 Other acquired deformities of left foot; L53.9 Erythematous condition, unspecified; R60.0 Localized edema
CPT/HCPCS: 11042; 11045

== ENCOUNTER → 2025-01-28 14:46 | Outpatient (CLI) | payer MEDICAID, OTHER, SELFPAY ==
[2024-10-15 20:34] VITALS: BMI 34.4
== END ==
LOC: WC 14:47
PROVIDERS: PCP Neuromusculoskeletal Medicine & OMM; Referring Provider Neuromusculoskeletal Medicine & OMM; Visit Provider Surgery
DX: I87.2 Venous insufficiency (chronic) (peripheral) (principal); L97.822 Non-pressure chronic ulcer of other part of left lower leg with fat layer exposed; L97.812 Non-pressure chronic ulcer of other part of right lower leg with fat layer exposed; L53.9 Erythematous condition, unspecified; R60.0 Localized edema; L98.8 Other specified disorders of the skin and subcutaneous tissue; M21.6X2 Other acquired deformities of left foot
CPT/HCPCS: 99213; 99214

== ENCOUNTER → 2025-02-09 15:01 | Outpatient (CLI) | payer OTHER, SELFPAY ==
[2024-10-15 20:34] VITALS: BMI 34.4
== END ==
PROVIDERS: PCP Neuromusculoskeletal Medicine & OMM; Referring Provider Neuromusculoskeletal Medicine & OMM; Visit Provider Surgery
DX: I87.2 Venous insufficiency (chronic) (peripheral) (principal); L97.822 Non-pressure chronic ulcer of other part of left lower leg with fat layer exposed; L97.812 Non-pressure chronic ulcer of other part of right lower leg with fat layer exposed; M21.6X2 Other acquired deformities of left foot; L53.9 Erythematous condition, unspecified; R60.0 Localized edema; G60.9 Hereditary and idiopathic neuropathy, unspecified
CPT/HCPCS: 99212; 99213

== ENCOUNTER 2025-06-18 09:23 | Inpatient (IN) | payer MEDICAID, OTHER, SELFPAY ==
[2024-10-15 20:34] VITALS: BMI 34.4
[2025-06-18] VITALS (23 sets, daily range): BP systolic 109–161; BP diastolic 60–90; PULSE 100–127; RESP 18–36; TEMP 36.2–38.3; O2SAT 94–99; BMI 35.5; BMI 34.1
--- NOTE | 2025-06-18 10:03 | DI.CT.S_ITS ---
PROCEDURE: CT ABDOMEN PELVIS W CON INDICATIONS: Sepsis TECHNIQUE: After the administration of intravenous contrast, axial sections acquired from the lung bases to the pubic symphysis. Coronal and sagittal reformats were performed. For radiation dose reduction, the following was used: automated exposure control, adjustment of mA and/or kV according to patient size. COMPARISON: None. FINDINGS: Image quality: Diagnostic. Lower Chest: No significant findings. ABDOMEN: Liver: No solid mass. Gallbladder: Contracted, limiting evaluation. Likely stones within the gallbladder. Biliary ducts: Common bile duct is prominent and there is a hyperdense focus within the distal aspect of it (3/55) concerning for choledocholithiasis. Pancreas: No ductal dilation. Spleen: Size is within normal limits. Adrenal Glands: No adrenal nodules. Kidneys and Ureters: No hydronephrosis. Indeterminate left lower pole partially exophytic lesion measuring approximately 1.4 cm (2/67). Stomach and Bowel: Focal area of wall thickening involving the ascending colon (/85) measuring approximately 5 cm. Peritoneum: No abnormal intraperitoneal fluid. No free air. Abdominal Wall: Subcutaneous stranding along the bilateral flanks extending into the thighs Abdominal Nodes: Prominent and mildly enlarged retroperitoneal lymph nodes, for example measuring 1.8 cm in short axis (2/8). Vessels: Aorta and inferior vena cava are normal in size. Atherosclerotic vascular calcifications. PELVIS: Pelvic Organs: Unremarkable. Bladder: No bladder wall thickening, accounting for underdistention. Pelvic Nodes: Enlarged bilateral inguinal and pelvic sidewall lymph nodes. Miscellaneous: No inguinal hernias are seen. Bones: No aggressive osseous abnormality. Multilevel degenerative changes of the spine IMPRESSION: 1. Short segment wall thickening of the ascending colon concerning for underlying malignancy, recommend colonoscopy for further evaluation. 2. Enlarged lymph nodes within the abdomen, pelvis and inguinal regions which may be reactive given lower extremity infection. Recommend follow-up imaging after treatment to exclude metastatic disease. 3. Subcutaneous stranding within the bilateral flanks extending into the thighs. 4. Indeterminate left lower pole partially exophytic renal lesion measuring approximately 1.4 cm, recommend nonurgent ultrasound or renal protocol MRI or CT for further evaluation. 5. Choledocholithiasis with a prominent but not enlarged common bile duct. Gallbladder is contracted with likely stones inside. No surrounding inflammation. Dictated by: Reed Wright M.D. on 06/18/2025 at 12:40 Approved by: Reed Wright M.D. on 06/18/2025 at 12:49
--- NOTE | 2025-06-18 10:03 | DI.CT.S_ITS ---
PROCEDURE: CT LE RT W CON INDICATIONS: Sepsis TECHNIQUE: After the administration of intravenous contrast, 3 mm axial sections acquired of the right lower extremity, with coronal and sagittal reformats. COMPARISON: [facility], CT, CT LE LT W CON, 06/18/2025, 11:00. FINDINGS: Image quality: Excellent. Bones: Osteoarthritic changes are noted throughout right lower extremity. No acute fracture or dislocation. No suspicious intraosseous lesion. No evidence of osteomyelitis. Soft tissues: There is significant subcutaneous fat stranding and overlying skin thickening involving posterior lateral left thigh extending to left knee. Significant subcutaneous fat stranding and overlying skin thickening throughout right lower leg is seen extending to ankle and foot. No subcutaneous emphysema. No enhancing soft tissue mass or drainable peripherally enhancing fluid collection. Calcifications are noted within anterior compartment musculature of right lower leg and likely represent posttraumatic changes. IMPRESSION: 1. Extensive cellulitis throughout right lower extremity more notably in right lower leg and right foot as above. No discrete drainable abscess collection. 2. Chronic calcifications involving anterior compartment musculature and tendons with fluid distending tendon sheath likely represent sequelae of old injury and tenosynovitis. 3. Osteoarthritic changes throughout right lower extremity without CT evidence of osteomyelitis. Dictated by: Huey Day M.D. on 06/18/2025 at 12:39 Approved by: Huey Day M.D. on 06/18/2025 at 12:44
--- NOTE | 2025-06-18 10:03 | DI.RAD.S_ITS ---
PROCEDURE: XR SHOULDER RT MIN 2V INDICATIONS: pain TECHNIQUE: 3 views of the shoulder were acquired. COMPARISON: None. FINDINGS: Bones: No fractures or dislocations. Severe glenohumeral joint degeneration. No suspicious bony lesions. Visualized ribs appear intact. Soft tissues: No suspicious soft tissue calcifications. IMPRESSION: Severe glenohumeral joint degeneration. Dictated by: Reed Wright M.D. on 06/18/2025 at 12:49 Approved by: Reed Wright M.D. on 06/18/2025 at 12:52
--- NOTE | 2025-06-18 10:03 | DI.CT.S_ITS ---
PROCEDURE: CT LE LT W CON INDICATIONS: Sepsis Sepsis TECHNIQUE: After the administration of intravenous contrast, 3 mm axial sections acquired of the left lower extremity, with coronal and sagittal reformats. COMPARISON: None. FINDINGS: Image quality: Diagnostic. Bones: There is no acute fracture or dislocation. 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 Post ORIF changes are noted in distal tibial and fibular shafts. Significant beam hardening artifacts are noted from surgical hardware. No obvious hardware loosening or failure is seen. No gross bony erosion or abnormal periosteal reaction is noted to suggest osteomyelitis. Soft tissues: Significant soft tissue swelling and edema surrounding left ankle and foot is seen. Ulcerations are seen involving dorsal aspect of hindfoot and midfoot. No discrete drainable peripherally enhancing fluid collection. Significant subcutaneous soft tissue edema and swelling throughout left thigh and left lower leg is also noted. No subcutaneous emphysema. No soft tissue mass. No gross full-thickness tendon rupture. IMPRESSION: 1. Ulceration involving dorsal and medial aspect of midfoot and hindfoot. Extensive cellulitis throughout left lower extremity more notably in left ankle and foot as well as mid to distal lower leg. No abnormal soft tissue calcifications or mass. No discrete drainable abscess collection. 2. Post ORIF changes are seen in left distal tibia and fibula with significant beam hardening artifacts. No acute fracture or dislocation. No gross hardware loosening or failure. Osteoarthritic changes are noted throughout left lower extremity. No CT evidence of osteomyelitis. Dictated by: Huey Day M.D. on 06/18/2025 at 12:15 Approved by: Huey Day M.D. on 06/18/2025 at 12:39
--- NOTE | 2025-06-18 10:08 | ED_ITS ---
HPI - Extremity Injury (Lower) General Chief Complaint: Extremity Problem,Nontraumatic Stated Complaint: Left leg pain Time Seen by Provider: 06/18/25 09:47 History of Present Illness HPI Narrative: Patient has history of DVT necrotizing fasciitis methamphetamine abuse neuropathy high blood pressure. Patient has been followed by wound care clinic here locally but has not seen them in a couple of months. Patient recently went to [place] for a job related trip. 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 However past few days has had worsening bilateral leg swelling and redness that has traveled proximally to the groin. She also complains of right shoulder pain. Patient has not use drugs she states in many years. Patient is allergic to vancomycin. Past shoes socks removed dressings removed. Legs and abdomen exposed. Related Data Home Medications ?Medication ?Instructions ?Recorded ?Confirmed buprenorphine 8 mg-naloxone 2 mg 1 film sublingual BID 01/31/23 06/18/25 sublingual film (Suboxone) gabapentin 300 mg capsule 300 mg PO DAILY PRN Pain ([place] man[place] 01/31/23 06/18/25 Score 4-6) trazodone 50 mg tablet 100 mg PO ONCE PM 01/14/24 0 06/18/25 Allergies Allergy/AdvReac Type Severity Reaction Status Date / Time vancomycin AdvReac Severe Rash Verified 06/18/25 10:09 Review of Systems Review of Systems Narrative: GENERAL: Negative chills, fatigue, malaise, fever, sweats. HEENT: Negative sinus pain, ear pain, sore throat RESPIRATORY: Negative dyspnea, cough CARDIOVASCULAR: Negative chest pain, palpitations GASTROINTESTINAL: Negative vomiting, nausea, abdominal pain : Negative dysuria, frequency, hematuria MUSCULOSKELETAL: Positive muscle or bony pain SKIN: Negative rash, skin lesions, positive skin color change NEUROLOGIC: Negative weakness, numbness ROS Unobtainable: All systems reviewed & are unremarkable except as noted in HPI and below Patient History Medical History Abscess of multiple sites History of necrotizing fasciitis Methamphetamine use disorder, severe Opioid use disorder Social History household members: none Smoking Status: Current every day smoker alcohol intake: current tobacco type: cigarettes alcohol intake frequency: 0-2 drinks per day Exam Narrative Exam Narrative: GENERAL: in no distress, not toxic not dyspneic HEAD: Normocephalic. EYES: Pupils equal round ENT: Mucous membranes moist. NECK: Trachea midline. CARDIOVASCULAR: Regular rate and rhythm RESPIRATORY: Clear to auscultation. Breath sounds equal bilaterally. No wheezes, rales, or rhonchi. GASTROINTESTINAL: Abdomen soft, non-tender EXTREMITIES: No gross deformities. Chronic appearing ulcerations of the right and left lower distal extremities above the ankles. Necrotic tissue. No crepitus. It is to touch diffusely circumferentially of the calf and thighs bilaterally. It is erythematous as well. Feet are otherwise warm soft pink brisk cap refills light touch intact to foot and toes.. Examination right shoulder able to bring hand across her chest. Diffuse tenderness of the right shoulder but no crepitus. Old surgical scars on the right lateral upper arm from previous surgery. BACK: No flank tenderness. NEURO: AOx4. Clear speech SKIN: Warm and dry PSYCH: Not anxious, is cooperative Initial Vital Signs Initial Vital Signs: Vital Signs Pulse Rate 119 H 06/18/25 09:57 Pulse Oximetry 95 06/18/25 09:57 Course Orders Ordered: ED Orders 06/18/25 10:03 CT LE LT w con Stat CT LE RT w con Stat CT abdomen pelvis w con Stat XR shoulder RT 2+ views Stat 06/18/25 10:07 US periph venous low extrem bi Stat 06/18/25 10:16 Complete Blood Count AUTO DIFF Stat Comprehensive Metabolic Panel Stat Lactate (Lactic Acid) Stat PTT Partial Thromboplastin Lalit Stat Procalcitonin Stat Prothrombin Time INR Stat 06/18/25 12:06 Urinalysis and Microscopic Stat Discontinued Medications Apixaban (Apixaban 5 Mg Tablet) 10 mg PO NOW ONE Stop: 06/18/25 14:37 Last Admin: 06/18/25 14:49 Dose: 10 mg Documented By: AURELIO Hydromorphone HCl (Hydromorphone 1 Mg/Ml Syringe) 1 mg IV NOW ONE Stop: 06/18/25 10:56 Last Admin: 06/18/25 11:00 Dose: 1 mg Documented By: LO Hydromorphone HCl (Hydromorphone 1 Mg/Ml Syringe) 1 mg IV NOW ONE Stop: 06/18/25 11:42 Last Admin: 06/18/25 11:45 Dose: 1 mg Documented By: LO Piperacillin Sod/Tazobactam (Sod 4.5 gm/ Sodium Chloride) 100 mls @ 200 mls/hr IV NOW ONE Stop: 06/18/25 10:04 Last Infusion: 06/18/25 11:31 Dose: Infused Documented By: Admin: 06/18/25 10:41 Dose: 200 mls/hr Documented By: LO Sodium Chloride (Normal Saline 0.9%) 1,000 mls @ 1,000 mls/hr IV BOLUS ONE Stop: 06/18/25 11:02 Last Infusion: 06/18/25 11:52 Dose: Infused Documented By: Admin: 06/18/25 10:58 Dose: 1,000 mls/hr Documented By: LO Lorazepam (Lorazepam 2 Mg/Ml Inj) 1 mg IV NOW ONE Stop: 06/18/25 10:04 Last Admin: 06/18/25 10:38 Dose: 1 mg Documented By: LO Ondansetron HCl (Ondansetron 4 Mg/2 Ml Inj) 4 mg IV NOW ONE Stop: 06/18/25 11:44 Last Admin: 06/18/25 11:45 Dose: 4 mg Documented By: LO Vital Signs Vital signs: Vital Signs - 8 hr 06/18/25 09:57 06/18/25 10:00 06/18/25 10:00 Temperature Pulse Rate 119 H 123 H Pulse Rate [Left Dorsalis Pedis] Pulse Rate [Right Dorsalis Pedis] Respiratory Rate Blood Pressure 161/90 H Pulse Oximetry 95 96 Oxygen Delivery Method 06/18/25 10:08 06/18/25 10:30 06/18/25 10:30 Temperature 100.9 F H Pulse Rate 120 H 115 H Pulse Rate [Left Dorsalis Pedis] 100 H Pulse Rate [Right Dorsalis Pedis] 100 H Respiratory Rate 20 Blood Pressure 161/90 H Pulse Oximetry 94 94 Oxygen Delivery Method Room Air 06/18/25 11:16 06/18/25 11:29 06/18/25 11:29 Temperature Pulse Rate 120 H 120 H Pulse Rate [Left Dorsalis Pedis] Pulse Rate [Right Dorsalis Pedis] Respiratory Rate 26 H Blood Pressure 131/74 Pulse Oximetry 94 98 Oxygen Delivery Method 06/18/25 11:30 06/18/25 11:30 06/18/25 11:45 Temperature Pulse Rate 121 H Pulse Rate [Left Dorsalis Pedis] Pulse Rate [Right Dorsalis Pedis] Respiratory Rate 25 H Blood Pressure 109/76 121/85 Pulse Oximetry 97 Oxygen Delivery Method 06/18/25 11:45 06/18/25 11:53 06/18/25 12:00 Temperature 100.9 F H Pulse Rate 117 H 127 H Pulse Rate [Left Dorsalis Pedis] Pulse Rate [Right Dorsalis Pedis] Respiratory Rate 30 H 36 H Blood Pressure Pulse Oximetry 97 96 Oxygen Delivery Method 06/18/25 12:15 06/18/25 12:15 06/18/25 12:30 Temperature Pulse Rate 116 H Pulse Rate [Left Dorsalis Pedis] Pulse Rate [Right Dorsalis Pedis] Respiratory Rate 26 H Blood Pressure 126/80 119/77 Pulse Oximetry 97 Oxygen Delivery Method 06/18/25 12:30 06/18/25 12:45 06/18/25 12:45 Temperature Pulse Rate 117 H 119 H Pulse Rate [Left Dorsalis Pedis] Pulse Rate [Right Dorsalis Pedis] Respiratory Rate 26 H Blood Pressure 125/75 Pulse Oximetry 98 99 Oxygen Delivery Method 06/18/25 13:00 06/18/25 13:00 06/18/25 13:15 Temperature Pulse Rate 118 H Pulse Rate [Left Dorsalis Pedis] Pulse Rate [Right Dorsalis Pedis] Respiratory Rate 23 Blood Pressure 138/75 138/64 Pulse Oximetry 96 Oxygen Delivery Method 06/18/25 13:15 06/18/25 13:30 06/18/25 13:30 Temperature Pulse Rate 119 H 117 H Pulse Rate [Left Dorsalis Pedis] Pulse Rate [Right Dorsalis Pedis] Respiratory Rate 21 22 Blood Pressure 134/65 Pulse Oximetry 95 94 Oxygen Delivery Method 06/18/25 13:45 06/18/25 13:45 06/18/25 14:00 Temperature Pulse Rate 120 H 121 H Pulse Rate [Left Dorsalis Pedis] Pulse Rate [Right Dorsalis Pedis] Respiratory Rate 23 Blood Pressure 115/60 Pulse Oximetry 97 96 Oxygen Delivery Method 06/18/25 14:01 06/18/25 14:01 06/18/25 14:15 Temperature Pulse Rate 121 H 117 H Pulse Rate [Left Dorsalis Pedis] Pulse Rate [Right Dorsalis Pedis] Respiratory Rate Blood Pressure 116/71 Pulse Oximetry 97 Oxygen Delivery Method 06/18/25 14:15 06/18/25 14:30 06/18/25 14:30 Temperature Pulse Rate 115 H Pulse Rate [Left Dorsalis Pedis] Pulse Rate [Right Dorsalis Pedis] Respiratory Rate Blood Pressure 111/70 116/74 Pulse Oximetry 96 Oxygen Delivery Method MDM - Extremity Injury (Lower) Lab Data 06/18/25 10:16 06/18/25 10:16 Labs: Lab Results 06/18/25 06/18/25 Range/Units 10:16 12:06 WBC 12.7 H (4.5-11.0) X10^3/uL RBC 3.73 L (4.0-5.2) X10^6/uL Hgb 8.0 L (12.0-16.0) g/dL Hct 25.3 L (36-46) % MCV 67.7 L (80-100) fL MCH 21.3 L (26-34) PG MCHC 31.5 (30-36) % RDW 20.2 H (11.6-14.8) % Plt Count 424 H (150-400) X10^3/uL Neut % (Auto) 79.9 H (50-75) % Lymph % (Auto) 6.2 L (25-40) % [place] % (Auto) 12.0 (3-14) % Eos % (Auto) 1.2 L (2-4) % Baso % (Auto) 0.7 (0-2) % Neut # (Auto) 70839 H (5673-5767) /uL Lymph # (Auto) 800 L (3517-0519) /uL [place] # (Auto) 1500 H (0-900) /uL Eos # (Auto) 200 (0-450) /uL Baso # (Auto) 100 (0-100) /uL Platelet Estimate Increased on smear RBC Morphology See below Anisocytosis 1+ H Microcytosis 2+ H PT 13.2 H (9.4-12.5) SECONDS INR 1.2 (0.9-1.3) APTT 45 H (25.1-36.5) SECONDS Sodium 132 L (137-145) mmol/L Potassium 4.8 (3.4-5.1) mmol/L Chloride 101 (98-107) mmol/L Carbon Dioxide 23 (22-32) mmol/L BUN 17 (7-17) mg/dL Creatinine 0.96 (0.52-1.04) mg/dL Estimated GFR > 60 (>60) mL/min BUN/Creatinine Ratio 17.7 (6-22) Glucose 284 H (70-99) mg/dL Lactate 1.8 (0.7-2.1) mmol/L Calcium 8.5 (8.4-10.2) mg/dL Total Bilirubin 0.3 (0.2-1.3) mg/dL AST 19 (14-36) IU/L ALT 14 (<35) IU/L Alkaline Phosphatase 116 (38-126) U/L Total Protein 7.5 (6.3-8.2) g/dL Albumin 3.4 L (3.5-5.0) g/dL Globulin 4.1 (1.7-4.1) g/dL Albumin/Globulin Ratio 0.8 L (1.0-2.8) Procalcitonin 0.438 (<0.5) ng/mL Urine Color Yellow Urine Appearance Clear Urine pH 6.0 (4.5-8.0) Ur Specific [place] 1.015 (1.000-1.035) Urine Protein 1+ H (Negative) Urine Glucose (UA) 1+ H (Negative) g/dL Urine Ketones Negative (NEGATIVE) Urine Occult Blood Negative (Negative) Urine Nitrate Negative (Negative) Urine Bilirubin Negative (NEGATIVE) Urine Urobilinogen 1.0 (0.2) E.U./dL Ur Leukocyte Esterase Negative (NEGATIVE) Urine RBC 0-1/hpf (0-5/HPF) Urine WBC 0-1/hpf (0-5/HPF) Ur Squamous Epith Cells 1-5 /hpf (0-5/HPF) Urine Bacteria None seen (None) Hyaline Casts 0-1/lpf (None) Ur Culture Indicated? Cult not indicated Vol Urine Centrifuged 10ml (spun) Urine Dip Bedside Urine Glucose 100 mg/dl Bedside Urine Bilirubin - Negative Bedside Urine Ketone - Negative Urine Specific [place] 1.010 Bedside Urine Occult Blood - Negative Bedside Urine pH 6.0 Bedside Urine Protein + 30 Bedside Urine Urobilinogen +/- 1mg Bedside Urine Nitrite - Negative Bedside Urine Leukocytes - Negative Esterase Imaging Data US - DVT: Radiologist's Impression: [address] [address] Ultrasound Report Signed Patient: Ericka Yao MR#: [id number] : 1965 Acct:[id number] Age/Sex: 59 / F Date of Service: 06/18/25 Loc: ED Accession Number: [id number] Procedure: US periph venous low extrem bi Ordering Provider: Ian Maldonado MD PROCEDURE: US PERIPH VENOUS LOW EXTREM BI INDICATIONS: Pain/swelling TECHNIQUE: Real-time imaging, as well as color and pulse Doppler interrogation, were performed of the deep veins of both legs from the inguinal ligament to the popliteal fossa, with documentation of the visualized calf veins. COMPARISON: [facility], CT, CT LE RT W CON, 06/18/2025, 11:00. [facility], CT, CT LE LT W CON, 06/18/2025, 11:00. FINDINGS: This study is limited by body habitus. Right: Right-sided deep venous thrombosis can be seen, with partially occlusive thrombus within the right common femoral vein. No more distal deep venous thrombosis is seen. Evaluation is limited by regional scarring. On the right, there is a complex Danielson's cyst seen measuring 5.3 x 3.6 x 1.1 cm. Left: The common femoral, femoral, popliteal, and the visualized calf veins are normally compressible, and free of intraluminal thrombus. Color and pulse Doppler demonstrate normal phasic intravascular flow. There is normal augmentation response to distal compression maneuver. IMPRESSION: Partially occlusive thrombus can be seen within the right common femoral vein. Overall limited quality scan, secondary to patient body habitus and scarring. Dictated by: Luis Kim M.D. on 06/18/2025 at 12:07 Approved by: Luis Kim M.D. on 06/18/2025 at 12:09 Extremity x-ray #1: Radiologist's Impression: [address] [address] XRay Report Signed Patient: Ericka Yao MR#: [id number] : 1965 Acct:[id number] Age/Sex: 59 / F Date of Service: 06/18/25 Loc: ED Accession Number: [id number] Procedure: XR shoulder RT 2+ views Ordering Provider: Ian Maldonado MD PROCEDURE: XR SHOULDER RT MIN 2V INDICATIONS: pain TECHNIQUE: 3 views of the shoulder were acquired. COMPARISON: None. FINDINGS: Bones: No fractures or dislocations. Severe glenohumeral joint degeneration. No suspicious bony lesions. Visualized ribs appear intact. Soft tissues: No suspicious soft tissue calcifications. IMPRESSION: Severe glenohumeral joint degeneration. Dictated by: Reed Wright M.D. on 06/18/2025 at 12:49 Approved by: Reed Wright M.D. on 06/18/2025 at 12:52 Extremity x-ray #2: Radiologist's Impression: [place] [address] CT Scan Report Signed Patient: Ericka Yao MR#: [id number] : 1965 Acct:[id number] Age/Sex: 59 / F Date of Service: 06/18/25 Loc: ED Accession Number: [id number] Procedure: CT LE LT w con Ordering Provider: Ian Maldonado MD PROCEDURE: CT LE LT W CON INDICATIONS: Sepsis Sepsis TECHNIQUE: After the administration of intravenous contrast, 3 mm axial sections acquired of the left lower extremity, with coronal and sagittal reformats. COMPARISON: None. FINDINGS: Image quality: Diagnostic. Bones: There is no acute fracture or dislocation. 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 Post ORIF changes are noted in distal tibial and fibular shafts. Significant beam hardening artifacts are noted from surgical hardware. No obvious hardware loosening or failure is seen. No gross bony erosion or abnormal periosteal reaction is noted to suggest osteomyelitis. Soft tissues: Significant soft tissue swelling and edema surrounding left ankle and foot is seen. Ulcerations are seen involving dorsal aspect of hindfoot and midfoot. No discrete drainable peripherally enhancing fluid collection. Significant subcutaneous soft tissue edema and swelling throughout left thigh and left lower leg is also noted. No subcutaneous emphysema. No soft tissue mass. No gross full-thickness tendon rupture. IMPRESSION: 1. Ulceration involving dorsal and medial aspect of midfoot and hindfoot. Extensive cellulitis throughout left lower extremity more notably in left ankle and foot as well as mid to distal lower leg. No abnormal soft tissue calcifications or mass. No discrete drainable abscess collection. 2. Post ORIF changes are seen in left distal tibia and fibula with significant beam hardening artifacts. No acute fracture or dislocation. No gross hardware loosening or failure. Osteoarthritic changes are noted throughout left lower extremity. No CT evidence of osteomyelitis. Dictated by: Huey Day M.D. on 06/18/2025 at 12:15 Approved by: Huey Day M.D. on 06/18/2025 at 12:39 Extremity x-ray #3: Radiologist's Impression: [address] [address] [address] Scan Report Signed Patient: Ericka Yao MR#: [id number] : 1965 Acct:[id number] Age/Sex: 59 / F Date of Service: 06/18/25 Loc: ED Accession Number: [id number] Procedure: CT LE RT w con Ordering Provider: Ian Maldonado MD PROCEDURE: CT LE RT W CON INDICATIONS: Sepsis TECHNIQUE: After the administration of intravenous contrast, 3 mm axial sections acquired of the right lower extremity, with coronal and sagittal reformats. COMPARISON: [facility], CT, CT LE LT W CON, 06/18/2025, 11:00. FINDINGS: Image quality: Excellent. Bones: Osteoarthritic changes are noted throughout right lower extremity. No acute fracture or dislocation. No suspicious intraosseous lesion. No evidence of osteomyelitis. Soft tissues: There is significant subcutaneous fat stranding and overlying skin thickening involving posterior lateral left thigh extending to left knee. Significant subcutaneous fat stranding and overlying skin thickening throughout right lower leg is seen extending to ankle and foot. No subcutaneous emphysema. No enhancing soft tissue mass or drainable peripherally enhancing fluid collection. Calcifications are noted within anterior compartment musculature of right lower leg and likely represent posttraumatic changes. IMPRESSION: 1. Extensive cellulitis throughout right lower extremity more notably in right lower leg and right foot as above. No discrete drainable abscess collection. 2. Chronic calcifications involving anterior compartment musculature and tendons with fluid distending tendon sheath likely represent sequelae of old injury and tenosynovitis. 3. Osteoarthritic changes throughout right lower extremity without CT evidence of osteomyelitis. Dictated by: Huey Day M.D. on 06/18/2025 at 12:39 Approved by: Huey Day M.D. on 06/18/2025 at 12:44 CT scan - abdomen/pelvis: Radiologist's Impression: [address] [address] [address] Scan Report Signed Patient: Ericka Yao MR#: [id number] : 1965 Acct:[id number] Age/Sex: 59 / F Date of Service: 06/18/25 Loc: ED Accession Number: [id number] Procedure: CT abdomen pelvis w con Ordering Provider: Ian Maldonado MD PROCEDURE: CT ABDOMEN PELVIS W CON INDICATIONS: Sepsis TECHNIQUE: After the administration of intravenous contrast, axial sections acquired from the lung bases to the pubic symphysis. Coronal and sagittal reformats were performed. For radiation dose reduction, the following was used: automated exposure control, adjustment of mA and/or kV according to patient size. COMPARISON: None. FINDINGS: Image quality: Diagnostic. Lower Chest: No significant findings. ABDOMEN: Liver: No solid mass. Gallbladder: Contracted, limiting evaluation. Likely stones within the gallbladder. Biliary ducts: Common bile duct is prominent and there is a hyperdense focus within the distal aspect of it (/55) concerning for choledocholithiasis. Pancreas: No ductal dilation. Spleen: Size is within normal limits. Adrenal Glands: No adrenal nodules. Kidneys and Ureters: No hydronephrosis. Indeterminate left lower pole partially exophytic lesion measuring approximately 1.4 cm (/). Stomach and Bowel: Focal area of wall thickening involving the ascending colon () measuring approximately 5 cm. Peritoneum: No abnormal intraperitoneal fluid. No free air. Abdominal Wall: Subcutaneous stranding along the bilateral flanks extending into the thighs Abdominal Nodes: Prominent and mildly enlarged retroperitoneal lymph nodes, for example measuring 1.8 cm in short axis (2/8). Vessels: Aorta and inferior vena cava are normal in size. Atherosclerotic vascular calcifications. PELVIS: Pelvic Organs: Unremarkable. Bladder: No bladder wall thickening, accounting for underdistention. Pelvic Nodes: Enlarged bilateral inguinal and pelvic sidewall lymph nodes. Miscellaneous: No inguinal hernias are seen. Bones: No aggressive osseous abnormality. Multilevel degenerative changes of the spine IMPRESSION: 1. Short segment wall thickening of the ascending colon concerning for underlying malignancy, recommend colonoscopy for further evaluation. 2. Enlarged lymph nodes within the abdomen, pelvis and inguinal regions which may be reactive given lower extremity infection. Recommend follow-up imaging after treatment to exclude metastatic disease. 3. Subcutaneous stranding within the bilateral flanks extending into the thighs. 4. Indeterminate left lower pole partially exophytic renal lesion measuring approximately 1.4 cm, recommend nonurgent ultrasound or renal protocol MRI or CT for further evaluation. 5. Choledocholithiasis with a prominent but not enlarged common bile duct. Gallbladder is contracted with likely stones inside. No surrounding inflammation. Dictated by: Reed Wright M.D. on 06/18/2025 at 12:40 Approved by: Reed Wright M.D. on 06/18/2025 at 12:49 [facility] Narrative Medical decision making narrative: Patient has history of DVT necrotizing fasciitis methamphetamine abuse neuropathy high blood pressure. Patient has been followed by wound care clinic here locally but has not seen them in a couple of months. Patient recently went to [place] for a job related trip. 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 However past few days has had worsening bilateral leg swelling and redness that has traveled proximally to the groin. She also complains of right shoulder pain. Patient has not use drugs she states in many years. Patient is allergic to vancomycin. Past shoes socks removed dressings removed. Legs and abdomen exposed. MDM After history and exam, CBC CMP blood cultures procalcitonin lactic acid CT abdomen pelvis CT lower extremities ultrasound lower extremities x-ray right shoulder Zosyn normal saline admit to the hospital Differential considered: Includes but not limited to necrotizing fasciitis cellulitis septic joint of the shoulder Medical records reviewed: October 23, 2024 discharge summary from this hospital Lab Test results independently reviewed as above. Pertinent findings: Imaging studies independently reviewed: Ultrasound of the legs partially occlusive thrombus right common femoral vein. X-ray right shoulder no acute finding, CT bilateral lower extremities no subcutaneous air. CT abdomen pelvis no acute finding Consultations: 2:34 p.m.. I spoke with Dr. Mehta, he will admit patient. Patient has been off Eliquis and DVT is seen on ultrasound. Choledocholithiasis seen but liver enzymes are normal. No abdominal pain. Agrees to admit. Re-evaluations: 2:35 p.m.. Updated patient admission and she agrees for this. Reviewed results with her. Being treated for cellulitis. As well as DVT. Discussion: Appropriate for admission for IV antibiotics and pain control. IV antibiotics have been started pain medication started as well. Patient agrees for admission. No signs of necrotizing fasciitis at this time. Diagnosis: Bilateral leg cellulitis Discharge Plan Departure Patient Disposition: Admitted As Inpatient Clinical Impression: Bilateral lower leg cellulitis Admit Date/Time: 06/18/25 14:33 Admit Provider: Arnie Mehta
[2025-06-18 10:37] LABS: Hematocrit 25.3 % (36-46); Hemoglobin 8.0 g/dL (12.0-16.0); Lymphocytes Absolute Auto 800 /uL (1100-4500); Mean Corpuscular HGB Conc 31.5 % (30-36); Mean Corpuscular Hemoglobin 21.3 PG (26-34); Mean Corpuscular Volume 67.7 fL (80-100); Platelet Count 424 X10^3/uL (150-400)
[2025-06-18 10:38] LABS: Add Manual Diff / Slide Review SLIDE REVIEW
[2025-06-18] MEDS: PIPERACILLIN/TAZO 4.5 GM in SODIUM CHLORIDE 0.9% 100 ML IV (10:41)
[2025-06-18 10:48] LABS: PTT Partial Thromboplastin Tim 45 SECONDS (25.1-36.5)
[2025-06-18 10:50] LABS: INR 1.2 (0.9-1.3); Lactate (Lactic Acid) 1.8 mmol/L (0.7-2.1); Prothrombin Time 13.2 SECONDS (9.4-12.5)
[2025-06-18 10:51] LABS: Alanine Aminotransferase 14 IU/L (<35); Albumin 3.4 g/dL (3.5-5.0); Albumin Globulin Ratio 0.8 (1.0-2.8); Alkaline Phosphatase 116 U/L (38-126); Blood Urea Nitrogen 17 mg/dL (7-17); Calcium 8.5 mg/dL (8.4-10.2); Carbon Dioxide 23 mmol/L (22-32); Chloride 101 mmol/L (98-107); Estimated Glomerular Filt Rate > 60 mL/min (>60); Globulin 4.1 g/dL (1.7-4.1); Glucose 284 mg/dL (70-99); HEMOLYSIS 30 (0-50); Potassium 4.8 mmol/L (3.4-5.1); Sodium 132 mmol/L (137-145); Total Protein 7.5 g/dL (6.3-8.2)
[2025-06-18] MEDS: SODIUM CHLORIDE 0.9% 1,000 ML 1000 ML IV (10:58)
[2025-06-18 11:07] LABS: Procalcitonin 0.438 ng/mL (<0.5)
[2025-06-18 11:44] LABS: Anisocytosis 1+; Microcytosis 2+
[2025-06-18] MEDS: ONDANSETRON 4 MG/2 ML INJ IV (11:45)
--- NOTE | 2025-06-18 12:26 | PC.NURSE ---
Pt is verbally aggressive towards nursing staff and charge nurse.
[2025-06-18 12:37] LABS: Appearance Urine UA CLEAR; Bilirubin Urine UA NEGATIVE (NEGATIVE); Color Urine UA YELLOW; Glucose Urine UA 1+ g/dL (Negative); Ketones Urine UA NEGATIVE (NEGATIVE); Leukocyte Esterase Urine UA NEGATIVE (NEGATIVE); Nitrite Urine UA NEGATIVE (Negative); Occult Blood Urine UA NEGATIVE (Negative); Protein Urine UA 1+ (Negative); Specific Gravity Urine UA 1.015 (1.000-1.035); Urobilinogen Urine UA 1.0 E.U./dL (0.2)
[2025-06-18 12:44] LABS: pH Urine UA 6.0 (4.5-8.0)
[2025-06-18 12:45] LABS: Culture Indicated Urine Cult Not Indicated
[2025-06-18] MEDS: APIXABAN 5 MG TABLET 10 MG PO ×2 (14:49→21:37)
--- NOTE | 2025-06-18 16:06 | P.HP_ITS ---
History of Present Illness History of Present Illness Date Patient Seen: 06/18/25 Time Patient Seen: 16:06 Chief complaint: Left leg pain Narrative: This is a 59-year-old female with a history of DVT on Apixaban, necrotizing fasciitis, methamphetamine abuse, neuropathy, HTN, opioid use disorder, disfigured left foot/ankle, IV drug use and multiple skin abscess/cellulitis episodes who presents with bilateral calf, ankle and foot ulcerations/infections. 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 She had also not been taking her apixaban for at least several weeks. The white blood count is 12.7 with a hemoglobin of 8.0 and a glucose of 184. At her last hospitalization in September she left Against Medical Advice. The summary of the issues addressed is pertinent and listed below: Pt was sent from wound care clinic on the date of admission for worsening chronic wounds and cellulitis, impacting the RLE more than the LLE. She was admitted and initiated on IV abx. Pt reported she was sprinkling fentanyl into the ulcers on her right leg for pain control. Wound cultures were taken at the wound care clinic. She had volatile behaviors during her hospital stay with frequent reports she would leave AMA if she didn't get what she wanted (more pain medication, new IV within 20 minutes, for example). She made statements to her RN that she had fentanyl and methamphetamines at home that she could just go home and take which worked better for her pain. Meds were increased on 10/17/24. She developed myoclonic jerking and some somnolence, so increasing her medications beyond that was not felt to be safe even though she continued to complain of uncontrolled pain and stated she had no benefit from the medication adjustment. On 10/18/24, she began having BMs on her bed and floor without requesting assistance to the commode or bathroom first. Due to concerns for pt and staff safety and fall risk within her room, I advised the RN that pt needed to be in a brief even if she didn't want to have one. Shortly thereafter, she elected to leave AMA before she was seen by me on rounds. After extensive discussion with inpatient pharmacy, there was a plan for amoxicillin x 5 days and azithromycin 500 mg daily x 21 days (has evidence of efficacy against fluoroquinolone resistant pseudomonas), as there was no other alternative available. Prescriptions for the PCN and 7 days of the azithromycin were sent to [facility] per pt's request. She was encouraged to f/u with the wound care clinic prior to the abx running out. As noted, pt d/c'd AMA. Exam: Alert and oriented x3. Severe distress from burning pain in her infected skin ulcers of the bilateral lower legs and feet. Pupils are equally round and reactive to light and accommodation. Extraocular muscles are intact. Sclerae are pink and nonicteric. No lymph nodes are felt head, neck, supraclavicular area. There is no thyromegaly. JVD is less than 6 cm. No carotid bruits are heard. Throat looks normal. Heart is regular rate and rhythm without murmur. Lungs are clear to auscultation bilaterally. Abdomen is obese, nontender, no organomegaly, soft, bowel sounds active. Extremities have 2+ pitting ankle and pedal edema bilaterally. Skin there is no rash on her upper extremities. She has a serpiginous very large ulceration involving near circumference of the right lower ankle. This appears to be chronic with thin healed skin barriers that are breaking down and bleeding in several places. The left ankle has a 2 cm deep ulceration on the lateral aspect with what appears to be visible tendon at the base. All of these areas are red and warm to touch. Several areas or draining serous fluid and several areas are oozing blood from picking and irritation self-induced. Neurologic exam: Motor function is 5/5 throughout. Cranial nerves 2-12 test intact. Reflexes are symmetric. There is no tremor. She has a significant abnormal angulation inward of the left ankle which appears to be permanent and fixed in position post poorly healed fracture. Assessment and plan: Severe skin breakdown ulcerations and cellulitis of both lower extremities. Present on admission, active. -wound care consult requested -vancomycin and Zosyn IV which were well tolerated at her last hospitalization. Her last cultures grew Pseudomonas and Morganella. -she is intolerant of vancomycin, developing a rash unless it is given under a protocol for a prolonged infusion. -wound cultures and blood cultures will be obtained. -no necrotizing gas appearance or abscess on CT scan of her legs on admission -wrap leg with ABD pad and apply pressure dressing daily. -IV Dilaudid and oxycodone as needed for pain that breaks through the Suboxone. Abdominal CT abnormalities, present on admission. Active. -CT scan with: Ascending colon thickening, enlarged lymph nodes, likely reactive, left renal lesion and choledocholithiasis. -she has no abdominal pain or abdominal complaints today. 1. Short segment wall thickening of the ascending colon concerning for underlying malignancy, recommend colonoscopy for further evaluation. 2. Enlarged lymph nodes within the abdomen, pelvis and inguinal regions which may be reactive given lower extremity infection. Recommend follow-up imaging after treatment to exclude metastatic disease. 3. Subcutaneous stranding within the bilateral flanks extending into the thighs. 4. Indeterminate left lower pole partially exophytic renal lesion measuring approximately 1.4 cm, recommend nonurgent ultrasound or renal protocol MRI or CT for further evaluation. 5. Choledocholithiasis with a prominent but not enlarged common bile duct. Gallbladder is contracted with likely stones inside. No surrounding inflammation. Microcytic anemia, present on admission. Active. -hemoglobin 8.0 on admission, down from 9.6 in September. MCV 67 -check iron level and consider iron infusion if confirmed to be low as expected. -per CT scan she appears to need colonoscopy to rule out ascending colon cancer. Opioid use disorder, present on admission. Chronic. -continue Suboxone b.i.d. History of DVT, present on admission. Chronic. -venous ultrasound today: Partially occlusive thrombus can be seen within the right common femoral vein. -resume apixaban. Severely disfigured left ankle/foot posture -patient has a brace, apparently custom-made, which would not be appropriate to use with these open wounds. DVT prevention with the apixaban [facility] Medical History (Updated 06/18/25 @ 16:59 by Arnie Mehta MD) Encounter for debridement of skin DVT (deep venous thrombosis) Abscess of multiple sites History of necrotizing fasciitis Methamphetamine use disorder, severe Opioid use disorder Social History household members: none Smoking Status: Current every day smoker alcohol intake: current Meds Home Medications and Allergies Home Medications ?Medication ?Instructions ?Recorded ?Confirmed ?Type buprenorphine 8 mg-naloxone 2 mg 1 film sublingual BID 01/31/23 06/18/25 History sublingual film (Suboxone) gabapentin 300 mg capsule 300 mg PO DAILY PRN Pain ([place] 01/31/23 06/18/25 History Score 4-6) trazodone 50 mg tablet 100 mg PO ONCE PM 01/14/24 0 06/18/25 History Allergies Allergy/AdvReac Type Severity Reaction Status Date / Time vancomycin AdvReac Severe Rash Verified 06/18/25 10:09 Review of Systems Review of Systems Narrative: Positive for fever, skin ulcerations, skin redness, skin pain in the legs. Negative for chills, chest pain, abdominal pain, nausea, vomiting, coughing, dysuria, hematuria. Exam Vital Signs (past 8 hours): - 06/18/25 09:57 06/18/25 10:00 06/18/25 10:00 Temperature Pulse Rate 119 H 123 H Pulse Rate [Left Dorsalis Pedis] Pulse Rate [Right Dorsalis Pedis] Respiratory Rate Blood Pressure 161/90 H Pulse Oximetry 95 96 Oxygen Delivery Method 06/18/25 10:08 06/18/25 10:30 06/18/25 10:30 Temperature 100.9 F H Pulse Rate 120 H 115 H Pulse Rate [Left Dorsalis Pedis] 100 H Pulse Rate [Right Dorsalis Pedis] 100 H Respiratory Rate 20 Blood Pressure 161/90 H Pulse Oximetry 94 94 Oxygen Delivery Method Room Air 06/18/25 11:16 06/18/25 11:29 06/18/25 11:29 Temperature Pulse Rate 120 H 120 H Pulse Rate [Left Dorsalis Pedis] Pulse Rate [Right Dorsalis Pedis] Respiratory Rate 26 H Blood Pressure 131/74 Pulse Oximetry 94 98 Oxygen Delivery Method 06/18/25 11:30 06/18/25 11:30 06/18/25 11:45 Temperature Pulse Rate 121 H Pulse Rate [Left Dorsalis Pedis] Pulse Rate [Right Dorsalis Pedis] Respiratory Rate 25 H Blood Pressure 109/76 121/85 Pulse Oximetry 97 Oxygen Delivery Method 06/18/25 11:45 06/18/25 11:53 06/18/25 12:00 Temperature 100.9 F H Pulse Rate 117 H 127 H Pulse Rate [Left Dorsalis Pedis] Pulse Rate [Right Dorsalis Pedis] Respiratory Rate 30 H 36 H Blood Pressure Pulse Oximetry 97 96 Oxygen Delivery Method 06/18/25 12:15 06/18/25 12:15 06/18/25 12:30 Temperature Pulse Rate 116 H Pulse Rate [Left Dorsalis Pedis] Pulse Rate [Right Dorsalis Pedis] Respiratory Rate 26 H Blood Pressure 126/80 119/77 Pulse Oximetry 97 Oxygen Delivery Method 06/18/25 12:30 06/18/25 12:45 06/18/25 12:45 Temperature Pulse Rate 117 H 119 H Pulse Rate [Left Dorsalis Pedis] Pulse Rate [Right Dorsalis Pedis] Respiratory Rate 26 H Blood Pressure 125/75 Pulse Oximetry 98 99 Oxygen Delivery Method 06/18/25 13:00 06/18/25 13:00 06/18/25 13:15 Temperature Pulse Rate 118 H Pulse Rate [Left Dorsalis Pedis] Pulse Rate [Right Dorsalis Pedis] Respiratory Rate 23 Blood Pressure 138/75 138/64 Pulse Oximetry 96 Oxygen Delivery Method 06/18/25 13:15 06/18/25 13:30 06/18/25 13:30 Temperature Pulse Rate 119 H 117 H Pulse Rate [Left Dorsalis Pedis] Pulse Rate [Right Dorsalis Pedis] Respiratory Rate 21 22 Blood Pressure 134/65 Pulse Oximetry 95 94 Oxygen Delivery Method 06/18/25 13:45 06/18/25 13:45 06/18/25 14:00 Temperature Pulse Rate 120 H 121 H Pulse Rate [Left Dorsalis Pedis] Pulse Rate [Right Dorsalis Pedis] Respiratory Rate 23 Blood Pressure 115/60 Pulse Oximetry 97 96 Oxygen Delivery Method 06/18/25 14:01 06/18/25 14:01 06/18/25 14:15 Temperature Pulse Rate 121 H 117 H Pulse Rate [Left Dorsalis Pedis] Pulse Rate [Right Dorsalis Pedis] Respiratory Rate Blood Pressure 116/71 Pulse Oximetry 97 Oxygen Delivery Method 06/18/25 14:15 06/18/25 14:30 06/18/25 14:30 Temperature Pulse Rate 115 H Pulse Rate [Left Dorsalis Pedis] Pulse Rate [Right Dorsalis Pedis] Respiratory Rate Blood Pressure 111/70 116/74 Pulse Oximetry 96 Oxygen Delivery Method Oxygen Delivery Method Room Air Objective Labs 06/18/25 10:16 06/18/25 10:16 Labs: Laboratory Results - last 24 hr 06/18/25 06/18/25 10:16 12:06 WBC 12.7 H RBC 3.73 L Hgb 8.0 L Hct 25.3 L MCV 67.7 L MCH 21.3 L MCHC 31.5 RDW 20.2 H Plt Count 424 H Neut % (Auto) 79.9 H Lymph % (Auto) 6.2 L Cotton % (Auto) 12.0 Eos % (Auto) 1.2 L Baso % (Auto) 0.7 Neut # (Auto) 40164 H Lymph # (Auto) 800 L Cotton # (Auto) 1500 H Eos # (Auto) 200 Baso # (Auto) 100 Platelet Estimate Increased on smear RBC Morphology See below Anisocytosis 1+ H Microcytosis 2+ H PT 13.2 H INR 1.2 APTT 45 H Sodium 132 L Potassium 4.8 Chloride 101 Carbon Dioxide 23 BUN 17 Creatinine 0.96 Estimated GFR > 60 BUN/Creatinine Ratio 17.7 Glucose 284 H Lactate 1.8 Calcium 8.5 Total Bilirubin 0.3 AST 19 ALT 14 Alkaline Phosphatase 116 Total Protein 7.5 Albumin 3.4 L Globulin 4.1 Albumin/Globulin Ratio 0.8 L Procalcitonin 0.438 Urine Color Yellow Urine Appearance Clear Urine pH 6.0 Ur Specific [place] 1.015 Urine Protein 1+ H Urine Glucose (UA) 1+ H Urine Ketones Negative Urine Occult Blood Negative Urine Nitrate Negative Urine Bilirubin Negative Urine Urobilinogen 1.0 Ur Leukocyte Esterase Negative Urine RBC 0-1/hpf Urine WBC 0-1/hpf Ur Squamous Epith Cells 1-5 /hpf Urine Bacteria None seen Hyaline Casts 0-1/lpf Ur Culture Indicated? Cult not indicated Vol Urine Centrifuged 10ml (spun) Assessment & Plan Time-Based Coding :: [TOTAL MINUTES] spent with patient and on the chart (including review of chart, obtaining history, exam, reviewing outside data, placing orders, documenting exam and treatment plan, and counseling patient) on [DATE]. Quality VTE Deep Vein Thrombosis/Pulmonary Embolism Present on Admission: No
--- NOTE | 2025-06-18 16:08 | PC.NURSE ---
Patient arrives from ED at 1505. A&OX4, VSS,slightly hypertensive, slightly tachycardic on RA. She reports pain 10/10 and crying. She asks for her legs to be wrapped cause she wants to pick at them and can't help it. She is minimally cooperative with skin assessment asking the nurse not to check her buttocks, and unable to remain stil or tolerate positioning of BLE's by staff. She asks to be left alone. RN attempted to loretta area to BLE of erythema surrounding wounds to to BLE yet patient unable to tolerate pen on skin. Edema with tight skin to BLE's +3. Dry peeling skin surrounding erythema and open sores. Sore to L ankle with white. Patient request to have sleeping medicine and just wants to relax. MD arrived to bedside to evaluate patient. Bud RN competed admission assessment.She continues to cry, PRN Medications given as patient tolerates and reassessments completed. Per orders BLE's wrapped with ABD pads and Kerlix.Continuous monitoring, call light in reach, bed alarm on.
[2025-06-18 17:43] LABS: HEMOLYSIS 37 (0-50); Iron 28 ug/dL (37-170)
[2025-06-18 17:54] LABS: Percent Iron Saturation 9 % (15-50); Total Iron Binding Capacity 324 ug/dL (265-497); Transferrin 168 mg/dL (206-381)
[2025-06-18] MEDS: BUPRENORPHINE/NALOXONE 8MG/2MG 1 TAB SL (21:37)
[2025-06-18] MEDS: diphenhydrAMINE 50 MG/ML VIAL IV (21:37)
[2025-06-18] MEDS: VANCOMYCIN 2,000 MG/400 ML PIGGYBACK 200 MG IV (21:37)
[2025-06-18 23:18] LABS: Ur Creatinine Normal (Normal); Ur Specific Gravity Normal (Normal); Urine pH Normal (Normal)
[2025-06-18 23:19] LABS: Urine MDMA Negative (Negative); Urine Methamphetamines Positive (Negative); Urine THC Negative (Negative); Urine Tricyclic Antidepressant Negative (Negative)
--- NOTE | 2025-06-18 23:36 | PC.NURSE ---
shift production associate, start of shift, PCT Nuria was doing VS on patient; when PCT placed BP cuff on, a small red top, clear vial was found under patients arm pit, Patient told PCT that is her pain medication and she uses that since the hospital do not give her enough. PCT asked Patient what the substance was; Patient stated it was fentanyl. PCT had gloves on and notified this RN of the substance, RN confiscated substance and notified discharge door operator of substance. rn liaison then notified police and security.
--- NOTE | 2025-06-19 02:35 | PC.NURSE ---
mold stripper, patient pulled off her leg dressing and was agitated, RN attempted to assist patient but patient refused care stating i can do it myself, I do it much better than anyone else., RN provided all necessary material and offered assistance but patient refused, stating i don't need you here watching me. RN acknowledged patient's request and educated patient on use of call light if she needed any assistance or had any questions, Patient verbalized understanding. Pt also refused pain medication and her night dose of Suboxone. RN went to check on patient 15 minutes later and noted some blood on bedding, RN offered to change bedding but patient refused.
[2025-06-19 08:00] VITALS: BP 121/76; PULSE 112; RESP 22; TEMP 36.1; O2SAT 93
[2025-06-19] MEDS: APIXABAN 5 MG TABLET 10 MG PO ×2 (08:37→20:13)
[2025-06-19 08:47] LABS: Hematocrit 26.5 % (36-46); Hemoglobin 8.2 g/dL (12.0-16.0); Mean Corpuscular HGB Conc 30.8 % (30-36); Mean Corpuscular Hemoglobin 20.7 PG (26-34); Mean Corpuscular Volume 67.2 fL (80-100); Platelet Count 452 X10^3/uL (150-400)
[2025-06-19 09:03] LABS: Add Manual Diff / Slide Review YES
[2025-06-19 09:10] LABS: Band Neutrophils Percent 1.0 % (3-7); Eosinophils Percent Manual 2.0 % (2-4); Lymphocytes Percent Manual 15.0 % (25-45); Monocytes Percent Manual 11.0 % (2-11); Neutrophils Absolute Manual 8568 /uL (3000-5900); Segmented Neutrophils Percent 71.0 % (38-70); Total Cells Counted 100
[2025-06-19 09:12] LABS: Hypochromasia 2+; Microcytosis 1+
[2025-06-19 09:27] LABS: Blood Urea Nitrogen 13 mg/dL (7-17); Calcium 8.7 mg/dL (8.4-10.2); Carbon Dioxide 26 mmol/L (22-32); Chloride 102 mmol/L (98-107); Estimated Glomerular Filt Rate > 60 mL/min (>60); Glucose 168 mg/dL (70-99); HEMOLYSIS < 15 (0-50); Potassium 4.6 mmol/L (3.4-5.1); Sodium 131 mmol/L (137-145)
[2025-06-19] MEDS: VANCOMYCIN 1,250 MG/250 ML PIGGYBACK 250 MG IV ×2 (10:15→22:45)
--- NOTE | 2025-06-19 10:47 | PC.NURSE ---
Patient is being cooperative and agreeable to treatments and dressing changes. Given 0.5mg of iv dilaudid for discomfort. Patient has large wounds to her r.lower segura that goes completely around her segura. Open, bleeding, with slough in the middle of wounds. This RN cleaned up leg with saline, wet to dry dressing 4x4, and kurlex. She ate breakfast, and is resting comfortably now. Patient has repositioned herself backwards in bed.
--- NOTE | 2025-06-19 13:08 | CM.DANOTE ---
Initial DCP Assessment Note. Review EMR and PT Interview. Met with patient at bedside to discuss discharge needs.PT is alert x 3 sitting up in bed. No acute distress. Patient lives independently with DME, cane, alone in her own home. Payor:? Gopi PCP: Dr. Crisostomo Summary & Plan:?59 y/o female arrived to the ED via ambulance c/o BLE pain. Admitted INPT Dx. Cellulitis. Plan: IV ABO, Wound consult, Wound Cx pending. Might need HH/SNF for [employer] IV ABO. Discharge Planning/Care Management CM Discharge Assessment Start: 06/18/25 14:35 Freq: Status: Active Protocol: Document 06/19/25 13:03 (Rec: 06/19/25 13:08 [id number]) Discharge Planning Assessment Assigned Discharge Sherlyn Foy RN CM Lube Attendant Provider Dr. Ricardo Nguyễn Advance Directives? No History Provided By Patient,Friend,Medical Record Has Patient been No admitted in last 30 days? Prior Living House Arrangements Household Members none Type of Drives own vehicle transporation used prior to admit Independent with ADL Yes: Per PT, she uses a cane. 's Is patient alert and Yes oriented? DME Already Rented / Cane Owned Comment None at this time Patient/Family Home with Home Health Preference Barriers to Yes Discharge Comment Has been connected w/[facility] in the past. Needs a ride home. Discharge Plan Home with Home Health Transportation Medicaid transport is likely Arrangement Referrals Initiated Other Additional Comment TBD If patient plan is No home with home health: Has signed face to face form been completed? Review Status In Process Please Provide Date 06/19/25 Initial DC Assessment Was Performed Next Review Type Continued Stay Review
--- NOTE | 2025-06-19 17:23 | P.PN_ITS ---
Subjective Subjective Date Patient Seen: 06/19/25 Time Patient Seen: 17:23 Interval history: This is a 59-year-old female with a history of DVT on Apixaban, necrotizing fasciitis, methamphetamine abuse, neuropathy, HTN, opioid use disorder, disfigured left foot/ankle, IV drug use and multiple skin abscess/cellulitis episodes who presents with bilateral calf, ankle and foot ulcerations/infections. 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 She had also not been taking her apixaban for at least several weeks. The white blood count is 12.7 with a hemoglobin of 8.0 and a glucose of 184. At her last hospitalization in September she left Against Medical Advice. The summary of the issues addressed is pertinent and listed below: Pt was sent from wound care clinic on the date of admission for worsening chronic wounds and cellulitis, impacting the RLE more than the LLE. She was admitted and initiated on IV abx. Pt reported she was sprinkling fentanyl into the ulcers on her right leg for pain control. Wound cultures were taken at the wound care clinic. She had volatile behaviors during her hospital stay with frequent reports she would leave AMA if she didn't get what she wanted (more pain medication, new IV within 20 minutes, for example). She made statements to her RN that she had fentanyl and methamphetamines at home that she could just go home and take which worked better for her pain. Meds were increased on 10/17/24. She developed myoclonic jerking and some somnolence, so increasing her medications beyond that was not felt to be safe even though she continued to complain of uncontrolled pain and stated she had no benefit from the medication adjustment. On 10/18/24, she began having BMs on her bed and floor without requesting assistance to the commode or bathroom first. Due to concerns for pt and staff safety and fall risk within her room, I advised the RN that pt needed to be in a brief even if she didn't want to have one. Shortly thereafter, she elected to leave AMA before she was seen by me on rounds. After extensive discussion with inpatient pharmacy, there was a plan for amoxicillin x 5 days and azithromycin 500 mg daily x 21 days (has evidence of efficacy against fluoroquinolone resistant pseudomonas), as there was no other alternative available. Prescriptions for the PCN and 7 days of the azithromycin were sent to [facility] per pt's request. She was encouraged to f/u with the wound care clinic prior to the abx running out. As noted, pt d/c'd AMA. 06/19: Her cellulitis is improving quite quickly but the chronic ulcers will take more time. The wound cultures are growing GNB and group G strep on the left foot ulcer along with Gram-positive cocci on the right ankle. Zosyn and vancomycin continue to be the appropriate approach. Not surprisingly she again asks for increased narcotic as needed treatment which was denied as the cellulitis is improving readily, she has a fentanyl use problem, opioid tolerance, etc. She asked to resume the gabapentin so that was changed from as needed to routinely b.i.d. The hemoglobin is stable at 8.2 with a low iron level as anticipated so an iron infusion will be done. Exam: Alert and oriented x3. Mild distress from burning pain in her infected skin ulcers of the bilateral lower legs and feet. Heart is regular rate and rhythm without murmur. Lungs are clear to auscultation bilaterally. Extremities have 1+ pitting ankle and pedal edema bilaterally. Skin: there is no rash on her upper extremities. The serpiginous very large ulceration involving near circumference of the right lower ankle is yolk spray drier and appears to be retracting from the edges. This appears to be chronic with thin healed skin barriers that are still leaking serous colored fluid. The left ankle has a 2 cm deep ulceration on the lateral aspect with what appears to be visible tendon at the base. The ankle and foot redness has improved substantially. Several areas or draining serous fluid and several areas are oozing blood from picking and irritation self-induced. She has a significant abnormal angulation inward of the left ankle which appears to be permanent and fixed in position post poorly healed fracture. Assessment and plan: Severe skin breakdown ulcerations and cellulitis of both lower extremities. Present on admission, active. -wound care consult requested -vancomycin and Zosyn IV which were well tolerated at her last hospitalization. Her last cultures grew Pseudomonas and Morganella. -06/18 left ankle ulcer wound cultures growing Gram-negative bacilli and group G strep which should be covered well by the Zosyn. -06/18 right ankle wound culture growing Gram-positive cocci x2 which should be covered by the Zosyn for strep and by the vancomycin for staph. -she is intolerant of vancomycin, developing a rash unless it is given under a protocol for a prolonged infusion. -no necrotizing gas appearance or abscess on CT scan of her legs on admission -wrap leg with ABD pad and apply pressure dressing daily. -IV Dilaudid and oxycodone as needed for pain that breaks through the Suboxone. -continue gabapentin and increase to b.i.d. Abdominal CT abnormalities, present on admission. Active. -CT scan with: Ascending colon thickening, enlarged lymph nodes, likely reactive, left renal lesion and choledocholithiasis. -she has no abdominal pain or abdominal complaints today. 1. Short segment wall thickening of the ascending colon concerning for underlying malignancy, recommend colonoscopy for further evaluation. 2. Enlarged lymph nodes within the abdomen, pelvis and inguinal regions which may be reactive given lower extremity infection. Recommend follow-up imaging after treatment to exclude metastatic disease. 3. Subcutaneous stranding within the bilateral flanks extending into the thighs. 4. Indeterminate left lower pole partially exophytic renal lesion measuring approximately 1.4 cm, recommend nonurgent ultrasound or renal protocol MRI or CT for further evaluation. 5. Choledocholithiasis with a prominent but not enlarged common bile duct. Gallbladder is contracted with likely stones inside. No surrounding inflammation. Microcytic anemia, present on admission. Active. -hemoglobin 8.0 on admission, down from 9.6 in September. MCV 67 -Hgb 8.2 on 06/19 -Iron level 28 and transferin 168. Iron infusion on 06/19. -per CT scan she appears to need colonoscopy to rule out ascending colon cancer. Opioid use disorder, present on admission. Chronic. -continue Suboxone b.i.d. -patient admits to regular fentanyl use and recent DMT smoking. The urine drug screen is positive for methamphetamine/amphetamine and benzodiazepine. -the dimethyltryptamine(DMT) likely accounts for the positive benzodiazepine result? DMT classically produces a rapid onset and short lasting hallucinatory episode. History of DVT, present on admission. Chronic. -venous ultrasound today: Partially occlusive thrombus can be seen within the right common femoral vein. -resume apixaban. Severely disfigured left ankle/foot posture -patient has a brace, apparently custom-made, which would not be appropriate to use with these open wounds. DVT prevention with the apixaban Disposition: At her last visit the patient left Against Medical Advice before completing treatment. Medically advised discharge will depend on the culture results and the antibiotic duration based on clinical progression of the ulcerations. Exam Vital Signs (past 8 hours): Oxygen Delivery Method Room Air Oxygen Flow Rate 0 Objective Labs 06/19/25 08:00 06/19/25 08:00 Labs: Laboratory Results - last 24 hr 06/18/25 06/18/25 06/19/25 10:16 23:00 08:00 WBC 11.9 H RBC 3.94 L Hgb 8.2 L Hct 26.5 L MCV 67.2 L MCH 20.7 L MCHC 30.8 RDW 20.2 H Plt Count 452 H Neut % (Auto) Not Reportable Lymph % (Auto) Not Reportable [place] % (Auto) Not Reportable Eos % (Auto) Not Reportable Baso % (Auto) Not Reportable Lymph # (Auto) Not Reportable [place] # (Auto) Not Reportable Baso # (Auto) Not Reportable Total Counted 100 Seg Neutrophils % 71.0 H Band Neutrophils % 1.0 L Lymphocytes % (Manual) 15.0 L Monocytes % (Manual) 11.0 Eosinophils % (Manual) 2.0 Neutrophils # (Manual) 8568 H Platelet Estimate Increased on smear RBC Morphology See below Hypochromasia 2+ H Microcytosis 1+ H Sodium 131 L Potassium 4.6 Chloride 102 Carbon Dioxide 26 BUN 13 Creatinine 0.92 Estimated GFR > 60 BUN/Creatinine Ratio 14.1 Glucose 168 H D Calcium 8.7 Iron 28 L TIBC 324 % Saturation 9 L Transferrin 168 L Vancomycin Trough 16.4 U Opiates 300ng/mL cut Negative Ur Oxycodone Screen Negative Urine Methadone Screen Negative Ur Barbiturates Screen Negative U Tricyclic Antidepress Negative Ur Phencyclidine Scrn Negative Ur Amphetamines Screen Positive H U Methamphetamines Scrn Positive H Ur MDMA Scrn (Ecstasy) Negative U Benzodiazepines Scrn Positive H Urine Cocaine Screen Negative U Marijuana (THC) Screen Negative Urine pH Normal Urine Specific [place] Normal Ur Creatinine Normal [facility] Medical History (Updated 06/18/25 @ 16:59 by Arnie Mehta MD) Encounter for debridement of skin DVT (deep venous thrombosis) Abscess of multiple sites History of necrotizing fasciitis Methamphetamine use disorder, severe Opioid use disorder Social History household members: none Smoking Status: Current every day smoker alcohol intake: current Assessment & Plan Time-Based Coding :: [TOTAL MINUTES] spent with patient and on the chart (including review of chart, obtaining history, exam, reviewing outside data, placing orders, documenting exam and treatment plan, and counseling patient) on [DATE]. Quality VTE Deep Vein Thrombosis/Pulmonary Embolism Present on Admission: No
[2025-06-19] MEDS: GABAPENTIN 300 MG CAPSULE PO ×2 (18:57→20:12)
[2025-06-19 20:00] VITALS: BP 134/80; PULSE 117; RESP 20; TEMP 35.3; O2SAT 95
[2025-06-19] MEDS: ONDANSETRON 4 MG ODT PO (20:13)
[2025-06-19] MEDS: diphenhydrAMINE 25 MG TABLET 50 MG PO (20:13)
[2025-06-19] MEDS: SODIUM CHLORIDE 0.9% FLUSH 10 ML IV (20:14)
--- NOTE | 2025-06-20 01:17 | PC.NURSE ---
plant operator/shift supervisor RN offered patient dressing change for bilateral leg wounds, Patient refused, Patient also refused her suboxone does stating that her prior experience with suboxone and fentanyl was always bad. She likes to wait 2-3 days before going on suboxone after her fentanyl dose. Patient requested gabapentin and RN administered it without realizing that patient had already been administered one during day shift. Dr gaming does state that plan to increase to BID, but RN made a medication error. patient informed and battery charger tester informed this RN of error.
[2025-06-20] MEDS: diphenhydrAMINE 25 MG TABLET 50 MG PO (05:59)
--- NOTE | 2025-06-20 06:49 | PC.NURSE ---
diversity intern patient is agitated and refused lab draws, and refused VS.
[2025-06-20] MEDS: SODIUM FERRIC GLUCONAT/SUCROSE 125 MG in SODIUM CHLORIDE 0.9% 100 ML 110 MG IV (08:26)
[2025-06-20 09:09] LABS: Hematocrit 24.3 % (36-46); Hemoglobin 7.8 g/dL (12.0-16.0); Lymphocytes Absolute Auto 800 /uL (1100-4500); Mean Corpuscular HGB Conc 32.0 % (30-36); Mean Corpuscular Hemoglobin 21.2 PG (26-34); Mean Corpuscular Volume 66.4 fL (80-100); Platelet Count 488 X10^3/uL (150-400)
[2025-06-20 09:11] LABS: Add Manual Diff / Slide Review SLIDE REVIEW
[2025-06-20 09:24] VITALS: PULSE 107; RESP 18; TEMP 36.2; O2SAT 96
[2025-06-20 09:25] LABS: Hypochromasia 2+; Microcytosis 1+
[2025-06-20] MEDS: APIXABAN 5 MG TABLET 10 MG PO ×2 (09:37→20:09)
--- NOTE | 2025-06-20 10:11 | PC.NURSE ---
Addendum entered by Sasha Marquis RN 06/20/25 12:43: Patient yelling in her room after po ativan, iv ativan given, she also had some oral dialaudid that she states did not work. Patient continued to yell out, us guided iv inflitrated with vancomycin. This was stopped and iv pulled. Talked to DR. Ojeda about her pain tolerance and she said to go ahead and give po oxycodone. This has been given and patient is resting more easily. Original Note: Patient is alert and oriented x4, she states that she is getting anxious and she is talking about wanting to go.. Patient given oral ativan. Will reassess a bit later. She has leg wounds on both shins. We are doing daily dressing changes and she does have a wound consult in for wound clinic.
[2025-06-20] MEDS: VANCOMYCIN 1,250 MG/250 ML PIGGYBACK 250 MG IV ×2 (11:21→22:07)
--- NOTE | 2025-06-20 12:47 | PM.PN.1 ---
Subjective Subjective Interval history: 59 yo female w/ prior DVT on apixaban, hx of necrotizing fasciitis, active polysubstance IVDU abuse (methamphetamines and fentanyl), OUD, peripheral neuropathy, HTN, chronic L foot/ankle deformity, admitted 2 days ago w/bilateral cellulitis, foot/ankle ulcerations and fever. Per admission H&P, she had not been taking apixaban for several weeks prior to admission. Patient reports she is doing very poorly today. She states she is in severe pain. She states she is having all-over body spasms. She received IV lorazepam earlier this morning for anxiety which she states did not provide any benefit. She feels if this does not improve, she will likely leave against medical advice. She states she does not want to leave against medical advice, but she feels very restless and has a hard time sitting still. She reports that she feels as though she is in long term. She does not have the TV on and feels that that will not serve as an appropriate distraction for her as she does not watch TV. Exam Vital Signs (past 8 hours): - 06/20/25 09:24 Temperature 97.2 F L Pulse Rate 107 H Respiratory Rate 18 Pulse Oximetry 96 Oxygen Flow Rate 0 Oxygen Delivery Method Room Air Oxygen Flow Rate 0 Narrative Exam Narrative: GEN: Irritable middle-aged female, Alert and oriented x 3 HEENT:NC, Face symmetric CHEST: Respiratory excursions symmetric, CTAB CV: RRR, no M/R/G ABD: Soft, mildly diffusely tender/ND, BT present in all 4 quadrants, body habitus limits exam EXTR: warm, well perfused, left lower extreme Juanis reveals diffuse pink edema extending up to the mid thigh, malodor and large amount of drainage noted on her dressings, when those were unwrapped, there is notable full thick Ms. Ulcerations on her dorsal foot and lateral ankle, significantly malodorous, right leg was not visualized secondary to her pain with unwrapping her left leg, however dressing was noted to be soiled with again a large amount of drainage that appeared serous in nature and malodorous SKIN: warm and dry, no rash NEURO: Alert and oriented x 3, nonfocal Objective Labs 06/20/25 08:45 06/19/25 08:00 Labs: Laboratory Results - last 24 hr 06/20/25 08:45 WBC 8.0 RBC 3.65 L Hgb 7.8 L Hct 24.3 L MCV 66.4 L MCH 21.2 L MCHC 32.0 RDW 19.4 H Plt Count 488 H Neut % (Auto) 78.3 H Lymph % (Auto) 10.5 L [place] % (Auto) 9.1 Eos % (Auto) 1.4 L Baso % (Auto) 0.7 Neut # (Auto) 6200 Lymph # (Auto) 800 L [place] # (Auto) 700 Eos # (Auto) 100 Baso # (Auto) 100 Platelet Estimate Increased on smear RBC Morphology See below Hypochromasia 2+ H Microcytosis 1+ H [facility] Medical History (Updated 06/18/25 @ 16:59 by Arnie Mehta MD) Encounter for debridement of skin DVT (deep venous thrombosis) Abscess of multiple sites History of necrotizing fasciitis Methamphetamine use disorder, severe Opioid use disorder Social History household members: none Smoking Status: Current every day smoker alcohol intake: current Assessment & Plan Assessment & Plan narrative: 1. Bilateral cellulitis and skin ulcerations, polymicrobial Will restart Zosyn given the group B strep and Morganella which grew from cultures taken on June 18. Continue vancomycin as there is also MRSA noted growing from her right leg and staph aureus from the left as well. She would likely benefit from alginate dressings for wound healing and drainage management. However those dressings are not available in the hospital. Wound care will be seeing her tomorrow and can make additional recommendations for ongoing dressing changes. 2. Polysubstance dependence/withdrawal Will hold her buprenorphine as this is likely causing interference with the pain medications. Continue diphenhydramine as needed for anxiety. Will add lorazepam as well. Will increase gabapentin both for her withdrawal symptoms and for her peripheral neuropathy. Ondansetron is available as needed for nausea or vomiting. Acetaminophen has been added for any pain related to withdrawal symptoms. Will withhold clonidine for now pending her response to above, but could add this as well as her blood pressures appear to be stable in the 130s. 3. Acute on chronic pain Will increase hydromorphone from 0.5 mg q.2h as needed for severe pain to 0.5 mg q.2 hours as needed for moderate pain and increase to 1 mg q.2 hours as needed for severe pain. Will also increase oxycodone from 5 mg to 10 mg every 3 hours as needed for pain. As noted above, holding buprenorphine due to the partial antagonism of the pain meds currently being given. Adding acetaminophen scheduled. Increasing gabapentin for neuropathy. 4. History of DVT Continue apixaban at 10 mg twice daily, then resume 5 mg twice daily. 5. Microcytic anemia She received an iron infusion this morning. Serum iron is low at 28, % saturation is low at 9 and transferrin is low at 168. 6. Hyponatremia Mildly low at 131 Code status Full Prophylaxis On apixaban Disposition Home when infection is improved. However, I suspect she will leave Against Medical Advice prior to that Time-Based Coding :: [TOTAL MINUTES] spent with patient and on the chart (including review of chart, obtaining history, exam, reviewing outside data, placing orders, documenting exam and treatment plan, and counseling patient) on [DATE]. Quality VTE Deep Vein Thrombosis/Pulmonary Embolism Present on Admission: No
[2025-06-20] MEDS: PIPERACILLIN/TAZO 4.5 GM in SODIUM CHLORIDE 0.9% 100 ML IV ×2 (13:43→21:45)
[2025-06-20] MEDS: GABAPENTIN 300 MG CAPSULE PO ×2 (13:43→20:08)
[2025-06-20] MEDS: ACETAMINOPHEN 325 MG TABLET 975 MG PO ×2 (15:56→20:09)
--- NOTE | 2025-06-20 18:32 | PC.NURSE ---
Patient refused to let us change her bedding, she does have some old drainage from her wounds on the bottom sheet. We attempted to change her bed many times but she refused. Dressings to both legs changed. Patient has a wound consult, we will then have more appropriate dressing change orders for her after this. She is complaining of pain now, will give patient another 10mg of po percolone. She has been resting comfortably.
[2025-06-20 19:00] VITALS: BP 116/80; PULSE 115; RESP 20; TEMP 35.7; O2SAT 93
[2025-06-20] MEDS: SODIUM CHLORIDE 0.9% FLUSH 10 ML IV (20:09)
[2025-06-21] MEDS: diphenhydrAMINE 50 MG/ML VIAL IV (03:16)
[2025-06-21] MEDS: APIXABAN 5 MG TABLET 10 MG PO (07:37)
[2025-06-21] MEDS: ACETAMINOPHEN 325 MG TABLET 975 MG PO (07:38)
[2025-06-21] MEDS: GABAPENTIN 300 MG CAPSULE PO (07:38)
[2025-06-21] MEDS: PIPERACILLIN/TAZO 4.5 GM in SODIUM CHLORIDE 0.9% 100 ML IV (07:49)
[2025-06-21 09:58] LABS: Add Manual Diff / Slide Review NO; Hematocrit 26.5 % (36-46); Hemoglobin 8.5 g/dL (12.0-16.0); Lymphocytes Absolute Auto 900 /uL (1100-4500); Mean Corpuscular HGB Conc 32.0 % (30-36); Mean Corpuscular Hemoglobin 21.3 PG (26-34); Mean Corpuscular Volume 66.5 fL (80-100); Platelet Count 609 X10^3/uL (150-400)
[2025-06-21 10:15] LABS: Blood Urea Nitrogen 16 mg/dL (7-17); Calcium 9.5 mg/dL (8.4-10.2); Carbon Dioxide 25 mmol/L (22-32); Chloride 105 mmol/L (98-107); Estimated Glomerular Filt Rate > 60 mL/min (>60); Glucose 247 mg/dL (70-99); HEMOLYSIS < 15 (0-50); Potassium 4.7 mmol/L (3.4-5.1); Sodium 138 mmol/L (137-145)
[2025-06-21 10:26] LABS: Anisocytosis 1+; Microcytosis 2+
--- NOTE | 2025-06-21 11:09 | P.PN_ITS ---
Subjective Subjective Date Patient Seen: 06/21/25 Interval history: Chief complaint: Cellulitis and infected ulcers on both legs History of present illness: 59 yo female w/ prior DVT on apixaban, hx of necrotizing fasciitis, active polysubstance IVDU abuse (methamphetamines and fentanyl), OUD, peripheral neuropathy, HTN, chronic L foot/ankle deformity, admitted 2 days ago w/bilateral cellulitis, foot/ankle ulcerations and fever. Per admission H&P, she had not been taking apixaban for several weeks prior to admission. Hospital course: 06/20: Patient reports she is doing very poorly today. She states she is in severe pain. She states she is having all-over body spasms. She received IV lorazepam earlier this morning for anxiety which she states did not provide any benefit. She feels if this does not improve, she will likely leave against medical advice. She states she does not want to leave against medical advice, but she feels very restless and has a hard time sitting still. She reports that she feels as though she is in penitentiary. She does not have the TV on and feels that that will not serve as an appropriate distraction for her as she does not watch TV. 06/21: Patient initially said she want to sign Against Medical Advice that she changed her mind and is staying Review of systems: Patient not willing to do a review of systems Physical exam: General is irritable but alert HEENT: Edentulous no lesions No labored respiration Extremities: warm, well perfused, left lower extremity reveals diffuse pink edema extending up to the mid thigh, malodor and large amount of drainage noted there is notable full thickness Ulcerations on her dorsal foot and lateral ankle, significantly malodorous, right leg multiple ulcerations in various stages of healing with SKIN: warm and dry, no rash otherwise on other parts of the body Assessment and plan: 1. Bilateral cellulitis and skin ulcerations, polymicrobial * Zosyn given the group B strep and Morganella which grew from cultures taken on June 18. * Continue vancomycin as there is also MRSA noted growing from her right leg and staph aureus from the left as well. * Wound care will be seeing her tomorrow and can make additional recommendations for ongoing dressing changes. 2. Polysubstance dependence/withdrawal * Will hold her buprenorphine as this is likely causing interference with the pain medications. Continue diphenhydramine as needed for anxiety. Will add lorazepam as well. Will increase gabapentin both for her withdrawal symptoms and for her peripheral neuropathy. Ondansetron is available as needed for nausea or vomiting. Acetaminophen has been added for any pain related to withdrawal symptoms. Will withhold clonidine for now pending her response to above, but could add this as well as her blood pressures appear to be stable in the 130s. 3. Acute on chronic pain * Yesterday had increase hydromorphone from 0.5 mg q.2h as needed for severe pain to 0.5 mg q.2 hours as needed for moderate pain and increase to 1 mg q.2 hours as needed for severe pain. Will also increase oxycodone from 5 mg to 10 mg every 3 hours as needed for pain. As noted above, holding buprenorphine due to the partial antagonism of the pain meds currently being given. Adding acetaminophen scheduled. Increasing gabapentin for neuropathy. 4. History of DVT * Continue apixaban at 10 mg twice daily, then resume 5 mg twice daily. 5. Microcytic anemia * She received an iron infusion this morning. Serum iron is low at 28, % saturation is low at 9 and transferrin is low at 168. 6. Hyponatremia * Corrected to 138 Code status * Full Code DVT Prophylaxis * On apixaban Disposition * Home when infection is improved. However, I suspect she will leave Against Medical Advice prior to that Time based billing: * 35 minutes spent with patient and on the chart [id number] evaluation physical examination including review of chart, obtaining history, exam, reviewing outside data, placing orders, documenting exam and treatment plan, and counseling patient Exam Vital Signs (past 8 hours): Oxygen Delivery Method Room Air Oxygen Flow Rate 0 Objective Labs 06/21/25 09:50 06/21/25 09:50 Labs: Laboratory Results - last 24 hr 06/21/25 09:50 WBC 9.1 RBC 3.98 L Hgb 8.5 L Hct 26.5 L MCV 66.5 L MCH 21.3 L MCHC 32.0 RDW 19.5 H Plt Count 609 H Neut % (Auto) 82.6 H Lymph % (Auto) 9.4 L [place] % (Auto) 6.2 Eos % (Auto) 1.0 L Baso % (Auto) 0.8 Neut # (Auto) 7500 H Lymph # (Auto) 900 L [place] # (Auto) 600 Eos # (Auto) 100 Baso # (Auto) 100 RBC Morphology See below Anisocytosis 1+ H Microcytosis 2+ H Sodium 138 Potassium 4.7 Chloride 105 Carbon Dioxide 25 BUN 16 Creatinine 0.96 Estimated GFR > 60 BUN/Creatinine Ratio 16.7 Glucose 247 H Calcium 9.5 Vancomycin Trough 19.6 PFSH Medical History (Updated 06/18/25 @ 16:59 by Arnie Mehta MD) Encounter for debridement of skin DVT (deep venous thrombosis) Abscess of multiple sites History of necrotizing fasciitis Methamphetamine use disorder, severe Opioid use disorder Social History household members: none Smoking Status: Current every day smoker alcohol intake: current Assessment & Plan Time-Based Coding :: [TOTAL MINUTES] spent with patient and on the chart (including review of chart, obtaining history, exam, reviewing outside data, placing orders, documenting exam and treatment plan, and counseling patient) on [DATE]. Quality VTE Deep Vein Thrombosis/Pulmonary Embolism Present on Admission: No
--- NOTE | 2025-06-21 11:47 | PC.NURSE ---
Patient left ama.
--- NOTE | 2025-06-21 11:57 | P.DS_ITS ---
History of Present Illness History of Present Illness Date Patient Seen: 06/21/25 Chief complaint: Left leg pain Narrative: You are leaving against medical advice. Our medical advice history remain in the hospital for proper treatment with intravenous antibiotics. There is a small chance that oral antibiotics might improve this condition, but it is not the preferred and not the optimal treatment. The consequence of the treatment is expected as follows: There is evidence deep infection involving the tendons which as a result of your decision to leave against medical advice are expected to cause permanent damage and render you incapable of walking There are findings on CT scan suggestive of possible colon cancer. You have been informed of this and had been given instructions to follow up with colonoscopy. If you do not do this and that this finding is indeed colon cancer, we expect that will spread and kill you. Prognosis is grim because of your decision Chief complaint: Progressive cellulitis and deep infection of both legs 59-year-old female with a history of DVT on Apixaban, necrotizing fasciitis, methamphetamine abuse, neuropathy, HTN, opioid use disorder, disfigured left foot/ankle, IV drug use and multiple skin abscess/cellulitis episodes who presents with bilateral calf, ankle and foot ulcerations/infections. 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 She had also not been taking her apixaban for at least several weeks. The white blood count is 12.7 with a hemoglobin of 8.0 and a glucose of 184. At her last hospitalization in September she left Against Medical Advice. The summary of the issues addressed is pertinent and listed below: Pt was sent from wound care clinic on the date of admission for worsening chronic wounds and cellulitis, impacting the RLE more than the LLE. She was admitted and initiated on IV abx. Pt reported she was sprinkling fentanyl into the ulcers on her right leg for pain control. Wound cultures were taken at the wound care clinic. She had volatile behaviors during her hospital stay with frequent reports she would leave AMA if she didn't get what she wanted (more pain medication, new IV within 20 minutes, for example). She made statements to her RN that she had fentanyl and methamphetamines at home that she could just go home and take which worked better for her pain. Meds were increased on 10/17/24. She developed myoclonic jerking and some somnolence, so increasing her medications beyond that was not felt to be safe even though she continued to complain of uncontrolled pain and stated she had no benefit from the medication adjustment. On 10/18/24, she began having BMs on her bed and floor without requesting assistance to the commode or bathroom first. Due to concerns for pt and staff safety and fall risk within her room, I advised the RN that pt needed to be in a brief even if she didn't want to have one. Shortly thereafter, she elected to leave AMA before she was seen by me on rounds. After extensive discussion with inpatient pharmacy, there was a plan for amoxicillin x 5 days and azithromycin 500 mg daily x 21 days (has evidence of efficacy against fluoroquinolone resistant pseudomonas), as there was no other alternative available. Prescriptions for the PCN and 7 days of the azithromycin were sent to [facility] per pt's request. She was encouraged to f/u with the wound care clinic prior to the abx running out. As noted, pt d/c'd AMA. Exam: Alert and oriented x3. Severe distress from burning pain in her infected skin ulcers of the bilateral lower legs and feet. Pupils are equally round and reactive to light and accommodation. Extraocular muscles are intact. Sclerae are pink and nonicteric. No lymph nodes are felt head, neck, supraclavicular area. There is no thyromegaly. JVD is less than 6 cm. No carotid bruits are heard. Throat looks normal. Heart is regular rate and rhythm without murmur. Lungs are clear to auscultation bilaterally. Abdomen is obese, nontender, no organomegaly, soft, bowel sounds active. Extremities have 2+ pitting ankle and pedal edema bilaterally. Skin there is no rash on her upper extremities. She has a serpiginous very large ulceration involving near circumference of the right lower ankle. This appears to be chronic with thin healed skin barriers that are breaking down and bleeding in several places. The left ankle has a 2 cm deep ulceration on the lateral aspect with what appears to be visible tendon at the base. All of these areas are red and warm to touch. Several areas or draining serous fluid and several areas are oozing blood from picking and irritation self-induced. Neurologic exam: Motor function is 5/5 throughout. Cranial nerves 2-12 test intact. Reflexes are symmetric. There is no tremor. She has a significant abnormal angulation inward of the left ankle which appears to be permanent and fixed in position post poorly healed fracture. Hospital course: 06/20: Patient reports she is doing very poorly today. She states she is in severe pain. She states she is having all-over body spasms. She received IV lorazepam earlier this morning for anxiety which she states did not provide any benefit. She feels if this does not improve, she will likely leave against medical advice. She states she does not want to leave against medical advice, but she feels very restless and has a hard time sitting still. She reports that she feels as though she is in custodial. She does not have the TV on and feels that that will not serve as an appropriate distraction for her as she does not watch TV. 06/21: Patient left medical with against medical advice Review of systems: Patient not willing to do a review of systems Physical exam: General is irritable but alert HEENT: Edentulous no lesions No labored respiration Extremities: warm, well perfused, left lower extremity reveals diffuse pink edema extending up to the mid thigh, malodor and large amount of drainage noted there is notable full thickness Ulcerations on her dorsal foot and lateral ankle, significantly malodorous, right leg multiple ulcerations in various stages of healing with SKIN: warm and dry, no rash otherwise on other parts of the body Assessment and plan: 1. Bilateral cellulitis and skin ulcerations, polymicrobial * Zosyn given the group B strep and Morganella which grew from cultures taken on June 18. * Continue vancomycin as there is also MRSA noted growing from her right leg and staph aureus from the left as well. * Wound care will be seeing her tomorrow and can make additional recommendations for ongoing dressing changes. 2. Polysubstance dependence/withdrawal * Will hold her buprenorphine as this is likely causing interference with the pain medications. Continue diphenhydramine as needed for anxiety. Will add lorazepam as well. Will increase gabapentin both for her withdrawal symptoms and for her peripheral neuropathy. Ondansetron is available as needed for nausea or vomiting. Acetaminophen has been added for any pain related to withdrawal symptoms. Will withhold clonidine for now pending her response to above, but could add this as well as her blood pressures appear to be stable in the 130s. 3. Acute on chronic pain * Yesterday had increase hydromorphone from 0.5 mg q.2h as needed for severe pain to 0.5 mg q.2 hours as needed for moderate pain and increase to 1 mg q.2 hours as needed for severe pain. Will also increase oxycodone from 5 mg to 10 mg every 3 hours as needed for pain. As noted above, holding buprenorphine due to the partial antagonism of the pain meds currently being given. Adding acetaminophen scheduled. Increasing gabapentin for neuropathy. 4. History of DVT * Continue apixaban at 10 mg twice daily, then resume 5 mg twice daily. 5. Microcytic anemia * She received an iron infusion this morning. Serum iron is low at 28, % saturation is low at 9 and transferrin is low at 168. 6. Hyponatremia * Corrected to 138 Code status * Full Code DVT Prophylaxis * On apixaban Disposition Patient left against medical advice Time based billing: * 35 minutes spent with patient and on the chart [id number] evaluation physical examination including review of chart, obtaining history, exam, reviewing outside data, placing orders, documenting exam and treatment plan, and counseling patient Discharge Providers Provider Date of admission: 06/18/25 14:33 Discharge Date: 06/21/25 Primary care physician: Ricardo Crisostomo DO Consults: 06/18/25 16:51 Consult to Wound Care Routine Comment: Consulting Provider: [facility] Discharge provider: Alberto Parker MD Exam Vital Signs (past 8 hours): Oxygen Delivery Method Room Air Oxygen Flow Rate 0 Objective Labs 06/21/25 09:50 06/21/25 09:50 Labs: Laboratory Results - last 24 hr 06/21/25 09:50 WBC 9.1 RBC 3.98 L Hgb 8.5 L Hct 26.5 L MCV 66.5 L MCH 21.3 L MCHC 32.0 RDW 19.5 H Plt Count 609 H Neut % (Auto) 82.6 H Lymph % (Auto) 9.4 L Churchill % (Auto) 6.2 Eos % (Auto) 1.0 L Baso % (Auto) 0.8 Neut # (Auto) 7500 H Lymph # (Auto) 900 L Churchill # (Auto) 600 Eos # (Auto) 100 Baso # (Auto) 100 RBC Morphology See below Anisocytosis 1+ H Microcytosis 2+ H Sodium 138 Potassium 4.7 Chloride 105 Carbon Dioxide 25 BUN 16 Creatinine 0.96 Estimated GFR > 60 BUN/Creatinine Ratio 16.7 Glucose 247 H Calcium 9.5 Vancomycin Trough 19.6 PFSH Medical History (Updated 06/18/25 @ 16:59 by Arnie Mehta MD) Encounter for debridement of skin DVT (deep venous thrombosis) Abscess of multiple sites History of necrotizing fasciitis Methamphetamine use disorder, severe Opioid use disorder Social History household members: none Smoking Status: Current every day smoker alcohol intake: current Discharge Plan Discharge Plan Patient Disposition: Left Against Medical Advice Provider Discharge Comment: You are leaving against medical advice. Our medical advice history remain in the hospital for proper treatment with intravenous antibiotics. There is a small chance that oral antibiotics might improve this condition, but it is not the preferred and not the optimal treatment. The consequence of the treatment is expected as follows: There is evidence deep infection involving the tendons which as a result of your decision to leave against medical advice are expected to cause permanent damage and render you incapable of walking There are findings on CT scan suggestive of possible colon cancer. You have been informed of this and had been given instructions to follow up with colonoscopy. If you do not do this and that this finding is indeed colon cancer, we expect that will spread and kill you. Prognosis is grim because of your decision Discharge orders & Medications Prescriptions: New apixaban 5 mg (74 tabs) tablets,dose pack See Rx Instructions .ROUTE .COMPLEX Qty: 74 0RF Rx Instructions: orally per package directions sulfamethoxazole-trimethoprim [Bactrim DS] 800-160 mg tablet 2 tab PO BID Qty: 60 0RF Continued gabapentin 300 mg capsule 300 mg PO DAILY PRN (Reason: Pain (Scale Score 4-6)) buprenorphine-naloxone [Suboxone] 8-2 mg film 1 film sublingual BID Patient Comments: PLACE 1/2 TO 1 (ONE-HALF TO ONE) STRIP UNDER THE TONGUE TWICE DAILY FOR 28 DAYS trazodone 50 mg tablet 100 mg PO ONCE PM Follow up/Referrals: Ricardo Crisostomo DO [Primary Care Provider, Family Practice] Jaclyn Bustillos MD [Physician, Gastroenterology] Referral Note: You have suspicious finding on CT scan that could be colon cancer. It was suggested she follow up for colonoscopy Visit Report/Discharge Packet Stand Alone Forms: Patient Portal/API, Stroke Signs & Symptoms Discharge Data Primary Care Provider: Ricardo Crisostomo [facility] Deep Vein Thrombosis/Pulmonary Embolism Present on Admission: No
--- NOTE | 2025-06-21 12:11 | CM.DPNOTE ---
DCP Note [employer] reviewed EMR per chart, pt left AMA. was prescribed PO ABX. no further CM needs at this time MIKY Amezcua
== END 2025-06-21 11:56 | disposition left against medical advice (07) | DRG 603 ==
LOC: ED 09:50 → AC 14:34
PROVIDERS: Family Medicine; Admitting Provider Family Medicine; Emergency Provider Emergency Medicine; PCP Neuromusculoskeletal Medicine & OMM; Referring Provider Emergency Medicine; Visit Provider Family Medicine
DX: L03.116 Cellulitis of left lower limb (principal); I82.511 Chronic embolism and thrombosis of right femoral vein; L97.821 Non-pressure chronic ulcer of other part of left lower leg limited to breakdown of skin; L97.321 Non-pressure chronic ulcer of left ankle limited to breakdown of skin; L97.311 Non-pressure chronic ulcer of right ankle limited to breakdown of skin; F11.23 Opioid dependence with withdrawal; F15.23 Other stimulant dependence with withdrawal; E87.1 Hypo-osmolality and hyponatremia; L03.115 Cellulitis of right lower limb; D50.9 Iron deficiency anemia, unspecified; M24.872 Other specific joint derangements of left ankle, not elsewhere classified; F17.200 Nicotine dependence, unspecified, uncomplicated; B95.4 Other streptococcus as the cause of diseases classified elsewhere; R93.5 Abnormal findings on diagnostic imaging of other abdominal regions, including retroperitoneum; B96.89 Other specified bacterial agents as the cause of diseases classified elsewhere; B95.62 Methicillin resistant Staphylococcus aureus infection as the cause of diseases classified elsewhere; F41.9 Anxiety disorder, unspecified; G62.9 Polyneuropathy, unspecified; G89.29 Other chronic pain; Z53.29 Procedure and treatment not carried out because of patient's decision for other reasons; Z79.01 Long term (current) use of anticoagulants
CPT/HCPCS: 36415; 73030; 73701; 74177; 80048; 80053; 80202; 80305; 81001; 81003; 83540; 83550; 83605; 84145; 85007; 85025; 85610; 85730; 87070; 87075; 87077; 87147; 87186; 87205; 93970; 96365; 96375; 96376; 99284; J1171; J1200; J2060; J2405; J2543; J2916; J3375; Q9967